=== PATIENT | female | born 1960 | race Caucasian/White ===

== ENCOUNTER 2021-05-21 13:08 | Inpatient (IN) | payer MEDICARE, MEDICAID, SELFPAY ==
--- NOTE | ~2021-05-21 | CT_ITS ---
EXAMINATION: CT CHEST, ABDOMEN AND PELVIS WITH CONTRAST. CLINICAL INFORMATION: Nausea, vomiting and diarrhea. Shortness of breath. COMPARISON: CT abdomen/pelvis dated from 03/08/2018. TECHNIQUE: Multidetector volumetric imaging was performed from the thoracic inlet through the pubic symphysis following administration of 100 mL Omnipaque 300 intravenous contrast. Sagittal and coronal reformatted images were obtained on the technologist's workstation. This CT examination was performed using dose optimization techniques as appropriate, variously including the following: *Automated exposure control *Adjustment of mA and/or kV according to patient size (this includes techniques or standardized protocols for targeted exams where dose is matched to indication/reason for exam; i.e. extremities or head) *Use of iterative reconstruction technique DLP: 742 mGy-cm FINDINGS: CHEST: Lung: Paraseptal and centrilobular emphysematous changes with peripheral reticulation. There are patchy and dense airspace opacities in the left greater than right lungs, occupying the majority of the left lower lobe, left upper lobe and right middle/lower lobes. The right upper lobe is relatively clear. Evaluation of pulmonary nodules is limited due to overlying airspace opacities. However, accounting for these limitations, some subcentimeter pulmonary nodules are visualized, some of which likely represent areas of bronchial wall thickening and mucus impaction. For instance, a 3 mm right upper lobe pulmonary nodule (178:15), a 2 mm right upper lobe pulmonary nodule (181:15), and a 6 mm pulmonary nodule in the right middle lobe (232:15). Mediastinum: Mild cardiomegaly with trace amount of pericardial fluid. Coronary calcifications and atherosclerotic disease of the thoracic aorta which is of normal diameter. There is mediastinal and hilar lymphadenopathy. For instance, a sales promotion representative precarinal lymph node measuring up to 9 mm in maximum short axis (19:11) and a subcarinal lymph node measuring up to 1.2 cm in short axis (22:11). In the right lobe of the thyroid there is a 1 cm hypoattenuating nodule (1:11). Pericardium/Pleura: Small amount of left-sided pleural fluid. No pneumothorax. Chest Wall/Axilla: No axillary lymphadenopathy. No internal mammary lymphadenopathy. ABDOMEN/PELVIS: Peritoneal Space:No significant free air or free fluid identified. Liver, Gallbladder, Biliary Tree: The attenuation of the liver parenchyma is decreased suggesting hepatic steatosis. There are no focal abnormalities. The gallbladder is surgically absent. The common bile duct measures up to 1 cm which is similar since 2018. No intrahepatic biliary ductal dilatation. Pancreas: Unremarkable. Spleen: Unremarkable. Adrenal Glands: No discrete lesions. Kidneys and Ureters: There is redemonstration of a 1.6 cm calculus in the lower pole the right kidney at approximately 11.7 cm from the skin of the posterior axillary line and measuring greater than 700 Hounsfield units (46:2) this appears unchanged since 2018. No other renal calculi. There is no hydronephrosis or hydroureter. There is no perinephric fat stranding. A few tiny hypodensities in both kidneys are too small to characterize but statistically likely represent simple cysts. Bladder: Suboptimally evaluated due to streak artifacts from plates and screws in the pubic symphysis. Gastrointestinal Tract: There are a few prominent loops of small bowel in the proximal jejunum with air-fluid levels, which could be seen with gastroenteritis in the appropriate clinical setting. There is no significant wall thickening or inflammatory changes. The appendix is unremarkable. No bowel obstruction. No pericolic inflammatory changes. Abdominal Wall: Midline surgical scarring. Postsurgical changes in the lower abdominal wall. Lymphovascular Structures: No lymphadenopathy by size criteria. Extensive atherosclerotic disease of the abdominal aorta and its branches. The abdominal aorta is of normal caliber.. Pelvic Viscera: Limited evaluation due to streak artifacts from a right hip prosthesis and hardware within the pubic symphysis. Osseus Structures: Again noted orthopedic plate and screws at the pubic symphysis and right iliac wing. There are 2 screws crossing through the sacrum horizontally. These are similar since since 2018 without evidence of hardware failure. There is a new superior compression deformity at L1, possibly related with a prominent Schmorl's nodule. Multilevel degenerative changes in the thoracolumbar spine There is partial visualization of a right hip arthroplasty. CT/CT abdomen pelvis wo con IMPRESSION: Multifocal airspace opacities, predominantly involving the left upper and left lower lobes, worrisome for a multifocal pneumonia. There are a few subcentimeter pulmonary nodules which are indeterminate and could be reactive. There is a background of emphysematous changes. Recommend interval imaging to ensure resolution of these abnormalities. Trace amount of pericardial fluid. Hepatic steatosis. Unchanged dilatation of the common bile duct since 2018. Nonobstructive 1.6 cm calculus in the lower pole the right kidney, also stable since 2018. Mildly prominent loops of small bowel in the proximal jejunum with air-fluid levels of uncertain clinical significance in the absence of inflammatory changes. This could be seen with gastroenteritis. No bowel obstruction. New superior concavity at L1, correlate clinically for tenderness/pain at this site. However, this is likely degenerative and related with a prominent Schmorl's nodule. Complex postoperative appearance in the pelvis with hardware across the pubic symphysis, right iliac crest and sacrum. No evidence of hardware failure. Partial visualization of a right hip prosthesis.
--- NOTE | ~2021-05-21 | CT_ITS ---
EXAMINATION: CT SOFT TISSUE NECK WITHOUT CONTRAST CLINICAL INFORMATION: Status post tracheostomy. Pain. COMPARISON: CT chest from 05/21/2021. TECHNIQUE: Multidetector helical imaging was performed in the axial plane without intravenous contrast. Multiple axial reformats and coronal/sagittal reconstructions were created the technologist workstation for review. This CT examination was performed using dose optimization techniques as appropriate, variously including the following: *Automated exposure control. *Adjustment of mA and/or kV according to patient size (this includes techniques or standardized protocols for targeted exams where dose is matched to indication/reason for exam; i.e. extremities or head). *Use of iterative reconstruction technique. DLP: 746 mGy-cm FINDINGS: Changes of prior tracheostomy. No significant cutaneous thickening or subcutaneous inflammation. No discrete fluid collection within the deep tissues of the neck. The premaxillary, retromaxillary, pterygopalatine fossa, orbital apical, parapharyngeal, and prelaryngeal adipose tissue is maintained. Normal appearance of the parotid, submandibular, and thyroid glands. Scattered subcentimeter lymph nodes bilaterally, none of which are pathologically enlarged. No demonstrated focal lesion within the intrinsic tissues of the tongue or floor of mouth. Normal mucosal contours of the pharynx and larynx. Normal appearance of the hyoid bone, thyroid cartilage, or cartilaginous trachea. The airways remains widely patent. No radiopaque foreign bodies. The atlantooccipital and atlantoaxial articulations remain well aligned. Straightening of the normal cervical lordosis. Otherwise, normal anatomic alignment. Moderate degenerative disc disease at C5-C6 with disc-osteophyte complex remission. The vertebral body heights are well-maintained. No evidence of acute fracture or subluxation of the cervical spine. There is no prevertebral soft tissue swelling. The visualized portion of the skull base is without significant abnormalities. Mild mucosal thickening of the paranasal sinuses. Chronic depression of the left lamina papyracea. The mastoid air cells and middle ear cavities are clear. No demonstrated significant periapical odontogenic disease. CT Upper Chest: Extensive underlying centrilobular and paraseptal emphysema. Opacification of the left greater than right visualized lungs, better evaluated on concurrent CT of the chest. Nonspecific 0.8 cm lymph node in the lower right paratracheal station. CT/CT soft tissue neck wo con IMPRESSION: 1. Changes of prior tracheostomy. No demonstrated focal lesion, collection, or lymphadenopathy within the soft tissues of the neck. 2. Mild to moderate degenerative spondyloarthropathy of the cervical spine. 3. Airspace opacities in the left greater than right dependent lungs, better evaluated on concurrent CT of the chest.
--- NOTE | ~2021-05-21 | XR_ITS ---
EXAMINATION: XR CHEST CLINICAL INFORMATION: SOB COMPARISON: Chest 03/02/2018 TECHNIQUE: Frontal view of the chest was obtained. FINDINGS: The lungs are well-expanded with patchy opacity seen in the left lung base likely infiltrate or atelectasis. Bilateral increased perihilar interstitial markings are seen throughout both lungs Heart size and pulmonary vascularity is normal. No gross bony abnormality seen. XR/XR chest 1V IMPRESSION: Increased bilateral interstitial markings in both lungs. There is left lower lobe infiltrate.
--- NOTE | ~2021-05-21 | XR_ITS ---
EXAMINATION: XR CHEST CLINICAL INFORMATION: Hemoptysis COMPARISON: CXR from 05/21/2021 TECHNIQUE: 2 views of the chest were obtained. FINDINGS: The emphysematous lungs are well expanded. The patchy airspace opacities in the right lower lobe observed on chest CT of 05/21/2021 are not well visualized. Persistent airspace opacity in the retrocardiac region of left lower lobe. The overall extent of airspace disease in the left lower lobe is slightly worse compared to 05/21/2021. No pleural effusion or pneumothorax. Cardiac silhouette is normal in size. The hilar contours are normal. There is atherosclerotic calcification of the aortic arch. The visualized bones are intact. XR/XR chest 2V IMPRESSION: * The left lower lobe pneumonia has radiographically worsened compared to 05/21/2021. * No pleural effusion or other significant change.
[2021-05-21 13:32] VITALS: BP 207/79; PULSE 99; RESP 20; TEMP 37.5; O2SAT 95; BMI 26.6
--- NOTE | 2021-05-21 14:19 | ECG_ITS ---
Test Reason : SOB Blood Pressure : / mmHG Vent. Rate : 102 BPM Atrial Rate : 102 BPM P-R Int : 154 ms QRS Dur : 084 ms QT Int : 352 ms P-R-T Axes : 074 052 065 degrees QTc Int : 458 ms Sinus tachycardia Nonspecific ST abnormality Possible Left atrial enlargement When compared with ECG of 08-MAR-2018 18:04, Vent. rate has increased BY 39 BPM Referred By: Viviana Calderón Electronically Signed By:SOLEDAD DODD MD
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
[2021-05-21 15:22] LABS: COVID-19 Test Negative (Negative)
[2021-05-21 15:26] LABS: ABG Base Excess 1.1 mmol/L; ABG HCO3 25 mmol/L (22-26); ABG pCO2 38 mmHg (32-45); ABG pCO2 TC 38 mmHg (32-45); ABG pH 7.42 (7.35-7.45); ABG pH TC 7.42 (7.35-7.45); ABG pO2 66 mmHg (83-108); ABG pO2 TC 66 (83-108)
[2021-05-21 15:28] LABS: ABG Refer to POC result
[2021-05-21] MEDS: cefEPime HCl 1 GM in 0.9 % Sodium Chloride 50 ML IV (15:36)
[2021-05-21] MEDS: HYDROmorphone HCl 0.5 MG/0.5 ML SYRINGE IVPUSH ×2 (15:36→19:31)
[2021-05-21 15:45] VITALS: BP 142/78; PULSE 102; RESP 22; TEMP 37.6; O2SAT 89
[2021-05-21 15:55] LABS: Basophils Percent Auto 0.3 % (0-2); Eosinophils Percent Auto 0.1 % (0-4); Imm Gran Abs Auto 0.09 X10*3/uL (0.00-0.03); Imm Gran Pct Auto 0.6 % (0.0-0.4); Lymphocytes Absolute Auto 0.9 X10*3/uL (1.2-4.9); Lymphocytes Percent Auto 6.1 % (20-40); Mean Corpuscular HGB Conc 34.1 g/dl (31.0-35.0); Mean Corpuscular Hemoglobin 34.2 pg (27.0-33.0); Mean Corpuscular Volume 100.2 fL (80-98); Mean Platelet Volume 10.3 fL (9.4-12.3); Monocytes Absolute Auto 0.7 X10*3/uL (0.1-1.2); Monocytes Percent Auto 4.7 % (2-11); Neutrophils Absolute Auto 12.6 X10*3/uL (2.0-8.3); Neutrophils Percent Auto 88.2 % (45-73); Platelet Count 177 X10*3/uL (160-400); Red Blood Count 4.39 X10*6/uL (4.20-5.50); Red Cell Distribution Width 11.9 % (11.0-16.0); White Blood Count 14.3 X10*3/uL (4.8-10.8)
[2021-05-21 16:06] LABS: Anion Gap 15 (12-20); Blood Urea Nitrogen 14 mg/dL (9-16); Calcium 9.6 mg/dL (8.4-10.2); Carbon Dioxide 24 mmol/L (22-29); Chloride 105 mmol/L (96-108); Creatinine Clr Calc Pharmacy 76.2; Estimated Glomerular Filt Rate > 60; Glucose Random 182 mg/dL (60-115); Potassium 4.3 mmol/L (3.3-5.1); Sodium 140 mmol/L (135-145)
[2021-05-21 16:06] LABS: Lactic Acid 1.8 mmol/L (0.5-2.0)
[2021-05-21 16:14] LABS: B Type Natriuretic Peptide 64 pg/mL (<100); Troponin-I High Sensitivity 9.8 ng/L (<3.5-17.0)
[2021-05-21 18:26] LABS: Appearance Urine HAZY; Color Urine YELLOW; Glucose Urine UA NEG (NEG); Leukocyte Esterase Urine NEG (NEG); Nitrite Urine NEG (NEG); Specific Gravity - Urine >= 1.030 (1.005-1.025); UACC Culture Trigger NO; Urine Blood 1+ (NEG); Urine Ketones NEG (NEG); Urine Protein 2+ MG/DL (NEG-TRACE)
[2021-05-21] MEDS: vancomycin HCL 1,000 MG in 0.9 % Sodium Chloride 250 ML 270 MG IV (18:32)
[2021-05-21 18:34] LABS: Calcium Oxalate Crystals Urine TRACE /LPF; Squamous Epithelial Cell Urine 2+ /LPF
--- NOTE | 2021-05-21 19:03 | PC.NURSE ---
PT AWAITING FOR FURTHER ORDERS. WILL CONTINUE TO MONITOR PT.
[2021-05-21 19:31] VITALS: RESP 18
[2021-05-21] MEDS: Albuterol/Iprat 2.5/0.5MG 3 ML AMPUL.NEB INHALE (20:00)
[2021-05-21 20:01] VITALS: PULSE 96; O2SAT 92
--- NOTE | 2021-05-21 20:07 | PC.NURSE ---
FLOOR UNABLE TO TAKE REPORT, WILL RETURN CALL.
[2021-05-21] MEDS: Piperacillin Sodium/Tazobactam 3.375 GM in 0.9 % Sodium Chloride 50 ML IV (20:37)
[2021-05-21] MEDS: Enoxaparin Sodium 40 MG/0.4 ML SYRINGE SUBCUT (20:37)
[2021-05-21] MEDS: methylPREDNISolone Sod Succ 125 MG/2 ML VIAL 60 MG IVPUSH (20:37)
[2021-05-21 21:02] VITALS: BP 131/67; PULSE 97; RESP 16; TEMP 36.5; O2SAT 95
--- NOTE | 2021-05-21 21:28 | MHC.CM.PN ---
CM met with admitted patient with bed assignment, room 371. Pt A&Ox3. IMM reviewed and signed per protocol 05/21/2021@2019. HCP is on file. HCP Roderick Fowler ([phone]) and alternate is Gricelda Fowler ([phone]). Pt contact is Jessie Reed (sister) [phone]). Pt is fully vaccinated with [employer]. Pt lives alone, uses a cane and has [employer] services through [employer]-41hours/week. Pt feels safe at home. Pt does not feel she will need [facility] services at D/C. D/C plan is home without services. Pt to arrange transportation home. CM to follow for d/c needs.
[2021-05-21 23:41] VITALS: BP 145/91; PULSE 85; RESP 20; TEMP 36; O2SAT 94
[2021-05-22] VITALS (11 sets, daily range): BP systolic 136–176; BP diastolic 63–87; PULSE 76–95; RESP 18–22; TEMP 36–36.7; O2SAT 91–97
[2021-05-22] MEDS: Piperacillin Sodium/Tazobactam 3.375 GM in 0.9 % Sodium Chloride 50 ML IV ×3 (04:48→20:14)
[2021-05-22] MEDS: methylPREDNISolone Sod Succ 125 MG/2 ML VIAL 60 MG IVPUSH ×3 (04:54→20:13)
[2021-05-22 06:56] LABS: Basophils Percent Auto 0.1 % (0-2); Hematocrit 40.9 % (37-47); Imm Gran Pct Auto 0.6 % (0.0-0.4); Lymphocytes Absolute Auto 0.9 X10*3/uL (1.2-4.9); MANUAL DIFF FLAG SCAN; Mean Corpuscular HGB Conc 34.2 g/dl (31.0-35.0); Mean Corpuscular Hemoglobin 34.5 pg (27.0-33.0); Mean Corpuscular Volume 100.7 fL (80-98); Mean Platelet Volume 10.7 fL (9.4-12.3); Monocytes Absolute Auto 0.4 X10*3/uL (0.1-1.2); Monocytes Percent Auto 2.4 % (2-11); Neutrophils Absolute Auto 14.1 X10*3/uL (2.0-8.3); Neutrophils Percent Auto 90.9 % (45-73); Platelet Count 181 X10*3/uL (160-400); Red Blood Count 4.06 X10*6/uL (4.20-5.50); Red Cell Distribution Width 11.9 % (11.0-16.0); SCAN SMEAR FLAG 1; White Blood Count 15.5 X10*3/uL (4.8-10.8)
[2021-05-22 07:20] LABS: Anion Gap 12 (12-20); Blood Urea Nitrogen 13 mg/dL (9-16); Carbon Dioxide 28 mmol/L (22-29); Chloride 103 mmol/L (96-108); Creatinine Clr Calc Pharmacy 79.1; Estimated Glomerular Filt Rate > 60; Glucose Random 203 mg/dL (60-115); Sodium 139 mmol/L (135-145)
[2021-05-22] MEDS: vancomycin HCL 1,000 MG in 0.9 % Sodium Chloride 250 ML 270 MG IV ×2 (07:34→18:48)
[2021-05-22 08:02] LABS: SLIDE REVIEW VERIFIED
[2021-05-22] MEDS: Albuterol/Iprat 2.5/0.5MG 3 ML AMPUL.NEB INHALE ×4 (08:43→20:48)
--- NOTE | 2021-05-22 11:51 | PM.IMHP ---
History of Present Illness Date of Service: 05/21/21 61-year-old female presents with worsening shortness of breath over the past week prior to her admission. 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 Patient carries a history of diabetes type 2 and hypertension which has been well controlled by her account. She states she does not have difficulty breathing usually at home however last week developed low-grade fevers and shortness of breath. In the emergency room CT scan was significant can for multi lobar pneumonia; she had a significant O2 requirement requiring non-rebreather. At this point time she will be admitted for pneumonia and supplemental O2 along with pulmonary toilet Review of Systems Review of Systems: Admits to shortness of breath worse with exertion Denies chest pain States diarrhea x1 week in the absence of nausea and vomit PMFSH Medical History Anxiety Depressed Diabetes HTN (hypertension) Pertinent family history: . Social History Household Members: None Housing: Apartment Alcohol intake: never Patient Tobacco Use Status: Former Tobacco user Use of substances other than those prescribed or required for medical reasons: No Currently Displaying Signs/Symptoms of Drug Intoxication Withdrawal: No Have you been hit, kicked, punched, or otherwise hurt by someone within the past year? If so, by whom?: No Do you feel safe in your current relationship?: No Current Relationship Is there a partner from a previous relationship who is making you feel unsafe now?: No Are you made to feel afraid or neglected: No Advance Directives: Yes Advance Directives Information Provided: Yes Advance Directives on File: No Advance Directives Date on File: 05/21/21 Do you have thoughts of harming others: None Do you have a plan to hurt others: No Plan Recently lost weight without trying: No Nutrition Risks: No Nutritional Risk Patient : No service: No Current occupational status: disabled Meds Allergies Allergy/AdvReac Type Severity Reaction Status Date / Time Iodinated Contrast Media Allergy Unknown UNKNOWN Unverified 04/30/20 14:59 [IV Dye, Iodine Containing] zolpidem [From AMBIEN] Allergy Unknown UNKNOWN Unverified 04/30/20 14:59 iv dye as a baby Allergy Unknown Uncoded 07/24/17 00:00 Active Medications: Current Medications Albuterol/Ipratropium (Albuterol/Iprat 2.5/0.5mg 3 Ml Ampul.Neb) 3 ml INHALE RQ4H WHILE AWAKE [facility] Last Admin: 05/22/21 08:43 Dose: 3 ml Documented by: Enoxaparin Sodium (Enoxaparin Sodium 40 Mg/0.4 Ml Syringe) 40 mg SUBCUT Q24H [facility] Last Admin: 05/21/21 20:37 Dose: 40 mg Documented by: Piperacillin Sod/Tazobactam (Sod 3.375 gm/ Sodium Chloride) 50 mls @ 100 mls/hr IV Q8H [facility] Last Infusion: 05/22/21 05:30 Dose: Infused Documented by: Vancomycin HCl 1,000 mg/ (Sodium Chloride) 270 mls @ 270 mls/hr IV Q12H [facility] Last Infusion: 05/22/21 08:45 Dose: Infused Documented by: Melatonin (Melatonin 3 Mg Tablet) 6 mg PO BEDTIME PRN PRN Reason: Insomnia Methylprednisolone Sodium Succinate (Methylprednisolone Sod Succ 125 Mg/2 Ml Vial) 60 mg IVPUSH Q8H [facility] Last Admin: 05/22/21 04:54 Dose: 60 mg Documented by: Ondansetron HCl (Ondansetron Hcl 4 Mg/2 Ml Vial) 4 mg IVPUSH Q8H PRN PRN Reason: Nausea and Vomiting Pharmacy Consult (Consult Rx Vancomycin Dosing) 1 each MISCELLANE DAILY PRN PRN Reason: Consult order Sodium Chloride (0.9 % Sodium Chloride Flush 3 Ml Syringe) 3 ml IVFLUSH QSHIFT [facility] Last Admin: 05/22/21 07:38 Dose: Not Given Documented by: Physical Exam Vital Signs and Narrative: Vital Signs: Last Vital Signs Temp 97.5 F 05/22/21 07:30 Pulse 95 05/22/21 11:33 Resp 21 H 05/22/21 07:30 BP 161/78 H 05/22/21 07:30 Pulse Ox 93 05/22/21 07:30 Body Mass Index 26.6 Const: Other: Awake alert oriented x3 in no acute distress. She is able to speak in short sentences in a semi-Marino's position HENMT: Other: Oropharynx is clear; membranes are dry Chest: Other: No intercostal or supraclavicular retractions noted Resp: Other: Diminished breath sounds throughout with scattered expiratory wheezes at bases Cardio: Other: No S4; positive S1-S2; no S3 murmurs or gallops GI: Other: Nontender nondistended normoactive bowel sounds. There is no appreciable hepatosplenomegaly Neuro: Other: Age-appropriate; nonfocal Extrem: Other: Bilateral dependent edema noted Results Labs CBC and Chem 7: 05/22/21 06:08 05/22/21 06:08 Labs: Laboratory Results - last 24 hr 05/21/21 05/21/21 05/21/21 14:51 15:00 15:18 MCV MCH MCHC RDW Plt Count MPV Immature Gran % (Auto) Neut % (Auto) Lymph % (Auto) [place] % (Auto) Eos % (Auto) Baso % (Auto) Lymph # (Auto) [place] # (Auto) Eos # (Auto) Baso # (Auto) Abs Immat Gran (auto) Absolute Neuts (auto) Absolute Nucleated RBC Nucleated RBC % (auto) Smear Tech's Comments O2 Saturation 88.0 ABG pH at Pt Temp 7.42 ABG pH (Temp Correct) 7.42 ABG pCO2 at Pt Temp 38 ABG pCO2 (Temp Corrct 38 ABG pO2 at Pt Temp 66 L ABG pO2 (Temp Correct 66 L ABG HCO3 25 ABG Base Excess (Actual) 1.1 Anion Gap Estim Creat Clear Calc Estimated GFR Random Glucose Lactic Acid Calcium Troponin I High Sens B-Natriuretic Peptide Urine Color Urine Appearance Urine pH Ur Specific [place] Urine Protein Urine Glucose (UA) Urine Ketones Urine Blood Urine Nitrite Ur Leukocyte Esterase Urine RBC Urine WBC Ur Squamous Epith Cells Calcium Oxalate Crystal Urine Bacteria Coronavirus (PCR) Cancelled COVID-19 (LEONARDA) Negative COVID-19 Clin Com See Note Influenza Type A (PCR) Cancelled Influenza Type B (PCR) Cancelled RSV RNA Qual (PCR) Cancelled 05/21/21 05/21/21 05/21/21 15:42 15:42 15:43 MCV 100.2 H MCH 34.2 H MCHC 34.1 RDW 11.9 Plt Count 177 MPV 10.3 Immature Gran % (Auto) 0.6 H Neut % (Auto) 88.2 H Lymph % (Auto) 6.1 L [place] % (Auto) 4.7 Eos % (Auto) 0.1 Baso % (Auto) 0.3 Lymph # (Auto) 0.9 L [place] # (Auto) 0.7 Eos # (Auto) 0.0 Baso # (Auto) 0.0 Abs Immat Gran (auto) 0.09 H Absolute Neuts (auto) 12.6 H Absolute Nucleated RBC 0.000 Nucleated RBC % (auto) 0.0 Smear Tech's Comments O2 Saturation ABG pH at Pt Temp ABG pH (Temp Correct) ABG pCO2 at Pt Temp ABG pCO2 (Temp Corrct ABG pO2 at Pt Temp ABG pO2 (Temp Correct ABG HCO3 ABG Base Excess (Actual) Anion Gap 15 Estim Creat Clear Calc 76.2 Estimated GFR > 60 Random Glucose 182 H Lactic Acid Calcium 9.6 Troponin I High Sens 9.8 B-Natriuretic Peptide 64 Urine Color Urine Appearance Urine pH Ur Specific [place] Urine Protein Urine Glucose (UA) Urine Ketones Urine Blood Urine Nitrite Ur Leukocyte Esterase Urine RBC Urine WBC Ur Squamous Epith Cells Calcium Oxalate Crystal Urine Bacteria Coronavirus (PCR) COVID-19 ([facility]ON[facility]DA) COVID-19 Clin Com Influenza Type A (PCR) Influenza Type B (PCR) RSV RNA Qual (PCR) 05/21/21 05/21/21 05/22/21 15:43 18:20 06:08 MCV 100.7 H MCH 34.5 H MCHC 34.2 RDW 11.9 Plt Count 181 MPV 10.7 Immature Gran % (Auto) 0.6 H Neut % (Auto) 90.9 H Lymph % (Auto) 6.0 L [place] % (Auto) 2.4 Eos % (Auto) 0.0 Baso % (Auto) 0.1 Lymph # (Auto) 0.9 L [place] # (Auto) 0.4 Eos # (Auto) 0.0 Baso # (Auto) 0.0 Abs Immat Gran (auto) 0.10 H Absolute Neuts (auto) 14.1 H Absolute Nucleated RBC 0.000 Nucleated RBC % (auto) 0.0 Smear Tech's Comments VERIFIED O2 Saturation ABG pH at Pt Temp ABG pH (Temp Correct) ABG pCO2 at Pt Temp ABG pCO2 (Temp Corrct ABG pO2 at Pt Temp ABG pO2 (Temp Correct ABG HCO3 ABG Base Excess (Actual) Anion Gap Estim Creat Clear Calc Estimated GFR Random Glucose Lactic Acid 1.8 Calcium Troponin I High Sens B-Natriuretic Peptide Urine Color YELLOW Urine Appearance HAZY Urine pH 6.0 Ur Specific [place] >= 1.030 H Urine Protein 2+ H Urine Glucose (UA) NEG Urine Ketones NEG Urine Blood 1+ H Urine Nitrite NEG Ur Leukocyte Esterase NEG Urine RBC 5-9 H Urine WBC 1-4 Ur Squamous Epith Cells 2+ Calcium Oxalate Crystal TRACE Urine Bacteria NONE Coronavirus (PCR) COVID-19 ([facility]ON[facility]DA) COVID-19 Clin Com Influenza Type A (PCR) Influenza Type B (PCR) RSV RNA Qual (PCR) 05/22/21 06:08 MCV MCH MCHC RDW Plt Count MPV Immature Gran % (Auto) Neut % (Auto) Lymph % (Auto) [place] % (Auto) Eos % (Auto) Baso % (Auto) Lymph # (Auto) [place] # (Auto) Eos # (Auto) Baso # (Auto) Abs Immat Gran (auto) Absolute Neuts (auto) Absolute Nucleated RBC Nucleated RBC % (auto) Smear Tech's Comments O2 Saturation ABG pH at Pt Temp ABG pH (Temp Correct) ABG pCO2 at Pt Temp ABG pCO2 (Temp Corrct ABG pO2 at Pt Temp ABG pO2 (Temp Correct ABG HCO3 ABG Base Excess (Actual) Anion Gap 12 Estim Creat Clear Calc 79.1 Estimated GFR > 60 Random Glucose 203 H Lactic Acid Calcium 9.0 D Troponin I High Sens B-Natriuretic Peptide Urine Color Urine Appearance Urine pH Ur Specific [place] Urine Protein Urine Glucose (UA) Urine Ketones Urine Blood Urine Nitrite Ur Leukocyte Esterase Urine RBC Urine WBC Ur Squamous Epith Cells Calcium Oxalate Crystal Urine Bacteria Coronavirus (PCR) COVID-19 ([facility]DA) COVID-19 Clin Com Influenza Type A (PCR) Influenza Type B (PCR) RSV RNA Qual (PCR) Imaging Radiologist's Impressions: Impressions Abdomen/Pelvis CT 05/21/21 14:19 IMPRESSION: Multifocal airspace opacities, predominantly involving the left upper and left lower lobes, worrisome for a multifocal pneumonia. There are a few subcentimeter pulmonary nodules which are indeterminate and could be reactive. There is a background of emphysematous changes. Recommend interval imaging to ensure resolution of these abnormalities. Trace amount of pericardial fluid. Hepatic steatosis. Unchanged dilatation of the common bile duct since 2018. Nonobstructive 1.6 cm calculus in the lower pole the right kidney, also stable since 2018. Mildly prominent loops of small bowel in the proximal jejunum with air-fluid levels of uncertain clinical significance in the absence of inflammatory changes. This could be seen with gastroenteritis. No bowel obstruction. New superior concavity at L1, correlate clinically for tenderness/pain at this site. However, this is likely degenerative and related with a prominent Schmorl's nodule. Complex postoperative appearance in the pelvis with hardware across the pubic symphysis, right iliac crest and sacrum. No evidence of hardware failure. Partial visualization of a right hip prosthesis. Chest CT 05/21/21 14:19 IMPRESSION: Multifocal airspace opacities, predominantly involving the left upper and left lower lobes, worrisome for a multifocal pneumonia. There are a few subcentimeter pulmonary nodules which are indeterminate and could be reactive. There is a background of emphysematous changes. Recommend interval imaging to ensure resolution of these abnormalities. Trace amount of pericardial fluid. Hepatic steatosis. Unchanged dilatation of the common bile duct since 2018. Nonobstructive 1.6 cm calculus in the lower pole the right kidney, also stable since 2018. Mildly prominent loops of small bowel in the proximal jejunum with air-fluid levels of uncertain clinical significance in the absence of inflammatory changes. This could be seen with gastroenteritis. No bowel obstruction. New superior concavity at L1, correlate clinically for tenderness/pain at this site. However, this is likely degenerative and related with a prominent Schmorl's nodule. Complex postoperative appearance in the pelvis with hardware across the pubic symphysis, right iliac crest and sacrum. No evidence of hardware failure. Partial visualization of a right hip prosthesis. Chest X-Ray 05/21/21 14:19 IMPRESSION: Increased bilateral interstitial markings in both lungs. There is left lower lobe infiltrate. Soft Tissue Neck CT 05/21/21 14:19 IMPRESSION: 1. Changes of prior tracheostomy. No demonstrated focal lesion, collection, or lymphadenopathy within the soft tissues of the neck. 2. Mild to moderate degenerative spondyloarthropathy of the cervical spine. 3. Airspace opacities in the left greater than right dependent lungs, better evaluated on concurrent CT of the chest. Assessment and Plan (1) Pneumonia: Qualifiers: Laterality: bilateral Lung location: unspecified part of lung Pneumonia type: due to unspecified organism Qualified Code(s): J18.9 - Pneumonia, unspecified organism Status: Acute (2) HTN (hypertension): Status: Acute (3) DMII (diabetes mellitus, type 2): Status: Acute 61-year-old female presents with worsening shortness of breath over the 1 week prior to admission culminating in inability to walk across room without being markedly short of breath. ER evaluation including CT of the chest consistent with multilobar pneumonia. At this time, given her significant O2 requirement and overall presentation she will be admitted for treatment for the same 1. Multi lobar pneumonia Blood cultures drawn in the ER; pending at this time Will treat with Zosyn/vancomycin; adjust based on forthcoming data Aggressive pulmonary toilet; maintain sats greater than or equal to 92% Pulse dose steroids at this time..... Switch to oral pending response COVID-19 negative 2. Hypertension On no meds at home; will adjust as pressures indication 3 Diabetes type 2 Sliding scale insulin with p.o. sees t.i.d. and a.c. Adjust as indicated 4. Full code 5. DVT prophylaxis: Lovenox Further plans based on clinical response and forthcoming data Quality Stroke Does the patient have a stroke diagnosis?: No VTE Prior VTE?: No VTE Risk Level:: Medical - moderate - high VTE Device Contraindication: Treatment Not Indicated VTE Drug Contraindication: N/A - Med Ordered
--- NOTE | 2021-05-22 12:06 | HO.PM.IMPN ---
Subjective Subjective Date of Service: 05/24/21 Interval History: Improved overnight; O2 now at 4 liters/minute via nasal cannula satting 94%. No acute issues Review of Systems Denies chest pain Shortness of breath improved denies nausea vomiting diarrhea Physical Exam Vital Signs: Vital Signs: Last Vital Signs Temp 98.0 F 05/22/21 11:49 Pulse 84 05/22/21 11:49 Resp 20 05/22/21 11:49 BP 136/63 05/22/21 11:49 Pulse Ox 92 05/22/21 11:49 Body Mass Index 26.6 Const: Other: Awake alert oriented x3 in no acute distress. She is able to speak in short sentences; up in chair HENMT: Other: Oropharynx is clear; membranes are moist Chest: Other: No intercostal or supraclavicular retractions noted Resp: Other: Diminished breath sounds throughout with inceased scattered expiratory wheezes at bases; improved last 24 hours Cardio: Other: No S4; positive S1-S2; no S3 murmurs or gallops GI: Other: Nontender nondistended normoactive bowel sounds. There is no appreciable hepatosplenomegaly Neuro: Other: Age-appropriate; nonfocal Extrem: Other: Bilateral dependent edema noted Objective Data Active Medications Albuterol/Ipratropium (Albuterol/Iprat 2.5/0.5mg 3 Ml Ampul.Neb) 3 ml INHALE RQ4H WHILE AWAKE [facility] Last Admin: 05/22/21 08:43 Dose: 3 ml Documented by: IVONE Enoxaparin Sodium (Enoxaparin Sodium 40 Mg/0.4 Ml Syringe) 40 mg SUBCUT Q24H [facility] Last Admin: 05/21/21 20:37 Dose: 40 mg Documented by: JESUS Piperacillin Sod/Tazobactam (Sod 3.375 gm/ Sodium Chloride) 50 mls @ 100 mls/hr IV Q8H [facility] Last Infusion: 05/22/21 05:30 Dose: 0 mls/hr Documented by: DEMETRIA Vancomycin HCl 1,000 mg/ (Sodium Chloride) 270 mls @ 270 mls/hr IV Q12H [facility] Last Infusion: 05/22/21 08:45 Dose: 0 mls/hr Documented by: CARROL Melatonin (Melatonin 3 Mg Tablet) 6 mg PO BEDTIME PRN PRN Reason: Insomnia Methylprednisolone Sodium Succinate (Methylprednisolone Sod Succ 125 Mg/2 Ml Vial) 60 mg IVPUSH Q8H [facility] Last Admin: 05/22/21 04:54 Dose: 60 mg Documented by: DEMETRIA Ondansetron HCl (Ondansetron Hcl 4 Mg/2 Ml Vial) 4 mg IVPUSH Q8H PRN PRN Reason: Nausea and Vomiting Pharmacy Consult (Consult Rx Vancomycin Dosing) 1 each MISCELLANE DAILY PRN PRN Reason: Consult order Sodium Chloride (0.9 % Sodium Chloride Flush 3 Ml Syringe) 3 ml IVFLUSH QSHIFT [facility] Last Admin: 05/22/21 07:38 Dose: Not Given Documented by: CARROL Non-Admin Reason: IV Running Labs CBC & Chem 7: 05/24/21 05:20 05/24/21 05:20 Labs: Laboratory Results - last 24 hr 05/21/21 05/21/21 05/21/21 14:51 15:00 15:18 MCV MCH MCHC RDW Plt Count MPV Immature Gran % (Auto) Neut % (Auto) Lymph % (Auto) [place] % (Auto) Eos % (Auto) Baso % (Auto) Lymph # (Auto) [place] # (Auto) Eos # (Auto) Baso # (Auto) Abs Immat Gran (auto) Absolute Neuts (auto) Absolute Nucleated RBC Nucleated RBC % (auto) Smear Tech's Comments O2 Saturation 88.0 ABG pH at Pt Temp 7.42 ABG pH (Temp Correct) 7.42 ABG pCO2 at Pt Temp 38 ABG pCO2 (Temp Corrct 38 ABG pO2 at Pt Temp 66 L ABG pO2 (Temp Correct 66 L ABG HCO3 25 ABG Base Excess (Actual) 1.1 Anion Gap Estim Creat Clear Calc Estimated GFR Random Glucose Lactic Acid Calcium Troponin I High Sens B-Natriuretic Peptide Urine Color Urine Appearance Urine pH Ur Specific [place] Urine Protein Urine Glucose (UA) Urine Ketones Urine Blood Urine Nitrite Ur Leukocyte Esterase Urine RBC Urine WBC Ur Squamous Epith Cells Calcium Oxalate Crystal Urine Bacteria Coronavirus (PCR) Cancelled COVID-19 ([facility]) Negative COVID-19 Clin Com See Note Influenza Type A (PCR) Cancelled Influenza Type B (PCR) Cancelled RSV RNA Qual (PCR) Cancelled 05/21/21 05/21/21 05/21/21 15:42 15:42 15:43 MCV 100.2 H MCH 34.2 H MCHC 34.1 RDW 11.9 Plt Count 177 MPV 10.3 Immature Gran % (Auto) 0.6 H Neut % (Auto) 88.2 H Lymph % (Auto) 6.1 L [place] % (Auto) 4.7 Eos % (Auto) 0.1 Baso % (Auto) 0.3 Lymph # (Auto) 0.9 L [place] # (Auto) 0.7 Eos # (Auto) 0.0 Baso # (Auto) 0.0 Abs Immat Gran (auto) 0.09 H Absolute Neuts (auto) 12.6 H Absolute Nucleated RBC 0.000 Nucleated RBC % (auto) 0.0 Smear Tech's Comments O2 Saturation ABG pH at Pt Temp ABG pH (Temp Correct) ABG pCO2 at Pt Temp ABG pCO2 (Temp Corrct ABG pO2 at Pt Temp ABG pO2 (Temp Correct ABG HCO3 ABG Base Excess (Actual) Anion Gap 15 Estim Creat Clear Calc 76.2 Estimated GFR > 60 Random Glucose 182 H Lactic Acid Calcium 9.6 Troponin I High Sens 9.8 B-Natriuretic Peptide 64 Urine Color Urine Appearance Urine pH Ur Specific [place] Urine Protein Urine Glucose (UA) Urine Ketones Urine Blood Urine Nitrite Ur Leukocyte Esterase Urine RBC Urine WBC Ur Squamous Epith Cells Calcium Oxalate Crystal Urine Bacteria Coronavirus (PCR) COVID-19 ([facility]) COVID-19 Clin Com Influenza Type A (PCR) Influenza Type B (PCR) RSV RNA Qual (PCR) 05/21/21 05/21/21 05/22/21 15:43 18:20 06:08 MCV 100.7 H MCH 34.5 H MCHC 34.2 RDW 11.9 Plt Count 181 MPV 10.7 Immature Gran % (Auto) 0.6 H Neut % (Auto) 90.9 H Lymph % (Auto) 6.0 L [place] % (Auto) 2.4 Eos % (Auto) 0.0 Baso % (Auto) 0.1 Lymph # (Auto) 0.9 L [place] # (Auto) 0.4 Eos # (Auto) 0.0 Baso # (Auto) 0.0 Abs Immat Gran (auto) 0.10 H Absolute Neuts (auto) 14.1 H Absolute Nucleated RBC 0.000 Nucleated RBC % (auto) 0.0 Smear Tech's Comments VERIFIED O2 Saturation ABG pH at Pt Temp ABG pH (Temp Correct) ABG pCO2 at Pt Temp ABG pCO2 (Temp Corrct ABG pO2 at Pt Temp ABG pO2 (Temp Correct ABG HCO3 ABG Base Excess (Actual) Anion Gap Estim Creat Clear Calc Estimated GFR Random Glucose Lactic Acid 1.8 Calcium Troponin I High Sens B-Natriuretic Peptide Urine Color YELLOW Urine Appearance HAZY Urine pH 6.0 Ur Specific [place] >= 1.030 H Urine Protein 2+ H Urine Glucose (UA) NEG Urine Ketones NEG Urine Blood 1+ H Urine Nitrite NEG Ur Leukocyte Esterase NEG Urine RBC 5-9 H Urine WBC 1-4 Ur Squamous Epith Cells 2+ Calcium Oxalate Crystal TRACE Urine Bacteria NONE Coronavirus (PCR) COVID-19 ([facility]) COVID-19 Clin Com Influenza Type A (PCR) Influenza Type B (PCR) RSV RNA Qual (PCR) 05/22/21 06:08 MCV MCH MCHC RDW Plt Count MPV Immature Gran % (Auto) Neut % (Auto) Lymph % (Auto) [place] % (Auto) Eos % (Auto) Baso % (Auto) Lymph # (Auto) [place] # (Auto) Eos # (Auto) Baso # (Auto) Abs Immat Gran (auto) Absolute Neuts (auto) Absolute Nucleated RBC Nucleated RBC % (auto) Smear Tech's Comments O2 Saturation ABG pH at Pt Temp ABG pH (Temp Correct) ABG pCO2 at Pt Temp ABG pCO2 (Temp Corrct ABG pO2 at Pt Temp ABG pO2 (Temp Correct ABG HCO3 ABG Base Excess (Actual) Anion Gap 12 Estim Creat Clear Calc 79.1 Estimated GFR > 60 Random Glucose 203 H Lactic Acid Calcium 9.0 D Troponin I High Sens B-Natriuretic Peptide Urine Color Urine Appearance Urine pH Ur Specific [place] Urine Protein Urine Glucose (UA) Urine Ketones Urine Blood Urine Nitrite Ur Leukocyte Esterase Urine RBC Urine WBC Ur Squamous Epith Cells Calcium Oxalate Crystal Urine Bacteria Coronavirus (PCR) COVID-19 ([facility]DA) COVID-19 Clin Com Influenza Type A (PCR) Influenza Type B (PCR) RSV RNA Qual (PCR) Assessment and Plan (1) Pneumonia: Status: Acute (2) HTN (hypertension): Status: Acute (3) DMII (diabetes mellitus, type 2): Status: Acute Assessment and Plan: 61-year-old female presents with worsening shortness of breath over the 1 week prior to admission culminating in inability to walk across room without being markedly short of breath. ER evaluation including CT of the chest consistent with multilobar pneumonia. Slowly improving with decreased O2 requirement 1. Multi lobar pneumonia Improvement noted Continue with Zosyn/vancomycin; Aggressive pulmonary toilet; maintain sats greater than or equal to 92% Pulse dose steroids at this time..... Switch to oral pending response COVID-19 negative 2. Hypertension On no meds at home; will adjust as pressures indication 3 Diabetes type 2 Sliding scale insulin with p.o. sees t.i.d. and a.c. Adjust as indicated 4. Full code 5. DVT prophylaxis: Lovenox Further plans based on clinical response and forthcoming data Quality Stroke Does the patient have a stroke diagnosis?: No VTE Prior VTE?: No VTE Risk Level:: Medical - moderate - high VTE Device Contraindication: Treatment Not Indicated VTE Drug Contraindication: N/A - Med Ordered
[2021-05-22 16:14] LABS: Glucose, Whole Blood 249 mg/dL (60-115)
[2021-05-22] MEDS: 0.9 % Sodium Chloride Flush 3 ML SYRINGE IVFLUSH (16:52)
[2021-05-22] MEDS: Insulin Lispro 100 UNIT/ML 3 ML VIAL SUBCUT ×2 (16:52→21:18)
[2021-05-22] MEDS: Atorvastatin Calcium 20 MG TABLET PO (20:14)
[2021-05-22] MEDS: carvediloL 3.125 MG TABLET PO (20:14)
[2021-05-22] MEDS: Sucralfate 1 GM TABLET PO (20:14)
[2021-05-22] MEDS: Enoxaparin Sodium 40 MG/0.4 ML SYRINGE SUBCUT (20:21)
[2021-05-22] MEDS: Temazepam 15 MG CAPSULE 30 MG PO (20:21)
[2021-05-22 20:41] LABS: Glucose, Whole Blood 229 mg/dL (60-115)
--- NOTE | 2021-05-22 22:13 | P.CNID_ITS ---
History of Present Illness Data of Consult Service Date: 05/22/21 Requesting physician: Ra Perez Primary Care Provider: Meghan Collier NP HPI Reason for consult: pneumonia She lives in community. She had one day discomfort tracheal area and small amounts of hemoptysis. She has increasing shortness of breath and now is on nonrebreather She has diabetes. She has no travel. 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 [facility] Past Medical History Medical History Anxiety Depressed Diabetes HTN (hypertension) Family History Family history: reviewed and not pertinent Social History Social History Household Members: None Housing: Apartment Alcohol intake: never Patient Tobacco Use Status: Former Tobacco user Use of substances other than those prescribed or required for medical reasons: No Currently Displaying Signs/Symptoms of Drug Intoxication Withdrawal: No Have you been hit, kicked, punched, or otherwise hurt by someone within the past year? If so, by whom?: No Do you feel safe in your current relationship?: No Current Relationship Is there a partner from a previous relationship who is making you feel unsafe now?: No Are you made to feel afraid or neglected: No Advance Directives: Yes Advance Directives Information Provided: Yes Advance Directives on File: No Advance Directives Date on File: 05/21/21 Do you have thoughts of harming others: None Do you have a plan to hurt others: No Plan Recently lost weight without trying: No Nutrition Risks: No Nutritional Risk Patient : No service: No Current occupational status: disabled Meds Allergies Allergy/AdvReac Type Severity Reaction Status Date / Time Iodinated Contrast Media Allergy Unknown UNKNOWN Unverified 04/30/20 14:59 [IV Dye, Iodine Containing] zolpidem [From AMBIEN] Allergy Unknown UNKNOWN Unverified 04/30/20 14:59 iv dye as a baby Allergy Unknown Uncoded 07/24/17 00:00 Active Medications: Current Medications Albuterol/Ipratropium (Albuterol/Iprat 2.5/0.5mg 3 Ml Ampul.Neb) 3 ml INHALE RQ4H WHILE AWAKE [facility]EVEN Last Admin: 05/22/21 20:48 Dose: 3 ml Documented by: Aripiprazole (Aripiprazole 5 Mg Tablet) 5 mg PO DAILY [facility] Atorvastatin Calcium (Atorvastatin Calcium 20 Mg Tablet) 20 mg PO BEDTIME [facility] Last Admin: 05/22/21 20:14 Dose: 20 mg Documented by: Bupropion HCl (Bupropion Hcl Xl 150 Mg Tab.Er.24h) 150 mg PO DAILY [facility] Carvedilol (Carvedilol 3.125 Mg Tablet) 3.125 mg PO BID [facility]; Protocol Last Admin: 05/22/21 20:14 Dose: 3.125 mg Documented by: Enoxaparin Sodium (Enoxaparin Sodium 40 Mg/0.4 Ml Syringe) 40 mg SUBCUT Q24H [facility] Last Admin: 05/22/21 20:21 Dose: 40 mg Documented by: Fluticasone/Vilanterol (Fluticasone/Vilanterol 100/25 Blst.W.Dev) 1 puff INHALE DAILY [facility] Piperacillin Sod/Tazobactam (Sod 3.375 gm/ Sodium Chloride) 50 mls @ 100 mls/hr IV Q8H [facility] Last Infusion: 05/22/21 20:54 Dose: Infused Documented by: Vancomycin HCl 1,000 mg/ (Sodium Chloride) 270 mls @ 270 mls/hr IV Q12H [facility] Last Infusion: 05/22/21 20:27 Dose: Infused Documented by: Insulin Human Lispro (Insulin Lispro 100 Unit/Ml 3 Ml Vial) 0 unit SUBCUT QIDACHS [facility]; Protocol Last Admin: 05/22/21 21:18 Dose: 4 unit Documented by: Melatonin (Melatonin 3 Mg Tablet) 6 mg PO BEDTIME PRN PRN Reason: Insomnia Methylprednisolone Sodium Succinate (Methylprednisolone Sod Succ 125 Mg/2 Ml Vial) 60 mg IVPUSH Q8H [facility] Last Admin: 05/22/21 20:13 Dose: 60 mg Documented by: Omeprazole (Omeprazole 20 Mg Capsule.Dr) 20 mg PO DAILY@0630 [facility] Ondansetron HCl (Ondansetron Hcl 4 Mg/2 Ml Vial) 4 mg IVPUSH Q8H PRN PRN Reason: Nausea and Vomiting Pharmacy Consult (Consult Rx Vancomycin Dosing) 1 each MISCELLANE DAILY PRN PRN Reason: Consult order Sertraline HCl (Sertraline Hcl 100 Mg Tablet) 100 mg PO DAILY [facility] Sodium Chloride (0.9 % Sodium Chloride Flush 3 Ml Syringe) 3 ml IVFLUSH QSHIFT [facility] Last Admin: 05/22/21 16:52 Dose: 3 ml Documented by: Sucralfate (Sucralfate 1 Gm Tablet) 1 gm PO BID [facility] Last Admin: 05/22/21 20:14 Dose: 1 gm Documented by: Temazepam (Temazepam 15 Mg Capsule) 30 mg PO BEDTIME PRN PRN Reason: Insomnia Last Admin: 05/22/21 20:21 Dose: 30 mg Documented by: Home Medications Medication Instructions Recorded Confirmed Last Taken Type amoxicillin 875 mg-potassium 1 tab PO BID 05/22/21 05/22/21 Unknown History clavulanate 125 mg tablet anastrozole 1 mg tablet 1 tab PO DAILY 05/22/21 05/22/21 Unknown History aripiprazole 5 mg tablet 1 tab PO DAILY 05/22/21 05/22/21 Unknown History bupropion HCl 150 mg 24 hr tablet, 1 tab PO QAM 05/22/21 05/22/21 Unknown History extended release carvedilol 3.125 mg tablet 1 tab PO BID 05/22/21 05/22/21 Unknown History fluticasone furoate 100 1 puff INHALATION DAILY 05/22/21 05/22/21 Unknown History mcg-vilanterol 25 mcg/dose inhalation powder (Breo Ellipta) fluticasone propionate 50 spray INTRANASAL 05/22/21 Unknown History mcg/actuation nasal spray,suspension gemfibrozil 600 mg tablet 1 tab PO BID 05/22/21 05/22/21 Unknown History lisinopril 10 mg tablet 1 tab PO DAILY 05/22/21 05/22/21 Unknown History metformin 500 mg tablet 1 tab PO DAILY 05/22/21 05/22/21 Unknown History pantoprazole 20 mg tablet,delayed 1 tab PO DAILY 05/22/21 05/22/21 Unknown History release sertraline 100 mg tablet 1 tab PO DAILY 05/22/21 05/22/21 Unknown History simvastatin 40 mg tablet 1 tab PO BEDTIME 05/22/21 05/22/21 Unknown History sucralfate 1 gram tablet 1 tab PO BID 05/22/21 05/22/21 Unknown History temazepam 30 mg capsule 1 cap PO BEDTIME PRN 05/22/21 05/22/21 Unknown History trazodone 150 mg tablet tab PO 05/22/21 Unknown History valacyclovir 500 mg tablet 1 tab PO BID 05/22/21 05/22/21 Unknown History Physical Exam Vital Signs: Vital Signs: Last Vital Signs Temp 97.4 F 05/22/21 15:38 Pulse 85 05/22/21 20:49 Resp 18 05/22/21 20:00 BP 175/79 H 05/22/21 20:14 Pulse Ox 95 05/22/21 20:00 Body Mass Index 26.6 Const: General: cooperative Orientation/consciousness: oriented to person HENMT: Head: Yes normal to inspection Mouth: Normal oral and palatal mucosa present Eyes: General: appearance normal, both eyes and all related structures Resp: Other: rhonchi bases Effort & Inspection: abnormal respiratory pattern Cardio: Rate: regular rate Rhythm: regular rhythm GI: Palpation (GI): Soft to palpation and nontender Skin: General skin exam: no rashes or lesions noted Neuro: General: oriented to person Results Labs CBC & Chem 7: 05/22/21 06:08 05/22/21 06:08 Labs: Short CBC 05/22/21 Range/Units 06:08 WBC 15.5 H (4.8-10.8) X10*3/uL Hgb 14.0 (12.0-16.0) g/dl Hct 40.9 (37-47) % Plt Count 181 (160-400) X10*3/uL BMP 05/22/21 06:08 Sodium 139 Potassium 4.0 Chloride 103 Carbon Dioxide 28 BUN 13 Creatinine 0.82 Calcium 9.0 D Microbiology Microbiology Results: Microbiology 05/21/21 14:51 Blood - Venous Blood Culture - Preliminary No growth after 24 hours. 05/21/21 14:51 Blood - Venous Blood Culture - Preliminary No growth after 24 hours. Assessment and Plan (1) Pneumonia: Qualifiers: Laterality: bilateral Lung location: unspecified part of lung Pneumonia type: due to unspecified organism Qualified Code(s): J18.9 - Pneumonia, unspecified organism Status: Acute She has community acquired pneumonia and diabetes. She has no diagnosis of COPD and no risk of Pseudomonas She is at risk for strep pneumonia,atypicals such as Legionella There is less likely MRSA (2) Hypoxia: Status: Acute Ceftriaxone and Doxycycline Check urine Legionella Check procalcitonin. Would check nares MRSA. Would stop Zosyn and Vancomycin for now.
[2021-05-22] MEDS: cefTRIAXone sodium 1 GM in 0.9 % Sodium Chloride 50 ML IV (22:55)
[2021-05-22 23:29] LABS: Procalcitonin 0.57 ng/mL
[2021-05-23] VITALS (7 sets, daily range): BP systolic 176–190; BP diastolic 80–93; PULSE 69–95; RESP 18–21; TEMP 36.1–36.6; O2SAT 92–99
[2021-05-23] MEDS: methylPREDNISolone Sod Succ 125 MG/2 ML VIAL 60 MG IVPUSH ×3 (05:19→20:55)
[2021-05-23] MEDS: Omeprazole 20 MG CAPSULE.DR PO (05:20)
[2021-05-23 05:57] LABS: MANUAL DIFF FLAG NO
[2021-05-23 06:29] LABS: Basophils Percent Auto 0.1 % (0-2); Hematocrit 40.8 % (37-47); Imm Gran Abs Auto 0.11 X10*3/uL (0.00-0.03); Imm Gran Pct Auto 0.6 % (0.0-0.4); Lymphocytes Absolute Auto 1.2 X10*3/uL (1.2-4.9); Lymphocytes Percent Auto 6.4 % (20-40); Mean Corpuscular HGB Conc 34.3 g/dl (31.0-35.0); Mean Corpuscular Hemoglobin 34.5 pg (27.0-33.0); Mean Corpuscular Volume 100.5 fL (80-98); Mean Platelet Volume 10.8 fL (9.4-12.3); Monocytes Absolute Auto 0.7 X10*3/uL (0.1-1.2); Neutrophils Absolute Auto 15.9 X10*3/uL (2.0-8.3); Neutrophils Percent Auto 88.9 % (45-73); Platelet Count 199 X10*3/uL (160-400); Red Blood Count 4.06 X10*6/uL (4.20-5.50); White Blood Count 17.9 X10*3/uL (4.8-10.8)
[2021-05-23 06:37] LABS: Vancomycin Trough 4.1 mcg/mL (10.0-20.0)
[2021-05-23 06:42] LABS: Alanine Aminotransferase 17 U/L (0-31); Albumin Level 4.2 g/dL (3.5-5.0); Alkaline Phosphatase 68 U/L (39-117); Anion Gap 13 (12-20); Aspartate Amino Transferase 11 U/L (5-31); Bilirubin Total 0.3 mg/dL (0.0-1.0); Blood Urea Nitrogen 20 mg/dL (9-16); Calcium 9.8 mg/dL (8.4-10.2); Carbon Dioxide 28 mmol/L (22-29); Chloride 105 mmol/L (96-108); Estimated Glomerular Filt Rate > 60; Glucose Fasting 223 mg/dL (60-99); Potassium 4.3 mmol/L (3.3-5.1); Sodium 142 mmol/L (135-145); Total Protein 7.2 g/dL (6.5-8.0)
[2021-05-23 07:29] LABS: Glucose, Whole Blood 223 mg/dL (60-115)
[2021-05-23] MEDS: Albuterol/Iprat 2.5/0.5MG 3 ML AMPUL.NEB INHALE ×2 (07:41→15:45)
[2021-05-23] MEDS: Insulin Lispro 100 UNIT/ML 3 ML VIAL SUBCUT ×4 (07:49→20:57)
[2021-05-23] MEDS: buPROPion HCl XL 150 MG TAB.ER.24H PO (07:50)
[2021-05-23] MEDS: carvediloL 3.125 MG TABLET PO ×2 (07:50→20:57)
[2021-05-23] MEDS: Sertraline HCL 100 MG TABLET PO (07:50)
[2021-05-23] MEDS: Sucralfate 1 GM TABLET PO ×2 (07:50→20:57)
[2021-05-23] MEDS: ARIPiprazole 5 MG TABLET PO (07:50)
[2021-05-23] MEDS: 0.9 % Sodium Chloride Flush 3 ML SYRINGE IVFLUSH ×3 (07:50→20:58)
[2021-05-23] MEDS: Fluticasone/Vilanterol 100/25 BLST.W.DEV 1 PUFF INHALE (07:52)
--- NOTE | 2021-05-23 11:36 | HO.PM.IMPN ---
Subjective Subjective Date of Service: 05/23/21 Interval History: Notes minimal improvement overnight; utilizing nebs with improvement. Did not have CPaP overnight. Review of Systems Admits to shortness of breath worse with exertion Denies chest pain States diarrhea x1 week in the absence of nausea and vomit Physical Exam Vital Signs: Vital Signs: Last Vital Signs Temp 97.8 F 05/23/21 07:06 Pulse 94 05/23/21 07:42 Resp 21 H 05/23/21 07:06 BP 180/88 H 05/23/21 07:06 Pulse Ox 92 05/23/21 07:06 Body Mass Index 26.6 Const: Other: Awake alert oriented x3 in no acute distress. She is able to speak in full sentences HENMT: Other: Oropharynx is clear; membranes are moist Chest: Other: No intercostal or supraclavicular retractions noted Resp: Other: Diminished breath sounds throughout with inceased scattered expiratory wheezes at bases Cardio: Other: No S4; positive S1-S2; no S3 murmurs or gallops GI: Other: Nontender nondistended normoactive bowel sounds. There is no appreciable hepatosplenomegaly Neuro: Other: Age-appropriate; nonfocal Extrem: Other: Bilateral dependent edema noted Objective Data Active Medications Albuterol/Ipratropium (Albuterol/Iprat 2.5/0.5mg 3 Ml Ampul.Neb) 3 ml INHALE RQ4H WHILE AWAKE [facility] Last Admin: 05/23/21 11:07 Dose: Not Given Documented by: KIKO Non-Admin Reason: Patient Asleep Aripiprazole (Aripiprazole 5 Mg Tablet) 5 mg PO DAILY [facility] Last Admin: 05/23/21 07:50 Dose: 5 mg Documented by: JENNIFER Atorvastatin Calcium (Atorvastatin Calcium 20 Mg Tablet) 20 mg PO BEDTIME [facility] Last Admin: 05/22/21 20:14 Dose: 20 mg Documented by: DEMETRIA Bupropion HCl (Bupropion Hcl Xl 150 Mg Tab.Er.24h) 150 mg PO DAILY [facility] Last Admin: 05/23/21 07:50 Dose: 150 mg Documented by: JENNIFER Carvedilol (Carvedilol 3.125 Mg Tablet) 3.125 mg PO BID [facility]; Protocol Last Admin: 05/23/21 07:50 Dose: 3.125 mg Documented by: JENNIFER Doxycycline Hyclate (Doxycycline Hyclate 100 Mg Tablet) 100 mg PO Q12H [facility] Last Admin: 05/22/21 22:55 Dose: 100 mg Documented by: DEMETRIA Enoxaparin Sodium (Enoxaparin Sodium 40 Mg/0.4 Ml Syringe) 40 mg SUBCUT Q24H [facility] Last Admin: 05/22/21 20:21 Dose: 40 mg Documented by: DEMETRIA Fluticasone/Vilanterol (Fluticasone/Vilanterol 100/25 Blst.W.Dev) 1 puff INHALE DAILY [facility] Last Admin: 05/23/21 07:52 Dose: 1 puff Documented by: KIKO Ceftriaxone Sodium 1 gm/ (Sodium Chloride) 50 mls @ 100 mls/hr IV Q24H [facility] Last Infusion: 05/22/21 23:44 Dose: 0 mls/hr Documented by: DEMETRIA Insulin Human Lispro (Insulin Lispro 100 Unit/Ml 3 Ml Vial) 0 unit SUBCUT QIDACHS [facility]; Protocol Last Admin: 05/23/21 07:49 Dose: 4 unit Documented by: JENNIFER Melatonin (Melatonin 3 Mg Tablet) 6 mg PO BEDTIME PRN PRN Reason: Insomnia Methylprednisolone Sodium Succinate (Methylprednisolone Sod Succ 125 Mg/2 Ml Vial) 60 mg IVPUSH Q8H [facility] Last Admin: 05/23/21 05:19 Dose: 60 mg Documented by: DEMETRIA Omeprazole (Omeprazole 20 Mg Capsule.Dr) 20 mg PO DAILY@0630 [facility] Last Admin: 05/23/21 05:20 Dose: 20 mg Documented by: DEMETRIA Ondansetron HCl (Ondansetron Hcl 4 Mg/2 Ml Vial) 4 mg IVPUSH Q8H PRN PRN Reason: Nausea and Vomiting Pharmacy Consult (Consult Rx Vancomycin Dosing) 1 each MISCELLANE DAILY PRN PRN Reason: Consult order Sertraline HCl (Sertraline Hcl 100 Mg Tablet) 100 mg PO DAILY [facility] Last Admin: 05/23/21 07:50 Dose: 100 mg Documented by: JENNIFER Sodium Chloride (0.9 % Sodium Chloride Flush 3 Ml Syringe) 3 ml IVFLUSH QSHIFT [facility] Last Admin: 05/23/21 07:50 Dose: 3 ml Documented by: JENNIFER Sucralfate (Sucralfate 1 Gm Tablet) 1 gm PO BID [facility] Last Admin: 05/23/21 07:50 Dose: 1 gm Documented by: JENNIFER Temazepam (Temazepam 15 Mg Capsule) 30 mg PO BEDTIME PRN PRN Reason: Insomnia Last Admin: 05/22/21 20:21 Dose: 30 mg Documented by: DEMETRIA Labs CBC & Chem 7: 05/23/21 05:50 05/23/21 05:50 Labs: Laboratory Results - last 24 hr 05/22/21 05/22/21 05/22/21 16:09 20:29 22:42 MCV MCH MCHC RDW Plt Count MPV Immature Gran % (Auto) Neut % (Auto) Lymph % (Auto) [place] % (Auto) Eos % (Auto) Baso % (Auto) Lymph # (Auto) [place] # (Auto) Eos # (Auto) Baso # (Auto) Abs Immat Gran (auto) Absolute Neuts (auto) Absolute Nucleated RBC Nucleated RBC % (auto) Anion Gap Estim Creat Clear Calc Estimated GFR POC Glucose 249 H 229 H Fasting Glucose Calcium Total Bilirubin AST ALT Alkaline Phosphatase Total Protein Albumin Procalcitonin 0.57 Vancomycin Trough 05/23/21 05/23/21 05/23/21 05:50 05:50 05:50 MCV 100.5 H MCH 34.5 H MCHC 34.3 RDW 12.0 Plt Count 199 MPV 10.8 Immature Gran % (Auto) 0.6 H Neut % (Auto) 88.9 H Lymph % (Auto) 6.4 L [place] % (Auto) 4.0 Eos % (Auto) 0.0 Baso % (Auto) 0.1 Lymph # (Auto) 1.2 [place] # (Auto) 0.7 Eos # (Auto) 0.0 Baso # (Auto) 0.0 Abs Immat Gran (auto) 0.11 H Absolute Neuts (auto) 15.9 H Absolute Nucleated RBC 0.000 Nucleated RBC % (auto) 0.0 Anion Gap 13 Estim Creat Clear Calc 83.0 Estimated GFR > 60 POC Glucose Fasting Glucose 223 H Calcium 9.8 D Total Bilirubin 0.3 AST 11 ALT 17 Alkaline Phosphatase 68 Total Protein 7.2 Albumin 4.2 Procalcitonin Vancomycin Trough 4.1 L 05/23/21 07:08 MCV MCH MCHC RDW Plt Count MPV Immature Gran % (Auto) Neut % (Auto) Lymph % (Auto) [place] % (Auto) Eos % (Auto) Baso % (Auto) Lymph # (Auto) [place] # (Auto) Eos # (Auto) Baso # (Auto) Abs Immat Gran (auto) Absolute Neuts (auto) Absolute Nucleated RBC Nucleated RBC % (auto) Anion Gap Estim Creat Clear Calc Estimated GFR POC Glucose 223 H Fasting Glucose Calcium Total Bilirubin AST ALT Alkaline Phosphatase Total Protein Albumin Procalcitonin Vancomycin Trough Microbiology Microbiology Results: Microbiology 05/21/21 14:51 Blood Culture - Preliminary Blood - Venous No growth after 24 hours. 05/21/21 14:51 Blood Culture - Preliminary Blood - Venous No growth after 24 hours. Assessment and Plan (1) Pneumonia: Status: Acute (2) Hypoxia: Status: Acute (3) DMII (diabetes mellitus, type 2): Status: Acute (4) HTN (hypertension): Status: Acute Assessment and Plan: 61-year-old female presents with worsening shortness of breath over the 1 week prior to admission culminating in inability to walk across room without being markedly short of breath. ER evaluation including CT of the chest consistent with multilobar pneumonia. At this time, given her significant O2 requirement and overall presentation she will be admitted for treatment for the same 1. Multi lobar pneumonia Able speak in full sentences lying supine... Improvement from yesterday Continue with Zosyn/vancomycin; adjust based on forthcoming data Aggressive pulmonary toilet; maintain sats greater than or equal to 92% Pulse dose steroids at this time..... Switch to oral pending response COVID-19 negative. Add CPaP as per home 2. 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 COVID Reg added to regimen. Follow-up clinically 3 Diabetes type 2 Sliding scale insulin with p.o. sees t.i.d. and a.c.; dynamic sugars secondary to steroids Adjust as indicated 4. Full code 5. DVT prophylaxis: Lovenox Further plans based on clinical response and forthcoming data Quality Stroke Does the patient have a stroke diagnosis?: No VTE Prior VTE?: No VTE Risk Level:: Medical - moderate - high VTE Device Contraindication: Treatment Not Indicated VTE Drug Contraindication: N/A - Med Ordered
[2021-05-23 11:38] LABS: Glucose, Whole Blood 272 mg/dL (60-115)
[2021-05-23 16:14] LABS: Glucose, Whole Blood 275 mg/dL (60-115)
[2021-05-23] MEDS: hydrOXYzine HCL 50 MG/ML VIAL 25 MG IM (16:30)
--- NOTE | 2021-05-23 17:02 | MHC.PIE ---
1605 P: Pt pulled oxygen off and stated she was suffocating and wants to go home. Sats on ro om air 87%. Pt crying. I: o2 replaced and sats up to 92-94%. Sat with pt and talked with her to reassure her that oxygen was helping her. Pt beginning to relax bt still unsettled. Dr Perez notified. Orders for one time dose hydroxizine IM placed, pharmacy called and medication administered to pt. 1705 E: Pt states she is feeling better. Sitting in chair watching TV and eating dinner. Will continue to monitor
[2021-05-23 20:19] LABS: Glucose, Whole Blood 295 mg/dL (60-115)
[2021-05-23] MEDS: Enoxaparin Sodium 40 MG/0.4 ML SYRINGE SUBCUT (20:56)
[2021-05-23] MEDS: Atorvastatin Calcium 20 MG TABLET PO (20:57)
[2021-05-23] MEDS: cefTRIAXone sodium 1 GM in 0.9 % Sodium Chloride 50 ML IV (20:58)
[2021-05-23] MEDS: Melatonin 3 MG TABLET 6 MG PO (21:11)
[2021-05-23] MEDS: Temazepam 15 MG CAPSULE 30 MG PO (21:11)
[2021-05-24] VITALS (12 sets, daily range): BP systolic 180–224; BP diastolic 86–108; PULSE 74–90; RESP 16–18; TEMP 36–37.1; O2SAT 91–95
[2021-05-24] MEDS: Omeprazole 20 MG CAPSULE.DR PO (05:11)
[2021-05-24] MEDS: methylPREDNISolone Sod Succ 125 MG/2 ML VIAL 60 MG IVPUSH ×3 (05:11→21:59)
[2021-05-24 05:30] LABS: MANUAL DIFF FLAG NO
[2021-05-24 05:33] LABS: Basophils Percent Auto 0.2 % (0-2); Hematocrit 43.2 % (37-47); Hemoglobin 14.6 g/dl (12.0-16.0); Imm Gran Abs Auto 0.21 X10*3/uL (0.00-0.03); Imm Gran Pct Auto 1.1 % (0.0-0.4); Lymphocytes Absolute Auto 1.6 X10*3/uL (1.2-4.9); Lymphocytes Percent Auto 8.6 % (20-40); Mean Corpuscular HGB Conc 33.8 g/dl (31.0-35.0); Mean Corpuscular Hemoglobin 33.4 pg (27.0-33.0); Mean Corpuscular Volume 98.9 fL (80-98); Mean Platelet Volume 10.3 fL (9.4-12.3); Monocytes Absolute Auto 0.5 X10*3/uL (0.1-1.2); Monocytes Percent Auto 2.9 % (2-11); Neutrophils Absolute Auto 15.9 X10*3/uL (2.0-8.3); Neutrophils Percent Auto 87.2 % (45-73); Platelet Count 247 X10*3/uL (160-400); Red Blood Count 4.37 X10*6/uL (4.20-5.50); Red Cell Distribution Width 11.9 % (11.0-16.0); White Blood Count 18.3 X10*3/uL (4.8-10.8)
[2021-05-24 05:53] LABS: Alanine Aminotransferase 15 U/L (0-31); Albumin Level 4.3 g/dL (3.5-5.0); Anion Gap 13 (12-20); Aspartate Amino Transferase 11 U/L (5-31); Bilirubin Total 0.2 mg/dL (0.0-1.0); Carbon Dioxide 28 mmol/L (22-29); Chloride 102 mmol/L (96-108); Creatinine Clr Calc Pharmacy 117.8; Estimated Glomerular Filt Rate > 60; Glucose Fasting 235 mg/dL (60-99); Potassium 4.2 mmol/L (3.3-5.1); Sodium 139 mmol/L (135-145); Total Protein 7.5 g/dL (6.5-8.0)
[2021-05-24 06:05] LABS: Alkaline Phosphatase 69 U/L (39-117); Blood Urea Nitrogen 28 mg/dL (9-16)
[2021-05-24] MEDS: Albuterol/Iprat 2.5/0.5MG 3 ML AMPUL.NEB INHALE ×4 (07:29→19:17)
[2021-05-24 07:36] LABS: Glucose, Whole Blood 298 mg/dL (60-115)
[2021-05-24] MEDS: Fluticasone/Vilanterol 100/25 BLST.W.DEV 1 PUFF INHALE (07:38)
[2021-05-24] MEDS: Insulin Lispro 100 UNIT/ML 3 ML VIAL SUBCUT ×4 (07:51→22:06)
[2021-05-24] MEDS: Sucralfate 1 GM TABLET PO ×2 (07:52→20:17)
[2021-05-24] MEDS: ARIPiprazole 5 MG TABLET PO (07:52)
[2021-05-24] MEDS: carvediloL 3.125 MG TABLET PO ×2 (07:52→20:17)
[2021-05-24] MEDS: 0.9 % Sodium Chloride Flush 3 ML SYRINGE IVFLUSH ×2 (07:52→16:28)
[2021-05-24] MEDS: Sertraline HCL 100 MG TABLET PO (07:52)
[2021-05-24] MEDS: buPROPion HCl XL 150 MG TAB.ER.24H PO (07:52)
[2021-05-24 11:49] LABS: Glucose, Whole Blood 272 mg/dL (60-115)
[2021-05-24 16:05] LABS: Glucose, Whole Blood 255 mg/dL (60-115)
[2021-05-24] MEDS: Enoxaparin Sodium 40 MG/0.4 ML SYRINGE SUBCUT (20:16)
[2021-05-24] MEDS: Atorvastatin Calcium 20 MG TABLET PO (20:17)
[2021-05-24 20:20] LABS: Glucose, Whole Blood 278 mg/dL (60-115)
[2021-05-24] MEDS: cefTRIAXone sodium 1 GM in 0.9 % Sodium Chloride 50 ML IV (21:57)
[2021-05-24] MEDS: Temazepam 15 MG CAPSULE 30 MG PO (22:03)
[2021-05-24] MEDS: Melatonin 3 MG TABLET 6 MG PO (22:03)
[2021-05-25] VITALS (8 sets, daily range): BP systolic 183–196; BP diastolic 78–98; PULSE 71–83; RESP 17–18; TEMP 36.1–36.6; O2SAT 90–95
[2021-05-25] MEDS: methylPREDNISolone Sod Succ 125 MG/2 ML VIAL 60 MG IVPUSH ×2 (04:45→11:24)
[2021-05-25] MEDS: Omeprazole 20 MG CAPSULE.DR PO (04:46)
[2021-05-25 05:38] LABS: MANUAL DIFF FLAG NO
[2021-05-25 05:44] LABS: Basophils Percent Auto 0.1 % (0-2); Eosinophils Percent Auto 0.1 % (0-4); Hematocrit 43.4 % (37-47); Hemoglobin 14.9 g/dl (12.0-16.0); Imm Gran Abs Auto 0.23 X10*3/uL (0.00-0.03); Imm Gran Pct Auto 1.4 % (0.0-0.4); Lymphocytes Absolute Auto 3.7 X10*3/uL (1.2-4.9); Lymphocytes Percent Auto 21.8 % (20-40); Mean Corpuscular HGB Conc 34.3 g/dl (31.0-35.0); Mean Corpuscular Hemoglobin 33.7 pg (27.0-33.0); Mean Corpuscular Volume 98.2 fL (80-98); Mean Platelet Volume 10.2 fL (9.4-12.3); Monocytes Absolute Auto 1.5 X10*3/uL (0.1-1.2); Monocytes Percent Auto 8.8 % (2-11); Neutrophils Absolute Auto 11.5 X10*3/uL (2.0-8.3); Neutrophils Percent Auto 67.8 % (45-73); Platelet Count 243 X10*3/uL (160-400); Red Blood Count 4.42 X10*6/uL (4.20-5.50); Red Cell Distribution Width 11.7 % (11.0-16.0); White Blood Count 16.9 X10*3/uL (4.8-10.8)
[2021-05-25 06:29] LABS: Alanine Aminotransferase 21 U/L (0-31); Albumin Level 4.1 g/dL (3.5-5.0); Alkaline Phosphatase 65 U/L (39-117); Blood Urea Nitrogen 37 mg/dL (9-16); Glucose Fasting 134 mg/dL (60-99)
[2021-05-25 06:45] LABS: Anion Gap 13 (12-20); Aspartate Amino Transferase 14 U/L (5-31); Bilirubin Total 0.5 mg/dL (0.0-1.0); Calcium 9.7 mg/dL (8.4-10.2); Carbon Dioxide 28 mmol/L (22-29); Chloride 103 mmol/L (96-108); Creatinine Clr Calc Pharmacy 86.4; Estimated Glomerular Filt Rate > 60; Potassium 3.7 mmol/L (3.3-5.1); Sodium 140 mmol/L (135-145)
[2021-05-25 07:29] LABS: Glucose, Whole Blood 209 mg/dL (60-115)
[2021-05-25] MEDS: Fluticasone/Vilanterol 100/25 BLST.W.DEV 1 PUFF INHALE (07:35)
[2021-05-25] MEDS: Albuterol/Iprat 2.5/0.5MG 3 ML AMPUL.NEB INHALE ×3 (07:35→16:08)
[2021-05-25] MEDS: Sertraline HCL 100 MG TABLET PO (08:19)
[2021-05-25] MEDS: carvediloL 3.125 MG TABLET PO ×2 (08:19→16:28)
[2021-05-25] MEDS: buPROPion HCl XL 150 MG TAB.ER.24H PO (08:19)
[2021-05-25] MEDS: 0.9 % Sodium Chloride Flush 3 ML SYRINGE IVFLUSH (08:19)
[2021-05-25] MEDS: Insulin Lispro 100 UNIT/ML 3 ML VIAL SUBCUT ×2 (08:19→11:25)
[2021-05-25] MEDS: Sucralfate 1 GM TABLET PO ×2 (08:19→16:29)
[2021-05-25] MEDS: ARIPiprazole 5 MG TABLET PO (08:19)
--- NOTE | 2021-05-25 10:07 | MHC.CM.PN ---
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 CM ALSO CONTACTED [facility] WHO PROVIDE WEEKLY VNA VISITS FOR SKILLED NSG WERE NOTIFIED WERE CALLED AT 10AM [phone], MESSAGE LEFT W/GILBERTO SANDERS W/[facility] CONTACT INFO. D/C PLAN: HOME TODAY W/RESUMP OF [facility] VNA, EDGING MACHINE SETTER HRS AND O2 24HRS [place]IA [place] DURING DAY AND W/CPAP AT NIGHT, SON FOR TRANSPORT.
[2021-05-25 11:30] LABS: Glucose, Whole Blood 219 mg/dL (60-115)
--- NOTE | 2021-05-25 12:24 | PM.DS ---
DS: Providers Provider Date of Service: 05/25/21 Date of admission: 05/21/21 19:00 Date of discharge: 05/25/21 Primary care physician: Meghan Collier NP Consults: 05/21/21 19:17 Consult to Infectious Diseases Routine Consulting Provider: Sima Maldonado Reason for consultation: Multiplobar pneumonia Has provider been notified: No DS: Diagnosis Discharge Diagnosis (1) Pneumonia: Status: Acute (2) HTN (hypertension): Status: Acute (3) DMII (diabetes mellitus, type 2): Status: Acute DS: Summary Hospital Course Hospital Course: 61-year-old female presents with worsening shortness of breath over the past week prior to her admission.? She carries a remote history of TBI in the late for which she was trached and vented for approximately 3 months.? Patient carries a history of diabetes type 2 and hypertension which has been well controlled by her account.? She states she does not have difficulty breathing usually at home however last week developed low-grade fevers and shortness of breath.? In the emergency room CT scan was significant can for multi lobar pneumonia; she had a significant O2 requirement requiring non-rebreather.? At this point time she will be admitted for pneumonia and supplemental O2 along with pulmonary toilet Hospital course Patient admitted to floor with supplemental high-flow oxygen. Started on IV ceftriaxone and doxycycline. Over the next several days she continue to improve to the point where she has maintained sats of 94% on 2 L nasal cannula. She has a home health aide for 40 hours a week and VNA at this point she is medically stable for discharge Time Spent with Patient Time attestation: Total time spent providing and/or coordinating discharge services: Discharge coordination time: Greater than 30 minutes Quality: Stroke Does the patient have a stroke diagnosis?: No Physical Exam Vital Signs: Vital Signs: Last Vital Signs Temp 97.8 F 05/25/21 11:39 Pulse 72 05/25/21 11:53 Resp 18 05/25/21 11:39 BP 196/90 H 05/25/21 11:39 Pulse Ox 93 05/25/21 11:39 Body Mass Index 26.6 Const: Other: Awake alert oriented x3 in no acute distress. She is able to speak in full sentences;sats 94% on 2 L HENMT: Other: Oropharynx is clear; membranes are moist Chest: Other: No intercostal or supraclavicular retractions noted Resp: Other: Good aeration to bases. Scant expiratory wheezes at the lower lung douglas Cardio: Other: No S4; positive S1-S2; no S3 murmurs or gallops GI: Other: Nontender nondistended normoactive bowel sounds. There is no appreciable hepatosplenomegaly Neuro: Other: Age-appropriate; nonfocal Extrem: Other: Bilateral dependent edema noted DS: Data Data Completed and Pending Labs on day of discharge: Laboratory Results - last 24 hr 05/24/21 05/24/21 05/25/21 15:28 19:36 05:27 WBC 16.9 H RBC 4.42 Hgb 14.9 Hct 43.4 MCV 98.2 H MCH 33.7 H MCHC 34.3 RDW 11.7 Plt Count 243 MPV 10.2 Immature Gran % (Auto) 1.4 H Neut % (Auto) 67.8 Lymph % (Auto) 21.8 [place] % (Auto) 8.8 Eos % (Auto) 0.1 Baso % (Auto) 0.1 Lymph # (Auto) 3.7 [place] # (Auto) 1.5 H Eos # (Auto) 0.0 Baso # (Auto) 0.0 Abs Immat Gran (auto) 0.23 H Absolute Neuts (auto) 11.5 H Absolute Nucleated RBC 0.000 Nucleated RBC % (auto) 0.0 Sodium Potassium Chloride Carbon Dioxide Anion Gap BUN Creatinine Estim Creat Clear Calc Estimated GFR POC Glucose 255 H 278 H Fasting Glucose Calcium Total Bilirubin AST ALT Alkaline Phosphatase Total Protein Albumin 05/25/21 05/25/21 05/25/21 05:27 07:23 11:16 WBC RBC Hgb Hct MCV MCH MCHC RDW Plt Count MPV Immature Gran % (Auto) Neut % (Auto) Lymph % (Auto) [place] % (Auto) Eos % (Auto) Baso % (Auto) Lymph # (Auto) [place] # (Auto) Eos # (Auto) Baso # (Auto) Abs Immat Gran (auto) Absolute Neuts (auto) Absolute Nucleated RBC Nucleated RBC % (auto) Sodium 140 Potassium 3.7 Chloride 103 Carbon Dioxide 28 Anion Gap 13 BUN 37 H Creatinine 0.75 Estim Creat Clear Calc 86.4 Estimated GFR > 60 POC Glucose 209 H 219 H Fasting Glucose 134 H Calcium 9.7 Total Bilirubin 0.5 AST 14 ALT 21 Alkaline Phosphatase 65 Total Protein 7.0 Albumin 4.1 Preliminary micro results at discharge 05/21/21 14:51 Blood Culture - Preliminary Blood - Venous No growth after 48 hours. 05/21/21 14:51 Blood Culture - Preliminary Blood - Venous No growth after 48 hours. Discharge Plan Discharge Patient Disposition: Home Health Service Discharge Diagnosis: Pneumonia Referrals: Meghan Collier QUANTITATIVE ASSOCIATE [Primary Care Provider] - 1 Week Discharge Medications: New doxycycline hyclate 100 mg Tablet 100 mg PO Q12H Qty: 20 RF: 0 prednisone 10 mg tablet See Rx Instructions .Route .COMPLEX Qty: 45 RF: 0 Continued metformin 500 mg tablet 1 tab PO DAILY RF: 0 anastrozole 1 mg tablet 1 tab PO DAILY RF: 0 sucralfate 1 gram tablet 1 tab PO BID RF: 0 sertraline 100 mg tablet 1 tab PO DAILY RF: 0 valacyclovir 500 mg tablet 1 tab PO BID RF: 0 simvastatin 40 mg tablet 1 tab PO BEDTIME RF: 0 carvedilol 3.125 mg tablet 1 tab PO BID RF: 0 pantoprazole 20 mg tablet,delayed release (DR/EC) 1 tab PO DAILY RF: 0 temazepam 30 mg capsule 1 cap PO BEDTIME PRN (Reason: Insomnia) RF: 0 gemfibrozil 600 mg tablet 1 tab PO BID RF: 0 trazodone 150 mg tablet PO RF: 0 lisinopril 10 mg tablet 1 tab PO DAILY RF: 0 fluticasone propionate 50 mcg/actuation spray,suspension intranasal RF: 0 aripiprazole 5 mg tablet 1 tab PO DAILY RF: 0 bupropion HCl 150 mg tablet extended release 24 hr 1 tab PO QAM RF: 0 Breo Ellipta 100-25 mcg/dose blister with device 1 puff inhalation DAILY RF: 0 Discontinued amoxicillin-pot clavulanate 875-125 mg tablet 1 tab PO BID RF: 0 Discharge Orders: Discharge Order (Routine); Ordered 05/25/21 Ordered By: Ra Perez Diet: advance to usual diet Activity on Discharge: As tolerated Stand Alone Forms: Patient Portal Discharge page Care Plan Goals: Maximize respiratory sinus Health Concerns: Tobacco cessation Plan of Treatment: VNA Assessment: Improved
--- NOTE | 2021-05-25 13:11 | MHC.CM.PN ---
PT'S SON KVNG [phone], PLEASE CALL ONCE READY FOR D/C.
--- NOTE | 2021-05-25 16:01 | MHC.CM.PN ---
PT DISCHARGED HOME W/RESUMP OF WEEKLY VNA AT [facility] AND NEW 2L O2 [place] CONTINUOUS, PT'S SON TO TRANSPORT
[2021-05-25] MEDS: Atorvastatin Calcium 20 MG TABLET PO (16:28)
--- NOTE | 2021-05-25 16:41 | W.MHC.F2F ---
Service Date Service Date: 05/25/21 Encounter Date of encounter: 05/25/21 Reasons for Services Reason for usp: CV/CP assess and/or care and other Homebound: Leaving the home is medically contraindicated at this time without the asist of a device and/or another person due th the listed conditions above and below. Homebound supporting statement: 61-year-old female who requires assist with ADL; she is markedly short of breath with minimal exertion and requires increase levels of O2. She is not safe to leave the house at this point due to her respiratory status. Certification: Based on the above findings, I certify that this patient is confined to the home and needs intermittent usp care, physical therapy and/or speech therapy, or continues to need occupational therapy. The patient is under my care, and I have initiated the establishment of the plan of care. The patient will be followed by a physician who will periodically review the plan of care.
[2021-05-26 00:27] LABS: Legionella Ag Urine Not Detected (Not Detected)
== END 2021-05-25 16:46 | disposition home health service (06) | DRG 195 ==
LOC: HO.ED 17:41 → HO.EDOVER 19:20 → HO.S3 19:22
PROVIDERS: Emergency Medicine Emergency Medical Services; Internal Medicine; Admitting Provider Hospitalist; Emergency Provider Emergency Medicine; PCP Nurse Practitioner Family; Visit Provider Hospitalist
DX: J18.9 Pneumonia, unspecified organism (principal); E11.9 Type 2 diabetes mellitus without complications; I10 Essential (primary) hypertension; Z85.3 Personal history of malignant neoplasm of breast; Z87.820 Personal history of traumatic brain injury; Z20.822 Contact with and (suspected) exposure to COVID-19; Z79.51 Long term (current) use of inhaled steroids; Z79.84 Long term (current) use of oral hypoglycemic drugs; Z79.899 Other long term (current) drug therapy
CPT/HCPCS: 36415; 70490; 71045; 71046; 71250; 74176; 80048; 80053; 80202; 81001; 82803; 82947; 83605; 83880; 84145; 84484; 85025; 87040; 87449; 87635; 93005; 96365; 96375; 99285; J0692; J0696; J1170; J1650; J2543; J2930; J3370

== ENCOUNTER 2021-06-11 12:27 | Emergency (ER) | payer MEDICARE, MEDICAID, SELFPAY ==
--- NOTE | ~2021-06-11 | XR_ITS ---
EXAMINATION: XR CHEST CLINICAL INFORMATION: Shortness of breath, recent pneumonia. Follow-up. COMPARISON: Chest radiographs 05/23/2021, 05/21/2021, CT chest noncontrast 05/21/2021. TECHNIQUE: Portable upright AP x2 views of the chest was obtained. FINDINGS: Patchy airspace opacities left lower lobe are decreased from prior exam 05/23/2021 and 05/21/2021. There is no new airspace consolidation or opacities. Heart is within normal size. The vascularity is normal. No pneumothorax or pleural reaction or effusion. The hilar and mediastinal contours are unremarkable. No acute bony abnormality. XR/XR chest 1V IMPRESSION: Left lower lobe airspace opacities decreased from prior study 05/23/2021.
[2021-06-11 12:27] VITALS: BP 160/90; PULSE 90; O2SAT 87
[2021-06-11 12:29] VITALS: BP 156/91; PULSE 84; RESP 18; TEMP 36.8; O2SAT 97; BMI 28.3
--- NOTE | 2021-06-11 12:59 | ECG_ITS ---
Test Reason : DYSPNEA Blood Pressure : / mmHG Vent. Rate : 084 BPM Atrial Rate : 084 BPM P-R Int : 154 ms QRS Dur : 084 ms QT Int : 378 ms P-R-T Axes : 072 061 059 degrees QTc Int : 446 ms Normal sinus rhythm Nonspecific ST abnormality Inferior leads Borderline ECG No significant changes seen Referred By: Orquidea Major Electronically Signed By:SOLEDAD DODD MD
--- NOTE | 2021-06-11 13:03 | ED.GENADULT ---
HPI - General Adult General Chief complaint: Dyspnea Stated complaint: SOB, PNEUMONIA Time Seen by Provider: 06/11/21 12:51 Source: patient and EMS Mode of arrival: EMS Limitations: no limitations History of Present Illness HPI narrative: Patient comes to emergency room complaining of losing her voice over last 2 days. Patient was recently discharged from this facility, diagnosed with pneumonia, treated with doxycycline, finished her antibiotics yesterday. Patient is known to have COPD, uses 2 L nasal cannula at baseline. Patient denies fever or chills. Patient is concerned that she lost her voice. Patient denies vomiting or diarrhea. Related Data Home Medications Medication Instructions Recorded Confirmed anastrozole 1 mg tablet 1 tab PO DAILY 05/22/21 05/22/21 aripiprazole 5 mg tablet 1 tab PO DAILY 05/22/21 05/22/21 bupropion HCl 150 mg 24 hr tablet, 1 tab PO QAM 05/22/21 05/22/21 extended release carvedilol 3.125 mg tablet 1 tab PO BID 05/22/21 05/22/21 fluticasone furoate 100 1 puff INHALATION DAILY 05/22/21 05/22/21 mcg-vilanterol 25 mcg/dose inhalation powder (Breo Ellipta) fluticasone propionate 50 spray INTRANASAL 05/22/21 mcg/actuation nasal spray,suspension gemfibrozil 600 mg tablet 1 tab PO BID 05/22/21 05/22/21 lisinopril 10 mg tablet 1 tab PO DAILY 05/22/21 05/22/21 metformin 500 mg tablet 1 tab PO DAILY 05/22/21 05/22/21 pantoprazole 20 mg tablet,delayed 1 tab PO DAILY 05/22/21 05/22/21 release sertraline 100 mg tablet 1 tab PO DAILY 05/22/21 05/22/21 simvastatin 40 mg tablet 1 tab PO BEDTIME 05/22/21 05/22/21 sucralfate 1 gram tablet 1 tab PO BID 05/22/21 05/22/21 temazepam 30 mg capsule 1 cap PO BEDTIME PRN 05/22/21 05/22/21 trazodone 150 mg tablet tab PO 05/22/21 valacyclovir 500 mg tablet 1 tab PO BID 05/22/21 05/22/21 Previous Rx's Medication Instructions Recorded doxycycline hyclate 100 mg tablet 100 mg PO Q12H #20 tab 05/25/21 prednisone 10 mg tablet See Rx Instructions .ROUTE 05/25/21 .COMPLEX #45 tab levofloxacin 500 mg tablet 500 mg PO DAILY #6 tab 06/11/21 prednisone 50 mg tablet 50 mg PO DAILY #4 tab 06/11/21 Allergies Allergy/AdvReac Type Severity Reaction Status Date / Time Iodinated Contrast Media Allergy Unknown UNKNOWN Unverified 04/30/20 14:59 [IV Dye, Iodine Containing] zolpidem [From AMBIEN] Allergy Unknown UNKNOWN Unverified 04/30/20 14:59 iv dye as a baby Allergy Unknown Uncoded 07/24/17 00:00 Review of Systems Review of Systems: Constitutional : No Weight loss, No Fever, No Chills, No Night Sweats, No Fatigue, No Malaise ENT/Mouth : No Hearing loss, No Ear Pain, No Nasal Congestion, No Sinus Pain, hoarse voice/lost her voice over the last few days, mild sore throat, No Rhinorrhea, No Swallowing Difficulty Eyes: No Eye Pain, No Swelling, No Redness, No Foreign Body, No Discharge, No Vision Changes Cardiovascular : No Chest Pain, No SOB, No Dyspnea on Exertion, No Orthopnea, No Edema, No Palpitations Respiratory : Coughing more than usual,, No Sputum, No Wheezing, No Smoke Exposure, No Dyspnea Gastrointestinal : No Nausea, No Vomiting, No Diarrhea, No Constipation, No abdominal Pain, No Hematochezia, No Melena Genitourinary : no irregular bleeding, No Dysuria, No Urinary Frequency, No Hematuria, No Urinary Incontinence, No Urgency, No Flank Pain, No Urinary Flow Changes, No Hesitancy Musculoskeletal : No joint pain, No Myalgias, No Joint Swelling Skin : No Skin Lesions, No rash Neuro : No Weakness, No Numbness, No Paresthesias, No Loss of Consciousness, No Dizziness, No Headache Psych : No Anxiety/Panic, No Depression, No SI/HI/AH/VH, No Social Issues, Heme/Lymph: No Bruising, No Bleeding,No Lymphadenopathy Endocrine : No Polyuria, No Polydipsia, No Temperature Intolerance [facility] Past Medical History Medical History (Updated 06/11/21 @ 15:14 by Orquidea Major MD) Anxiety COPD (chronic obstructive pulmonary disease) Depressed Diabetes HTN (hypertension) Social History Social History Household Members: None Housing: Apartment Alcohol intake: never Patient Tobacco Use Status: Former Tobacco user Advance Directives: Yes Advance Directives Information Provided: Yes Advance Directives on File: No Advance Directives Date on File: 05/21/21 service: No Current occupational status: disabled Physical Exam Vital Signs: Vital Signs: Last Vital Signs Temp 98.2 F 06/11/21 12:29 Pulse 84 06/11/21 12:29 Resp 18 06/11/21 12:29 BP 156/91 H 06/11/21 12:29 Pulse Ox 97 06/11/21 12:29 Oxygen Flow Rate 3 06/11/21 12:29 Body Mass Index 28.3 Const: Other: Appearance: Alert. Oriented X3. No acute distress. Eyes: Pupils equal, round and reactive to light. ENT: Pharynx normal. Patient has a hoarse voice, no exudates, no abscesses Neck: Normal inspection. Neck supple. No lymph nodes noted. No crepitus CVS: Normal heart rate and rhythm. Pulses normal. Normal S1 and S2 Respiratory: No respiratory distress. Bilateral wheezing, good air movement Abdomen: Soft and nontender. No rigidity. No distention. Skin: Skin warm and dry. Normal skin color. Normal skin turgor. Extremities: No lower extremity edema. No lower extremity edema. No Lacerations. No Rash Neuro: Oriented X 3. No motor deficit. No sensory deficit. Moving all extermities. No slurred speech. Course Course Course Narrative: Patient's labs and chest x-ray look better than prior to discharge. Patient states that she feels better, patient has oxygen at home. Patient likely having laryngitis, patient will follow-up with her primary care physician Medical Decision Making Lab Data Result diagrams: 06/11/21 13:53 06/11/21 13:53 Labs: Lab Results 06/11/21 06/11/21 06/11/21 Range/Units 13:52 13:52 13:53 WBC 8.0 (4.8-10.8) X10*3/uL RBC 3.74 L (4.20-5.50) X10*6/uL Hgb 12.8 (12.0-16.0) g/dl Hct 38.7 (37-47) % MCV 103.5 H (80-98) fL MCH 34.2 H (27.0-33.0) pg MCHC 33.1 (31.0-35.0) g/dl RDW 12.1 (11.0-16.0) % Plt Count 171 D (160-400) X10*3/uL MPV 9.7 (9.4-12.3) fL Immature Gran % (Auto) 0.6 H (0.0-0.4) % Neut % (Auto) 65.6 (45-73) % Lymph % (Auto) 23.8 (20-40) % [place] % (Auto) 7.6 (2-11) % Eos % (Auto) 2.0 (0-4) % Baso % (Auto) 0.4 (0-2) % Lymph # (Auto) 1.9 (1.2-4.9) X10*3/uL [place] # (Auto) 0.6 (0.1-1.2) X10*3/uL Eos # (Auto) 0.2 (0.0-0.4) X10*3/uL Baso # (Auto) 0.0 (0.0-0.2) X10*3/uL Abs Immat Gran (auto) 0.05 H (0.00-0.03) X10*3/uL Absolute Neuts (auto) 5.2 (2.0-8.3) X10*3/uL Absolute Nucleated RBC 0.000 (0.0-0.012) X10*3/uL Nucleated RBC % (auto) 0.0 (0.0-0.2) /100WBC Sodium (135-145) mmol/L Potassium (3.3-5.1) mmol/L Chloride (96-108) mmol/L Carbon Dioxide (22-29) mmol/L Anion Gap (12-20) BUN (9-16) mg/dL Creatinine (0.5-1.4) mg/dL Estim Creat Clear Calc Estimated GFR Random Glucose (60-115) mg/dL Lactic Acid 1.5 (0.5-2.0) mmol/L Calcium (8.4-10.2) mg/dL Total Bilirubin (0.0-1.0) mg/dL Direct Bilirubin (0.0-0.5) mg/dL AST (5-31) U/L ALT (0-31) U/L Alkaline Phosphatase (39-117) U/L B-Natriuretic Peptide 53 (<100) pg/mL Total Protein (6.5-8.0) g/dL Albumin (3.5-5.0) g/dL COVID-19 (LEONARDA) (Negative) COVID-19 Clin Com S. pyogenes GrpA ELAINA (Negative) 06/11/21 06/11/21 06/11/21 Range/Units 13:53 13:54 13:54 WBC (4.8-10.8) X10*3/uL RBC (4.20-5.50) X10*6/uL Hgb (12.0-16.0) g/dl Hct (37-47) % MCV (80-98) fL MCH (27.0-33.0) pg MCHC (31.0-35.0) g/dl RDW (11.0-16.0) % Plt Count (160-400) X10*3/uL MPV (9.4-12.3) fL Immature Gran % (Auto) (0.0-0.4) % Neut % (Auto) (45-73) % Lymph % (Auto) (20-40) % [place] % (Auto) (2-11) % Eos % (Auto) (0-4) % Baso % (Auto) (0-2) % Lymph # (Auto) (1.2-4.9) X10*3/uL [place] # (Auto) (0.1-1.2) X10*3/uL Eos # (Auto) (0.0-0.4) X10*3/uL Baso # (Auto) (0.0-0.2) X10*3/uL Abs Immat Gran (auto) (0.00-0.03) X10*3/uL Absolute Neuts (auto) (2.0-8.3) X10*3/uL Absolute Nucleated RBC (0.0-0.012) X10*3/uL Nucleated RBC % (auto) (0.0-0.2) /100WBC Sodium 138 (135-145) mmol/L Potassium 4.3 (3.3-5.1) mmol/L Chloride 99 (96-108) mmol/L Carbon Dioxide 30 H (22-29) mmol/L Anion Gap 13 (12-20) BUN 9 D (9-16) mg/dL Creatinine 0.89 (0.5-1.4) mg/dL Estim Creat Clear Calc 69.9 Estimated GFR > 60 Random Glucose 286 H (60-115) mg/dL Lactic Acid (0.5-2.0) mmol/L Calcium 9.4 (8.4-10.2) mg/dL Total Bilirubin 0.3 (0.0-1.0) mg/dL Direct Bilirubin 0.2 (0.0-0.5) mg/dL AST 11 (5-31) U/L ALT 15 (0-31) U/L Alkaline Phosphatase 85 D (39-117) U/L B-Natriuretic Peptide (<100) pg/mL Total Protein 6.5 (6.5-8.0) g/dL Albumin 3.8 (3.5-5.0) g/dL COVID-19 (LEONARDA) Negative (Negative) COVID-19 Clin Com See Note S. pyogenes GrpA ELAINA Negative (Negative) Discharge Plan Discharge Clinical Impression: Laryngitis Patient Disposition: Home, Self-Care Instructions: Laryngitis (ED) Additional Instructions: Please follow-up with your primary care physician tomorrow. If you have any worsening or new symptoms, please return to the emergency room or call 911 Prescriptions: New levofloxacin 500 mg tablet 500 mg PO DAILY Qty: 6 RF: 0 prednisone 50 mg tablet 50 mg PO DAILY Qty: 4 RF: 0 No Action metformin 500 mg tablet 1 tab PO DAILY RF: 0 anastrozole 1 mg tablet 1 tab PO DAILY RF: 0 sucralfate 1 gram tablet 1 tab PO BID RF: 0 sertraline 100 mg tablet 1 tab PO DAILY RF: 0 valacyclovir 500 mg tablet 1 tab PO BID RF: 0 simvastatin 40 mg tablet 1 tab PO BEDTIME RF: 0 carvedilol 3.125 mg tablet 1 tab PO BID RF: 0 pantoprazole 20 mg tablet,delayed release (DR/EC) 1 tab PO DAILY RF: 0 temazepam 30 mg capsule 1 cap PO BEDTIME PRN (Reason: Insomnia) RF: 0 gemfibrozil 600 mg tablet 1 tab PO BID RF: 0 trazodone 150 mg tablet PO RF: 0 lisinopril 10 mg tablet 1 tab PO DAILY RF: 0 fluticasone propionate 50 mcg/actuation spray,suspension intranasal RF: 0 aripiprazole 5 mg tablet 1 tab PO DAILY RF: 0 bupropion HCl 150 mg tablet extended release 24 hr 1 tab PO QAM RF: 0 Breo Ellipta 100-25 mcg/dose blister with device 1 puff inhalation DAILY RF: 0 doxycycline hyclate 100 mg Tablet 100 mg PO Q12H Qty: 20 RF: 0 prednisone 10 mg tablet See Rx Instructions .Route .COMPLEX Qty: 45 RF: 0
[2021-06-11] MEDS: Albuterol/Iprat 2.5/0.5MG 3 ML AMPUL.NEB INHALE (13:16)
[2021-06-11 13:58] LABS: MANUAL DIFF FLAG NO
[2021-06-11 14:04] LABS: Basophils Percent Auto 0.4 % (0-2); Eosinophils Absolute Auto 0.2 X10*3/uL (0.0-0.4); Hematocrit 38.7 % (37-47); Hemoglobin 12.8 g/dl (12.0-16.0); Imm Gran Abs Auto 0.05 X10*3/uL (0.00-0.03); Imm Gran Pct Auto 0.6 % (0.0-0.4); Lymphocytes Absolute Auto 1.9 X10*3/uL (1.2-4.9); Lymphocytes Percent Auto 23.8 % (20-40); Mean Corpuscular HGB Conc 33.1 g/dl (31.0-35.0); Mean Corpuscular Hemoglobin 34.2 pg (27.0-33.0); Mean Corpuscular Volume 103.5 fL (80-98); Mean Platelet Volume 9.7 fL (9.4-12.3); Monocytes Absolute Auto 0.6 X10*3/uL (0.1-1.2); Monocytes Percent Auto 7.6 % (2-11); Neutrophils Absolute Auto 5.2 X10*3/uL (2.0-8.3); Neutrophils Percent Auto 65.6 % (45-73); Platelet Count 171 X10*3/uL (160-400); Red Blood Count 3.74 X10*6/uL (4.20-5.50); Red Cell Distribution Width 12.1 % (11.0-16.0)
[2021-06-11 14:12] LABS: IDNOW Serial# 9DD0AD1C; Strep A Nucleic Acid Negative (Negative)
[2021-06-11 14:13] LABS: COVID-19 Test Negative (Negative)
[2021-06-11 14:16] LABS: Lactic Acid 1.5 mmol/L (0.5-2.0)
[2021-06-11 14:21] LABS: Alanine Aminotransferase 15 U/L (0-31); Albumin Level 3.8 g/dL (3.5-5.0); Alkaline Phosphatase 85 U/L (39-117); Anion Gap 13 (12-20); Aspartate Amino Transferase 11 U/L (5-31); Bilirubin Direct 0.2 mg/dL (0.0-0.5); Bilirubin Total 0.3 mg/dL (0.0-1.0); Blood Urea Nitrogen 9 mg/dL (9-16); Calcium 9.4 mg/dL (8.4-10.2); Carbon Dioxide 30 mmol/L (22-29); Chloride 99 mmol/L (96-108); Creatinine Clr Calc Pharmacy 69.9; Estimated Glomerular Filt Rate > 60; Glucose Random 286 mg/dL (60-115); Potassium 4.3 mmol/L (3.3-5.1); Sodium 138 mmol/L (135-145); Total Protein 6.5 g/dL (6.5-8.0)
[2021-06-11 14:27] LABS: B Type Natriuretic Peptide 53 pg/mL (<100)
[2021-06-11] MEDS: predniSONE 10 MG TABLET 50 MG PO (15:29)
[2021-06-11] MEDS: levoFLOXacin 500 MG TABLET PO (15:29)
[2021-06-11 16:15] VITALS: BP 167/93; PULSE 79; RESP 16; TEMP 37; O2SAT 96
== END 2021-06-11 17:49 | disposition home or self-care (01) ==
PROVIDERS: Emergency Provider Emergency Medicine; PCP Nurse Practitioner Family
DX: J04.0 Acute laryngitis (principal); J44.9 Chronic obstructive pulmonary disease, unspecified; I10 Essential (primary) hypertension; E11.9 Type 2 diabetes mellitus without complications; Z99.81 Dependence on supplemental oxygen; Z20.822 Contact with and (suspected) exposure to COVID-19
CPT/HCPCS: 36415; 71045; 80048; 80076; 83605; 83880; 85025; 87040; 87635; 87651; 93005; 94640; 96365; 96367; 96375; 99283; 99284

== ENCOUNTER 2022-07-11 16:14 | Emergency (ER) | payer MEDICARE, MEDICAID, SELFPAY ==
--- NOTE | ~2022-07-11 | XR_ITS ---
EXAMINATION: XR PELVIS CLINICAL INFORMATION: Status post fall COMPARISON: Right hip radiographs 04/26/2016, CT abdomen and pelvis 05/21/2021 TECHNIQUE: AP view of the pelvis. FINDINGS: Status post incompletely imaged right total hip arthroplasty. No acute fracture or dislocation is identified on limited single view obtained. The patient is slightly rotated. Status post malleable plate and screw fixation across the pubic symphysis and right iliac bone. Screw and washer fixation across the upper SI joints. Fixation is intact. Disc degenerative change and facet arthrosis in the lumbar spine noted. Tubal occlusion devices project over the pelvis. XR/XR pelvis 1-2V IMPRESSION: 1. No acute fracture or dislocation identified on this limited single view of the pelvis. 2. Intact appearing fixation of the pelvis. 3. Incompletely imaged right total hip prosthesis.
--- NOTE | ~2022-07-11 | CT_ITS ---
EXAMINATION: NONCONTRAST HEAD CT NONCONTRAST CERVICAL SPINE CT INDICATION INFORMATION: Fall COMPARISON: Head CT 03/08/2018 TECHNIQUE: Separate noncontrast CT examinations of the head and cervical spine were performed. Coronal and sagittal images were created for each examination at the technologist workstation. This CT examination was performed using dose optimization techniques as appropriate, variously including the following: *Automated exposure control *Adjustment of mA and/or kV according to patient size (this includes techniques or standardized protocols for targeted exams where dose is matched to indication/reason for exam; i.e. extremities or head) *Use of iterative reconstruction technique DLP: 1487 mGy-cm FINDINGS: HEAD: No intra or extra-axial fluid collection, hemorrhage, or mass. No ventriculomegaly. No midline shift or herniation. Basal cisterns are patent. [place]-white matter differentiation is maintained. No territorial encephalomalacia. No significant volume loss. Patchy periventricular and deep white matter hypoattenuation is consistent with mild small vessel ischemic changes. No calvarial fracture or soft tissue abnormality. Deformity of the medial orbital wall on the left consistent with prior fracture. The mastoid air cells and visualized portions of the paranasal sinuses are well aerated. CERVICAL SPINE: Exam is limited by motion artifact. A limited repeat was performed. Alignment: Normal. No subluxation. Vertebra: No acute fracture. No prevertebral soft tissue swelling. Degenerative disc disease: Preserved intervertebral disc space heights. Minimal endplate proliferative change at C2-C3 through C5-C6 consistent with mild degenerative disc disease. Other findings: Visualized lung apices grossly clear though assessment is limited by motion. Thyroid gland is unremarkable. Visualized major salivary glands unremarkable. No cervical lymphadenopathy or mass detected. CT/CT cervical spine wo IV con IMPRESSION: 1. No intracranial hemorrhage or calvarial fracture. 2. Somewhat limited assessment of the cervical spine due to motion artifact. No traumatic subluxation or acute cervical spine fracture identified allowing for this limitation.
--- NOTE | ~2022-07-11 | XR_ITS ---
EXAMINATION: XR KNEE, LEFT CLINICAL INFORMATION: Knee pain COMPARISON: None TECHNIQUE: Two views of the left knee. FINDINGS: Bones and soft tissues are unremarkable. No fracture. A trace joint effusion may be present. Alignment is anatomic. Joint spaces are well maintained. Mild vascular calcifications are present. No chondrocalcinosis. XR/XR knee LT 2V IMPRESSION: No evidence of an acute osseous injury. A trace joint effusion may be present.
[2022-07-11 16:27] VITALS: BP 115/90; BP 143/80; PULSE 72; PULSE 82; RESP 20; TEMP 37.2; O2SAT 95; O2SAT 98; BMI 28.3
--- NOTE | 2022-07-11 16:36 | ED.GENADULT ---
HPI - General Adult General Chief complaint: Fall Stated complaint: INCR WEAKNESS X'S 5 DAYS Time Seen by Provider: 07/11/22 16:28 Source: patient Mode of arrival: ambulatory Limitations: no limitations History of Present Illness HPI narrative: Patient history of hypertension , diabetes, COPD ,oxygen dependent 2 L , CVA with left hemiparesis walks with walker been feeling more weak lately for last 1 week had multiple falls says that her left leg feels very weak knees gave out and she falls hit her head couple of times no loss of consciousness not on any blood thinner except aspirin no fever no chills no urinary complaints no back pain complaining of mild pain in right hip area after the fall Related Data Home Medications Medication Instructions Recorded Confirmed anastrozole 1 mg tablet 1 tab PO DAILY 05/22/21 05/22/21 aripiprazole 5 mg tablet 1 tab PO DAILY 05/22/21 05/22/21 bupropion HCl 150 mg 24 hr tablet, 1 tab PO QAM 05/22/21 05/22/21 extended release carvedilol 3.125 mg tablet 1 tab PO BID 05/22/21 05/22/21 fluticasone furoate 100 1 puff inhalation DAILY 05/22/21 05/22/21 mcg-vilanterol 25 mcg/dose inhalation powder (Breo Ellipta) fluticasone propionate 50 spray intranasal 05/22/21 mcg/actuation nasal spray,suspension gemfibrozil 600 mg tablet 1 tab PO BID 05/22/21 05/22/21 lisinopril 10 mg tablet 1 tab PO DAILY 05/22/21 05/22/21 metformin 500 mg tablet 1 tab PO DAILY 05/22/21 05/22/21 pantoprazole 20 mg tablet,delayed 1 tab PO DAILY 05/22/21 05/22/21 release sertraline 100 mg tablet 1 tab PO DAILY 05/22/21 05/22/21 simvastatin 40 mg tablet 1 tab PO BEDTIME 05/22/21 05/22/21 sucralfate 1 gram tablet 1 tab PO BID 05/22/21 05/22/21 temazepam 30 mg capsule 1 cap PO BEDTIME PRN Insomnia 05/22/21 05/22/21 trazodone 150 mg tablet tab PO 05/22/21 valacyclovir 500 mg tablet 1 tab PO BID 05/22/21 05/22/21 Previous Rx's Medication Instructions Recorded doxycycline hyclate 100 mg tablet 100 mg PO Q12H #20 tabs 05/25/21 prednisone 10 mg tablet See Rx Instructions .Route 05/25/21 .COMPLEX #45 tabs levofloxacin 500 mg tablet 500 mg PO DAILY #6 tabs 06/11/21 prednisone 50 mg tablet 50 mg PO DAILY #4 tabs 06/11/21 Allergies Allergy/AdvReac Type Severity Reaction Status Date / Time Iodinated Contrast Media Allergy Unknown UNKNOWN Unverified 04/30/20 14:59 [IV Dye, Iodine Containing] zolpidem [From AMBIEN] Allergy Unknown UNKNOWN Unverified 04/30/20 14:59 iv dye as a baby Allergy Unknown Uncoded 07/24/17 00:00 Review of Systems Review of Systems: Yes all other systems are reviewed and are negative [facility] Past Medical History Medical History Anxiety COPD (chronic obstructive pulmonary disease) Depressed Diabetes HTN (hypertension) Social History Social History Household Members: None Housing: Apartment Alcohol intake: never Patient Tobacco Use Status: Former Tobacco user Smoked in Last 30 Days: No Use of substances other than those prescribed or required for medical reasons: No Advance Directives: No Advance Directives Information Provided: Yes Advance Directives Date on File: 05/21/21 Patient : No service: No Current occupational status: disabled Physical Exam ED Vital Signs: Vital Signs - 24 hr 07/11/22 16:27 07/11/22 16:40 07/11/22 18:30 Temperature 99 F 99 F 98.6 F Pulse Rate 82 79 91 Respiratory Rate 20 20 16 Blood Pressure 143/80 H 156/72 H 99/41 L Pulse Oximetry 95 95 100 Oxygen Delivery Method Nasal Cannula Room Air Room Air Oxygen Flow Rate 07/11/22 20:25 Temperature 99.3 F Pulse Rate 74 Respiratory Rate 20 Blood Pressure 161/72 H Pulse Oximetry 95 Oxygen Delivery Method Nasal Cannula Oxygen Flow Rate 2 BMI result Body Mass Index 28.3 Appearance: Alert. Oriented X3. No acute distress. Eyes: PERRLA, No Nystagmus ENT: Pharynx normal. Oral Mucosa moist Neck: Normal inspection. Neck supple. CVS: Normal heart rate and rhythm. Pulses normal. Respiratory: No respiratory distress. Equal air entry bilateral, no wheezing/rales/rhonchi Abdomen: Soft and nontender. Bowel sounds are present, no mass palpable, no CVA tenderness Skin: Skin warm and dry. Normal skin color. Normal skin turgor. Extremities: No lower extremity edema. No calf tenderness left knee good range of movement nontender no effusion left hip good range of movement no tender right hip also good range of movement slight tenderness on the right greater trochanteric area Neuro: Oriented X 3. Left-sided residual weakness Medical Decision Making MDM Narrative Medical decision making narrative: Patient workup negative for acute pathology for her weakness knees were weak x-ray negative patient was able to ambulate after knee immobilizer was applied to the left knee. Patient advised to follow with orthopedic Lab Data Lab results reviewed: Yes I reviewed the patient's lab results. Result diagrams: 07/11/22 18:21 07/11/22 18:21 Labs: Lab Results 07/11/22 07/11/22 07/11/22 Range/Units 18:21 18:21 18:21 WBC 8.2 (4.8-10.8) X10*3/uL RBC 4.02 L (4.20-5.50) X10*6/uL Hgb 13.2 (12.0-16.0) g/dl Hct 39.6 (37.0-47.0) % MCV 98.5 H (80.0-98.0) fL MCH 32.8 (27.0-33.0) pg MCHC 33.3 (31.0-35.0) g/dl RDW 12.7 (11.0-16.0) % Plt Count 195 (160-400) X10*3/uL MPV 10.2 (9.4-12.3) fL Immature Gran % (Auto) 0.5 H (0.0-0.4) % Neut % (Auto) 57.6 (45-73) % Lymph % (Auto) 27.7 (20-40) % [place] % (Auto) 9.8 (2-11) % Eos % (Auto) 3.8 (0-4) % Baso % (Auto) 0.6 (0-2) % Lymph # (Auto) 2.3 (1.2-4.9) X10*3/uL [place] # (Auto) 0.8 (0.1-1.2) X10*3/uL Eos # (Auto) 0.3 (0.0-0.4) X10*3/uL Baso # (Auto) 0.1 (0.0-0.2) X10*3/uL Abs Immat Gran (auto) 0.04 H (0.00-0.03) X10*3/uL Absolute Neuts (auto) 4.8 (2.0-8.3) x10*3/uL Absolute Nucleated RBC 0.000 (0.0-0.012) X10*3/uL Nucleated RBC % (auto) 0.0 (0.0-0.2) /100WBC Sodium 144 (135-145) mmol/L Potassium 4.5 (3.3-5.1) mmol/L Chloride 103 (96-108) mmol/L Carbon Dioxide 28 (22-29) mmol/L Anion Gap 18 (12-20) BUN 17 H (9-16) mg/dL Creatinine 0.99 (0.5-1.4) mg/dL Estim Creat Clear Calc 62.1 Estimated GFR 57 POC Glucose (60-115) mg/dL Random Glucose 163 H (60-115) mg/dL Calcium 10.0 D (8.4-10.2) mg/dL Total Bilirubin 0.2 (0.0-1.0) mg/dL AST 25 D (5-31) U/L ALT 18 (0-31) U/L Alkaline Phosphatase 84 (39-117) U/L Total Protein 7.6 (6.5-8.0) g/dL Albumin 4.4 (3.5-5.0) g/dL COVID-19 (LEONARDA) Negative (Negative) COVID-19 Clin Com See Note 07/11/22 Range/Units 18:56 WBC (4.8-10.8) X10*3/uL RBC (4.20-5.50) X10*6/uL Hgb (12.0-16.0) g/dl Hct (37.0-47.0) % MCV (80.0-98.0) fL MCH (27.0-33.0) pg MCHC (31.0-35.0) g/dl RDW (11.0-16.0) % Plt Count (160-400) X10*3/uL MPV (9.4-12.3) fL Immature Gran % (Auto) (0.0-0.4) % Neut % (Auto) (45-73) % Lymph % (Auto) (20-40) % [place] % (Auto) (2-11) % Eos % (Auto) (0-4) % Baso % (Auto) (0-2) % Lymph # (Auto) (1.2-4.9) X10*3/uL [place] # (Auto) (0.1-1.2) X10*3/uL Eos # (Auto) (0.0-0.4) X10*3/uL Baso # (Auto) (0.0-0.2) X10*3/uL Abs Immat Gran (auto) (0.00-0.03) X10*3/uL Absolute Neuts (auto) (2.0-8.3) x10*3/uL Absolute Nucleated RBC (0.0-0.012) X10*3/uL Nucleated RBC % (auto) (0.0-0.2) /100WBC Sodium (135-145) mmol/L Potassium (3.3-5.1) mmol/L Chloride (96-108) mmol/L Carbon Dioxide (22-29) mmol/L Anion Gap (12-20) BUN (9-16) mg/dL Creatinine (0.5-1.4) mg/dL Estim Creat Clear Calc Estimated GFR POC Glucose 164 H (60-115) mg/dL Random Glucose (60-115) mg/dL Calcium (8.4-10.2) mg/dL Total Bilirubin (0.0-1.0) mg/dL AST (5-31) U/L ALT (0-31) U/L Alkaline Phosphatase (39-117) U/L Total Protein (6.5-8.0) g/dL Albumin (3.5-5.0) g/dL COVID-19 (LEONARDA) (Negative) COVID-19 Clin Com Discharge Plan Discharge Clinical Impression: Weakness, Left knee pain Patient Disposition: Home, Self-Care Instructions: Weakness (ED), Knee Pain (ED) Additional Instructions: Wear the knee immobilizer for support Walk with walker Follow with PCP Prescriptions: No Action metformin 500 mg tablet 1 tab PO DAILY anastrozole 1 mg tablet 1 tab PO DAILY sucralfate 1 gram tablet 1 tab PO BID sertraline 100 mg tablet 1 tab PO DAILY valacyclovir 500 mg tablet 1 tab PO BID simvastatin 40 mg tablet 1 tab PO BEDTIME carvedilol 3.125 mg tablet 1 tab PO BID pantoprazole 20 mg tablet,delayed release (DR/EC) 1 tab PO DAILY temazepam 30 mg capsule 1 cap PO BEDTIME PRN (Reason: Insomnia) gemfibrozil 600 mg tablet 1 tab PO BID trazodone 150 mg tablet PO lisinopril 10 mg tablet 1 tab PO DAILY fluticasone propionate 50 mcg/actuation spray,suspension intranasal aripiprazole 5 mg tablet 1 tab PO DAILY bupropion HCl 150 mg tablet extended release 24 hr 1 tab PO QAM Breo Ellipta 100-25 mcg/dose blister with device 1 puff inhalation DAILY doxycycline hyclate 100 mg Tablet 100 mg PO Q12H Qty: 20 0RF prednisone 10 mg tablet See Rx Instructions .Route .COMPLEX Qty: 45 0RF Rx Instructions: 10 mg orally; 5 tabs p.o. daily x3 days; 4 tabs p.o. daily x3 days; 3 tabs daily x3 days; 2 tabs daily x3 days; 1 tab daily x3 days levofloxacin 500 mg tablet 500 mg PO DAILY Qty: 6 0RF Rx Instructions: Started 06/12/2021 prednisone 50 mg tablet 50 mg PO DAILY Qty: 4 0RF Interventions: ED Discharge Assessment Last Done: 07/11/22 21:39 Discharge Date/Time: 07/11/22 21:41
[2022-07-11 16:40] VITALS: BP 156/72; PULSE 79; RESP 20; TEMP 37.2; O2SAT 95
--- NOTE | 2022-07-11 16:43 | PC.NURSE ---
Pt V/S are stable, Pt has hx of COPD and utilizes NC 2L. Pt has severe weakness on her left side, today trying to get out from the bed she fall,she also fall yesterday and hit her head. Pt denies any head pain. 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 will continue to monitor.
[2022-07-11 18:27] LABS: MANUAL DIFF FLAG NO
[2022-07-11 18:29] LABS: Basophils Absolute Auto 0.1 X10*3/uL (0.0-0.2); Basophils Percent Auto 0.6 % (0-2); Eosinophils Absolute Auto 0.3 X10*3/uL (0.0-0.4); Eosinophils Percent Auto 3.8 % (0-4); Hematocrit 39.6 % (37.0-47.0); Hemoglobin 13.2 g/dl (12.0-16.0); Imm Gran Abs Auto 0.04 X10*3/uL (0.00-0.03); Imm Gran Pct Auto 0.5 % (0.0-0.4); Lymphocytes Absolute Auto 2.3 X10*3/uL (1.2-4.9); Lymphocytes Percent Auto 27.7 % (20-40); Mean Corpuscular HGB Conc 33.3 g/dl (31.0-35.0); Mean Corpuscular Hemoglobin 32.8 pg (27.0-33.0); Mean Corpuscular Volume 98.5 fL (80.0-98.0); Mean Platelet Volume 10.2 fL (9.4-12.3); Monocytes Absolute Auto 0.8 X10*3/uL (0.1-1.2); Monocytes Percent Auto 9.8 % (2-11); Neutrophils Absolute Auto 4.8 x10*3/uL (2.0-8.3); Neutrophils Percent Auto 57.6 % (45-73); Platelet Count 195 X10*3/uL (160-400); Red Blood Count 4.02 X10*6/uL (4.20-5.50); Red Cell Distribution Width 12.7 % (11.0-16.0); White Blood Count 8.2 X10*3/uL (4.8-10.8)
[2022-07-11 18:30] VITALS: BP 99/41; PULSE 91; RESP 16; TEMP 37; O2SAT 100
--- NOTE | 2022-07-11 18:31 | PC.NURSE ---
Pt V/S are stable, Pt appears to be anxious, jaundice, and swollen lower extremities and discoloration. DTR at bedside. Pt lungs sounds are clear and audible bowel sound.
[2022-07-11 18:42] LABS: COVID-19 Test Negative (Negative); IDNOW Serial# 16C4AD1C
[2022-07-11 18:49] LABS: Alanine Aminotransferase 18 U/L (0-31); Albumin Level 4.4 g/dL (3.5-5.0); Alkaline Phosphatase 84 U/L (39-117); Anion Gap 18 (12-20); Aspartate Amino Transferase 25 U/L (5-31); Bilirubin Total 0.2 mg/dL (0.0-1.0); Blood Urea Nitrogen 17 mg/dL (9-16); Carbon Dioxide 28 mmol/L (22-29); Chloride 103 mmol/L (96-108); Creatinine Clr Calc Pharmacy 62.1; Estimated Glomerular Filt Rate 57; Glucose Random 163 mg/dL (60-115); Potassium 4.5 mmol/L (3.3-5.1); Sodium 144 mmol/L (135-145); Total Protein 7.6 g/dL (6.5-8.0)
[2022-07-11 19:04] LABS: Glucose, Whole Blood 164 mg/dL (60-115)
[2022-07-11 20:25] VITALS: BP 161/72; PULSE 74; RESP 20; TEMP 37.4; O2SAT 95
--- NOTE | 2022-07-11 20:27 | PC.NURSE ---
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 Pt was change due to she had urinate into her brief. The urine has not been collected d/t pt had urinate in the brief.
== END 2022-07-11 21:41 | disposition home or self-care (01) ==
PROVIDERS: Emergency Provider Internal Medicine; PCP Nurse Practitioner Family
DX: R53.1 Weakness (principal); M25.562 Pain in left knee; M25.551 Pain in right hip; R29.6 Repeated falls; Z20.822 Contact with and (suspected) exposure to COVID-19; I69.354 Hemiplegia and hemiparesis following cerebral infarction affecting left non-dominant side; E11.9 Type 2 diabetes mellitus without complications; I10 Essential (primary) hypertension; Z91.81 History of falling; Z79.82 Long term (current) use of aspirin; Z79.899 Other long term (current) drug therapy; Z79.84 Long term (current) use of oral hypoglycemic drugs; Z79.02 Long term (current) use of antithrombotics/antiplatelets; Z87.891 Personal history of nicotine dependence
CPT/HCPCS: 36415; 70450; 72125; 72170; 73560; 80053; 82947; 85025; 87635; 99284

== ENCOUNTER 2022-10-07 09:51 | Inpatient (IN) | payer MEDICARE, MEDICAID, SELFPAY ==
[2022-10-07] VITALS (8 sets, daily range): BP systolic 137–221; BP diastolic 69–105; PULSE 86–110; RESP 17–26; TEMP 36.4–37.7; O2SAT 90–96; BMI 28.3
--- NOTE | ~2022-10-07 | XR_ITS ---
EXAMINATION: XR CHEST CLINICAL INFORMATION: Shortness of breath. Productive cough. COMPARISON: 06/11/2021 TECHNIQUE: Frontal view of the chest was obtained. FINDINGS: Patchy consolidation in the right lower lung. Left lung clear. No pleural effusion or pneumothorax. Normal heart size and pulmonary vascularity. Aorta is atherosclerotic. XR/XR chest 1V IMPRESSION: Right lower lobe pneumonia.
--- NOTE | 2022-10-07 10:11 | ECG_ITS ---
Test Reason : SOB Blood Pressure : / mmHG Vent. Rate : 103 BPM Atrial Rate : 103 BPM P-R Int : 164 ms QRS Dur : 082 ms QT Int : 352 ms P-R-T Axes : 065 050 068 degrees QTc Int : 461 ms Sinus tachycardia Nonspecific ST and T wave abnormality Abnormal ECG When compared with ECG of 11-JUN-2021 13:22, ST now depressed in Lateral leads Referred By: Tara Quach Electronically Signed By:IVY DENISE
--- NOTE | 2022-10-07 10:38 | ED.SOB ---
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 Patient states she was wearing her CPAP with her usual 3 L when she woke up very short of breath. She tried using her inhalers and nebulizers at home with no relief. She was nauseous and vomited once. Her [employer] ATTENDANT arrived in the morning, noted her to be hypoxic and have elevated blood pressure. EMS was called. On EMS arrival patient was wearing her CPAP with saturations of 84%. She was given a breathing treatment and some Zofran in route. Patient reports for the last 3 days she has had increase in her productive cough. She has been more short of breath. She reports a history of frequent falls, last was 3 days ago. She reports this is due to lower extremity weakness in her legs giving out. She is not on anticoagulation but she did hit her head. She has scattered bruising on her head and chest. She denies any headache or confusion. Denies any chest pain associated with her shortness of breath. She denies any leg swelling. No fevers or chills. No known sick contacts. MD elicited complaint: shortness of breath and cough Pertinent past history: COPD and diabetes Onset (ago): day(s) (3) Context: recent illness Timing: progressively worsening Severity: moderate Exacerbating factors: lying flat and coughing Relieving factors: nothing Known history of: COPD Associated symptoms: cough, sputum production, nausea/vomiting and chest congestion Treatment prior to arrival: oxygen and bronchodilator Related Data Home oxygen amount: 3 liters Home Medications Medication Instructions Recorded Confirmed anastrozole 1 mg tablet 1 tab PO DAILY 05/22/21 05/22/21 aripiprazole 5 mg tablet 1 tab PO DAILY 05/22/21 05/22/21 bupropion HCl 150 mg 24 hr tablet, 1 tab PO QAM 05/22/21 05/22/21 extended release carvedilol 3.125 mg tablet 1 tab PO BID 05/22/21 05/22/21 fluticasone furoate 100 1 puff inhalation DAILY 05/22/21 05/22/21 mcg-vilanterol 25 mcg/dose inhalation powder (Breo Ellipta) fluticasone propionate 50 spray intranasal 05/22/21 mcg/actuation nasal spray,suspension gemfibrozil 600 mg tablet 1 tab PO BID 05/22/21 05/22/21 lisinopril 10 mg tablet 1 tab PO DAILY 05/22/21 05/22/21 metformin 500 mg tablet 1 tab PO DAILY 05/22/21 05/22/21 pantoprazole 20 mg tablet,delayed 1 tab PO DAILY 05/22/21 05/22/21 release sertraline 100 mg tablet 1 tab PO DAILY 05/22/21 05/22/21 simvastatin 40 mg tablet 1 tab PO BEDTIME 05/22/21 05/22/21 sucralfate 1 gram tablet 1 tab PO BID 05/22/21 05/22/21 temazepam 30 mg capsule 1 cap PO BEDTIME PRN Insomnia 05/22/21 05/22/21 trazodone 150 mg tablet 3 tab PO BEDTIME 05/22/21 valacyclovir 500 mg tablet 1 tab PO BID 05/22/21 05/22/21 estradiol 0.01% (0.1 mg/gram) 1 appl vaginal DAILY 10/07/22 vaginal cream Allergies Allergy/AdvReac Type Severity Reaction Status Date / Time Iodinated Contrast Media Allergy Unknown UNKNOWN Unverified 04/30/20 14:59 [IV Dye, Iodine Containing] zolpidem [From AMBIEN] Allergy Unknown UNKNOWN Unverified 04/30/20 14:59 iv dye as a baby Allergy Unknown Uncoded 07/24/17 00:00 Review of Systems Review of Systems: Yes all other systems are reviewed and are negative PMFSH Past Medical History Medical History Anxiety COPD (chronic obstructive pulmonary disease) Depressed Diabetes HTN (hypertension) Social History Social History Household Members: None Housing: Apartment Alcohol intake: never Patient Tobacco Use Status: Former Tobacco user Advance Directives: Yes Advance Directives Information Provided: Yes Advance Directives on File: No Advance Directives Date on File: 05/21/21 service: No Current occupational status: disabled Physical Exam Vital Signs: Vital Signs: Last Vital Signs Temp 99.8 F 10/07/22 10:02 Pulse 102 H 10/07/22 10:59 Resp 22 H 10/07/22 11:48 BP 186/105 H 10/07/22 10:02 Pulse Ox 93 10/07/22 10:02 O2 Del Method 10/07/22 10:02 BMI result Body Mass Index 28.3 Appearance: Alert female sitting up on the stretcher, NRB in place, mild resp distres w/ RR mid 20s. Oriented X3. Appears older than stated age Eyes: Pupils equal, round and reactive to light. ENT: Pharynx normal. Poor dentition Neck: Normal inspection. Neck supple. CVS: Tachycardic, regular rhythm, heart rate 110s. Pulses normal. Respiratory: Mild respiratory distress, RR mid 20. Breath sounds diminished throughout, worse in RUL, coarseness the bases bilaterally Abdomen: Obese, Softly distended with well healed surgical scar, and nontender. +BS x4 Skin: Skin warm and dry. Normal skin color. Normal skin turgor. No rashes. Extremities: No lower extremity edema. No calf tenderness. Neuro: Oriented X 3. Normal speech and cognition. Decreased shirt maker strength in the left upper extremity compared to the right. Unable to lift the left leg up off the bed. Strength in the right side appears to be within normal limits. Course Course Course Narrative: 62-year-old female with history of O2 dependent COPD, TAJ, diabetes, history of pneumonia who presents to the ER for evaluation of shortness of breath and productive cough, worsening over the last 3 days. Arrives to the ER on on% non-rebreather at 15 liters/minute. Saturating mid 90s. Able to speak in complete sentences. Concern for acute COPD exacerbation with increase in sputum production. Will get septic workup, chest x-ray, EKG. DuoNeb and IV steroids have been ordered. Will closely monitor and re-evaluate Reevaluation(s) Reevaluation #1: Patient desaturating on 5 L nasal cannula, SpO2 84%. She does report feeling better. She was transitioned to high-flow nasal cannula 50% with 40 liters/minute. Sats are 90% on this. Will plan to admit for community-acquired pneumonia. Medications Administered Generic Name Dose Route Start Last Admin Trade Name Freq PRN Reason Stop Dose Admin Azithromycin 500 mg/ Sodium 250 mls @ 125 mls/hr 10/07/22 10:47 10/07/22 11:42 Chloride IV 10/07/22 12:46 125 mls/hr ONCE ONE Administration Magnesium Sulfate 2 gm in 50 mls @ 25 mls/hr 10/07/22 11:32 10/07/22 12:06 Magnesium Sulfate/H2o IV 10/07/22 13:31 25 mls/hr ONCE ONE Administration Discontinued Medications Generic Name Dose Route Start Last Admin Trade Name Freq PRN Reason Stop Dose Admin Albuterol Sulfate 5 mg/ 0 mg 10/07/22 10:12 10/07/22 10:57 Ipratropium [place] 0.5 mg INHALE 10/07/22 10:13 3 each ONCE ONE Administration Ceftriaxone Sodium 1 gm/ 50 mls @ 100 mls/hr 10/07/22 10:47 10/07/22 11:42 Sodium Chloride IV 10/07/22 11:16 100 mls/hr ONCE ONE Infusion Methylprednisolone Sodium Succinate 80 mg 10/07/22 10:12 10/07/22 11:10 Methylprednisolone Sod Succ 125 Mg/2 Ml Vial IVPUSH 10/07/22 10:13 80 mg ONCE ONE Administration Medical Decision Making Medical Decision Making MDM Narrative: 62-year-old female with history of O2 dependent COPD, active smoker, 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 Clinical presentation is consistent with COPD exacerbation with increased phlegm production and cough. No fevers. Septic workup and chest x-ray are pending. 11:30 - chest x-ray reviewed with a dense right lower lobe pneumonia. She denies any signs or symptoms of aspiration. Denies any history of dysphagia. Will treat for cap with Rocephin as the throat. She denies any recent hospitalizations. She does have leukocytosis of 15.6. Her lactic acid is normal. She is hypertensive. No evidence of severe sepsis at this time. Differential Diagnosis Differential Diagnoses: The differential diagnosis associated with the presentation includes Acute COPD exacerbation, bacterial pneumonia, viral pneumonia, bronchitis, aspiration pneumonia, CHF exacerbation, less likely PE or ACS Admission/Observation Consideration of admission/observation: Escalation of care including admission/observation considered Consult Healthcare Provider Management of the patient was discussed with: Hospitalist Lab Data [facility] Lab Attestation statement: I reviewed the patient's lab results. Leukocytosis noted, normal renal function, hypo magnesemia noted. She denies any alcohol use. BNP is normal. Troponin is elevated at 67, most likely demand due to hypoxia. She denies any chest pain, doubt ACS. 10/07/22 10:48 10/07/22 10:48 Labs: Lab Results 10/07/22 10/07/22 10/07/22 Range/Units 10:37 10:48 10:48 WBC 15.6 H (4.8-10.8) X10*3/uL RBC 4.45 (4.20-5.50) X10*6/uL Hgb 14.6 (12.0-16.0) g/dl Hct 44.2 (37.0-47.0) % MCV 99.3 H (80.0-98.0) fL MCH 32.8 (27.0-33.0) pg MCHC 33.0 (31.0-35.0) g/dl RDW 12.3 (11.0-16.0) % Plt Count 189 (160-400) X10*3/uL MPV 10.3 (9.4-12.3) fL Immature Gran % (Auto) 0.8 H (0.0-0.4) % Neut % (Auto) 87.5 H (45-73) % Lymph % (Auto) 5.8 L (20-40) % [place] % (Auto) 5.3 (2-11) % Eos % (Auto) 0.2 (0-4) % Baso % (Auto) 0.4 (0-2) % Lymph # (Auto) 0.9 L (1.2-4.9) X10*3/uL [place] # (Auto) 0.8 (0.1-1.2) X10*3/uL Eos # (Auto) 0.0 (0.0-0.4) X10*3/uL Baso # (Auto) 0.1 (0.0-0.2) X10*3/uL Abs Immat Gran (auto) 0.12 H (0.00-0.03) X10*3/uL Absolute Neuts (auto) 13.7 H (2.0-8.3) x10*3/uL Absolute Nucleated RBC 0.000 (0.0-0.012) X10*3/uL Nucleated RBC % (auto) 0.0 (0.0-0.2) /100WBC VBG pH (7.32-7.43) VBG pCO2 mmHg VBG pO2 mmHg VBG HCO3 (22-26) mmol/L VBG O2 Saturation % VBG Base Excess Sodium 141 (135-145) mmol/L Potassium 3.8 (3.3-5.1) mmol/L Chloride 104 (96-108) mmol/L Carbon Dioxide 26 (22-29) mmol/L Anion Gap 15 (12-20) BUN 18 H (9-16) mg/dL Creatinine 0.76 (0.5-1.4) mg/dL Estim Creat Clear Calc 80.8 Estimated GFR > 60 Random Glucose 169 H (60-115) mg/dL Lactic Acid (0.5-2.0) mmol/L Calcium 9.2 D (8.4-10.2) mg/dL Magnesium 1.2 L* (1.6-2.6) mg/dL Total Bilirubin 0.4 (0.0-1.0) mg/dL Direct Bilirubin < 0.2 (0.0-0.5) mg/dL AST 15 (5-31) U/L ALT 15 (0-31) U/L Alkaline Phosphatase 75 (39-117) U/L Troponin I High Sens (<3.5-17.0) ng/L B-Natriuretic Peptide (<100) pg/mL Total Protein 7.0 (6.5-8.0) g/dL Albumin 4.3 (3.5-5.0) g/dL Procalcitonin 0.33 ng/mL COVID-19 ([facility]) Negative (Negative) COVID-19 Clin Com See Note 10/07/22 10/07/22 10/07/22 Range/Units 10:48 10:48 10:48 WBC (4.8-10.8) X10*3/uL RBC (4.20-5.50) X10*6/uL Hgb (12.0-16.0) g/dl Hct (37.0-47.0) % MCV (80.0-98.0) fL MCH (27.0-33.0) pg MCHC (31.0-35.0) g/dl RDW (11.0-16.0) % Plt Count (160-400) X10*3/uL MPV (9.4-12.3) fL Immature Gran % (Auto) (0.0-0.4) % Neut % (Auto) (45-73) % Lymph % (Auto) (20-40) % [place] % (Auto) (2-11) % Eos % (Auto) (0-4) % Baso % (Auto) (0-2) % Lymph # (Auto) (1.2-4.9) X10*3/uL [place] # (Auto) (0.1-1.2) X10*3/uL Eos # (Auto) (0.0-0.4) X10*3/uL Baso # (Auto) (0.0-0.2) X10*3/uL Abs Immat Gran (auto) (0.00-0.03) X10*3/uL Absolute Neuts (auto) (2.0-8.3) x10*3/uL Absolute Nucleated RBC (0.0-0.012) X10*3/uL Nucleated RBC % (auto) (0.0-0.2) /100WBC VBG pH (7.32-7.43) VBG pCO2 mmHg VBG pO2 mmHg VBG HCO3 (22-26) mmol/L VBG O2 Saturation % VBG Base Excess Sodium (135-145) mmol/L Potassium (3.3-5.1) mmol/L Chloride (96-108) mmol/L Carbon Dioxide (22-29) mmol/L Anion Gap (12-20) BUN (9-16) mg/dL Creatinine (0.5-1.4) mg/dL Estim Creat Clear Calc Estimated GFR Random Glucose (60-115) mg/dL Lactic Acid 1.3 (0.5-2.0) mmol/L Calcium (8.4-10.2) mg/dL Magnesium (1.6-2.6) mg/dL Total Bilirubin (0.0-1.0) mg/dL Direct Bilirubin (0.0-0.5) mg/dL AST (5-31) U/L ALT (0-31) U/L Alkaline Phosphatase (39-117) U/L Troponin I High Sens 67.9 H* (<3.5-17.0) ng/L B-Natriuretic Peptide 76 (<100) pg/mL Total Protein (6.5-8.0) g/dL Albumin (3.5-5.0) g/dL Procalcitonin ng/mL COVID-19 ([facility]) (Negative) COVID-19 Clin Com 10/07/22 Range/Units 10:56 WBC (4.8-10.8) X10*3/uL RBC (4.20-5.50) X10*6/uL Hgb (12.0-16.0) g/dl Hct (37.0-47.0) % MCV (80.0-98.0) fL MCH (27.0-33.0) pg MCHC (31.0-35.0) g/dl RDW (11.0-16.0) % Plt Count (160-400) X10*3/uL MPV (9.4-12.3) fL Immature Gran % (Auto) (0.0-0.4) % Neut % (Auto) (45-73) % Lymph % (Auto) (20-40) % [place] % (Auto) (2-11) % Eos % (Auto) (0-4) % Baso % (Auto) (0-2) % Lymph # (Auto) (1.2-4.9) X10*3/uL [place] # (Auto) (0.1-1.2) X10*3/uL Eos # (Auto) (0.0-0.4) X10*3/uL Baso # (Auto) (0.0-0.2) X10*3/uL Abs Immat Gran (auto) (0.00-0.03) X10*3/uL Absolute Neuts (auto) (2.0-8.3) x10*3/uL Absolute Nucleated RBC (0.0-0.012) X10*3/uL Nucleated RBC % (auto) (0.0-0.2) /100WBC VBG pH 7.43 (7.32-7.43) VBG pCO2 36 mmHg VBG pO2 127 mmHg VBG HCO3 24 (22-26) mmol/L VBG O2 Saturation 99.0 % VBG Base Excess TNP Sodium (135-145) mmol/L Potassium (3.3-5.1) mmol/L Chloride (96-108) mmol/L Carbon Dioxide (22-29) mmol/L Anion Gap (12-20) BUN (9-16) mg/dL Creatinine (0.5-1.4) mg/dL Estim Creat Clear Calc Estimated GFR Random Glucose (60-115) mg/dL Lactic Acid (0.5-2.0) mmol/L Calcium (8.4-10.2) mg/dL Magnesium (1.6-2.6) mg/dL Total Bilirubin (0.0-1.0) mg/dL Direct Bilirubin (0.0-0.5) mg/dL AST (5-31) U/L ALT (0-31) U/L Alkaline Phosphatase (39-117) U/L Troponin I High Sens (<3.5-17.0) ng/L B-Natriuretic Peptide (<100) pg/mL Total Protein (6.5-8.0) g/dL Albumin (3.5-5.0) g/dL Procalcitonin ng/mL COVID-19 ([facility]) (Negative) COVID-19 Clin Com ABG Data Attestation ABG: I personally reviewed and interpreted this ABG as follows: Independent Interpretation I performed an independent interpretation of an: EKG and Plain X-Ray Interpretation: EKG with sinus tachycardia, ventricular rate 103 beats per minute, normal [place] interval, normal QTC, there is minimal, [address] depressions in V5 and V6 only. No reciprocal changes. No evidence of ST elevation [place]. CXR independently reviewed showing a dense right lower lobe pneumonia. No spiculations to suggest a mass but this will need to be followed to ensure resolution given her extensive smoking history. Radiology Impression Discussion of test interpretation with radiology: I have reviewed the radiologist's reading. Independent Historian Clinical information obtained from an independent historian. History obtained from or confirmed by: EMS XR/XR chest 1V IMPRESSION: Right lower lobe pneumonia. ? External Record Review External record reviewed: Inpatient record, Office record, Outpatient record, Prior outpatient labs and Prior outpatient radiology Tests considered The following testing was considered but not selected: CT scan of her chest considered - can be done at a later time, no suspicion of PE. needs cancer screening Prescription Management I considered prescription management with: Antibiotic Chronic Conditions Patient?s care impacted by: Diabetes and Other (COPD, active smoking) Critical Care Time Critical Care Time Critical Care Time: Yes Total Critical Care Time: 44 Attestation: I have personally provided critical care time exclusive of time spent on separately billable procedures. Time includes review of lab data, radiology results, discussion with consultants, and monitoring for potential decompensation. Intervention performed as documented. Discharge Plan Discharge Clinical Impression: Acute and chronic respiratory failure, Acute exacerbation of chronic obstructive pulmonary disease, Pneumonia Patient Disposition: Admitted As Inpatient
[2022-10-07 11:00] LABS: MANUAL DIFF FLAG NO
[2022-10-07 11:01] LABS: Basophils Absolute Auto 0.1 X10*3/uL (0.0-0.2); Basophils Percent Auto 0.4 % (0-2); Eosinophils Percent Auto 0.2 % (0-4); Hematocrit 44.2 % (37.0-47.0); Hemoglobin 14.6 g/dl (12.0-16.0); Imm Gran Abs Auto 0.12 X10*3/uL (0.00-0.03); Imm Gran Pct Auto 0.8 % (0.0-0.4); Lymphocytes Absolute Auto 0.9 X10*3/uL (1.2-4.9); Lymphocytes Percent Auto 5.8 % (20-40); Mean Corpuscular Hemoglobin 32.8 pg (27.0-33.0); Mean Corpuscular Volume 99.3 fL (80.0-98.0); Mean Platelet Volume 10.3 fL (9.4-12.3); Monocytes Absolute Auto 0.8 X10*3/uL (0.1-1.2); Monocytes Percent Auto 5.3 % (2-11); Neutrophils Absolute Auto 13.7 x10*3/uL (2.0-8.3); Neutrophils Percent Auto 87.5 % (45-73); Platelet Count 189 X10*3/uL (160-400); Red Blood Count 4.45 X10*6/uL (4.20-5.50); Red Cell Distribution Width 12.3 % (11.0-16.0); White Blood Count 15.6 X10*3/uL (4.8-10.8)
[2022-10-07 11:03] LABS: VBG HCO3 24 mmol/L (22-26); VBG pCO2 36 mmHg; VBG pH 7.43 (7.32-7.43); VBG pO2 127 mmHg
[2022-10-07 11:03] LABS: Venous Blood Gas Refer to POC result
[2022-10-07] MEDS: methylPREDNISolone Sod Succ 125 MG/2 ML VIAL 80 MG IVPUSH (11:10)
[2022-10-07 11:14] LABS: Lactic Acid 1.3 mmol/L (0.5-2.0)
[2022-10-07] MEDS: cefTRIAXone sodium 1 GM in 0.9 % Sodium Chloride 50 ML IV (11:20)
[2022-10-07 11:23] LABS: COVID-19 Test Negative (Negative); IDNOW Serial# BCCEAD1C
[2022-10-07 11:24] LABS: B Type Natriuretic Peptide 76 pg/mL (<100)
[2022-10-07 11:29] LABS: Alanine Aminotransferase 15 U/L (0-31); Albumin Level 4.3 g/dL (3.5-5.0); Alkaline Phosphatase 75 U/L (39-117); Anion Gap 15 (12-20); Aspartate Amino Transferase 15 U/L (5-31); Bilirubin Direct < 0.2 mg/dL (0.0-0.5); Bilirubin Total 0.4 mg/dL (0.0-1.0); Blood Urea Nitrogen 18 mg/dL (9-16); Calcium 9.2 mg/dL (8.4-10.2); Carbon Dioxide 26 mmol/L (22-29); Chloride 104 mmol/L (96-108); Creatinine Clr Calc Pharmacy 80.8; Estimated Glomerular Filt Rate > 60; Glucose Random 169 mg/dL (60-115); Potassium 3.8 mmol/L (3.3-5.1); Sodium 141 mmol/L (135-145)
[2022-10-07 11:33] LABS: Magnesium 1.2 mg/dL (1.6-2.6); Troponin-I High Sensitivity 67.9 ng/L (<3.5-17.0)
[2022-10-07 11:41] LABS: Procalcitonin 0.33 ng/mL
[2022-10-07] MEDS: Azithromycin 500 MG in 0.9 % Sodium Chloride 250 ML 125 MG IV (11:42)
[2022-10-07] MEDS: Magnesium Sulfate/H2O 2 GM/50 ML PIGGYBACK IV (12:06)
--- NOTE | 2022-10-07 12:11 | PC.NURSE ---
#20 IV placed in right wrist without any complications Right sided mastectomy 6-7 years ago, PA confirmed it was fine to place IV
--- NOTE | 2022-10-07 13:17 | PHA.MEDREC ---
Pharmacy Consult ? Medication Reconciliation Pharmacy has completed the medication reconciliation. Confirmed medications with patient and patient's MACHINE BILLER. Bessie Bui, BryceD
[2022-10-07] MEDS: Acetaminophen 325 MG TABLET 650 MG PO (13:33)
--- NOTE | 2022-10-07 13:35 | PC.NURSE ---
Patient's antibiotc was on pause for a while due to Left AC infiltrated and Mag was infusing on the right already.
--- NOTE | 2022-10-07 14:24 | PM.IMHP ---
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 Patient states she was wearing her CPAP with her usual 3 L when she woke up very short of breath.? She tried using her inhalers and nebulizers at home with no relief.? She was nauseous and vomited once.? Her ELECTRONIC MUSICAL INSTRUMENT REPAIRER arrived in the morning, noted her to be hypoxic and have elevated blood pressure.? EMS was called.? On EMS arrival patient was wearing her CPAP with saturations of 84%.? She was given a breathing treatment and some Zofran in route.Arrives to the ER on on% non-rebreather at 15 liters/minute.? Saturating mid 90s.? Able to speak in complete sentences.? Concern for acute COPD exacerbation with increase in sputum production. patient ultimately continued to desat and was placed on high-flow O2 with stabilization of sats. Chest x-ray consistent dense right lower lobe pneumonia Review of Systems Review of Systems: denies chest pain Admits to shortness of breath with minimal exertion Denies nausea vomiting diarrhea Admits fever and shaking chills PMFSH Medical History Anxiety COPD (chronic obstructive pulmonary disease) Depressed Diabetes HTN (hypertension) Social History Household Members: None Housing: Apartment Alcohol intake: never Patient Tobacco Use Status: Former Tobacco user Advance Directives: Yes Advance Directives Information Provided: Yes Advance Directives on File: No Advance Directives Date on File: 05/21/21 service: No Current occupational status: disabled Meds Allergies Allergy/AdvReac Type Severity Reaction Status Date / Time Iodinated Contrast Media Allergy Unknown UNKNOWN Unverified 04/30/20 14:59 [IV Dye, Iodine Containing] zolpidem [From AMBIEN] Allergy Unknown UNKNOWN Unverified 04/30/20 14:59 iv dye as a baby Allergy Unknown Uncoded 07/24/17 00:00 Active Medications: Current Medications Acetaminophen (Acetaminophen 325 Mg Tablet) 650 mg PO Q6H PRN PRN Reason: Pain, Mild (Pain Scale 1-3) Last Admin: 10/07/22 13:33 Dose: 650 mg Anastrozole (Anastrozole 1 Mg Tablet) 1 mg PO DAILY [facility] Aripiprazole (Aripiprazole 5 Mg Tablet) 5 mg PO DAILY [facility] Atorvastatin Calcium (Atorvastatin Calcium 20 Mg Tablet) 20 mg PO BEDTIME [facility] Bupropion HCl (Bupropion Hcl Xl 150 Mg Tab.Er.24h) 150 mg PO DAILY [facility] Carvedilol (Carvedilol 3.125 Mg Tablet) 3.125 mg PO BID [facility]; Protocol Docusate Sodium (Docusate Sodium 100 Mg Capsule) 200 mg PO DAILY [facility] Enoxaparin Sodium (Enoxaparin Sodium 40 Mg/0.4 Ml Syringe) 40 mg SUBCUT Q24H [facility] Fluticasone Propionate (Fluticasone Propionate Nasal 16 Gm [place]) 1 spray NOSTRIL-B BOLUS [facility] Fluticasone/Vilanterol (Fluticasone/Vilanterol 100/25 Blst.W.Dev) 1 puff INHALE RDAILY [facility] Gemfibrozil (Gemfibrozil 600 Mg Tablet) 600 mg PO BID [facility] Lisinopril (Lisinopril 10 Mg Tablet) 10 mg PO DAILY [facility]; Protocol Metformin HCl (Metformin Hcl 500 Mg Tablet) 500 mg PO DAILY [facility] Multivitamins/Vitamin C (Multivitamin Tablet) 1 tab PO DAILY [facility] Non-Formulary Medication (Estradiol) 1 appl VAGINAL QWEEK [facility] Omeprazole (Omeprazole 20 Mg Capsule.Dr) 20 mg PO DAILY@0630 [facility] Ondansetron HCl (Ondansetron Hcl 4 Mg/2 Ml Vial) 4 mg IVPUSH Q8H PRN PRN Reason: Nausea and Vomiting Pharmacy Consult (Consult Rx Perform Med Rec) 1 each MISCELLANE ONCE PRN PRN Reason: Consult order Sertraline HCl (Sertraline Hcl 100 Mg Tablet) 100 mg PO DAILY [facility] Sodium Chloride (0.9 % Sodium Chloride Flush 3 Ml Syringe) 3 ml IVFLUSH QSHIFT [facility] Sucralfate (Sucralfate 1 Gm Tablet) 1 gm PO BID [facility] Temazepam (Temazepam 15 Mg Capsule) 30 mg PO BEDTIME [facility] Trazodone HCl (Trazodone Hcl 50 Mg Tablet) 450 mg PO BEDTIME [facility] Valacyclovir HCl (Valacyclovir Hcl 500 Mg Tablet) 500 mg PO BID [facility] Home Medications Medication Instructions Recorded Confirmed Last Taken Type anastrozole 1 mg tablet 1 tab PO DAILY 05/22/21 10/07/22 10/06/22 History aripiprazole 5 mg tablet 1 tab PO DAILY 05/22/21 10/07/22 10/06/22 History bupropion HCl 150 mg 24 hr tablet, 1 tab PO QAM 05/22/21 10/07/22 10/06/22 History extended release carvedilol 3.125 mg tablet 1 tab PO BID 05/22/21 10/07/22 10/06/22 History fluticasone furoate 100 1 puff inhalation DAILY 05/22/21 10/07/22 10/06/22 History mcg-vilanterol 25 mcg/dose inhalation powder (Breo Ellipta) fluticasone propionate 50 1 spray intranasal BOLUS 05/22/21 10/07/22 10/06/22 History mcg/actuation nasal spray,suspension gemfibrozil 600 mg tablet 1 tab PO BID 05/22/21 10/07/22 10/06/22 History lisinopril 10 mg tablet 1 tab PO DAILY 05/22/21 10/07/22 10/06/22 History metformin 500 mg tablet 1 tab PO DAILY 05/22/21 10/07/22 10/06/22 History pantoprazole 20 mg tablet,delayed 1 tab PO DAILY 05/22/21 10/07/22 10/06/22 History release sertraline 100 mg tablet 1 tab PO DAILY 05/22/21 10/07/22 10/06/22 History simvastatin 40 mg tablet 1 tab PO BEDTIME 05/22/21 10/07/22 10/06/22 History sucralfate 1 gram tablet 1 tab PO BID 05/22/21 10/07/22 10/06/22 History temazepam 30 mg capsule 1 cap PO BEDTIME 05/22/21 10/07/22 10/06/22 History trazodone 150 mg tablet 3 tab PO BEDTIME 05/22/21 10/07/22 10/06/22 History valacyclovir 500 mg tablet 1 tab PO BID 05/22/21 10/07/22 10/06/22 History docusate sodium 100 mg capsule 200 mg PO DAILY 10/07/22 10/07/22 10/06/22 History (Colace) estradiol 0.01% (0.1 mg/gram) 1 appl vaginal QWEEK 10/07/22 10/07/22 10/06/22 History vaginal cream multivitamin 1 tab PO DAILY 10/07/22 10/07/22 10/06/22 History Physical Exam Vital Signs and Narrative: Vital Signs: Last Vital Signs Temp 99.8 F 10/07/22 13:05 Pulse 104 H 10/07/22 13:05 Resp 20 10/07/22 13:05 BP 196/99 H 10/07/22 13:05 Pulse Ox 90 L 10/07/22 13:05 O2 Del Method 10/07/22 13:05 BMI result Body Mass Index 28.3 Const: Other: awake alert speaking in short sentences Chest: Other: Diminished right base dull to percussion. Scattered expiratory wheezes t Resp: Other: Diminished right base dull to percussion. Scattered expiratory wheezes throughout Cardio: Other: no S4; positive S1-S2; no S3 murmurs rubs gallops GI: Other: soft nontender nondistended normoactive bowel sounds Extrem: Other: no edema bilaterally Results Labs 10/07/22 10:48 10/07/22 10:48 Labs: Laboratory Results - last 24 hr 10/07/22 10/07/22 10/07/22 10:37 10:48 10:48 MCV 99.3 H MCH 32.8 MCHC 33.0 RDW 12.3 Plt Count 189 MPV 10.3 Immature Gran % (Auto) 0.8 H Neut % (Auto) 87.5 H Lymph % (Auto) 5.8 L Yell % (Auto) 5.3 Eos % (Auto) 0.2 Baso % (Auto) 0.4 Lymph # (Auto) 0.9 L [place] # (Auto) 0.8 Eos # (Auto) 0.0 Baso # (Auto) 0.1 Abs Immat Gran (auto) 0.12 H Absolute Neuts (auto) 13.7 H Absolute Nucleated RBC 0.000 Nucleated RBC % (auto) 0.0 VBG pH VBG pCO2 VBG pO2 VBG HCO3 VBG O2 Saturation VBG Base Excess Anion Gap 15 Estim Creat Clear Calc 80.8 Estimated GFR > 60 Random Glucose 169 H Lactic Acid Calcium 9.2 D Magnesium 1.2 L* Total Bilirubin 0.4 Direct Bilirubin < 0.2 AST 15 ALT 15 Alkaline Phosphatase 75 Troponin I High Sens B-Natriuretic Peptide Total Protein 7.0 Albumin 4.3 Procalcitonin 0.33 COVID-19 ([facility]) Negative COVID-19 Clin Com See Note 10/07/22 10/07/22 10/07/22 10:48 10:48 10:48 MCV MCH MCHC RDW Plt Count MPV Immature Gran % (Auto) Neut % (Auto) Lymph % (Auto) Yell % (Auto) Eos % (Auto) Baso % (Auto) Lymph # (Auto) Yell # (Auto) Eos # (Auto) Baso # (Auto) Abs Immat Gran (auto) Absolute Neuts (auto) Absolute Nucleated RBC Nucleated RBC % (auto) VBG pH VBG pCO2 VBG pO2 VBG HCO3 VBG O2 Saturation VBG Base Excess Anion Gap Estim Creat Clear Calc Estimated GFR Random Glucose Lactic Acid 1.3 Calcium Magnesium Total Bilirubin Direct Bilirubin AST ALT Alkaline Phosphatase Troponin I High Sens 67.9 H* B-Natriuretic Peptide 76 Total Protein Albumin Procalcitonin COVID-19 ([facility]) COVID-19 [email or web address] Com 10/07/22 10:56 MCV MCH MCHC RDW Plt Count MPV Immature Gran % (Auto) Neut % (Auto) Lymph % (Auto) Yell % (Auto) Eos % (Auto) Baso % (Auto) Lymph # (Auto) Yell # (Auto) Eos # (Auto) Baso # (Auto) Abs Immat Gran (auto) Absolute Neuts (auto) Absolute Nucleated RBC Nucleated RBC % (auto) VBG pH 7.43 VBG pCO2 36 VBG pO2 127 VBG HCO3 24 VBG O2 Saturation 99.0 VBG Base Excess TNP Anion Gap Estim Creat Clear Calc Estimated GFR Random Glucose Lactic Acid Calcium Magnesium Total Bilirubin Direct Bilirubin AST ALT Alkaline Phosphatase Troponin I High Sens B-Natriuretic Peptide Total Protein Albumin Procalcitonin COVID-19 ([facility]) COVID-19 Clin Com Imaging Radiologist's Impressions: Impressions Chest X-Ray 10/07/22 10:35 IMPRESSION: Right lower lobe pneumonia. 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 workup consistent with right lower lobe infiltrate. ELECTRONIC MUSICAL INSTRUMENT REPAIRER notes some coughing with meals of recent 1.Acute on chronic hypoxic respiratory failure secondary to dense right lower lobe infiltrate - ceftriaxone/azithromycin(1) - pulse dose methylprednisolone - DuoNebs q.4 hours while awake - high-flow O2; titrate as tolerated 2. COPD exacerbation - as per 1. 3.DMII -Continue metformin outpatient dosing - lispro correctional scale... adjust as indicated ( expect rising sugars given steroids) - adjust as indicated 4.Hypertension - poor control at present - continue lisinopril. . . Add amlodipine -follow renals/divalents full code Lovenox Will require at least 2 midnights inpatient stay for IV antibiotics to treat prior lower lobe infiltration causing hypoxemia. This cannot be achieved at a lesser acute setting Time Spent With Patient Time: Total time managing care of this patient today ____ minutes. Quality Stroke Does the patient have a stroke diagnosis?: No VTE Prior VTE?: No VTE Risk Level:: Medical - moderate - high VTE Device Contraindication: Treatment Not Indicated VTE Drug Contraindication: N/A - Med Ordered
[2022-10-07 14:25] LABS: Appearance Urine Clear; Color Urine Yellow; Glucose Urine UA Negative (Negative); Leukocyte Esterase Urine Negative (Negative); Nitrite Urine Negative (Negative); Specific Gravity - Urine 1.015 (1.005-1.025); UMIC TRIGGER UACC YES; Urine Blood Small (1+) (Negative); Urine Ketones Trace mg/dL (Negative); Urine Protein 300 (3+) mg/dL (Neg-Trace)
[2022-10-07 14:28] LABS: Bacteria Urine None Seen (None Seen); Hyaline Casts Urine 0-2 /LPF (0-2); Squamous Epithelial Cell Urine 0-2 /HPF (0-2); WBC Urine 0-5 /HPF (0-5)
--- NOTE | 2022-10-07 15:36 | PC.NURSE ---
pt with a left sided IV infiltration , hot packs applied for pain, this pain is now resolved. right wrist also infiltrated and warm packs applied. New Iv's placed in right hand x 2 and are patent.
[2022-10-07] MEDS: Enoxaparin Sodium 40 MG/0.4 ML SYRINGE SUBCUT (15:40)
[2022-10-07] MEDS: buPROPion HCl XL 150 MG TAB.ER.24H PO (15:40)
[2022-10-07] MEDS: 0.9 % Sodium Chloride Flush 3 ML SYRINGE IVFLUSH ×2 (16:29→19:55)
--- NOTE | 2022-10-07 17:50 | MHC.SLORD ---
Speech Language Pathology Order Status: Received order for [employer] consult. Attempted to see pt for bedside swallow. Pt w/ oxymask. RN reported that mask is not to be removed, per RT, as pt has been having difficulty breathing. Pt also following asleep as she was talking. Pt not appropriate for PO trials d/t respiratory status. [employer] notified RN that [employer] is available on-call over the weekend 9am-11am. [employer] to re-evaluate once pt's respiratory status has improved.
[2022-10-07] MEDS: amLODIPine Besylate 5 MG TABLET PO (17:55)
[2022-10-07] MEDS: Temazepam 15 MG CAPSULE 30 MG PO (19:54)
[2022-10-07] MEDS: valACYclovir HCL 500 MG TABLET PO (19:54)
[2022-10-07] MEDS: Atorvastatin Calcium 20 MG TABLET PO (19:55)
[2022-10-07] MEDS: Sucralfate 1 GM TABLET PO (19:55)
[2022-10-07] MEDS: carvediloL 3.125 MG TABLET PO (19:55)
[2022-10-07] MEDS: gemfibroziL 600 MG TABLET PO (19:55)
[2022-10-08] VITALS (9 sets, daily range): BP systolic 135–170; BP diastolic 79–85; PULSE 73–82; RESP 17–20; TEMP 36.4–37.1; O2SAT 91–100
[2022-10-08] MEDS: Omeprazole 20 MG CAPSULE.DR PO (05:43)
[2022-10-08 06:49] LABS: MANUAL DIFF FLAG NO
[2022-10-08 06:52] LABS: Basophils Percent Auto 0.2 % (0-2); Eosinophils Percent Auto 0.1 % (0-4); Hematocrit 39.9 % (37.0-47.0); Hemoglobin 13.4 g/dl (12.0-16.0); Imm Gran Pct Auto 0.5 % (0.0-0.4); Lymphocytes Absolute Auto 2.4 X10*3/uL (1.2-4.9); Lymphocytes Percent Auto 12.8 % (20-40); Mean Corpuscular HGB Conc 33.6 g/dl (31.0-35.0); Mean Corpuscular Hemoglobin 32.4 pg (27.0-33.0); Mean Corpuscular Volume 96.4 fL (80.0-98.0); Monocytes Absolute Auto 1.3 X10*3/uL (0.1-1.2); Monocytes Percent Auto 6.8 % (2-11); Neutrophils Absolute Auto 15.2 x10*3/uL (2.0-8.3); Neutrophils Percent Auto 79.6 % (45-73); Platelet Count 221 X10*3/uL (160-400); Red Blood Count 4.14 X10*6/uL (4.20-5.50); Red Cell Distribution Width 12.4 % (11.0-16.0)
[2022-10-08 07:47] LABS: Alanine Aminotransferase 13 U/L (0-31); Albumin Level 3.9 g/dL (3.5-5.0); Alkaline Phosphatase 58 U/L (39-117); Anion Gap 16 (12-20); Aspartate Amino Transferase 12 U/L (5-31); Bilirubin Total 0.5 mg/dL (0.0-1.0); Blood Urea Nitrogen 17 mg/dL (9-16); Calcium 8.8 mg/dL (8.4-10.2); Carbon Dioxide 28 mmol/L (22-29); Chloride 104 mmol/L (96-108); Creatinine Clr Calc Pharmacy 81.9; Estimated Glomerular Filt Rate > 60; Glucose Fasting 105 mg/dL (60-99); Potassium 3.7 mmol/L (3.3-5.1); Sodium 144 mmol/L (135-145); Total Protein 6.6 g/dL (6.5-8.0)
[2022-10-08] MEDS: Piperacillin Sodium/Tazobactam 4.5 GM in 0.9 % Sodium Chloride 100 ML IV ×3 (08:54→20:46)
[2022-10-08] MEDS: buPROPion HCl XL 150 MG TAB.ER.24H PO (08:55)
[2022-10-08] MEDS: Docusate Sodium 100 MG CAPSULE 200 MG PO (08:55)
[2022-10-08] MEDS: metFORMIN HCl 500 MG TABLET PO (08:55)
[2022-10-08] MEDS: Sucralfate 1 GM TABLET PO ×2 (08:55→20:49)
[2022-10-08] MEDS: Sertraline HCL 100 MG TABLET PO (08:55)
[2022-10-08] MEDS: carvediloL 3.125 MG TABLET PO ×2 (08:55→20:48)
[2022-10-08] MEDS: valACYclovir HCL 500 MG TABLET PO ×2 (08:55→20:48)
[2022-10-08] MEDS: methylPREDNISolone Sod Succ 125 MG/2 ML VIAL 60 MG IVPUSH ×3 (08:55→20:47)
[2022-10-08] MEDS: amLODIPine Besylate 5 MG TABLET PO (08:55)
[2022-10-08] MEDS: lisinopriL 10 MG TABLET PO (08:55)
[2022-10-08] MEDS: Multivitamin TABLET 1 TAB PO (08:56)
[2022-10-08] MEDS: Anastrozole 1 MG TABLET PO (08:56)
[2022-10-08] MEDS: gemfibroziL 600 MG TABLET PO ×2 (08:56→20:48)
[2022-10-08] MEDS: ARIPiprazole 5 MG TABLET PO (08:56)
[2022-10-08] MEDS: 0.9 % Sodium Chloride Flush 3 ML SYRINGE IVFLUSH ×3 (08:56→20:49)
--- NOTE | 2022-10-08 13:57 | HO.PM.IMPN ---
Subjective Subjective Date of Service: 10/08/22 Interval History: no acute issues overnight. Utilizing BiPAP at night and high-harsha Review of Systems denies chest pain Admits to shortness of breath with minimal exertion Denies nausea vomiting diarrhea Admits fever and shaking chills Physical Exam Vital Signs: Vital Signs: Last Vital Signs Temp 97.7 F 10/08/22 07:45 Pulse 73 10/08/22 07:45 Resp 20 10/08/22 11:32 BP 159/84 H 10/08/22 07:45 Pulse Ox 100 10/08/22 07:45 O2 Del Method 10/08/22 07:45 O2 Flow Rate 9.0 10/08/22 07:45 BMI result Body Mass Index 28.3 Const: Other: awake alert speaking in short sentences Chest: Other: Diminished right base dull to percussion. Scattered expiratory wheezes t Resp: Other: Diminished right base dull to percussion. Scattered expiratory wheezes throughout Cardio: Other: no S4; positive S1-S2; no S3 murmurs rubs gallops GI: Other: soft nontender nondistended normoactive bowel sounds Extrem: Other: no edema bilaterally Objective Data Active Medications Acetaminophen (Acetaminophen 325 Mg Tablet) 650 mg PO Q6H PRN PRN Reason: Pain, Mild (Pain Scale 1-3) Last Admin: 10/07/22 13:33 Dose: 650 mg Documented By: AYSE Amlodipine Besylate (Amlodipine Besylate 5 Mg Tablet) 5 mg PO DAILY [facility]; Protocol Last Admin: 10/08/22 08:55 Dose: 5 mg Documented By: CRISTINO Anastrozole (Anastrozole 1 Mg Tablet) 1 mg PO DAILY [facility] Last Admin: 10/08/22 08:56 Dose: 1 mg Documented By: CRISTINO Aripiprazole (Aripiprazole 5 Mg Tablet) 5 mg PO DAILY [facility] Last Admin: 10/08/22 08:56 Dose: 5 mg Documented By: CRISTINO Atorvastatin Calcium (Atorvastatin Calcium 20 Mg Tablet) 20 mg PO BEDTIME [facility] Last Admin: 10/07/22 19:55 Dose: 20 mg Documented By: CASTILM Bupropion HCl (Bupropion Hcl Xl 150 Mg Tab.Er.24h) 150 mg PO DAILY [facility] Last Admin: 10/08/22 08:55 Dose: 150 mg Documented By: CRISTINO Carvedilol (Carvedilol 3.125 Mg Tablet) 3.125 mg PO BID [facility]; Protocol Last Admin: 10/08/22 08:55 Dose: 3.125 mg Documented By: CRISTINO Docusate Sodium (Docusate Sodium 100 Mg Capsule) 200 mg PO DAILY [facility] Last Admin: 10/08/22 08:55 Dose: 200 mg Documented By: CRISTINO Enoxaparin Sodium (Enoxaparin Sodium 40 Mg/0.4 Ml Syringe) 40 mg SUBCUT Q24H [facility] Last Admin: 10/07/22 15:40 Dose: 40 mg Documented By: AYSE Fluticasone Propionate (Fluticasone Propionate Nasal 16 Gm [place]) 1 spray NOSTRIL-B BOLUS [facility] Last Admin: 10/07/22 15:41 Dose: Not Given Documented By: AYSE Non-Admin Reason: No Access Fluticasone/Vilanterol (Fluticasone/Vilanterol 100/25 Blst.W.Dev) 1 puff INHALE RDAILY [facility] Last Admin: 10/08/22 07:45 Dose: Not Given Documented By: IVONE Non-Admin Reason: Med Not Available Gemfibrozil (Gemfibrozil 600 Mg Tablet) 600 mg PO BID [facility] Last Admin: 10/08/22 08:56 Dose: 600 mg Documented By: CRISTINO Piperacillin Sod/Tazobactam (Sod 4.5 gm/ Sodium Chloride) 100 mls @ 200 mls/hr IV Q6H [facility] Last Infusion: 10/08/22 09:53 Dose: 0 mls/hr Documented By: CRISTINO Lisinopril (Lisinopril 10 Mg Tablet) 10 mg PO DAILY [facility]; Protocol Last Admin: 10/08/22 08:55 Dose: 10 mg Documented By: CRISTINO Metformin HCl (Metformin Hcl 500 Mg Tablet) 500 mg PO DAILY [facility] Last Admin: 10/08/22 08:55 Dose: 500 mg Documented By: CRISTINO Methylprednisolone Sodium Succinate (Methylprednisolone Sod Succ 125 Mg/2 Ml Vial) 60 mg IVPUSH Q6H [facility] Last Admin: 10/08/22 08:55 Dose: 60 mg Documented By: CRISTINO Multivitamins/Vitamin C (Multivitamin Tablet) 1 tab PO DAILY [facility] Last Admin: 10/08/22 08:56 Dose: 1 tab Documented By: CRISTINO Omeprazole (Omeprazole 20 Mg Capsule.Dr) 20 mg PO DAILY@0630 [facility] Last Admin: 10/08/22 05:43 Dose: 20 mg Documented By: DARREL Ondansetron HCl (Ondansetron Hcl 4 Mg/2 Ml Vial) 4 mg IVPUSH Q8H PRN PRN Reason: Nausea and Vomiting Pharmacy Consult (Consult Rx Perform Med Rec) 1 each MISCELLANE ONCE PRN PRN Reason: Consult order Sertraline HCl (Sertraline Hcl 100 Mg Tablet) 100 mg PO DAILY [facility] Last Admin: 10/08/22 08:55 Dose: 100 mg Documented By: CRISTINO Sodium Chloride (0.9 % Sodium Chloride Flush 3 Ml Syringe) 3 ml IVFLUSH QSHIFT [facility] Last Admin: 10/08/22 08:56 Dose: 3 ml Documented By: CRISTINO Sucralfate (Sucralfate 1 Gm Tablet) 1 gm PO BID [facility] Last Admin: 10/08/22 08:55 Dose: 1 gm Documented By: CRISTINO Temazepam (Temazepam 15 Mg Capsule) 30 mg PO BEDTIME [facility] Last Admin: 10/07/22 19:54 Dose: 30 mg Documented By: DARREL Trazodone HCl (Trazodone Hcl 50 Mg Tablet) 450 mg PO BEDTIME [facility] Last Admin: 10/07/22 20:07 Dose: Not Given Documented By: DARREL Non-Admin Reason: pt hs periods of lethrgy Valacyclovir HCl (Valacyclovir Hcl 500 Mg Tablet) 500 mg PO BID [facility] Last Admin: 10/08/22 08:55 Dose: 500 mg Documented By: CRISTINO Labs 10/08/22 06:06 10/08/22 06:06 Labs: Laboratory Results - last 24 hr 10/07/22 10/08/22 10/08/22 14:16 06:06 06:06 MCV 96.4 MCH 32.4 MCHC 33.6 RDW 12.4 Plt Count 221 MPV 10.0 Immature Gran % (Auto) 0.5 H Neut % (Auto) 79.6 H Lymph % (Auto) 12.8 L [place] % (Auto) 6.8 Eos % (Auto) 0.1 Baso % (Auto) 0.2 Lymph # (Auto) 2.4 [place] # (Auto) 1.3 H Eos # (Auto) 0.0 Baso # (Auto) 0.0 Abs Immat Gran (auto) 0.10 H Absolute Neuts (auto) 15.2 H Absolute Nucleated RBC 0.000 Nucleated RBC % (auto) 0.0 Anion Gap 16 Estim Creat Clear Calc 81.9 Estimated GFR > 60 Fasting Glucose 105 H Calcium 8.8 Total Bilirubin 0.5 AST 12 ALT 13 Alkaline Phosphatase 58 Total Protein 6.6 Albumin 3.9 Urine Color Yellow Urine Appearance Clear Urine pH 6.0 Ur Specific [place] 1.015 Urine Protein 300 (3+) H Urine Glucose (UA) Negative Urine Ketones Trace Urine Blood Small (1+) H Urine Nitrite Negative Ur Leukocyte Esterase Negative Urine RBC 6-10 H Urine WBC 0-5 Ur Squamous Epith Cells 0-2 Urine Bacteria None Seen Hyaline Casts 0-2 Microbiology Microbiology Results: Microbiology 10/07/22 10:48 Blood Culture - Preliminary Blood - Venous No growth after 24 hours. 10/07/22 10:48 Blood Culture - Preliminary Blood - Venous No growth after 24 hours. 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 workup consistent with right lower lobe infiltrate. [employer] notes some coughing with meals of recent 1.Acute on chronic hypoxic respiratory failure secondary to dense right lower lobe infiltrate - ceftriaxone/azithromycin(2) - pulse dose methylprednisolone - DuoNebs q.4 hours while awake - high-flow O2; titrate as tolerated....BiPAP at night 2. COPD exacerbation - as per 1. 3.DMII -Continue metformin outpatient dosing - lispro correctional scale... adjust as indicated ( expect rising sugars given steroids) - adjust as indicated 4.Hypertension - acceptable control -continue lisinopril/amlodipine -follow renals/divalents full code Lovenox Will require at least 2 midnights inpatient stay for IV antibiotics to treat prior lower lobe infiltration causing hypoxemia. This cannot be achieved at a lesser acute setting Time Spent With Patient Time: Total time managing care of this patient today ____ minutes. Quality Stroke Does the patient have a stroke diagnosis?: No VTE Prior VTE?: No VTE Risk Level:: Medical - moderate - high VTE Device Contraindication: Treatment Not Indicated VTE Drug Contraindication: N/A - Med Ordered
[2022-10-08] MEDS: Enoxaparin Sodium 40 MG/0.4 ML SYRINGE SUBCUT (13:59)
--- NOTE | 2022-10-08 16:05 | MHC.CM.PN ---
PT REPORTS SHE LIVES ALONE AND HAS DAILY [employer] SERVICES (40+ HRS/WK) SHE ALSO HAS A NURSE THAT COMES 1 X/WEEK, SHE SAYS THEY ARE FROM [place] SHE HAS A CANE, HOME O2, CPAP, AND NEBULIZER SHE IS COVID [place] SHE HAS A HCP ON FILE SHE SAYS HER PCP IS [facility] DELIVERED CURRENT DC PLAN IS HOME WITH RESUMPTION OF SERVICES [employer] TO TRANSPORT PT DOES NOT HAVE A PORTABLE O2 HOWEVER REPORTS SHE DOES NOT TAKE ONE WHEN SHE GOES OUT, BUT DOES MONITOR HER SATS
[2022-10-08] MEDS: traZODone HCL 50 MG TABLET 450 MG PO (20:48)
[2022-10-08] MEDS: Atorvastatin Calcium 20 MG TABLET PO (20:48)
[2022-10-08] MEDS: Temazepam 15 MG CAPSULE 30 MG PO (20:48)
[2022-10-09] MEDS: methylPREDNISolone Sod Succ 125 MG/2 ML VIAL 60 MG IVPUSH ×2 (02:14→10:58)
[2022-10-09] MEDS: Piperacillin Sodium/Tazobactam 4.5 GM in 0.9 % Sodium Chloride 100 ML IV ×2 (02:14→10:58)
[2022-10-09 03:25] VITALS: BP 164/80; PULSE 70; RESP 18; TEMP 36.1; O2SAT 94
[2022-10-09 04:37] VITALS: PULSE 70; O2SAT 95
[2022-10-09] MEDS: Omeprazole 20 MG CAPSULE.DR PO (05:27)
[2022-10-09 06:09] LABS: MANUAL DIFF FLAG NO
[2022-10-09 06:30] LABS: Basophils Percent Auto 0.1 % (0-2); Hematocrit 41.6 % (37.0-47.0); Hemoglobin 13.8 g/dl (12.0-16.0); Imm Gran Abs Auto 0.11 X10*3/uL (0.00-0.03); Imm Gran Pct Auto 0.7 % (0.0-0.4); Lymphocytes Absolute Auto 1.3 X10*3/uL (1.2-4.9); Lymphocytes Percent Auto 7.8 % (20-40); Mean Corpuscular HGB Conc 33.2 g/dl (31.0-35.0); Mean Corpuscular Hemoglobin 32.2 pg (27.0-33.0); Mean Platelet Volume 10.1 fL (9.4-12.3); Monocytes Absolute Auto 0.4 X10*3/uL (0.1-1.2); Monocytes Percent Auto 2.6 % (2-11); Neutrophils Absolute Auto 14.5 x10*3/uL (2.0-8.3); Neutrophils Percent Auto 88.8 % (45-73); Platelet Count 237 X10*3/uL (160-400); Red Blood Count 4.29 X10*6/uL (4.20-5.50); Red Cell Distribution Width 12.2 % (11.0-16.0); White Blood Count 16.3 X10*3/uL (4.8-10.8)
[2022-10-09 06:41] LABS: Alanine Aminotransferase 14 U/L (0-31); Alkaline Phosphatase 61 U/L (39-117); Anion Gap 15 (12-20); Aspartate Amino Transferase 10 U/L (5-31); Bilirubin Total 0.5 mg/dL (0.0-1.0); Blood Urea Nitrogen 25 mg/dL (9-16); Calcium 9.3 mg/dL (8.4-10.2); Carbon Dioxide 28 mmol/L (22-29); Chloride 105 mmol/L (96-108); Creatinine Clr Calc Pharmacy 79.7; Estimated Glomerular Filt Rate > 60; Glucose Fasting 197 mg/dL (60-99); Potassium 4.1 mmol/L (3.3-5.1); Sodium 144 mmol/L (135-145); Total Protein 6.9 g/dL (6.5-8.0)
[2022-10-09 07:56] VITALS: PULSE 77; RESP 20; TEMP 36.7; O2SAT 92
[2022-10-09] MEDS: lisinopriL 10 MG TABLET PO (09:10)
[2022-10-09] MEDS: Docusate Sodium 100 MG CAPSULE 200 MG PO (09:10)
[2022-10-09] MEDS: buPROPion HCl XL 150 MG TAB.ER.24H PO (09:10)
[2022-10-09] MEDS: Anastrozole 1 MG TABLET PO (09:11)
[2022-10-09] MEDS: Sertraline HCL 100 MG TABLET PO (09:11)
[2022-10-09] MEDS: amLODIPine Besylate 5 MG TABLET PO (09:11)
[2022-10-09] MEDS: metFORMIN HCl 500 MG TABLET PO (09:11)
[2022-10-09] MEDS: 0.9 % Sodium Chloride Flush 3 ML SYRINGE IVFLUSH (09:11)
[2022-10-09] MEDS: valACYclovir HCL 500 MG TABLET PO (09:11)
[2022-10-09] MEDS: Sucralfate 1 GM TABLET PO (09:11)
[2022-10-09] MEDS: gemfibroziL 600 MG TABLET PO (09:11)
[2022-10-09] MEDS: ARIPiprazole 5 MG TABLET PO (09:11)
[2022-10-09] MEDS: Multivitamin TABLET 1 TAB PO (09:11)
[2022-10-09] MEDS: carvediloL 3.125 MG TABLET PO (11:08)
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
== END 2022-10-09 13:15 | disposition home or self-care (01) | DRG 193 ==
LOC: HO.ED 11:24 → HO.EDOVER 13:31 → HO.S3 15:09
PROVIDERS: Physician Assistant; Admitting Provider Hospitalist; Emergency Provider Student in an Organized Health Care Education/Training Program; PCP Family Medicine; Visit Provider Hospitalist
DX: J18.9 Pneumonia, unspecified organism (principal); J96.20 Acute and chronic respiratory failure, unspecified whether with hypoxia or hypercapnia; J44.0 Chronic obstructive pulmonary disease with (acute) lower respiratory infection; J44.1 Chronic obstructive pulmonary disease with (acute) exacerbation; G81.94 Hemiplegia, unspecified affecting left nondominant side; F17.210 Nicotine dependence, cigarettes, uncomplicated; R29.6 Repeated falls; I10 Essential (primary) hypertension; S06.9XAS Unspecified intracranial injury with loss of consciousness status unknown, sequela; X58.XXXS Exposure to other specified factors, sequela; Z91.81 History of falling; Z71.6 Tobacco abuse counseling; Z20.822 Contact with and (suspected) exposure to COVID-19; Z99.81 Dependence on supplemental oxygen; Z91.041 Radiographic dye allergy status; Z88.8 Allergy status to other drugs, medicaments and biological substances; Z79.51 Long term (current) use of inhaled steroids; Z79.84 Long term (current) use of oral hypoglycemic drugs; Z79.899 Other long term (current) drug therapy; Z87.820 Personal history of traumatic brain injury
CPT/HCPCS: 36415; 71045; 80048; 80053; 80076; 81001; 82803; 83605; 83735; 83880; 84145; 84484; 85025; 87040; 87635; 93005; 94640; 94660; 99285; J0456; J0696; J1650; J2543; J2930; J3475

== ENCOUNTER 2022-11-28 09:56 | Inpatient (IN) | payer OTHER, MEDICAID, SELFPAY ==
--- NOTE | ~2022-11-28 | XR_ITS ---
EXAMINATION: XR CHEST CLINICAL INFORMATION: Shortness of breath. History of fall. COMPARISON: Previous chest x-ray most recent September 2022 TECHNIQUE: Frontal view of the chest was obtained. FINDINGS: The cardiac and mediastinal contours are stable. There is question of increased markings in the right upper lobe. This may be related to overlapping bone, the right anterior first, posterior fifth rib. The lungs are otherwise clear. Previous identified large airspace disease at the right lung base has resolved. No pleural effusion or pneumothorax. No acute bone abnormality. XR/XR chest 1V IMPRESSION: No evidence for acute disease in the chest. Question increased markings in the right upper lobe. This may be related to overlapping bone. Follow-up PA and lateral chest x-ray recommended.
--- NOTE | ~2022-11-28 | CT_ITS ---
EXAMINATION: CT HEAD WITHOUT CONTRAST CLINICAL INFORMATION: Acute on chronic left-sided weakness COMPARISON: CT head 07/11/2022 TECHNIQUE: Contiguous axial imaging was performed from the skull base to vertex without intravenous administration of contrast. Coronal and sagittal reformatted images are performed at the CT scanner. [This CT examination was performed using dose optimization techniques as appropriate, variously including the following: *Automated exposure control *Adjustment of mA and/or kV according to patient size (this includes techniques or standardized protocols for targeted exams where dose is matched to indication/reason for exam; i.e. extremities or head) *Use of iterative reconstruction technique] DLP: 616 mGy-cm. FINDINGS: There is no evidence of acute intracranial hemorrhage or territorial infarction. No abnormal mass-effect or midline shift is seen. [place] to white matter differentiation is well preserved. No extra-axial fluid collections are identified. There is generalized global volume loss. There is mild prominence of the ventricles and the sulci . There is mild hypodensity of the periventricular white matter due to chronic small vessel ischemic disease. There are vascular calcifications of the internal carotid arteries bilaterally. There is no osseous abnormality. The mastoid air cells and visualized portions of the paranasal sinuses are well-aerated. CT/CT head/brain wo IV con IMPRESSION: No acute intracranial pathology.
--- NOTE | ~2022-11-28 | XR_ITS ---
EXAMINATION: XR SHOULDER, LEFT CLINICAL INFORMATION: Pain post fall COMPARISON: None available. TECHNIQUE: Three views of the left shoulder. FINDINGS: Bone alignment is normal. No fracture or dislocation. Normal glenohumeral joint. Mild arthritis at the acromioclavicular joint. Normal soft tissues. XR/XR shoulder LT min 2V IMPRESSION: Mild arthritis at the acromioclavicular joint.
[2022-11-28 10:05] VITALS: BP 163/67; PULSE 70; O2SAT 94
[2022-11-28 10:06] VITALS: BP 150/132; PULSE 62; RESP 18; TEMP 36.7; O2SAT 94; BMI 27.1
[2022-11-28 10:37] LABS: MANUAL DIFF FLAG NO
[2022-11-28 10:43] LABS: Basophils Absolute Auto 0.1 X10*3/uL (0.0-0.2); Basophils Percent Auto 0.7 % (0-2); Eosinophils Absolute Auto 0.6 X10*3/uL (0.0-0.4); Eosinophils Percent Auto 6.2 % (0-4); Hematocrit 41.6 % (37.0-47.0); Hemoglobin 13.6 g/dl (12.0-16.0); Imm Gran Abs Auto 0.05 X10*3/uL (0.00-0.03); Imm Gran Pct Auto 0.6 % (0.0-0.4); Lymphocytes Absolute Auto 2.3 X10*3/uL (1.2-4.9); Lymphocytes Percent Auto 25.5 % (20-40); Mean Corpuscular HGB Conc 32.7 g/dl (31.0-35.0); Mean Corpuscular Hemoglobin 32.6 pg (27.0-33.0); Mean Corpuscular Volume 99.8 fL (80.0-98.0); Monocytes Absolute Auto 0.7 X10*3/uL (0.1-1.2); Monocytes Percent Auto 7.8 % (2-11); Neutrophils Absolute Auto 5.3 x10*3/uL (2.0-8.3); Neutrophils Percent Auto 59.2 % (45-73); Platelet Count 207 X10*3/uL (160-400); Red Blood Count 4.17 X10*6/uL (4.20-5.50); Red Cell Distribution Width 13.5 % (11.0-16.0)
[2022-11-28 10:54] LABS: Alanine Aminotransferase 14 U/L (0-31); Albumin Level 4.4 g/dL (3.5-5.0); Alkaline Phosphatase 99 U/L (39-117); Anion Gap 15 (12-20); Aspartate Amino Transferase 14 U/L (5-31); Bilirubin Total 0.4 mg/dL (0.0-1.0); Blood Urea Nitrogen 16 mg/dL (9-16); Calcium 9.4 mg/dL (8.4-10.2); Carbon Dioxide 27 mmol/L (22-29); Chloride 106 mmol/L (96-108); Creatinine Clr Calc Pharmacy 61.7; Estimated Glomerular Filt Rate 56; Glucose Random 121 mg/dL (60-115); Potassium 4.6 mmol/L (3.3-5.1); Sodium 143 mmol/L (135-145); Total Protein 7.1 g/dL (6.5-8.0)
[2022-11-28 11:58] VITALS: BP 165/86; PULSE 65; RESP 18; TEMP 36.4; O2SAT 94
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
--- NOTE | 2022-11-28 13:21 | ECG_ITS ---
Test Reason : SOB, weakness Blood Pressure : / mmHG Vent. Rate : 067 BPM Atrial Rate : 067 BPM P-R Int : 178 ms QRS Dur : 090 ms QT Int : 422 ms P-R-T Axes : 066 042 046 degrees QTc Int : 445 ms Normal sinus rhythm Nonspecific ST and T wave abnormality Borderline ECG When compared with ECG of 07-OCT-2022 10:19, Vent. rate has decreased BY 36 BPM Referred By: Ra Hurley Electronically Signed By:IYV DENISE
[2022-11-28 14:08] LABS: TSH reflex Free T4 1.07 uIU/mL (0.32-4.0)
--- NOTE | 2022-11-28 15:02 | PHA.MEDREC ---
Pharmacy Consult ? Medication Reconciliation Pharmacy has completed the medication reconciliation. Spoke with patient in the ED. Called [facility] pharmacy to verify last fills on some medications because they were not showing up in the claim history
--- NOTE | 2022-11-28 15:21 | MHC.EDTECH ---
placed a purewick on patient. changed and cleaned patient.
[2022-11-28 16:17] LABS: COVID-19 Test Negative (Negative); IDNOW Serial# 55D5AD1C; IDNOW Serial# 9DB6401D; Influenza A Negative (Negative); Influenza B2 Negative (Negative)
[2022-11-28 18:13] VITALS: BP 150/83; PULSE 74; RESP 14; TEMP 36.7; O2SAT 92
[2022-11-28 18:24] LABS: Appearance Urine Clear; Color Urine Yellow; Glucose Urine UA Negative (Negative); Leukocyte Esterase Urine Large (3+) (Negative); Nitrite Urine Negative (Negative); UMIC TRIGGER UACC YES; Urine Blood Negative (Negative); Urine Ketones Negative (Negative); Urine Protein 30 (1+) mg/dL (Neg-Trace)
[2022-11-28 19:16] VITALS: BP 156/84; PULSE 75; RESP 16; TEMP 36.3; O2SAT 3
[2022-11-28 20:19] LABS: Bacteria Urine None Seen (None Seen); Hyaline Casts Urine 0-2 /LPF (0-2); Squamous Epithelial Cell Urine 0-2 /HPF (0-2); UACC Culture Trigger YES; WBC Urine >50 /HPF (0-5)
[2022-11-28] MEDS: cefTRIAXone sodium 1 GM in 0.9 % Sodium Chloride 50 ML IV (21:28)
--- NOTE | 2022-11-28 21:43 | PC.NURSE ---
prior to administration of iv antibiotic this rn confirmed with dr mason need for blood cultures. per dr mason no blood cultures needed prior to medication
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
[2022-11-28 23:35] VITALS: BP 182/89; PULSE 77; RESP 18; TEMP 36.8; O2SAT 91
[2022-11-28] MEDS: carvediloL 3.125 MG TABLET PO (23:38)
[2022-11-28] MEDS: Sucralfate 1 GM TABLET PO (23:38)
[2022-11-28] MEDS: 0.9 % Sodium Chloride Flush 3 ML SYRINGE IVFLUSH (23:38)
[2022-11-28] MEDS: Enoxaparin Sodium 40 MG/0.4 ML SYRINGE SUBCUT (23:38)
--- NOTE | 2022-11-29 00:10 | PC.NURSE ---
late entry- this rn assisted pt in changing periwick. periwick became displaced while pt moved in bed. this rn changed soiled bed linens at this time. periwick replaced.. pt provided with new linens and warm blanket. no new needs at this time
[2022-11-29 01:14] LABS: Glucose, Whole Blood 137 mg/dL (60-115)
[2022-11-29] MEDS: traZODone HCL 50 MG TABLET 450 MG PO ×2 (02:53→22:32)
[2022-11-29] MEDS: Temazepam 15 MG CAPSULE 30 MG PO ×2 (02:54→22:33)
--- NOTE | 2022-11-29 03:00 | PC.NURSE ---
late entry- pt medicated according to mar. pt tolerated po medications well. no new needs at this time
[2022-11-29 05:22] VITALS: BP 154/84; PULSE 74; RESP 18; TEMP 36.8; O2SAT 90
--- NOTE | 2022-11-29 05:35 | PC.NURSE ---
pt reported to this rn shes wears a cpap device at home. pt requested to wear device. spo2 89-92% on 3LPM NC. this rn made dr pederson aware. RT aware, states will set pt up once order placed from
[2022-11-29 06:20] LABS: MANUAL DIFF FLAG NO
[2022-11-29 06:25] LABS: Basophils Percent Auto 0.4 % (0-2); Eosinophils Absolute Auto 0.5 X10*3/uL (0.0-0.4); Eosinophils Percent Auto 5.9 % (0-4); Hematocrit 43.4 % (37.0-47.0); Hemoglobin 14.1 g/dl (12.0-16.0); Imm Gran Abs Auto 0.04 X10*3/uL (0.00-0.03); Imm Gran Pct Auto 0.4 % (0.0-0.4); Lymphocytes Absolute Auto 1.9 X10*3/uL (1.2-4.9); Lymphocytes Percent Auto 20.5 % (20-40); Mean Corpuscular HGB Conc 32.5 g/dl (31.0-35.0); Mean Corpuscular Hemoglobin 32.1 pg (27.0-33.0); Mean Corpuscular Volume 98.9 fL (80.0-98.0); Mean Platelet Volume 10.2 fL (9.4-12.3); Monocytes Absolute Auto 0.8 X10*3/uL (0.1-1.2); Monocytes Percent Auto 8.5 % (2-11); Neutrophils Absolute Auto 5.8 x10*3/uL (2.0-8.3); Neutrophils Percent Auto 64.3 % (45-73); Platelet Count 195 X10*3/uL (160-400); Red Blood Count 4.39 X10*6/uL (4.20-5.50); Red Cell Distribution Width 13.4 % (11.0-16.0)
--- NOTE | 2022-11-29 06:38 | PC.NURSE ---
pt placed on cpap device by RT. pt sleeping at this time. spo2 93%. pt tolerating well
[2022-11-29 06:44] LABS: Anion Gap 12 (12-20); Blood Urea Nitrogen 13 mg/dL (9-16); Calcium 9.2 mg/dL (8.4-10.2); Carbon Dioxide 29 mmol/L (22-29); Chloride 108 mmol/L (96-108); Estimated Glomerular Filt Rate > 60; Glucose Random 114 mg/dL (60-115); Sodium 145 mmol/L (135-145)
--- NOTE | 2022-11-29 06:48 | PC.RT ---
Placed pt on NOC CPAP [id number], RN aware
[2022-11-29 07:11] LABS: Glucose, Whole Blood 129 mg/dL (60-115)
--- NOTE | 2022-11-29 07:16 | PC.NURSE ---
pako alert/oriented. resting quietly. BiPap machine running. reporting some low abdomen pain. will cont to awilda
[2022-11-29 07:17] VITALS: BP 173/98; PULSE 74; RESP 20; O2SAT 91
--- NOTE | 2022-11-29 08:00 | PC.NURSE ---
awaiting call back from [facility] [place] to give report
[2022-11-29] MEDS: Omeprazole 20 MG CAPSULE.DR PO (08:33)
[2022-11-29] MEDS: buPROPion HCl XL 150 MG TAB.ER.24H PO (08:34)
[2022-11-29] MEDS: Sucralfate 1 GM TABLET PO ×2 (08:34→22:32)
[2022-11-29] MEDS: valACYclovir HCL 500 MG TABLET PO (08:34)
[2022-11-29] MEDS: Sertraline HCL 100 MG TABLET 200 MG PO (08:35)
[2022-11-29] MEDS: lisinopriL 10 MG TABLET PO (08:35)
[2022-11-29] MEDS: carvediloL 3.125 MG TABLET PO ×2 (08:35→22:33)
[2022-11-29] MEDS: Multivitamin TABLET 1 TAB PO (08:36)
[2022-11-29 09:48] VITALS: BP 179/82; PULSE 75; RESP 18; TEMP 36.5; O2SAT 90
[2022-11-29] MEDS: Fluticasone Propionate Nasal 16 GM SPRAY 1 SPRAY NOSTRIL-B (10:57)
[2022-11-29] MEDS: ARIPiprazole 5 MG TABLET PO (10:57)
[2022-11-29] MEDS: 0.9 % Sodium Chloride Flush 3 ML SYRINGE IVFLUSH ×2 (10:58→16:54)
[2022-11-29] MEDS: Docusate Sodium 100 MG CAPSULE PO (11:00)
[2022-11-29 12:07] VITALS: BP 168/96
[2022-11-29 12:08] LABS: Glucose, Whole Blood 205 mg/dL (60-115)
[2022-11-29] MEDS: Insulin Lispro 100 UNIT/ML 3 ML VIAL SUBCUT (12:24)
--- NOTE | 2022-11-29 12:29 | MHC.CM.PN ---
IMM 11/29. Pt admitted with dx UTI. D/C plan to return home with [facility] from [facility] when medically cleared. Pts friend [place] to transport. Pt uses a cane, walker, wheelchair, and O2 at 3L/min via NC at home. Educated on HCP and offered to assist with. PCP: [employer] Meghan Collier Vax: x 2
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
[2022-11-29] MEDS: Acetaminophen 325 MG TABLET 650 MG PO (15:16)
[2022-11-29] MEDS: ondansetron HCL 4 MG/2 ML VIAL IVPUSH (15:17)
[2022-11-29 15:20] VITALS: BP 166/77; PULSE 81; RESP 20; TEMP 36.1; O2SAT 90
[2022-11-29 16:20] LABS: Glucose, Whole Blood 133 mg/dL (60-115)
[2022-11-29 19:11] VITALS: BP 148/70; PULSE 82; RESP 20; TEMP 36.1; O2SAT 89
[2022-11-29 19:40] LABS: Glucose, Whole Blood 141 mg/dL (60-115)
[2022-11-29] MEDS: Enoxaparin Sodium 40 MG/0.4 ML SYRINGE SUBCUT (22:33)
[2022-11-29] MEDS: Atorvastatin Calcium 20 MG TABLET PO (22:33)
[2022-11-29] MEDS: cefTRIAXone sodium 1 GM in 0.9 % Sodium Chloride 50 ML IV (22:35)
[2022-11-30 00:45] VITALS: PULSE 89; RESP 20; O2SAT 93
[2022-11-30 04:00] VITALS: BP 154/82; PULSE 84; RESP 20; TEMP 36.7; O2SAT 92
[2022-11-30 04:04] VITALS: PULSE 77; RESP 16; O2SAT 90
[2022-11-30 05:35] VITALS: O2SAT 90
--- NOTE | 2022-11-30 05:36 | PC.NURSE ---
Pt wears a CPap @ night but was satting in low 80s during vitals so this RN put her on continuous O2 so she could be monitored. MD aware. Also pt takes 450mg of trazodone @ night which she confirmed she takes every night. Checked with MD before giving this amount of. MD said to give. Will continue to monitor.
[2022-11-30] MEDS: Omeprazole 20 MG CAPSULE.DR PO (06:28)
[2022-11-30 07:24] LABS: Hematocrit 46.3 % (37.0-47.0); Hemoglobin 14.8 g/dl (12.0-16.0); Mean Corpuscular Hemoglobin 32.5 pg (27.0-33.0); Mean Corpuscular Volume 101.8 fL (80.0-98.0); Mean Platelet Volume 11.9 fL (9.4-12.3); Platelet Count 145 X10*3/uL (160-400); Red Blood Count 4.55 X10*6/uL (4.20-5.50); Red Cell Distribution Width 13.4 % (11.0-16.0); White Blood Count 9.4 X10*3/uL (4.8-10.8)
[2022-11-30 07:40] VITALS: BP 175/80; PULSE 83; RESP 20; TEMP 36.2; O2SAT 91
[2022-11-30 07:47] LABS: Glucose, Whole Blood 137 mg/dL (60-115)
[2022-11-30] MEDS: Fluticasone/Vilanterol 100/25 BLST.W.DEV 1 PUFF INHALE (08:29)
[2022-11-30 08:31] VITALS: PULSE 82; RESP 18; O2SAT 92
[2022-11-30 08:48] LABS: Anion Gap 17 (12-20); Blood Urea Nitrogen 15 mg/dL (9-16); Calcium 9.3 mg/dL (8.4-10.2); Carbon Dioxide 25 mmol/L (22-29); Chloride 105 mmol/L (96-108); Estimated Glomerular Filt Rate > 60; Glucose Random 135 mg/dL (60-115); Potassium 4.3 mmol/L (3.3-5.1); Sodium 143 mmol/L (135-145)
[2022-11-30] MEDS: valACYclovir HCL 500 MG TABLET PO (09:34)
[2022-11-30] MEDS: buPROPion HCl XL 150 MG TAB.ER.24H PO (09:34)
[2022-11-30] MEDS: lisinopriL 20 MG TABLET PO (09:34)
[2022-11-30] MEDS: Sertraline HCL 100 MG TABLET 200 MG PO (09:34)
[2022-11-30] MEDS: Sucralfate 1 GM TABLET PO (09:35)
[2022-11-30] MEDS: carvediloL 3.125 MG TABLET 6.25 MG PO (09:35)
[2022-11-30] MEDS: 0.9 % Sodium Chloride Flush 3 ML SYRINGE IVFLUSH (09:35)
[2022-11-30] MEDS: ARIPiprazole 5 MG TABLET PO (09:35)
[2022-11-30] MEDS: Multivitamin TABLET 1 TAB PO (09:35)
[2022-11-30] MEDS: Fluticasone Propionate Nasal 16 GM SPRAY 1 SPRAY NOSTRIL-B (09:38)
[2022-11-30 11:39] LABS: Glucose, Whole Blood 197 mg/dL (60-115)
[2022-11-30] MEDS: Insulin Lispro 100 UNIT/ML 3 ML VIAL SUBCUT (12:05)
[2022-11-30] MEDS: Acetaminophen 325 MG TABLET 650 MG PO (13:01)
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
--- NOTE | 2022-11-30 13:40 | W.MHC.F2F ---
Service Date Service Date: 11/30/22 Encounter Date of encounter: 11/30/22 Reasons for Services Signs and symptoms assessed: physical deconditioning Reason for physical therapy: home safety and mobility and therapeutic exercises Homebound: Leaving the home is medically contraindicated at this time without the asist of a device and/or another person due th the listed conditions above and below. Reason homebound: unsteady gait / fall risk Certification: Based on the above findings, I certify that this patient is confined to the home and needs intermittent penitentiary care, physical therapy and/or speech therapy, or continues to need occupational therapy. The patient is under my care, and I have initiated the establishment of the plan of care. The patient will be followed by a physician who will periodically review the plan of care. Time Spent With Patient Time: Total time managing care of this patient today ____ minutes.
--- NOTE | 2022-11-30 15:21 | MHC.CM.PN ---
PT MEDICALLY CLEARED FOR D/C HOME W/[facility]UMP OF [facility] FOR SN AND NEW HOME PT, [employer] AND HOME O2, PT WILL ARRANGE TRANSPORT.
== END 2022-11-30 16:02 | disposition home health service (06) | DRG 690 ==
LOC: HO.ED 21:13 → HO.EDOVER 22:46 → HO.IMC 11-29 07:42
PROVIDERS: Admitting Provider Internal Medicine; Emergency Provider Emergency Medicine; PCP Nurse Practitioner Family; Visit Provider Student in an Organized Health Care Education/Training Program
DX: N39.0 Urinary tract infection, site not specified (principal); G81.94 Hemiplegia, unspecified affecting left nondominant side; J96.11 Chronic respiratory failure with hypoxia; F17.210 Nicotine dependence, cigarettes, uncomplicated; Z71.6 Tobacco abuse counseling; I10 Essential (primary) hypertension; E11.9 Type 2 diabetes mellitus without complications; K21.9 Gastro-esophageal reflux disease without esophagitis; B96.4 Proteus (mirabilis) (morganii) as the cause of diseases classified elsewhere; J44.9 Chronic obstructive pulmonary disease, unspecified; G47.33 Obstructive sleep apnea (adult) (pediatric); Z20.822 Contact with and (suspected) exposure to COVID-19; V89.2XXS Person injured in unspecified motor-vehicle accident, traffic, sequela; S06.89AS Other specified intracranial injury with loss of consciousness status unknown, sequela; Z91.041 Radiographic dye allergy status; Z79.51 Long term (current) use of inhaled steroids; Z79.899 Other long term (current) drug therapy
CPT/HCPCS: 36415; 70450; 71045; 73030; 80048; 80053; 81001; 82550; 82947; 84443; 85025; 85027; 87086; 87088; 87186; 87502; 87635; 93005; 94640; 94660; 97116; 97162; 97530; 99222; 99285; J0696; J1650; J2405

== ENCOUNTER 2023-02-23 11:02 | Emergency (ER) | payer MEDICARE, MEDICAID, SELFPAY ==
--- NOTE | ~2023-02-23 | CT_ITS ---
Examination: CT brain, CT cervical spine and CT facial bones. Clinical indications: Fall, head strike and anticoagulation. TECHNIQUE: 5 mm thin axial and reformatted 2 mm thin sagittal and coronal images of brain were obtained. Subsequently 3 mm thin sagittal and coronal 2 mm thin reconstructed images of cervical spine were obtained. Lastly axial 3 mm thin and reformatted 1.5 mm thin sagittal and coronal images of facial bones were obtained. DLP [address] examination was performed using dose optimization technique as appropriate, variously including the following: Automated exposure control Adjustment of MA and/or KV according to patient size(this includes techniques or standardized protocols for targeted exams where dose is matched to indication/reason for exam; extremities or head. Use of iterative reconstruction techniques. FINDINGS: All exams are limited secondary to patient motion. BRAIN: There is no acute intra-axial, extra-axial bleed, masses or midline shift. There is no acute infarction evolution. There is no edema. The lateral ventricles are symmetrical in size and mildly prominent. The cortical sulci normal. Bone windows reveal no calvarial abnormality. Especially no fracture seen. There is a left frontal scalp hematoma. Bilateral paranasal sinuses are well-aerated with mild mucoperiosteal thickening bilateral maxillary sinus. There is obstructed right ostiomeatal and frontoethmoidal recess drainage pathways from mucoperiosteal thickening. Rest of the paranasal sinuses are well expanded and clear. The bony orbits, optic lobe and the optic nerve appears unremarkable. The mastoid sinuses are well-aerated. MAXILLOFACIAL BONES: There is minimal mucoperiosteal thickening bilateral maxillary and ethmoid sinuses. The bony sinus kelley, lamina papyracea and the cribriform plate appears intact. There is mild old deformity of left lamina papyracea. The frontal and sphenoid sinuses are widely patent. Mild obstruction of right frontoethmoidal and and ostiomeatal complex from mucoperiosteal thickening is seen. The maxillofacial and nasal bones are intact. No visible acute fracture or soft tissue swelling seen. Bilateral TM joints are symmetric and normal. The mandible is intact. The bony orbits are normal. The optic globe, optic nerve and the preseptal and postseptal soft tissues are normal. CERVICAL SPINE: There is mild straightening of cervical lordosis. The vertebral heights, alignment and disc heights are normal. There is no visible acute fracture, dislocation or subluxation seen. The craniovertebral junction and the C1-C2 alignment is normal. The prevertebral and paravertebral soft tissues are normal. The thyroid lobes, submandibular and parotid glands are symmetric and normal. The airway is patent. The lung apices are clear. CT/CT cervical spine wo IV con IMPRESSION: No acute intracranial process seen. There is a left frontal scalp hematoma without calvarial fracture. Deformity left lamina papyracea from old injury unchanged to last CT brain exam 07/11/2022. No acute maxillofacial, nasal or mandibular fractures seen. No acute fracture, dislocation subluxation of cervical spine. Please note the exam is limited secondary to patient motion throughout the exam
--- NOTE | ~2023-02-23 | XR_ITS ---
EXAMINATION: XR CHEST CLINICAL INFORMATION: Cough COMPARISON: November 28, 2022 and October 07, [address] scan of May 21, 2021 TECHNIQUE: 2 views of the chest were obtained. FINDINGS: There are chronic changes of interstitial lung disease seen bilaterally. No new region of confluent parenchymal disease is seen. No pneumothorax or pleural effusion. Heart normal size. No evidence of pulmonary edema. There is scoliosis of the thoracic spine convex left. XR/XR chest 2V IMPRESSION: No acute disease. Chronic interstitial lung disease.
[2023-02-23 11:12] VITALS: BP 133/68; BP 160/84; PULSE 85; PULSE 86; RESP 16; TEMP 37; O2SAT 93; BMI 26.6
[2023-02-23 11:49] LABS: MANUAL DIFF FLAG NO
[2023-02-23 11:51] LABS: Basophils Absolute Auto 0.1 X10*3/uL (0.0-0.2); Basophils Percent Auto 0.6 % (0-2); Eosinophils Absolute Auto 0.2 X10*3/uL (0.0-0.4); Eosinophils Percent Auto 1.5 % (0-4); Hematocrit 39.8 % (37.0-47.0); Hemoglobin 13.2 g/dl (12.0-16.0); Imm Gran Abs Auto 0.07 X10*3/uL (0.00-0.03); Imm Gran Pct Auto 0.7 % (0.0-0.4); Lymphocytes Absolute Auto 1.2 X10*3/uL (1.2-4.9); Lymphocytes Percent Auto 11.3 % (20-40); Mean Corpuscular HGB Conc 33.2 g/dl (31.0-35.0); Mean Corpuscular Hemoglobin 33.1 pg (27.0-33.0); Mean Corpuscular Volume 99.7 fL (80.0-98.0); Mean Platelet Volume 10.4 fL (9.4-12.3); Monocytes Absolute Auto 0.7 X10*3/uL (0.1-1.2); Monocytes Percent Auto 6.8 % (2-11); Neutrophils Absolute Auto 8.3 x10*3/uL (2.0-8.3); Neutrophils Percent Auto 79.1 % (45-73); Platelet Count 178 X10*3/uL (160-400); Red Blood Count 3.99 X10*6/uL (4.20-5.50); Red Cell Distribution Width 12.8 % (11.0-16.0); White Blood Count 10.5 X10*3/uL (4.8-10.8)
[2023-02-23 11:57] LABS: IDNOW Serial# 08D9AD1C; Strep A Nucleic Acid Negative (Negative)
[2023-02-23 12:00] LABS: INTERNATIONAL NORM RATIO 0.9 (0.9-1.1); Prothrombin Time 10.3 SEC (10.0-13.1)
[2023-02-23 12:08] LABS: Alanine Aminotransferase 16 U/L (0-31); Albumin Level 4.2 g/dL (3.5-5.0); Alkaline Phosphatase 71 U/L (39-117); Anion Gap 13 (12-20); Aspartate Amino Transferase 14 U/L (5-31); Bilirubin Total 0.3 mg/dL (0.0-1.0); Blood Urea Nitrogen 10 mg/dL (9-16); Calcium 9.6 mg/dL (8.4-10.2); Carbon Dioxide 26 mmol/L (22-29); Chloride 104 mmol/L (96-108); Creatinine Clr Calc Pharmacy 71.1; Estimated Glomerular Filt Rate > 60; Glucose Random 151 mg/dL (60-115); Magnesium 1.5 mg/dL (1.6-2.6); Potassium 4.3 mmol/L (3.3-5.1); Sodium 139 mmol/L (135-145); Total Protein 7.2 g/dL (6.5-8.0)
[2023-02-23 12:21] LABS: IDNOW Serial# 9DB6401D
[2023-02-23 12:21] LABS: COVID-19 Test Negative (Negative); IDNOW Serial# BCCEAD1C
[2023-02-23 12:22] LABS: Influenza A Negative (Negative); Influenza B2 Negative (Negative)
--- NOTE | 2023-02-23 13:12 | ED.GENADULT ---
HPI - General Adult General Chief complaint: General Medical Stated complaint: Sore throat, Lethargic Time Seen by Provider: 02/23/23 13:11 Source: patient Mode of arrival: EMS Limitations: no limitations History of Present Illness HPI narrative: This is a sammi 62 years old female with history of COPD, O2 dependent, presented to emergency department complaining of cough. congestion. She also reported that she fell 5 days ago she denies sick medical attention time she has a large the periorbital hematoma left more than right. The patient denies any fever chills vomiting Onset (ago): day(s) (5) Location: head and face Radiation: non-radiation Severity: moderate Quality: burning Pain Consistency: constant Relieving factors: none Related Data Home Medications Medication Instructions Recorded Confirmed aripiprazole 5 mg tablet 1 tab PO DAILY 05/22/21 11/28/22 bupropion HCl 150 mg 24 hr tablet, 1 tab PO DAILY 05/22/21 11/28/22 extended release carvedilol 3.125 mg tablet 1 tab PO BID 05/22/21 11/28/22 fluticasone furoate 100 1 puff inhalation DAILY 05/22/21 11/28/22 mcg-vilanterol 25 mcg/dose inhalation powder (Breo Ellipta) fluticasone propionate 50 1 spray intranasal DAILY 05/22/21 11/28/22 mcg/actuation nasal spray,suspension gemfibrozil 600 mg tablet 1 tab PO BID 05/22/21 11/28/22 lisinopril 10 mg tablet 1 tab PO DAILY 05/22/21 11/28/22 pantoprazole 20 mg tablet,delayed 1 tab PO DAILY@0630 05/22/21 11/28/22 release sertraline 100 mg tablet 2 tab PO DAILY 05/22/21 11/28/22 simvastatin 40 mg tablet 1 tab PO BEDTIME 05/22/21 11/28/22 sucralfate 1 gram tablet 1 tab PO BID 05/22/21 11/28/22 temazepam 30 mg capsule 1 cap PO BEDTIME 05/22/21 11/28/22 trazodone 150 mg tablet 3 tab PO BEDTIME 05/22/21 11/28/22 valacyclovir 500 mg tablet 1 tab PO DAILY 05/22/21 11/28/22 docusate sodium 100 mg capsule 100 mg PO BID PRN Constipation 10/07/22 11/28/22 (Colace) estradiol 0.01% (0.1 mg/gram) 1 appl vaginal QWEEK 10/07/22 11/28/22 vaginal cream multivitamin 1 tab PO DAILY 10/07/22 11/28/22 metformin 1,000 mg tablet 1,000 mg PO BID 11/28/22 11/28/22 Previous Rx's Medication Instructions Recorded cefuroxime axetil 500 mg tablet 500 mg PO BID #6 tabs 11/30/22 Allergies Allergy/AdvReac Type Severity Reaction Status Date / Time Iodinated Contrast Media Allergy Unknown UNKNOWN Unverified 04/30/20 14:59 [IV Dye, Iodine Containing] zolpidem [From AMBIEN] Allergy Unknown UNKNOWN Unverified 04/30/20 14:59 iv dye as a baby Allergy Unknown Uncoded 07/24/17 00:00 Review of Systems Constitutional: Constitutional: Denies chills Eyes: Eyes: Denies blurry vision Cardiovascular: Cardiovascular: Reports no additional cardiovascular complaints Respiratory: Respiratory: Reports no additional respiratory complaints [facility] Past Medical History Attestation statement: The following information was validated with the patient. Medical History Anxiety COPD (chronic obstructive pulmonary disease) Depressed Diabetes DMII (diabetes mellitus, type 2) HTN (hypertension) Social History Social History Household Members: None Housing: Apartment Do you presently have visiting nurse or other home services: Yes Unable to assess alcohol history related to: Unable to respond Alcohol intake: never Patient Tobacco Use Status: Current everyday Tobacco user Tobacco use type: Cigarette Smoked in Last 30 Days: Yes Second Hand Smoke Exposure: No Use of substances other than those prescribed or required for medical reasons: Yes Substance Use Type: Marijuana Advance Directives: Yes Advance Directives on File: Yes Advance Directives Date on File: 02/23/23 Patient : No service: No Current occupational status: disabled Physical Exam ED Vital Signs: Vital Signs - 24 hr 02/23/23 11:12 02/23/23 14:45 02/23/23 15:53 Temperature 98.6 F Pulse Rate 86 74 74 Respiratory Rate 16 20 Blood Pressure 133/68 143/88 H 143/88 H Pulse Oximetry 93 92 92 Oxygen Delivery Method Nasal Cannula Nasal Cannula Oxygen Flow Rate 3 BMI result Body Mass Index 26.6 Const General: cooperative, no acute distress, well developed, alert and awake Nutritional Appearance: average body habitus Orientation/consciousness: patient oriented x3 Limitations: no limitations HENMT Other: Patient has raccoon eyes (parietal orbital hematoma left more than right) Head: Yes No palpable skull fracture present General nose exam: Normal external nose present Mouth: Normal oral and palatal mucosa present Throat: Yes posterior oropharynx normal Neck Neck: Yes normal visual inspection and Yes full ROM Chest Chest palpation & inspection: normal inspection of the chest Resp Effort & Inspection: normal respiratory effort and able to speak in complete sentences Auscultation: rhonchi Cardio Jugular venous distension: no JVD Palpation: normal PMI Rate: regular rate Rhythm: regular rhythm GI Inspection: Yes normal to inspection Palpation (GI): Soft to palpation, not firm and nontender Auscultation: normal bowel sounds Skin General skin exam: no rashes or lesions noted and elasticity normal Rashes: no rashes Neuro General: patient oriented x3 Extrem General: Yes normal to inspection, Yes full ROM and Yes capillary refill normal Course Reevaluation(s) Reevaluation #1: All imaging were negative, remained hemodynamically his whole chest x-ray normal . PT consultation was obtained and piano case and bench assembler consultation as well because of the fall, patient is refusing rehab she wants to go home. She has a WATERSHED COORDINATOR a bedside and will take her home , she understands she is a fall risk but refuses rehab Time: 15:44 Medical Decision Making Medical Decision Making [facility] Narrative: Patient presented with cough also status post fall with bilateral orbital hematoma will get head CT labs chest x-ray reassess Differential Diagnosis Differential Diagnoses: The differential diagnosis associated with the presentation includes Broad differential diagnosis which included the traumatic subdural hematoma C-spine fracture orbital fracture pneumonia Admission/Observation Consideration of admission/observation: Escalation of care including admission/observation considered Lab Data [facility] Lab Attestation statement: I reviewed the patient's lab results. 02/23/23 11:43 02/23/23 11:43 Labs: Lab Results 02/23/23 02/23/23 02/23/23 Range/Units 11:32 11:32 11:33 WBC (4.8-10.8) X10*3/uL RBC (4.20-5.50) X10*6/uL Hgb (12.0-16.0) g/dl Hct (37.0-47.0) % MCV (80.0-98.0) fL MCH (27.0-33.0) pg MCHC (31.0-35.0) g/dl RDW (11.0-16.0) % Plt Count (160-400) X10*3/uL MPV (9.4-12.3) fL Immature Gran % (Auto) (0.0-0.4) % Neut % (Auto) (45-73) % Lymph % (Auto) (20-40) % [place] % (Auto) (2-11) % Eos % (Auto) (0-4) % Baso % (Auto) (0-2) % Lymph # (Auto) (1.2-4.9) X10*3/uL [place] # (Auto) (0.1-1.2) X10*3/uL Eos # (Auto) (0.0-0.4) X10*3/uL Baso # (Auto) (0.0-0.2) X10*3/uL Abs Immat Gran (auto) (0.00-0.03) X10*3/uL Absolute Neuts (auto) (2.0-8.3) x10*3/uL Absolute Nucleated RBC (0.0-0.012) X10*3/uL Nucleated RBC % (auto) (0.0-0.2) /100WBC PT (10.0-13.1) SEC INR (0.9-1.1) Sodium (135-145) mmol/L Potassium (3.3-5.1) mmol/L Chloride (96-108) mmol/L Carbon Dioxide (22-29) mmol/L Anion Gap (12-20) BUN (9-16) mg/dL Creatinine (0.5-1.4) mg/dL Estim Creat Clear Calc Estimated GFR Random Glucose (60-115) mg/dL Calcium (8.4-10.2) mg/dL Magnesium (1.6-2.6) mg/dL Total Bilirubin (0.0-1.0) mg/dL AST (5-31) U/L ALT (0-31) U/L Alkaline Phosphatase (39-117) U/L Total Protein (6.5-8.0) g/dL Albumin (3.5-5.0) g/dL Urine Color Urine Appearance Urine pH (5.0-9.0) Ur Specific [place] (1.005-1.025) Urine Protein (Neg-Trace) mg/dL Urine Glucose (UA) (Negative) mg/dL Urine Ketones (Negative) mg/dL Urine Blood (Negative) Urine Nitrite (Negative) Ur Leukocyte Esterase (Negative) COVID-19 (LEONARDA) Negative (Negative) COVID-19 Clin Com See Note Influenza Type A (ELAINA) Negative (Negative) Influenza Type B (ELAINA) Negative (Negative) Influenza A & B Note See Note S. pyogenes GrpA ELAINA Negative (Negative) 02/23/23 02/23/23 02/23/23 Range/Units 11:43 11:43 11:43 WBC 10.5 (4.8-10.8) X10*3/uL RBC 3.99 L (4.20-5.50) X10*6/uL Hgb 13.2 (12.0-16.0) g/dl Hct 39.8 (37.0-47.0) % MCV 99.7 H (80.0-98.0) fL MCH 33.1 H (27.0-33.0) pg MCHC 33.2 (31.0-35.0) g/dl RDW 12.8 (11.0-16.0) % Plt Count 178 (160-400) X10*3/uL MPV 10.4 (9.4-12.3) fL Immature Gran % (Auto) 0.7 H (0.0-0.4) % Neut % (Auto) 79.1 H (45-73) % Lymph % (Auto) 11.3 L (20-40) % [place] % (Auto) 6.8 (2-11) % Eos % (Auto) 1.5 (0-4) % Baso % (Auto) 0.6 (0-2) % Lymph # (Auto) 1.2 (1.2-4.9) X10*3/uL [place] # (Auto) 0.7 (0.1-1.2) X10*3/uL Eos # (Auto) 0.2 (0.0-0.4) X10*3/uL Baso # (Auto) 0.1 (0.0-0.2) X10*3/uL Abs Immat Gran (auto) 0.07 H (0.00-0.03) X10*3/uL Absolute Neuts (auto) 8.3 (2.0-8.3) x10*3/uL Absolute Nucleated RBC 0.000 (0.0-0.012) X10*3/uL Nucleated RBC % (auto) 0.0 (0.0-0.2) /100WBC PT 10.3 (10.0-13.1) SEC INR 0.9 (0.9-1.1) Sodium 139 (135-145) mmol/L Potassium 4.3 (3.3-5.1) mmol/L Chloride 104 (96-108) mmol/L Carbon Dioxide 26 (22-29) mmol/L Anion Gap 13 (12-20) BUN 10 (9-16) mg/dL Creatinine 0.87 (0.5-1.4) mg/dL Estim Creat Clear Calc 71.1 Estimated GFR > 60 Random Glucose 151 H (60-115) mg/dL Calcium 9.6 (8.4-10.2) mg/dL Magnesium 1.5 L (1.6-2.6) mg/dL Total Bilirubin 0.3 (0.0-1.0) mg/dL AST 14 (5-31) U/L ALT 16 (0-31) U/L Alkaline Phosphatase 71 (39-117) U/L Total Protein 7.2 (6.5-8.0) g/dL Albumin 4.2 (3.5-5.0) g/dL Urine Color Urine Appearance Urine pH (5.0-9.0) Ur Specific [place] (1.005-1.025) Urine Protein (Neg-Trace) mg/dL Urine Glucose (UA) (Negative) mg/dL Urine Ketones (Negative) mg/dL Urine Blood (Negative) Urine Nitrite (Negative) Ur Leukocyte Esterase (Negative) COVID-19 (LEONARDA) (Negative) COVID-19 Clin Com Influenza Type A (ELAINA) (Negative) Influenza Type B (ELAINA) (Negative) Influenza A & B Note S. pyogenes GrpA ELAINA (Negative) 02/23/23 Range/Units 14:49 WBC (4.8-10.8) X10*3/uL RBC (4.20-5.50) X10*6/uL Hgb (12.0-16.0) g/dl Hct (37.0-47.0) % MCV (80.0-98.0) fL MCH (27.0-33.0) pg MCHC (31.0-35.0) g/dl RDW (11.0-16.0) % Plt Count (160-400) X10*3/uL MPV (9.4-12.3) fL Immature Gran % (Auto) (0.0-0.4) % Neut % (Auto) (45-73) % Lymph % (Auto) (20-40) % [place] % (Auto) (2-11) % Eos % (Auto) (0-4) % Baso % (Auto) (0-2) % Lymph # (Auto) (1.2-4.9) X10*3/uL [place] # (Auto) (0.1-1.2) X10*3/uL Eos # (Auto) (0.0-0.4) X10*3/uL Baso # (Auto) (0.0-0.2) X10*3/uL Abs Immat Gran (auto) (0.00-0.03) X10*3/uL Absolute Neuts (auto) (2.0-8.3) x10*3/uL Absolute Nucleated RBC (0.0-0.012) X10*3/uL Nucleated RBC % (auto) (0.0-0.2) /100WBC PT (10.0-13.1) SEC INR (0.9-1.1) Sodium (135-145) mmol/L Potassium (3.3-5.1) mmol/L Chloride (96-108) mmol/L Carbon Dioxide (22-29) mmol/L Anion Gap (12-20) BUN (9-16) mg/dL Creatinine (0.5-1.4) mg/dL Estim Creat Clear Calc Estimated GFR Random Glucose (60-115) mg/dL Calcium (8.4-10.2) mg/dL Magnesium (1.6-2.6) mg/dL Total Bilirubin (0.0-1.0) mg/dL AST (5-31) U/L ALT (0-31) U/L Alkaline Phosphatase (39-117) U/L Total Protein (6.5-8.0) g/dL Albumin (3.5-5.0) g/dL Urine Color Yellow Urine Appearance Clear Urine pH 6.5 (5.0-9.0) Ur Specific [place] <= 1.005 (1.005-1.025) Urine Protein Negative (Neg-Trace) mg/dL Urine Glucose (UA) Negative (Negative) mg/dL Urine Ketones Negative (Negative) mg/dL Urine Blood Negative (Negative) Urine Nitrite Negative (Negative) Ur Leukocyte Esterase Negative (Negative) COVID-19 (LEONARDA) (Negative) COVID-19 Clin Com Influenza Type A (ELAINA) (Negative) Influenza Type B (ELAINA) (Negative) Influenza A & B Note S. pyogenes GrpA ELAINA (Negative) Independent Interpretation I performed an independent interpretation of an: CT Scan (X-ray read reviewed interpreted by me as well agree with the radiology reading) Radiology Impression Discussion of test interpretation with radiology: I have reviewed the radiologist's reading. Independent Historian Clinical information obtained from an independent historian. History obtained from or confirmed by: Other (WATERSHED COORDINATOR of the pt) External Record Review External record reviewed: Inpatient record Chronic Conditions Patient?s care impacted by: Other (COPD) Discharge Plan Discharge Clinical Impression: Head injury, Periorbital hematoma, Cough, Gait instability Patient Disposition: Home, Self-Care Instructions: Head Injury (ED) Additional Instructions: You are refusing rehabilitation, youare fall risk return to the emergency room if you are worse we arrange for your home PT and VNA Prescriptions: No Action sucralfate 1 gram tablet 1 tab PO BID sertraline 100 mg tablet 2 tab PO DAILY valacyclovir 500 mg tablet 1 tab PO DAILY simvastatin 40 mg tablet 1 tab PO BEDTIME carvedilol 3.125 mg tablet 1 tab PO BID pantoprazole 20 mg tablet,delayed release (DR/EC) 1 tab PO DAILY@0630 temazepam 30 mg capsule 1 cap PO BEDTIME gemfibrozil 600 mg tablet 1 tab PO BID trazodone 150 mg tablet 3 tab PO BEDTIME lisinopril 10 mg tablet 1 tab PO DAILY fluticasone propionate 50 mcg/actuation spray,suspension 1 spray intranasal DAILY aripiprazole 5 mg tablet 1 tab PO DAILY bupropion HCl 150 mg tablet extended release 24 hr 1 tab PO DAILY fluticasone furoate-vilanterol [Breo Ellipta] 100-25 mcg/dose blister with device 1 puff inhalation DAILY estradiol 0.01 % (0.1 mg/gram) cream 1 appl vaginal QWEEK multivitamin Tablet 1 tab PO DAILY docusate sodium [Colace] 100 mg Capsule 100 mg PO BID PRN (Reason: Constipation) metformin 1,000 mg tablet 1,000 mg PO BID cefuroxime axetil 500 mg tablet 500 mg PO BID Qty: 6 0RF Interventions: ED Discharge Assessment Last Done: 02/23/23 17:19 Discharge Date/Time: 02/23/23 17:20
[2023-02-23 14:45] VITALS: BP 143/88; PULSE 74; RESP 20; O2SAT 92
--- NOTE | 2023-02-23 14:53 | PC.NURSE ---
Pt [employer]REL [employer] [facility]
[2023-02-23 14:59] LABS: Appearance Urine Clear; Color Urine Yellow; Glucose Urine UA Negative (Negative); Leukocyte Esterase Urine Negative (Negative); Nitrite Urine Negative (Negative); PH 6.5 (5.0-9.0); Specific Gravity - Urine <= 1.005 (1.005-1.025); Urine Blood Negative (Negative); Urine Ketones Negative (Negative); Urine Protein Negative (Neg-Trace)
[2023-02-23 15:53] VITALS: BP 143/88; PULSE 74; O2SAT 92
--- NOTE | 2023-02-23 19:44 | PCS.ADM ---
CM met with patient at request of Dr. Bashir. Pt fell on Monday. Refuses to be evaluated at that time. Increasing weakness. PT recommends STR. Pt requesting home PT. Lives in elderly housing. Has daily CIVIL CAD DESIGNER-40 hours weekly. Uses a quad cane and a walker. Commode. Uses home Oxygen @3L. Pfizer x3. Has L hemiparesis. [facility], . HCP on file. Pt requests D/C home. CIVIL CAD DESIGNER will transport. Referrals placed to 4 VNA's, with [facility] being first choice. Pt states had home services from them 6 months ago. CM will f/u in the am with agency choices.
--- NOTE | 2023-02-24 08:25 | MHC.CM.ED ---
Pt has been accepted onto service with [facility]. Call placed to pt to inform her of agency. Pt is in agreement - reminded pt to follow up with her PCP for any other needs she may have.
== END 2023-02-23 17:20 | disposition home or self-care (01) ==
PROVIDERS: Physician Assistant Medical; Emergency Provider Emergency Medicine
DX: J02.8 Acute pharyngitis due to other specified organisms (principal); M54.2 Cervicalgia; R51.9 Headache, unspecified; R26.2 Difficulty in walking, not elsewhere classified; J44.9 Chronic obstructive pulmonary disease, unspecified; Z20.822 Contact with and (suspected) exposure to COVID-19; Z20.828 Contact with and (suspected) exposure to other viral communicable diseases; Z99.81 Dependence on supplemental oxygen; Z79.899 Other long term (current) drug therapy
CPT/HCPCS: 36415; 70450; 70486; 71046; 72125; 80053; 81003; 83735; 85025; 85610; 87502; 87635; 87651; 97162; 99284

== ENCOUNTER 2023-09-27 12:53 | Inpatient (IN) | payer MEDICARE, MEDICAID, SELFPAY ==
[2023-09-27] VITALS (7 sets, daily range): BP systolic 142–153; BP diastolic 74–90; PULSE 75–87; RESP 16–23; TEMP 36.7–37; O2SAT 91–94; BMI 28.2
--- NOTE | ~2023-09-27 | XR_ITS ---
EXAMINATION: XR CHEST CLINICAL INFORMATION: Cough, rule out pneumonia. COMPARISON: 02/23/2023 TECHNIQUE: Frontal view of the chest was obtained. FINDINGS: Heart and mediastinum within normal limits. No vascular congestion. Chronic appearing increased interstitial markings. Bibasilar atelectasis. Degenerative changes. XR/XR chest 1V IMPRESSION: Chronic appearing increased interstitial markings and bibasilar atelectasis.
--- NOTE | ~2023-09-27 | CT_ITS ---
EXAMINATION: CT HEAD WITHOUT CONTRAST CLINICAL INFORMATION: Multiple falls with head injury. Assess for fracture or bleed. COMPARISON: CT scan of the head, facial bones and cervical spine 02/23/2023. TECHNIQUE: Multidetector CT imaging of the head was obtained without the use of intravenous contrast. Coronal and sagittal reformatted images were generated at the technologist workstation. This CT examination was performed using dose optimization techniques as appropriate, variously including the following: *Automated exposure control *Adjustment of mA and/or kV according to patient size (this includes techniques or standardized protocols for targeted exams where dose is matched to indication/reason for exam; i.e. extremities or head) *Use of iterative reconstruction technique DLP: 640 mGy-cm. FINDINGS: Some images are degraded by patient motion artifact. There is no evidence of acute intracranial hemorrhage or territorial infarction. No abnormal mass-effect or midline shift is seen. [place] to white matter differentiation is well preserved. No extra-axial fluid collections are identified. The ventricles and sulci are slightly commensurately prominent. There are patchy areas of low-attenuation in the periventricular and subcortical white matter, which are most consistent with chronic microvascular ischemic changes. There are no acute soft tissue abnormalities. The study redemonstrates the left lamina papyracea fracture containing fat. There are no acute osseous findings. The mastoid air cells are well-aerated. There is moderate mucoperiosteal thickening in the right maxillary sinus, which is new compared to prior imaging. CT/CT head/brain wo IV con IMPRESSION: 1. There are no acute bleeds or territorial infarcts. No masses are demonstrated. 2. There are chronic microvascular ischemic changes and there is diffuse volume loss. 3. There are sequelae of prior left lamina papyracea fracture.
--- NOTE | ~2023-09-27 | XR_ITS ---
EXAMINATION: XR CHEST CLINICAL INFORMATION: Hypoxia COMPARISON: 09/27/2023 TECHNIQUE: Frontal view of the chest was obtained. FINDINGS: There is ill-defined density projecting over the left hilum questionably vascular prominence versus nodule, measured 2.1 X 2.9 cm. No evidence of pleural effusion. Cardiomediastinal silhouette is normal. XR/XR chest 1V IMPRESSION: Cerebral nodule versus prominent vasculature over the left hilum.
--- NOTE | 2023-09-27 13:08 | ECG_ITS ---
Test Reason : sob Blood Pressure : / mmHG Vent. Rate : 077 BPM Atrial Rate : 077 BPM P-R Int : 162 ms QRS Dur : 084 ms QT Int : 422 ms P-R-T Axes : 078 066 068 degrees QTc Int : 477 ms Normal sinus rhythm Normal ECG When compared with ECG of 28-NOV-2022 14:12, No significant change was found Referred By: Jose Antonio Newman Electronically Signed By:Clif Perez
--- NOTE | 2023-09-27 13:09 | ED.SOB ---
HPI - SOB/Dyspnea General Chief Complaint: General Medical Stated Complaint: FTT Time Seen by Provider: 09/27/23 12:56 Source: patient and EMS Mode of arrival: EMS Limitations: no limitations History of Present Illness HPI Narrative: 63-year-old female with past medical history of COPD, sleep apnea on CPAP at bedtime, diabetes, hypertension who presents emergency department for evaluation of fever, chills, chest pain, shortness of breath and productive cough x2 days. The patient states that she has had a cough which is productive of dark brown sputum. Also complaining of chest heaviness and points to her sternum when asked to localize the discomfort. Pain is been constant since yesterday worse with coughing and with breathing, pain is 8/10 at its worst. The patient has also been feeling short. of breath above her baseline. Patient does wear 3 L of oxygen at home, CONFERENCE SERVICES DIRECTOR reported that the patient's O2 saturation was 83% on oxygen however paramedics state that the oxygen line was kinked and when they placed the patient on 3 L her O2 saturation was 93%. Patient states that she has had subjective fever and chills. She has had nausea with 4 episodes of vomiting yesterday no vomiting today. Patient had 3-4 episodes of loose with no blood in the stools today. Patient walks with a walker. She states she has had multiple falls over the last week, she did strike her head but does not recall passing ou Patient has a history of aspiration pneumonia and the patient's CONFERENCE SERVICES DIRECTOR was concerned that the patient may have pneumonia therefore they called 911 and had the patient brought to emergency department for evaluation. Patient's CONFERENCE SERVICES DIRECTOR, [facility] emergency department gave me the following information. The patient wears oxygen continually and despite being on 3 L her O2 saturation dropped down to 89%. Off oxygen her O2 saturation dropped to 78% which is the lowest that her CONFERENCE SERVICES DIRECTOR had ever seen this morning, the patient was too weak to stand. Over the last 2 days she has not been eating and not been drinking. Patient's cough started 2 days prior and has gotten worse today. The patient had two COVID-19 vaccinations Related Data Home Medications Medication Instructions Recorded Confirmed bupropion HCl 150 mg 24 hr tablet, 1 tab PO DAILY 05/22/21 09/27/23 extended release gemfibrozil 600 mg tablet 1 tab PO BID 05/22/21 09/27/23 lisinopril 10 mg tablet 1 tab PO DAILY 05/22/21 09/27/23 sertraline 100 mg tablet 2 tab PO DAILY 05/22/21 09/27/23 simvastatin 40 mg tablet 1 tab PO BEDTIME 05/22/21 09/27/23 temazepam 30 mg capsule 1 cap PO BEDTIME PRN Insomnia 05/22/21 09/27/23 trazodone 150 mg tablet 3 tab PO BEDTIME 05/22/21 09/27/23 valacyclovir 500 mg tablet 1 tab PO DAILY 05/22/21 09/27/23 multivitamin 1 tab PO DAILY 10/07/22 09/27/23 metformin 1,000 mg tablet 1,000 mg PO BID 11/28/22 09/27/23 aripiprazole 15 mg tablet 7.5 mg PO DAILY 09/27/23 09/27/23 pantoprazole 40 mg tablet,delayed 40 mg PO DAILY 09/27/23 09/27/23 release Allergies Allergy/AdvReac Type Severity Reaction Status Date / Time Iodinated Contrast Media Allergy Unknown UNKNOWN Verified 09/27/23 13:13 [IV Dye, Iodine Containing] zolpidem [From AMBIEN] Allergy Unknown UNKNOWN Verified 09/27/23 13:13 iv dye as a baby Allergy Unknown Unknown Uncoded 09/27/23 13:13 Review of Systems Review of Systems: Yes all other systems are reviewed and are negative [facility] Past Medical History [facility] Narrative: Social history: Patient states she lives at home intensive CONFERENCE SERVICES DIRECTOR that helps her. She walks with a walker. She reports multiple falls over the last week. Patient smokes 1 pack of cigarettes per day. She denies alcohol and drug use. Medical History (Updated 09/27/23 @ 22:51 by Jose Antonio Newman MD) COPD (chronic obstructive pulmonary disease) DMII (diabetes mellitus, type 2) Anxiety Depressed HTN (hypertension) Diabetes Social History Social History Household Members: None Housing: Apartment Do you presently have visiting nurse or other home services: Yes Unable to assess alcohol history related to: Unable to respond Alcohol intake: never Patient Tobacco Use Status: Current everyday Tobacco user Tobacco use type: Cigarette Smoked in Last 30 Days: Yes Second Hand Smoke Exposure: No Substance Use Type: Marijuana Advance Directives: Yes Advance Directives on File: Yes Advance Directives Date on File: 02/23/23 Nutrition Risks: Acute nausea or vomiting x1 week service: No Current occupational status: disabled Physical Exam Vital Signs: Vital Signs: Last Vital Signs Temp 98.4 F 09/27/23 21:25 Pulse 75 09/27/23 21:25 Resp 18 09/27/23 21:25 BP 147/90 H 09/27/23 21:25 Pulse Ox 92 09/27/23 21:25 O2 Del Method Nasal Cannula 09/27/23 21:25 O2 Flow Rate 4 09/27/23 21: Oxygen Flow Rate 3 09/27/23 13:03 BMI result Body Mass Index 28.2 Exam: General: Awake, alert in no distress Head: Normocephalic, atraumatic EENT: PERRL, Lids normal, sclera normal, conjunctiva normal, nose normal , ears normal, throat without erythema or exudates Neck: Supple, no adenopathy Lung: breath sounds symmetric, no wheezing, rales or rhonchi Chest: symmetric movement, nontender Heart: regular rate and rhythm, normal S1, S2 no murmurs or rubs Abdomen: soft, non-tender, nondistended, normal bowel sounds Back: no vertebral tenderness, no CVAT Extremities: no deformities, moves all extremities symmetrically Skin: no rashes, no lesion, normal color and warmth Neuro: Awake, alert, oriented, normal speech, cranial nerves intact, moves all extremities symmetrically Psych: Pleasant, cooperative Medications Administered Generic Name Dose Route Start Last Admin Trade Name Luis Alberto PRN Reason Stop Dose Admin Albuterol/Ipratropium 3 ml 09/27/23 20:00 09/27/23 19:52 Albuterol/Iprat 2.5/0.5mg 3 Ml Ampul.Neb INHALE Not Given RQ4H WHILE AWAKE STEVEN Atorvastatin Calcium 20 mg 09/27/23 21:00 09/27/23 21:59 Atorvastatin Calcium 20 Mg Tablet PO 20 mg BEDTIME STEVEN Administration Gemfibrozil 600 mg 09/27/23 21:00 09/27/23 21:59 Gemfibrozil 600 Mg Tablet PO Not Given BID STEVEN Heparin Sodium (Porcine) 5,000 unit 09/27/23 18:00 09/27/23 19:18 Heparin Sodium,Porcine 5,000 Unit/Ml Vial SUBCUT Not Given Q12H [facility] Azithromycin 500 mg/ Sodium 250 mls @ 125 mls/hr 09/27/23 18:00 09/27/23 19:59 Chloride IV Infused Q24H STEVEN Infusion Insulin Human Lispro 0 unit 09/27/23 21:00 09/27/23 21:26 Insulin Lispro 100 Unit/Ml 3 Ml Vial SUBCUT Not Given QIDACHS [facility] Protocol Trazodone HCl 450 mg 09/27/23 21:00 09/27/23 21:59 Trazodone Hcl 100 Mg Tablet PO 450 mg BEDTIME [facility] Administration Discontinued Medications Generic Name Dose Route Start Last Admin Trade Name Freq PRN Reason Stop Dose Admin Acetaminophen 975 mg 09/27/23 13:07 09/27/23 14:18 Acetaminophen 325 Mg Tablet PO 09/27/23 13:08 975 mg ONCE STA Administration Albuterol Sulfate 5 mg/ 0 mg 09/27/23 13:43 09/27/23 13:48 Albuterol/Ipratropium 3 ml INHALE 09/27/23 13:44 1 each ONCE ONE Administration Dexamethasone Sodium Phosphate 6 mg 09/27/23 15:00 09/27/23 16:47 Dexamethasone Sod Phosphate 4 Mg/Ml Vial IVPUSH 09/27/23 15:01 6 mg ONCE ONE Administration Sodium Chloride 1,000 mls @ 999 mls/hr 09/27/23 13:07 09/27/23 15:34 Ns IV 09/27/23 14:07 Infused .Q1H1M STA Infusion Ceftriaxone Sodium 1 gm/ 50 mls @ 100 mls/hr 09/27/23 15:00 09/27/23 17:29 Sodium Chloride IV 09/27/23 15:29 Infused ONCE ONE Infusion Remdesivir 200 mg/ Sodium 210 mls @ 105 mls/hr 09/27/23 17:00 09/27/23 22:02 Chloride IV 09/27/23 18:59 Infused ONCE ONE Infusion Medical Decision Making Medical Decision Making MDM Narrative: Open speech er scalp. Differential diagnosis: Includes but is not limited to COPD exacerbation, pneumonia, bronchitis, viral syndrome, COVID-19, influenza, RSV, myocardial infarction, myocardial ischemia, closed head injury, skull fracture, intracranial bleed Following evaluation was ordered: CBC, CMP, lactic acid, lipase, PTT, blood cultures x2 COVID-19, influenza, RSV, troponin, urinalysis, chest x-ray, EKG, CT scan of the brain. Patient was treated with the following: Normal saline x1 L, Tylenol 975 mg orally and bronchodilator protocol. 15:02 My interpretation patient's laboratory evaluation is as follows: WBC normal 8700. Anemia with an H&H of 12 and 35. Elevated glucose of 187. Troponin detectable but not elevated at 5.0. Lactic acid was normal at 0.7. Venous blood gas revealed a normal pH of 7.43 with a CO2 of 36 and a bicarb of 24. COVID-19 was positive. Chest x-ray on my reading is concerning for right lower lobe infiltrate, radiologist felt the patient had bilateral atelectasis with scarring. CT scan of the brain revealed no acute fracture bleed Given my x-ray interpretation, I treated the patient with Zithromax 500 mg IV and ceftriaxone 1 g IV. She was also given dexamethasone 6 mg IV since she is COVID positive Patient's presentation was discussed with the covering hospitalist the patient will be admitted for further treatment Admission/Observation Consideration of admission/observation: Escalation of care including admission/observation considered Lab Data MDM Lab Attestation statement: I reviewed the patient's lab results. 09/27/23 13:31 09/27/23 13:31 Labs: Lab Results 09/27/23 09/27/23 Range/Units 13:31 16:03 WBC 8.7 (4.8-10.8) X10*3/uL RBC 3.60 L (4.20-5.50) X10*6/uL Hgb 12.1 (12.0-16.0) g/dl Hct 35.2 L (37.0-47.0) % MCV 97.8 (80.0-98.0) fL MCH 33.6 H (27.0-33.0) pg MCHC 34.4 (31.0-35.0) g/dl RDW 12.5 (11.0-16.0) % Plt Count 196 (160-400) X10*3/uL MPV 10.3 (9.4-12.3) fL Immature Gran % (Auto) 0.7 H (0.0-0.4) % Neut % (Auto) 63.5 (45-73) % Lymph % (Auto) 26.7 (20-40) % [place] % (Auto) 7.5 (2-11) % Eos % (Auto) 1.4 (0-4) % Baso % (Auto) 0.2 (0-2) % Lymph # (Auto) 2.3 (1.2-4.9) X10*3/uL [place] # (Auto) 0.7 (0.1-1.2) X10*3/uL Eos # (Auto) 0.1 (0.0-0.4) X10*3/uL Baso # (Auto) 0.0 (0.0-0.2) X10*3/uL Abs Immat Gran (auto) 0.06 H (0.00-0.03) X10*3/uL Absolute Neuts (auto) 5.5 (2.0-8.3) x10*3/uL Absolute Nucleated RBC 0.000 (0.0-0.012) X10*3/uL Nucleated RBC % (auto) 0.0 (0.0-0.2) /100WBC Smear Tech's Comments VERIFIED APTT 32.8 (26.0-36.8) SEC O2 Saturation 90.0 % ABG pH at Pt Temp 7.36 (7.35-7.45) ABG pCO2 at Pt Temp 48 H (32-45) mmHg ABG pO2 at Pt Temp 66 L (83-108) mmHg ABG HCO3 28 H (22-26) mmol/L ABG Base Excess (Actual) 2.1 mmol/L Sodium 141 (135-145) mmol/L Potassium 4.2 (3.3-5.1) mmol/L Chloride 104 (96-108) mmol/L Carbon Dioxide 28 (22-29) mmol/L Anion Gap 13 (12-20) BUN 28 H (9-16) mg/dL Creatinine 1.10 (0.5-1.4) mg/dL Estim Creat Clear Calc 51.1 Estimated GFR 50 Random Glucose 187 H (60-115) mg/dL Lactic Acid 0.7 (0.5-2.0) mmol/L Calcium 9.3 (8.4-10.2) mg/dL Total Bilirubin 0.3 (0.0-1.0) mg/dL AST 15 (5-31) U/L ALT 11 (0-31) U/L Alkaline Phosphatase 90 (39-117) U/L Troponin I High Sens 5.0 D (<3.5-17.0) ng/L Total Protein 7.7 (6.5-8.0) g/dL Albumin 4.1 (3.5-5.0) g/dL Lipase 24 (8-78) U/L Influenza Type A (PCR) NEGATIVE (Negative) Influenza Type B (PCR) NEGATIVE (Negative) RSV RNA Qual (PCR) NEGATIVE (Negative) SARS-CoV-2 RNA (RT-PCR) POSITIVE A (Negative) Independent Interpretation I performed an independent interpretation of an: EKG Interpretation: My interpretation patient's 12 EKG done at 13:19 hours is as follows: Normal sinus rhythm with a rate of 77, normal OH interval, QRS duration QTC interval, no ST segment segment depression, inverted T-waves in V1 and V2, no PACs, no PVCs. This is a normal EKG My interpretation is one-view chest x-ray is as follows: Right lower lobe infiltrate Radiology Impression Discussion of test interpretation with radiology: I have reviewed the radiologist's reading. Radiologist Impression: XR chest 1V IMPRESSION: Chronic appearing increased interstitial markings and bibasilar atelectasis. Dictated By: Yajaira Schilling MD CT head/brain wo IV con IMPRESSION: 1. There are no acute bleeds or territorial infarcts. No masses are demonstrated. 2. There are chronic microvascular ischemic changes and there is diffuse volume loss. 3. There are sequelae of prior left lamina papyracea fracture. Dictated By: CECILIO HANEY MD Critical Care Time Critical Care Time Critical Care Time: Yes Total Critical Care Time: 45 Attestation: Critical Care: The patient was critically ill with a high probability of imminent or life threatening deterioration. I spent greater than 30 minutes of discontinuous time evaluating the patient,delivering critical care at the bedside, discussing and evaluating pertinent data with consultants. Critical care time does not include time spent performing separately billable procedures or teaching. Total time spent performing critical care was 45 minutes. Discharge Plan Discharge Clinical Impression: Acute kidney injury, Acute dehydration Patient Disposition: Admitted As Inpatient
[2023-09-27 13:43] LABS: Basophils Percent Auto 0.2 % (0-2); Eosinophils Absolute Auto 0.1 X10*3/uL (0.0-0.4); Eosinophils Percent Auto 1.4 % (0-4); Hematocrit 35.2 % (37.0-47.0); Hemoglobin 12.1 g/dl (12.0-16.0); Imm Gran Abs Auto 0.06 X10*3/uL (0.00-0.03); Imm Gran Pct Auto 0.7 % (0.0-0.4); Lymphocytes Absolute Auto 2.3 X10*3/uL (1.2-4.9); Lymphocytes Percent Auto 26.7 % (20-40); MANUAL DIFF FLAG SCAN; Mean Corpuscular HGB Conc 34.4 g/dl (31.0-35.0); Mean Corpuscular Hemoglobin 33.6 pg (27.0-33.0); Mean Corpuscular Volume 97.8 fL (80.0-98.0); Mean Platelet Volume 10.3 fL (9.4-12.3); Monocytes Absolute Auto 0.7 X10*3/uL (0.1-1.2); Monocytes Percent Auto 7.5 % (2-11); Neutrophils Absolute Auto 5.5 x10*3/uL (2.0-8.3); Neutrophils Percent Auto 63.5 % (45-73); Platelet Count 196 X10*3/uL (160-400); Red Cell Distribution Width 12.5 % (11.0-16.0); SCAN SMEAR FLAG 1; White Blood Count 8.7 X10*3/uL (4.8-10.8)
[2023-09-27] MEDS: Albuterol Sulfate 5 MG, Albuterol/Iprat 2.5/0.5MG 3 ML 3 ML INHALE (13:48)
[2023-09-27 13:53] LABS: Partial Thromboplastin Time 32.8 SEC (26.0-36.8)
[2023-09-27 13:54] LABS: Lactic Acid 0.7 mmol/L (0.5-2.0)
[2023-09-27 13:57] LABS: Alanine Aminotransferase 11 U/L (0-31); Albumin Level 4.1 g/dL (3.5-5.0); Alkaline Phosphatase 90 U/L (39-117); Anion Gap 13 (12-20); Aspartate Amino Transferase 15 U/L (5-31); Bilirubin Total 0.3 mg/dL (0.0-1.0); Blood Urea Nitrogen 28 mg/dL (9-16); Calcium 9.3 mg/dL (8.4-10.2); Carbon Dioxide 28 mmol/L (22-29); Chloride 104 mmol/L (96-108); Creatinine Clr Calc Pharmacy 51.1; Estimated Glomerular Filt Rate 50; Glucose Random 187 mg/dL (60-115); Lipase 24 U/L (8-78); Potassium 4.2 mmol/L (3.3-5.1); Sodium 141 mmol/L (135-145); Total Protein 7.7 g/dL (6.5-8.0)
[2023-09-27 14:04] LABS: SLIDE REVIEW VERIFIED
[2023-09-27] MEDS: 0.9 % Sodium Chloride 1,000 ML 999 ML IV (14:18)
[2023-09-27] MEDS: Acetaminophen 325 MG TABLET 975 MG PO (14:18)
[2023-09-27 14:19] LABS: Influenza A PCR NEGATIVE (Negative); Influenza B PCR NEGATIVE (Negative); Resp Syncy Virus RNA Qual PCR NEGATIVE (Negative); SARS COV2 PCR INHOUSE POSITIVE (Negative)
[2023-09-27 16:10] LABS: ABG Base Excess 2.1 mmol/L; ABG HCO3 28 mmol/L (22-26); ABG pCO2 48 mmHg (32-45); ABG pH 7.36 (7.35-7.45); ABG pO2 66 mmHg (83-108)
--- NOTE | 2023-09-27 16:30 | PHA.MEDREC ---
Pharmacy Consult ? Medication Reconciliation Pharmacy has completed the medication reconciliation. Patient does not know any medications. Reports a nurse from [place] help her. From previous case management notes, patient used [facility] however when contacting them they report they have no patient by that name. Utilized claim history for med rec. Bessie Bui, BryceD
--- NOTE | 2023-09-27 16:40 | PM.IMHP ---
History of Present Illness Date of Service: 09/27/23 Attending physician on admission: Rashid Guadarrama Chief Complaint: cough, malaise 63-year-old female with history of hypertension, type 2 diabetes, anxiety/depression, herpes simplex virus, GERD, COPD, TAJ on CPAP, who is a current 0.75 pack per day cigarette smoker presented to the ED earlier today for evaluation of upper respiratory symptoms ongoing for 2-3 days. She is reporting malaise, subjective fevers, chills, productive cough with brown sputum, weakness. Denies any sick contacts. She states she has also had recurrent falls ongoing for several years foot feels increased weakness. She has been short of breath with wheezing with limited improvement with albuterol inhalers. There is pleuritic chest pain. Patient alert and provides appropriate history during exam, but nods off often. On arrival, pt hypxic in the 70s on room air maintaining oximetry 89-91% on 3L supplemental O2, vitals otherwise stable. No leukocytosis. Renal function normal, lytes normal. Lactic acid 0.7. Hepatic function normal. Trop WNL. UA unremarkable. UTox pending. ABG reassuring with pH 7.36, pCO2 48, pO266, HCO3 28. Positive for COVID-19. CXR negative for acute cardiopulmonary disease. Head CT negative for any acute intracranial abnormality. EKG shows normal sinus rhythm, rate 77, no ST/T-wave abnormality. In the ED, has been treated with 1 g Rocephin, azithromycin, 6 mg dexamethasone, DuoNeb, and 1 L IV NS. Review of Systems Review of Systems: General: +fevers, +chills, +general weakness, +malaise. No unintentional weight loss HEENT: No blurred vision, diplopia. No sore throat, nasal congestion, rhinorrhea, sinus pain, ear pain Cardiovascular: +pleuritic chear pain. No palpitations, or leg edema Respiratory: +sob, +wheezing, +cough GI: No abdominal pain, nausea, vomiting, diarrhea, constipation, melena, hematochezia : No dysuria, hematuria, increased urinary frequency, decreased urinary output MSK: No myalgia, back pain Neuro: No headaches, weakness, paresthesias Skin: No rashes or lesions [facility] Medical History (Updated 09/27/23 @ 17:28 by RADHA Castro) COPD (chronic obstructive pulmonary disease) DMII (diabetes mellitus, type 2) Anxiety Depressed HTN (hypertension) Diabetes Social History Household Members: None Housing: Apartment Do you presently have visiting nurse or other home services: Yes Unable to assess alcohol history related to: Unable to respond Alcohol intake: never Patient Tobacco Use Status: Current everyday Tobacco user Tobacco use type: Cigarette Second Hand Smoke Exposure: No Substance Use Type: Marijuana Advance Directives: Yes Advance Directives on File: Yes Advance Directives Date on File: 02/23/23 service: No Current occupational status: disabled Meds Allergies Allergy/AdvReac Type Severity Reaction Status Date / Time Iodinated Contrast Media Allergy Unknown UNKNOWN Verified 09/27/23 13:13 [IV Dye, Iodine Containing] zolpidem [From AMBIEN] Allergy Unknown UNKNOWN Verified 09/27/23 13:13 iv dye as a baby Allergy Unknown Unknown Uncoded 09/27/23 13:13 Active Medications: Current Medications Acetaminophen (Acetaminophen 325 Mg Tablet) 650 mg PO Q6H PRN PRN Reason: Pain, Mild (Pain Scale 1-3) Albuterol/Ipratropium (Albuterol/Iprat 2.5/0.5mg 3 Ml Ampul.Neb) 3 ml INHALE RQ4H WHILE AWAKE [facility] Dexamethasone Sodium Phosphate (Dexamethasone Sod Phosphate 4 Mg/Ml Vial) 6 mg IVPUSH DAILY [facility] Heparin Sodium (Porcine) (Heparin Sodium,Porcine 5,000 Unit/Ml Vial) 5,000 unit SUBCUT Q12H [facility] Azithromycin 500 mg/ Sodium (Chloride) 250 mls @ 125 mls/hr IV ONCE ONE Stop: 09/27/23 16:59 Remdesivir 200 mg/ Sodium (Chloride) 210 mls @ 105 mls/hr IV ONCE ONE Stop: 09/27/23 18:59 Remdesivir 100 mg/ Sodium (Chloride) 230 mls @ 115 mls/hr IV Q24H STEVEN Stop: 09/29/23 18:59 Ondansetron HCl (Ondansetron Hcl 4 Mg/2 Ml Vial) 4 mg IVPUSH Q8H PRN PRN Reason: Nausea and Vomiting Senna (Sennosides 8.6 Mg Tablet) 17.2 mg PO BEDTIME PRN PRN Reason: Constipation Sodium Chloride (0.9 % Sodium Chloride Flush 3 Ml Syringe) 3 ml IVFLUSH QSHIFT [facility] Home Medications Medication Instructions Recorded Confirmed Last Taken Type bupropion HCl 150 mg 24 hr tablet, 1 tab PO DAILY 05/22/21 09/27/23 10/06/22 History extended release gemfibrozil 600 mg tablet 1 tab PO BID 05/22/21 09/27/23 10/06/22 History lisinopril 10 mg tablet 1 tab PO DAILY 05/22/21 09/27/23 10/06/22 History sertraline 100 mg tablet 2 tab PO DAILY 05/22/21 09/27/23 10/06/22 History simvastatin 40 mg tablet 1 tab PO BEDTIME 05/22/21 09/27/23 10/06/22 History temazepam 30 mg capsule 1 cap PO BEDTIME PRN Insomnia 05/22/21 09/27/23 10/06/22 History trazodone 150 mg tablet 3 tab PO BEDTIME 05/22/21 09/27/23 10/06/22 History valacyclovir 500 mg tablet 1 tab PO DAILY 05/22/21 09/27/23 10/06/22 History multivitamin 1 tab PO DAILY 10/07/22 09/27/23 10/06/22 History metformin 1,000 mg tablet 1,000 mg PO BID 11/28/22 09/27/23 Unknown History aripiprazole 15 mg tablet 7.5 mg PO DAILY 09/27/23 09/27/23 Unknown History pantoprazole 40 mg tablet,delayed 40 mg PO DAILY 09/27/23 09/27/23 Unknown History release Physical Exam Vital Signs and Narrative: Vital Signs: Last Vital Signs Temp 98.4 F 09/27/23 13:03 Pulse 77 09/27/23 13:47 Resp 23 H 09/27/23 13:47 BP 149/74 H 09/27/23 13:03 Pulse Ox 91 L 09/27/23 13:03 O2 Del Method Nasal Cannula 09/27/23 13:03 Oxygen Flow Rate 3 09/27/23 13:03 BMI result Body Mass Index 28.2 Constitutional - Awake and Alert, No apparent distress Eyes - PERRLA, EOMI Cardiovascular - S1S2, RRR, No edema Respiratory - Normal lung expansion, Normal respiratory effort, No respiratory distress, CTA bilaterally on 3L supplemental O2, diffuse rhonchi with expiratory wheezing Extremities - no calf tenderness bilaterally, no swelling Skin - Warm/Dry Neurological - Alert & oriented x3, nodding off to sleep at times Psychological - Appropriate affect Results Labs 09/27/23 13:31 09/27/23 13:31 Labs: Laboratory Results - last 24 hr 09/27/23 09/27/23 13:31 16:03 MCV 97.8 MCH 33.6 H MCHC 34.4 RDW 12.5 Plt Count 196 MPV 10.3 Immature Gran % (Auto) 0.7 H Neut % (Auto) 63.5 Lymph % (Auto) 26.7 [place] % (Auto) 7.5 Eos % (Auto) 1.4 Baso % (Auto) 0.2 Lymph # (Auto) 2.3 [place] # (Auto) 0.7 Eos # (Auto) 0.1 Baso # (Auto) 0.0 Abs Immat Gran (auto) 0.06 H Absolute Neuts (auto) 5.5 Absolute Nucleated RBC 0.000 Nucleated RBC % (auto) 0.0 Smear Tech's Comments VERIFIED APTT 32.8 O2 Saturation 90.0 ABG pH at Pt Temp 7.36 ABG pCO2 at Pt Temp 48 H ABG pO2 at Pt Temp 66 L ABG HCO3 28 H ABG Base Excess (Actual) 2.1 Anion Gap 13 Estim Creat Clear Calc 51.1 Estimated GFR 50 Random Glucose 187 H Lactic Acid 0.7 Calcium 9.3 Total Bilirubin 0.3 AST 15 ALT 11 Alkaline Phosphatase 90 Troponin I High Sens 5.0 D Total Protein 7.7 Albumin 4.1 Lipase 24 Influenza Type A (PCR) NEGATIVE Influenza Type B (PCR) NEGATIVE RSV RNA Qual (PCR) NEGATIVE SARS-CoV-2 RNA (RT-PCR) POSITIVE A Imaging Radiologist's Impressions: Impressions Chest X-Ray 09/27/23 13:44 IMPRESSION: Chronic appearing increased interstitial markings and bibasilar atelectasis. Head CT 09/27/23 14:06 IMPRESSION: 1. There are no acute bleeds or territorial infarcts. No masses are demonstrated. 2. There are chronic microvascular ischemic changes and there is diffuse volume loss. 3. There are sequelae of prior left lamina papyracea fracture. Assessment and Plan (1) COVID-19: Status: Acute (2) Acute hypoxemic respiratory failure: Status: Acute (3) Acute exacerbation of chronic obstructive pulmonary disease: Status: Acute Plan 63-year-old female with history of hypertension, type 2 diabetes, anxiety/depression, herpes simplex virus, GERD, COPD, TAJ on CPAP, who is a current 0.75 pack per day cigarette smoker admitted for covid-19 with hypoxemic respiratory failure #COVID-19 with acute hypoxemic respiratory failure -ABG reassuring with pH 7.36, pCO2 48, pO2 66, HCO3 28 -CXR negative for pneumonia -IV remdesivir (initiated 09/27) -decadron 6mg daily (iniated 09/27) -symtpomatic managment -continue supplemental O2 to maintain oximetry 90-92% -airborne/contact precautions # COPD exacerbation due to above -Decadron as above -DuoNebs q.4h while awake, albuterol p.r.n. -azithromycin for pleiotropic effect (initiated 09/27) #Weakness -pt eval # [id number] type 2 diabetes -POC glucose, diabetic diet -Humalog on sliding scale -hold metformin # hypertension -continue lisinopril -monitor BPs # HSV -no acute flare -continue valacyclovir for suppressive therapy # TAJ -CPAP at bedtime # nicotine dependence -cessation advised -Nicorette gum for NRT DVT prophylaxis-Lovenox Full code Patient requires inpatient stay at least 2 midnights for management of COVID-19 with acute hypoxemic respiratory failure on IV antiviral therapy, IV steroids, and supplemental O2 Quality Stroke Does the patient have a stroke diagnosis?: No VTE Prior VTE?: No VTE Risk Level:: Medical - moderate - high VTE Device Contraindication: Treatment Not Indicated VTE Drug Contraindication: N/A - Med Ordered
[2023-09-27 16:42] LABS: ABG Refer to POC result
[2023-09-27] MEDS: cefTRIAXone sodium 1 GM in 0.9 % Sodium Chloride 50 ML IV (16:47)
[2023-09-27] MEDS: dexAMETHasone sod phosphate 4 MG/ML VIAL 6 MG IVPUSH (16:47)
--- NOTE | 2023-09-27 16:51 | MHC.EDTECH ---
THIS PCT ASSUMED CARE OF PATIENT AT 1500 ,PATIENT WAS INCONTINENT OF URINE ,CARE GIVEN ,VITALS TAKEN ,URINE SAMPLE COLLECTED AND SENT TO LAB ,PATIENT BELONGING LIST DINE .
[2023-09-27 17:10] LABS: Appearance Urine Clear; Color Urine Yellow; Glucose Urine UA Negative (Negative); Leukocyte Esterase Urine Small (1+) (Negative); Nitrite Urine Negative (Negative); UMIC TRIGGER UACC YES; Urine Blood Negative (Negative); Urine Ketones Negative (Negative); Urine Protein Negative (Neg-Trace)
[2023-09-27 17:15] LABS: Bacteria Urine None Seen (None Seen); Hyaline Casts Urine 0-2 /LPF (0-2); RBC Urine 0-2 /HPF (0-2); Squamous Epithelial Cell Urine 0-2 /HPF (0-2); UACC Culture Trigger YES
[2023-09-27 17:26] LABS: Amphetamine Screen Urine Not Detected (Not Detect); Barbiturates, Urine Not Detected (Not Detect); Benzodiazepines Screen Urine POSITIVE (Not Detect); Cannabinoid Screen Urine POSITIVE (Not Detect); Cocaine Screen Urine Not Detected (Not Detect); Fentanyl, urine Not Detected (Not Detect); Opiate Screen Urine Not Detected (Not Detect); Phencyclidine Screen Urine Not Detected (Not Detect)
[2023-09-27] MEDS: Azithromycin 500 MG in 0.9 % Sodium Chloride 250 ML 125 MG IV (17:29)
[2023-09-27 19:12] LABS: Glucose, Whole Blood 127 mg/dL (60-115)
--- NOTE | 2023-09-27 19:16 | MHC.EDTECH ---
Patient was set up with dinner ,food cut up vitals taken .
[2023-09-27] MEDS: Remdesivir 200 MG in 0.9 % Sodium Chloride 210 ML 105 MG IV (19:58)
[2023-09-27 21:27] LABS: Glucose, Whole Blood 150 mg/dL (60-115)
--- NOTE | 2023-09-27 21:27 | PC.NURSE ---
poc 150- no insulin administration per protocol
--- NOTE | 2023-09-27 21:27 | MHC.EDTECH ---
Patient ate 75 % of meal ,and drank 240 ml fluids ,Pure wick empty ,2100 blood sugar check ,Patient was reposition and boosted up in bed .
[2023-09-27] MEDS: traZODone HCL 100 MG TABLET 450 MG PO (21:59)
[2023-09-27] MEDS: Atorvastatin Calcium 20 MG TABLET PO (21:59)
--- NOTE | 2023-09-27 22:26 | PC.NURSE ---
presents from home with malaise / fever / cough. PMH : HTN DM2, COPD ( 3L baseline), positive smoker pt tested positive for COVID Plan COPD/COVID decadron, remdesivir, Cane at baseline POC 150 @2100 20 LAC
[2023-09-28] VITALS (11 sets, daily range): BP systolic 137–170; BP diastolic 73–92; PULSE 71–88; RESP 16–20; TEMP 36.3–37; O2SAT 88–96
[2023-09-28 05:30] LABS: Basophils Percent Auto 0.3 % (0-2); Eosinophils Percent Auto 0.1 % (0-4); Hematocrit 36.8 % (37.0-47.0); Hemoglobin 12.2 g/dl (12.0-16.0); Imm Gran Abs Auto 0.06 X10*3/uL (0.00-0.03); Imm Gran Pct Auto 0.6 % (0.0-0.4); Lymphocytes Absolute Auto 2.1 X10*3/uL (1.2-4.9); MANUAL DIFF FLAG SCAN; Mean Corpuscular HGB Conc 33.2 g/dl (31.0-35.0); Mean Corpuscular Hemoglobin 32.7 pg (27.0-33.0); Mean Corpuscular Volume 98.7 fL (80.0-98.0); Mean Platelet Volume 10.4 fL (9.4-12.3); Monocytes Absolute Auto 0.9 X10*3/uL (0.1-1.2); Monocytes Percent Auto 8.3 % (2-11); Neutrophils Absolute Auto 7.6 x10*3/uL (2.0-8.3); Neutrophils Percent Auto 70.7 % (45-73); Platelet Count 212 X10*3/uL (160-400); Red Blood Count 3.73 X10*6/uL (4.20-5.50); Red Cell Distribution Width 12.2 % (11.0-16.0); SCAN SMEAR FLAG 1; White Blood Count 10.7 X10*3/uL (4.8-10.8)
[2023-09-28] MEDS: Omeprazole 20 MG CAPSULE.DR PO (05:34)
[2023-09-28 05:51] LABS: Anion Gap 16 (12-20); Blood Urea Nitrogen 20 mg/dL (9-16); Calcium 9.5 mg/dL (8.4-10.2); Carbon Dioxide 24 mmol/L (22-29); Chloride 109 mmol/L (96-108); Estimated Glomerular Filt Rate > 60; Glucose Random 86 mg/dL (60-115); Potassium 4.8 mmol/L (3.3-5.1); SLIDE REVIEW VERIFIED; Sodium 144 mmol/L (135-145)
[2023-09-28 07:23] LABS: Glucose, Whole Blood 136 mg/dL (60-115)
[2023-09-28] MEDS: Albuterol/Iprat 2.5/0.5MG 3 ML AMPUL.NEB INHALE ×3 (08:18→14:46)
--- NOTE | 2023-09-28 09:07 | HO.PM.IMPN ---
Subjective Subjective Date of Service: 09/28/23 Interval History: a bit better today Physical Exam Vital Signs: Vital Signs: Last Vital Signs Temp 98.0 F 09/28/23 08:23 Pulse 88 09/28/23 08:23 Resp 20 09/28/23 08:23 BP 149/81 H 09/28/23 08:23 Pulse Ox 88 L 09/28/23 08:23 O2 Del Method Nasal Cannula 09/28/23 08:23 O2 Flow Rate 4 09/28/23 08:23 Oxygen Flow Rate 3 09/27/23 13:03 BMI result Body Mass Index 28.2 General: AO X 3, no acute distress Resp: Crackles bilateral, no accessory muscles used CVS: S1,S2,RRR GI: soft, non tender, non distended Neuro: motor grossly intact, alert Psych: appropriate affect, appropriate insight Objective Data Active Medications Acetaminophen (Acetaminophen 325 Mg Tablet) 650 mg PO Q6H PRN PRN Reason: Pain, Mild (Pain Scale 1-3) Albuterol Sulfate (Albuterol Sulfate (0.083%) 2.5 Mg/3 Ml Vial.Neb) 2.5 mg INHALE Q2H PRN PRN Reason: Shortness of Breath/Wheezing Albuterol/Ipratropium (Albuterol/Iprat 2.5/0.5mg 3 Ml Ampul.Neb) 3 ml INHALE RQ4H WHILE AWAKE [facility] Last Admin: 09/28/23 08:18 Dose: 3 ml Documented By: HARRISON Aripiprazole (Aripiprazole 15 Mg Tablet) 7.5 mg PO DAILY [facility] Atorvastatin Calcium (Atorvastatin Calcium 20 Mg Tablet) 20 mg PO BEDTIME [facility] Last Admin: 09/27/23 21:59 Dose: 20 mg Documented By: LILIYA Bupropion HCl (Bupropion Hcl Xl 150 Mg Tab.Er.24h) 150 mg PO DAILY [facility] Dexamethasone Sodium Phosphate (Dexamethasone Sod Phosphate 4 Mg/Ml Vial) 6 mg IVPUSH DAILY [facility] Dextrose (Dextrose 50 % 25 Gm/50 Ml Syringe) 25 gm IVPUSH Q15M PRN; Protocol PRN Reason: per Hypoglycemia Standing Ord. Gemfibrozil (Gemfibrozil 600 Mg Tablet) 600 mg PO BID [facility] Last Admin: 09/27/23 21:59 Dose: Not Given Documented By: LILIYA Non-Admin Reason: Med Not Available Glucose (Glucose Gel 15 Gm Gel..Gram.) 15 gm PO Q15M PRN; Protocol PRN Reason: per Hypoglycemia Standing Ord. Heparin Sodium (Porcine) (Heparin Sodium,Porcine 5,000 Unit/Ml Vial) 5,000 unit SUBCUT Q12H [facility] Last Admin: 09/28/23 06:04 Dose: Not Given Documented By: LILIYA Non-Admin Reason: Patient Refused Remdesivir 100 mg/ Sodium (Chloride) 230 mls @ 115 mls/hr IV Q24H [facility] Stop: 09/29/23 18:59 Azithromycin 500 mg/ Sodium (Chloride) 250 mls @ 125 mls/hr IV Q24H [facility] Last Infusion: 09/27/23 19:59 Dose: Infused Documented By: LILIYA Insulin Human Lispro (Insulin Lispro 100 Unit/Ml 3 Ml Vial) 0 unit SUBCUT QIDACHS [facility]; Protocol Last Admin: 09/28/23 07:22 Dose: Not Given Documented By: CLARISSA Non-Admin Reason: No Insulin Coverage Lisinopril (Lisinopril 10 Mg Tablet) 10 mg PO DAILY [facility]; Protocol Multivitamins/Vitamin C (Multivitamin Tablet) 1 tab PO DAILY [facility] Nicotine Polacrilex (Nicotine Polacrilex 2 Mg Gum) 2 mg BUCCAL Q2H PRN PRN Reason: Nicotine Cravings Omeprazole (Omeprazole 20 Mg Capsule.Dr) 20 mg PO DAILY@0630 [facility] Last Admin: 09/28/23 05:34 Dose: 20 mg Documented By: LILIYA Ondansetron HCl (Ondansetron Hcl 4 Mg/2 Ml Vial) 4 mg IVPUSH Q8H PRN PRN Reason: Nausea and Vomiting Senna (Sennosides 8.6 Mg Tablet) 17.2 mg PO BEDTIME PRN PRN Reason: Constipation Sertraline HCl (Sertraline Hcl 100 Mg Tablet) 200 mg PO DAILY [facility] Sodium Chloride (0.9 % Sodium Chloride Flush 3 Ml Syringe) 3 ml IVFLUSH QSHIFT [facility] Last Admin: 09/28/23 00:15 Dose: Not Given Documented By: LILIYA Non-Admin Reason: IV Running Temazepam (Temazepam 15 Mg Capsule) 30 mg PO BEDTIME PRN PRN Reason: Insomnia Trazodone HCl (Trazodone Hcl 100 Mg Tablet) 450 mg PO BEDTIME [facility] Last Admin: 09/27/23 21:59 Dose: 450 mg Documented By: LILIYA Valacyclovir HCl (Valacyclovir Hcl 500 Mg Tablet) 500 mg PO DAILY [facility] Labs 09/28/23 05:04 09/28/23 05:04 Labs: Laboratory Results - last 24 hr 09/27/23 09/27/23 09/27/23 13:31 16:03 16:48 MCV 97.8 MCH 33.6 H MCHC 34.4 RDW 12.5 Plt Count 196 MPV 10.3 Immature Gran % (Auto) 0.7 H Neut % (Auto) 63.5 Lymph % (Auto) 26.7 [place] % (Auto) 7.5 Eos % (Auto) 1.4 Baso % (Auto) 0.2 Lymph # (Auto) 2.3 [place] # (Auto) 0.7 Eos # (Auto) 0.1 Baso # (Auto) 0.0 Abs Immat Gran (auto) 0.06 H Absolute Neuts (auto) 5.5 Absolute Nucleated RBC 0.000 Nucleated RBC % (auto) 0.0 Smear Tech's Comments VERIFIED APTT 32.8 O2 Saturation 90.0 ABG pH at Pt Temp 7.36 ABG pCO2 at Pt Temp 48 H ABG pO2 at Pt Temp 66 L ABG HCO3 28 H ABG Base Excess (Actual) 2.1 Anion Gap 13 Estim Creat Clear Calc 51.1 Estimated GFR 50 POC Glucose Random Glucose 187 H Lactic Acid 0.7 Calcium 9.3 Total Bilirubin 0.3 AST 15 ALT 11 Alkaline Phosphatase 90 Troponin I High Sens 5.0 D Total Protein 7.7 Albumin 4.1 Lipase 24 Urine Color Yellow Urine Appearance Clear Urine pH 6.0 Ur Specific [place] 1.010 Urine Protein Negative Urine Glucose (UA) Negative Urine Ketones Negative Urine Blood Negative Urine Nitrite Negative Ur Leukocyte Esterase Small (1+) H Urine RBC 0-2 Urine WBC 6-10 H Ur Squamous Epith Cells 0-2 Urine Bacteria None Seen Hyaline Casts 0-2 Urine Opiates Screen Not Detected Urine Fentanyl Screen Not Detected Ur Barbiturates Screen Not Detected Ur Phencyclidine Scrn Not Detected Ur Amphetamines Screen Not Detected U Benzodiazepines Scrn POSITIVE H Urine Cocaine Screen Not Detected U Marijuana (THC) Screen POSITIVE H Influenza Type A (PCR) NEGATIVE Influenza Type B (PCR) NEGATIVE RSV RNA Qual (PCR) NEGATIVE SARS-CoV-2 RNA (RT-PCR) POSITIVE A 09/27/23 09/27/23 09/28/23 19:08 21:24 05:04 MCV 98.7 H MCH 32.7 MCHC 33.2 RDW 12.2 Plt Count 212 MPV 10.4 Immature Gran % (Auto) 0.6 H Neut % (Auto) 70.7 Lymph % (Auto) 20.0 [place] % (Auto) 8.3 Eos % (Auto) 0.1 Baso % (Auto) 0.3 Lymph # (Auto) 2.1 [place] # (Auto) 0.9 Eos # (Auto) 0.0 Baso # (Auto) 0.0 Abs Immat Gran (auto) 0.06 H Absolute Neuts (auto) 7.6 Absolute Nucleated RBC 0.000 Nucleated RBC % (auto) 0.0 Smear Tech's Comments VERIFIED APTT O2 Saturation ABG pH at Pt Temp ABG pCO2 at Pt Temp ABG pO2 at Pt Temp ABG HCO3 ABG Base Excess (Actual) Anion Gap 16 Estim Creat Clear Calc 76.0 Estimated GFR > 60 POC Glucose 127 H 150 H Random Glucose 86 Lactic Acid Calcium 9.5 Total Bilirubin AST ALT Alkaline Phosphatase Troponin I High Sens Total Protein Albumin Lipase Urine Color Urine Appearance Urine pH Ur Specific [place] Urine Protein Urine Glucose (UA) Urine Ketones Urine Blood Urine Nitrite Ur Leukocyte Esterase Urine RBC Urine WBC Ur Squamous Epith Cells Urine Bacteria Hyaline Casts Urine Opiates Screen Urine Fentanyl Screen Ur Barbiturates Screen Ur Phencyclidine Scrn Ur Amphetamines Screen U Benzodiazepines Scrn Urine Cocaine Screen U Marijuana (THC) Screen Influenza Type A (PCR) Influenza Type B (PCR) RSV RNA Qual (PCR) SARS-CoV-2 RNA (RT-PCR) 09/28/23 07:19 MCV MCH MCHC RDW Plt Count MPV Immature Gran % (Auto) Neut % (Auto) Lymph % (Auto) [place] % (Auto) Eos % (Auto) Baso % (Auto) Lymph # (Auto) [place] # (Auto) Eos # (Auto) Baso # (Auto) Abs Immat Gran (auto) Absolute Neuts (auto) Absolute Nucleated RBC Nucleated RBC % (auto) Smear Tech's Comments APTT O2 Saturation ABG pH at Pt Temp ABG pCO2 at Pt Temp ABG pO2 at Pt Temp ABG HCO3 ABG Base Excess (Actual) Anion Gap Estim Creat Clear Calc Estimated GFR POC Glucose 136 H Random Glucose Lactic Acid Calcium Total Bilirubin AST ALT Alkaline Phosphatase Troponin I High Sens Total Protein Albumin Lipase Urine Color Urine Appearance Urine pH Ur Specific [place] Urine Protein Urine Glucose (UA) Urine Ketones Urine Blood Urine Nitrite Ur Leukocyte Esterase Urine RBC Urine WBC Ur Squamous Epith Cells Urine Bacteria Hyaline Casts Urine Opiates Screen Urine Fentanyl Screen Ur Barbiturates Screen Ur Phencyclidine Scrn Ur Amphetamines Screen U Benzodiazepines Scrn Urine Cocaine Screen U Marijuana (THC) Screen Influenza Type A (PCR) Influenza Type B (PCR) RSV RNA Qual (PCR) SARS-CoV-2 RNA (RT-PCR) Assessment and Plan (1) COVID-19: Status: Acute Plan 63F PMH chronic hypoxic respiratory failure due to COPD/ILD on 3L home o2, DM, mood disorder, gerd, taj, presented with sob, tested positive for covid Acute on chronic hypoxic respiratory failure secondary to COVID-19 complicated by COPD/ILD with acute decompensation IV Decadron, remdesivir, azithromycin day 2 Wean O2 as tolerated Diabetes Insulin Hypertension Lisinopril TAJ CPAP dvt prophylaxis - lovenox full code reason for continued hospitalization:hypoxia Quality Stroke Does the patient have a stroke diagnosis?: No VTE Prior VTE?: No VTE Risk Level:: Medical - moderate - high VTE Device Contraindication: Treatment Not Indicated VTE Drug Contraindication: N/A - Med Ordered
--- NOTE | 2023-09-28 09:43 | MHC.CM.PN ---
IMM 09/28/23, Pt lives alone, she has [employer] services 41 hours a week and a nurse that visits once a week to set up her pills through [facility]. She uses O2 at home all the time, could not remember provider, she has a CPAP, cane, walker, w/c, shower bench for med equipment. PCP: confirmed, Meghan Collier, HCP on file and confirmed, her son: Roderick Fowler, she asked CM to call him to inform that she is here. Pt is able to get transportation home upon DC. CM to follow and assist with DC plan.
[2023-09-28] MEDS: valACYclovir HCL 500 MG TABLET PO (11:00)
[2023-09-28] MEDS: ARIPiprazole 15 MG TABLET 7.5 MG PO (11:00)
[2023-09-28] MEDS: Sertraline HCL 100 MG TABLET 200 MG PO (11:00)
[2023-09-28] MEDS: lisinopriL 10 MG TABLET PO (11:01)
[2023-09-28] MEDS: buPROPion HCl XL 150 MG TAB.ER.24H PO (11:01)
[2023-09-28] MEDS: Multivitamin TABLET 1 TAB PO (11:01)
[2023-09-28] MEDS: dexAMETHasone sod phosphate 4 MG/ML VIAL 6 MG IVPUSH (11:02)
[2023-09-28] MEDS: 0.9 % Sodium Chloride Flush 3 ML SYRINGE IVFLUSH ×3 (11:02→21:13)
[2023-09-28] MEDS: gemfibroziL 600 MG TABLET PO ×2 (11:02→21:12)
[2023-09-28 11:20] LABS: Glucose, Whole Blood 112 mg/dL (60-115)
[2023-09-28 16:51] LABS: Glucose, Whole Blood 163 mg/dL (60-115)
[2023-09-28] MEDS: Insulin Lispro 100 UNIT/ML 3 ML VIAL SUBCUT (17:21)
[2023-09-28] MEDS: Heparin Sodium,Porcine 5,000 UNIT/ML VIAL 5000 UNIT SUBCUT (17:21)
[2023-09-28] MEDS: Remdesivir 100 MG in 0.9 % Sodium Chloride 230 ML 115 MG IV (17:21)
[2023-09-28] MEDS: Azithromycin 500 MG in 0.9 % Sodium Chloride 250 ML 125 MG IV (21:11)
[2023-09-28] MEDS: traZODone HCL 100 MG TABLET 450 MG PO (21:12)
[2023-09-28] MEDS: Atorvastatin Calcium 20 MG TABLET PO (21:12)
[2023-09-28] MEDS: Temazepam 15 MG CAPSULE 30 MG PO (21:12)
[2023-09-28 21:55] LABS: Glucose, Whole Blood 115 mg/dL (60-115)
[2023-09-29] VITALS (11 sets, daily range): BP systolic 133–169; BP diastolic 73–98; PULSE 69–84; RESP 18–22; TEMP 36.2–36.6; O2SAT 88–95
[2023-09-29] MEDS: Omeprazole 20 MG CAPSULE.DR PO (06:18)
[2023-09-29] MEDS: Heparin Sodium,Porcine 5,000 UNIT/ML VIAL 5000 UNIT SUBCUT ×2 (06:18→17:19)
[2023-09-29 06:42] LABS: Hematocrit 37.6 % (37.0-47.0); Hemoglobin 12.7 g/dl (12.0-16.0); Mean Corpuscular HGB Conc 33.8 g/dl (31.0-35.0); Mean Corpuscular Hemoglobin 33.2 pg (27.0-33.0); Mean Corpuscular Volume 98.4 fL (80.0-98.0); Mean Platelet Volume 9.4 fL (9.4-12.3); Platelet Count 246 X10*3/uL (160-400); Red Blood Count 3.82 X10*6/uL (4.20-5.50); Red Cell Distribution Width 12.2 % (11.0-16.0); White Blood Count 9.9 X10*3/uL (4.8-10.8)
[2023-09-29 06:55] LABS: Anion Gap 14 (12-20); Blood Urea Nitrogen 17 mg/dL (9-16); Calcium 9.9 mg/dL (8.4-10.2); Carbon Dioxide 26 mmol/L (22-29); Chloride 107 mmol/L (96-108); Creatinine Clr Calc Pharmacy 80.3; Estimated Glomerular Filt Rate > 60; Glucose Fasting 98 mg/dL (60-99); Potassium 4.3 mmol/L (3.3-5.1); Sodium 143 mmol/L (135-145)
[2023-09-29] MEDS: Albuterol/Iprat 2.5/0.5MG 3 ML AMPUL.NEB INHALE ×4 (07:56→19:02)
[2023-09-29 08:17] LABS: Glucose, Whole Blood 107 mg/dL (60-115)
[2023-09-29] MEDS: ARIPiprazole 15 MG TABLET 7.5 MG PO (08:34)
[2023-09-29] MEDS: 0.9 % Sodium Chloride Flush 3 ML SYRINGE IVFLUSH ×3 (08:34→23:25)
[2023-09-29] MEDS: dexAMETHasone sod phosphate 4 MG/ML VIAL 6 MG IVPUSH (08:34)
[2023-09-29] MEDS: Sertraline HCL 100 MG TABLET 200 MG PO (08:35)
[2023-09-29] MEDS: gemfibroziL 600 MG TABLET PO ×2 (08:35→23:12)
[2023-09-29] MEDS: lisinopriL 10 MG TABLET PO (08:35)
[2023-09-29] MEDS: buPROPion HCl XL 150 MG TAB.ER.24H PO (08:35)
[2023-09-29] MEDS: valACYclovir HCL 500 MG TABLET PO (08:35)
[2023-09-29] MEDS: Multivitamin TABLET 1 TAB PO (08:35)
--- NOTE | 2023-09-29 10:32 | HO.PM.IMPN ---
Subjective Subjective Date of Service: 09/29/23 Interval History: a bit better today Physical Exam Vital Signs: Vital Signs: Last Vital Signs Temp 97.3 F 09/29/23 07:29 Pulse 77 09/29/23 07:56 Resp 20 09/29/23 07:56 BP 143/98 H 09/29/23 07:29 Pulse Ox 91 L 09/29/23 07:29 O2 Del Method Nasal Cannula 09/29/23 07:29 O2 Flow Rate 4 09/29/23 07:29 Oxygen Flow Rate 3 09/27/23 13:03 BMI result Body Mass Index 28.2 General: AO X 3, no acute distress Resp: Crackles bilateral, no accessory muscles used CVS: S1,S2,RRR GI: soft, non tender, non distended Neuro: motor grossly intact, alert Psych: appropriate affect, appropriate insight Objective Data Active Medications Acetaminophen (Acetaminophen 325 Mg Tablet) 650 mg PO Q6H PRN PRN Reason: Pain, Mild (Pain Scale 1-3) Albuterol Sulfate (Albuterol Sulfate (0.083%) 2.5 Mg/3 Ml Vial.Neb) 2.5 mg INHALE Q2H PRN PRN Reason: Shortness of Breath/Wheezing Albuterol/Ipratropium (Albuterol/Iprat 2.5/0.5mg 3 Ml Ampul.Neb) 3 ml INHALE RQ4H WHILE AWAKE [facility] Last Admin: 09/29/23 07:56 Dose: 3 ml Documented By: HARRISON Aripiprazole (Aripiprazole 15 Mg Tablet) 7.5 mg PO DAILY [facility] Last Admin: 09/29/23 08:34 Dose: 7.5 mg Documented By: PARAMJIT Atorvastatin Calcium (Atorvastatin Calcium 20 Mg Tablet) 20 mg PO BEDTIME [facility] Last Admin: 09/28/23 21:12 Dose: 20 mg Documented By: JOSEPH Bupropion HCl (Bupropion Hcl Xl 150 Mg Tab.Er.24h) 150 mg PO DAILY [facility] Last Admin: 09/29/23 08:35 Dose: 150 mg Documented By: PARAMJIT Dexamethasone Sodium Phosphate (Dexamethasone Sod Phosphate 4 Mg/Ml Vial) 6 mg IVPUSH DAILY [facility] Last Admin: 09/29/23 08:34 Dose: 6 mg Documented By: PARAMJIT Dextrose (Dextrose 50 % 25 Gm/50 Ml Syringe) 25 gm IVPUSH Q15M PRN; Protocol PRN Reason: per Hypoglycemia Standing Ord. Gemfibrozil (Gemfibrozil 600 Mg Tablet) 600 mg PO BID [facility] Last Admin: 09/29/23 08:35 Dose: 600 mg Documented By: PARAMJIT Glucose (Glucose Gel 15 Gm Gel..Gram.) 15 gm PO Q15M PRN; Protocol PRN Reason: per Hypoglycemia Standing Ord. Heparin Sodium (Porcine) (Heparin Sodium,Porcine 5,000 Unit/Ml Vial) 5,000 unit SUBCUT Q12H [facility] Last Admin: 09/29/23 06:18 Dose: 5,000 unit Documented By: JOSEPH Remdesivir 100 mg/ Sodium (Chloride) 230 mls @ 115 mls/hr IV Q24H [facility] Stop: 09/29/23 18:59 Last Infusion: 09/28/23 19:52 Dose: Infused Documented By: JOSEPH Azithromycin 500 mg/ Sodium (Chloride) 250 mls @ 125 mls/hr IV Q24H [facility] Last Infusion: 09/28/23 23:11 Dose: Infused Documented By: JOSEPH Insulin Human Lispro (Insulin Lispro 100 Unit/Ml 3 Ml Vial) 0 unit SUBCUT QIDACHS [facility]; Protocol Last Admin: 09/29/23 08:23 Dose: Not Given Documented By: PARAMJIT Non-Admin Reason: No Insulin Coverage Lisinopril (Lisinopril 10 Mg Tablet) 10 mg PO DAILY [facility]; Protocol Last Admin: 09/29/23 08:35 Dose: 10 mg Documented By: PARAMJIT Multivitamins/Vitamin C (Multivitamin Tablet) 1 tab PO DAILY [facility] Last Admin: 09/29/23 08:35 Dose: 1 tab Documented By: PARAMJIT Nicotine Polacrilex (Nicotine Polacrilex 2 Mg Gum) 2 mg BUCCAL Q2H PRN PRN Reason: Nicotine Cravings Omeprazole (Omeprazole 20 Mg Capsule.) 20 mg PO DAILY@0630 [facility] Last Admin: 09/29/23 06:18 Dose: 20 mg Documented By: JOSEPH Ondansetron HCl (Ondansetron Hcl 4 Mg/2 Ml Vial) 4 mg IVPUSH Q8H PRN PRN Reason: Nausea and Vomiting Senna (Sennosides 8.6 Mg Tablet) 17.2 mg PO BEDTIME PRN PRN Reason: Constipation Sertraline HCl (Sertraline Hcl 100 Mg Tablet) 200 mg PO DAILY [facility] Last Admin: 09/29/23 08:35 Dose: 200 mg Documented By: PARAMJIT Sodium Chloride (0.9 % Sodium Chloride Flush 3 Ml Syringe) 3 ml IVFLUSH QSHIFT [facility] Last Admin: 09/29/23 08:34 Dose: 3 ml Documented By: PARAMJIT Temazepam (Temazepam 15 Mg Capsule) 30 mg PO BEDTIME PRN PRN Reason: Insomnia Last Admin: 09/28/23 21:12 Dose: 30 mg Documented By: JOSEPH Trazodone HCl (Trazodone Hcl 100 Mg Tablet) 450 mg PO BEDTIME [facility] Last Admin: 09/28/23 21:12 Dose: 450 mg Documented By: JOSEPH Valacyclovir HCl (Valacyclovir Hcl 500 Mg Tablet) 500 mg PO DAILY [facility] Last Admin: 09/29/23 08:35 Dose: 500 mg Documented By: PARAMJIT Labs 09/29/23 06:29 09/29/23 06:29 Labs: Laboratory Results - last 24 hr 09/28/23 09/28/23 09/28/23 11:13 16:38 21:49 MCV MCH MCHC RDW Plt Count MPV Absolute Nucleated RBC Nucleated RBC % (auto) Anion Gap Estim Creat Clear Calc Estimated GFR POC Glucose 112 163 H 115 Fasting Glucose Calcium 09/29/23 09/29/23 06:29 07:30 MCV 98.4 H MCH 33.2 H MCHC 33.8 RDW 12.2 Plt Count 246 MPV 9.4 Absolute Nucleated RBC 0.000 Nucleated RBC % (auto) 0.0 Anion Gap 14 Estim Creat Clear Calc 80.3 Estimated GFR > 60 POC Glucose 107 Fasting Glucose 98 Calcium 9.9 Microbiology Microbiology Results: Microbiology 09/27/23 14:10 Blood Culture - Preliminary Blood - Venous No growth after 24 hours. 09/27/23 13:31 Blood Culture - Preliminary Blood - Venous No growth after 24 hours. 09/27/23 19:00 Urine Culture - Preliminary Urine clean catch - Urine chinchilla top Culture too young to evaluate. Assessment and Plan (1) COVID-19: Status: Acute Plan 63F PMH chronic hypoxic respiratory failure due to COPD/ILD on 3L home o2, DM, mood disorder, gerd, taj, presented with sob, tested positive for covid Acute on chronic hypoxic respiratory failure secondary to COVID-19 complicated by COPD/ILD with acute decompensation IV Decadron, remdesivir, azithromycin day 3 Wean O2 as tolerated - not at baseline o2 Diabetes Insulin Hypertension Lisinopril TAJ CPAP dvt prophylaxis - lovenox full code reason for continued hospitalization:more hypoxic today Quality Stroke Does the patient have a stroke diagnosis?: No VTE Prior VTE?: No VTE Risk Level:: Medical - moderate - high VTE Device Contraindication: Treatment Not Indicated VTE Drug Contraindication: N/A - Med Ordered
--- NOTE | 2023-09-29 10:47 | MHC.CM.PN ---
EMR REVIEWED, PT COVID+ AND REMAINS ON COVID TARGETED TX IV DECADRON AND IV REMDESIVIR, NO PLAN FOR DC AT THIS TIME, CM WILL CONT TO FOLLOW DC NEEDS.
[2023-09-29 11:30] LABS: ABG Base Excess 2.1 mmol/L; ABG HCO3 26 mmol/L (22-26); ABG pCO2 38 mmHg (32-45); ABG pH 7.44 (7.35-7.45); ABG pO2 59 mmHg (83-108)
[2023-09-29 11:47] LABS: Glucose, Whole Blood 182 mg/dL (60-115)
[2023-09-29] MEDS: Insulin Lispro 100 UNIT/ML 3 ML VIAL SUBCUT ×2 (12:26→16:48)
[2023-09-29] MEDS: Furosemide 40 MG/4 ML VIAL IVPUSH (12:26)
[2023-09-29 14:05] LABS: ABG Refer to POC result
[2023-09-29 17:00] LABS: Glucose, Whole Blood 201 mg/dL (60-115)
[2023-09-29] MEDS: Remdesivir 100 MG in 0.9 % Sodium Chloride 230 ML 115 MG IV (17:19)
[2023-09-29 20:37] LABS: Glucose, Whole Blood 146 mg/dL (60-115)
[2023-09-29] MEDS: traZODone HCL 100 MG TABLET 450 MG PO (23:12)
[2023-09-29] MEDS: Atorvastatin Calcium 20 MG TABLET PO (23:13)
[2023-09-29] MEDS: Azithromycin 500 MG in 0.9 % Sodium Chloride 250 ML 125 MG IV (23:13)
[2023-09-29] MEDS: Sennosides 8.6 MG TABLET 17.2 MG PO (23:13)
[2023-09-29] MEDS: Temazepam 15 MG CAPSULE 30 MG PO (23:33)
[2023-09-30] MEDS: ondansetron HCL 4 MG/2 ML VIAL IVPUSH (00:02)
[2023-09-30 04:00] VITALS: BP 114/77; PULSE 82; RESP 18; TEMP 36.4; O2SAT 92
[2023-09-30] MEDS: Omeprazole 20 MG CAPSULE.DR PO (05:13)
[2023-09-30] MEDS: Heparin Sodium,Porcine 5,000 UNIT/ML VIAL 5000 UNIT SUBCUT (05:13)
[2023-09-30 07:52] VITALS: BP 153/79; PULSE 81; RESP 16; TEMP 36.2; O2SAT 90
[2023-09-30 08:24] LABS: Hematocrit 38.6 % (37.0-47.0); Hemoglobin 12.9 g/dl (12.0-16.0); Mean Corpuscular HGB Conc 33.4 g/dl (31.0-35.0); Mean Corpuscular Hemoglobin 32.7 pg (27.0-33.0); Mean Corpuscular Volume 97.7 fL (80.0-98.0); Mean Platelet Volume 9.7 fL (9.4-12.3); Platelet Count 290 X10*3/uL (160-400); Red Blood Count 3.95 X10*6/uL (4.20-5.50); Red Cell Distribution Width 12.1 % (11.0-16.0); White Blood Count 10.6 X10*3/uL (4.8-10.8)
[2023-09-30 08:29] LABS: Glucose, Whole Blood 136 mg/dL (60-115)
[2023-09-30] MEDS: Albuterol/Iprat 2.5/0.5MG 3 ML AMPUL.NEB INHALE (08:47)
[2023-09-30 08:48] VITALS: PULSE 85; RESP 20; O2SAT 87
[2023-09-30 08:49] LABS: Anion Gap 17 (12-20); Blood Urea Nitrogen 33 mg/dL (9-16); C Reactive Protein 2.32 mg/dL (< or = 0.50); Calcium 9.5 mg/dL (8.4-10.2); Carbon Dioxide 28 mmol/L (22-29); Chloride 101 mmol/L (96-108); Estimated Glomerular Filt Rate > 60; Glucose Fasting 113 mg/dL (60-99); Potassium 3.7 mmol/L (3.3-5.1); Sodium 142 mmol/L (135-145)
--- NOTE | 2023-09-30 09:18 | P.DS_ITS ---
DS: Providers Provider Date of Service: 09/30/23 Date of admission: 09/27/23 16:24 Primary care physician: Meghan Collier NP DS: Diagnosis Discharge Diagnosis (1) COVID-19: Status: Acute DS: Summary Hospital Course Hospital Course: from initial hpi: 63-year-old female with history of hypertension, type 2 diabetes, anxiety/depression, herpes simplex virus, GERD, COPD, TAJ on CPAP, who is a current 0.75 pack per day cigarette smoker presented to the ED earlier today for evaluation of upper respiratory symptoms ongoing for 2-3 days. She is reporting malaise, subjective fevers, chills, productive cough with brown sputum, weakness. Denies any sick contacts. She states she has also had recurrent falls ongoing for several years foot feels increased weakness. She has been short of breath with wheezing with limited improvement with albuterol inhalers. There is pleuritic chest pain. Patient alert and provides appropriate history during exam, but nods off often. On arrival, pt hypxic in the 70s on room air maintaining oximetry 89-91% on 3L supplemental O2, vitals otherwise stable. No leukocytosis. Renal function normal, lytes normal. Lactic acid 0.7. Hepatic function normal. Trop WNL. UA unremarkable. UTox pending. ABG reassuring with pH 7.36, pCO2 48, pO266, HCO3 28. Positive for COVID-19. CXR negative for acute cardiopulmonary disease. Head CT negative for any acute intracranial abnormality. EKG shows normal sinus rhythm, rate 77, no ST/T-wave abnormality. In the ED, has been treated with 1 g Rocephin, azithromycin, 6 mg dexamethasone, DuoNeb, and 1 L IV NS. hospital course: Patient was admitted for acute on chronic hypoxic respiratory failure secondary to COVID-19 complicated by COPD/interstitial lung disease with acute decompensation. She was treated with IV Decadron, remdesivir, azithromycin. She was able to be weaned back to her 3 L baseline O2 and her symptoms returned to baseline. She will be discharged on 5 more days of prednisone. For diabetes was continued on insulin. For hypertension was continue lisinopril. For TAJ was continued on CPAP. Patient is feeling better will be discharged home. Time Attestation Discharge coordination time: Greater than 30 minutes Quality: Safe Use of Opioids Does Pt have an Active Cancer Diagnosis on the Problem List?: No Quality: Stroke Does the patient have a stroke diagnosis?: No Physical Exam Vital Signs: Vital Signs: Last Vital Signs Temp 97.1 F 09/30/23 07:52 Pulse 85 09/30/23 08:48 Resp 20 09/30/23 08:48 BP 153/79 H 09/30/23 07:52 Pulse Ox 90 L 09/30/23 07:52 O2 Del Method Nasal Cannula 09/30/23 07:52 O2 Flow Rate 3 09/30/23 07:52 Oxygen Flow Rate 3 09/27/23 13:03 BMI result Body Mass Index 28.2 General: AO X 3, no acute distress Resp: cta bilateral, no accessory muscles used CVS: S1,S2,RRR GI: soft, non tender, non distended Neuro: motor grossly intact, alert Psych: appropriate affect, appropriate insight DS: Data Data Completed and Pending Completed studies during hospitalization [Text1]: Procedures Assistance with Respiratory Ventilation, Less than 24 Consecutive Hours, Continuous Positive Airway Pressure (11/28/22) Labs on day of discharge: Laboratory Results - last 24 hr 09/29/23 09/29/23 09/29/23 11:09 11:23 16:20 WBC RBC Hgb Hct MCV MCH MCHC RDW Plt Count MPV Absolute Nucleated RBC Nucleated RBC % (auto) O2 Saturation 86.0 ABG pH at Pt Temp 7.44 ABG pCO2 at Pt Temp 38 ABG pO2 at Pt Temp 59 L ABG HCO3 26 ABG Base Excess (Actual) 2.1 Sodium Potassium Chloride Carbon Dioxide Anion Gap BUN Creatinine Estim Creat Clear Calc Estimated GFR POC Glucose 182 H 201 H Fasting Glucose Calcium C-Reactive Protein 09/29/23 09/30/23 09/30/23 20:02 07:40 08:25 WBC 10.6 RBC 3.95 L Hgb 12.9 Hct 38.6 MCV 97.7 MCH 32.7 MCHC 33.4 RDW 12.1 Plt Count 290 MPV 9.7 Absolute Nucleated RBC 0.000 Nucleated RBC % (auto) 0.0 O2 Saturation ABG pH at Pt Temp ABG pCO2 at Pt Temp ABG pO2 at Pt Temp ABG HCO3 ABG Base Excess (Actual) Sodium 142 Potassium 3.7 Chloride 101 Carbon Dioxide 28 Anion Gap 17 BUN 33 H Creatinine 0.77 Estim Creat Clear Calc 73.0 Estimated GFR > 60 POC Glucose 146 H 136 H Fasting Glucose 113 H Calcium 9.5 C-Reactive Protein 2.32 H Preliminary micro results at discharge 09/27/23 14:10 Blood Culture - Preliminary Blood - Venous No growth after 48 hours. 09/27/23 13:31 Blood Culture - Preliminary Blood - Venous No growth after 48 hours. Discharge Plan Discharge Anticipated Discharge Date/Time: 09/30/23 09:16 Patient Disposition: Home, Self-Care Discharge Diagnosis: covid, copd Referrals: Meghan Collier HISTOLOGY SUPERVISOR [Primary Care Provider] - 1 Week Discharge Medications: New prednisone 20 mg tablet 40 mg PO DAILY Qty: 10 0RF Continued sertraline 100 mg tablet 2 tab PO DAILY valacyclovir 500 mg tablet 1 tab PO DAILY simvastatin 40 mg tablet 1 tab PO BEDTIME temazepam 30 mg capsule 1 cap PO BEDTIME PRN (Reason: Insomnia) gemfibrozil 600 mg tablet 1 tab PO BID trazodone 150 mg tablet 3 tab PO BEDTIME lisinopril 10 mg tablet 1 tab PO DAILY bupropion HCl 150 mg tablet extended release 24 hr 1 tab PO DAILY multivitamin Tablet 1 tab PO DAILY metformin 1,000 mg tablet 1,000 mg PO BID aripiprazole 15 mg tablet 7.5 mg PO DAILY pantoprazole 40 mg tablet,delayed release (DR/EC) 40 mg PO DAILY Discharge Orders: Discharge Order (Routine); Ordered 09/30/23 Ordered By: Rashid Guadarrama Diet: Low salt diet Activity on Discharge: As tolerated Stand Alone Forms: Patient Portal Discharge page Care Plan Goals: recovery Health Concerns: covid, copd Plan of Treatment: 5 more days prednisone Assessment: see above
[2023-09-30] MEDS: dexAMETHasone sod phosphate 4 MG/ML VIAL 6 MG IVPUSH (09:30)
[2023-09-30] MEDS: Acetaminophen 325 MG TABLET 650 MG PO (09:30)
[2023-09-30] MEDS: ARIPiprazole 15 MG TABLET 7.5 MG PO (09:31)
[2023-09-30] MEDS: lisinopriL 10 MG TABLET PO (09:31)
[2023-09-30] MEDS: Multivitamin TABLET 1 TAB PO (09:31)
[2023-09-30] MEDS: gemfibroziL 600 MG TABLET PO (09:31)
[2023-09-30] MEDS: Sertraline HCL 100 MG TABLET 200 MG PO (09:31)
[2023-09-30] MEDS: buPROPion HCl XL 150 MG TAB.ER.24H PO (09:31)
[2023-09-30] MEDS: valACYclovir HCL 500 MG TABLET PO (09:31)
[2023-09-30] MEDS: 0.9 % Sodium Chloride Flush 3 ML SYRINGE IVFLUSH (09:32)
--- NOTE | 2023-09-30 11:01 | MHC.CM.PN ---
Pt has been medically cleared for DC, she will go home and resume her [employer] services, family to transport.
[2023-09-30 11:05] VITALS: BP 136/72; PULSE 76; RESP 16; TEMP 36.3; O2SAT 91
== END 2023-09-30 13:41 | disposition home or self-care (01) | DRG 177 ==
LOC: HO.ED 13:47 → HO.EDOVER 16:51 → HO.IMC 09-28 07:30
PROVIDERS: Admitting Provider Physician Assistant; Emergency Provider Emergency Medicine Emergency Medical Services; PCP Nurse Practitioner Family; Visit Provider Internal Medicine
DX: U07.1 COVID-19 (principal); J96.21 Acute and chronic respiratory failure with hypoxia; J44.1 Chronic obstructive pulmonary disease with (acute) exacerbation; E11.9 Type 2 diabetes mellitus without complications; G47.33 Obstructive sleep apnea (adult) (pediatric); I10 Essential (primary) hypertension; B00.9 Herpesviral infection, unspecified; F17.210 Nicotine dependence, cigarettes, uncomplicated; Z71.6 Tobacco abuse counseling; Z91.041 Radiographic dye allergy status; Z99.81 Dependence on supplemental oxygen; Z79.84 Long term (current) use of oral hypoglycemic drugs; Z79.899 Other long term (current) drug therapy
CPT/HCPCS: 0241U; 36415; 36600; 70450; 71045; 80048; 80053; 80307; 81001; 82803; 82947; 83605; 83690; 84484; 85025; 85027; 85730; 86140; 87040; 87086; 93005; 94640; 94660; 97116; 97162; 97530; 99285; J0248; J0456; J0696; J1100; J1644; J1940; J2405

== ENCOUNTER → 2023-09-27 13:08 | Outpatient (BNV) | payer MEDICARE, MEDICAID, SELFPAY | PROVIDERS: Admitting Provider Physician Assistant; Emergency Provider Emergency Medicine Emergency Medical Services; PCP Nurse Practitioner Family; Visit Provider Internal Medicine Cardiovascular Disease | DX: R06.02 Shortness of breath (principal) | CPT/HCPCS: 93010 ==

== ENCOUNTER → 2023-09-27 16:24 | Outpatient (BNV) | payer MEDICARE, MEDICAID, SELFPAY | PROVIDERS: Admitting Provider Physician Assistant; Emergency Provider Emergency Medicine Emergency Medical Services; PCP Nurse Practitioner Family; Visit Provider Physician Assistant | DX: U07.1 COVID-19 (principal); J96.21 Acute and chronic respiratory failure with hypoxia; J44.1 Chronic obstructive pulmonary disease with (acute) exacerbation; E11.9 Type 2 diabetes mellitus without complications | CPT/HCPCS: 99223; 99233; 99238 ==

== ENCOUNTER 2024-03-06 11:05 | Emergency (ER) | payer MEDICARE, MEDICAID, SELFPAY ==
--- NOTE | ~2024-03-06 | CT_ITS ---
EXAMINATION: CT CHEST WITHOUT CONTRAST CLINICAL INFORMATION: Right rib pain after fall. COMPARISON: Chest CT from 05/21/2021. TECHNIQUE: Multidetector volumetric CT imaging of the chest was done. Axial MIP volume rendering provided. Sagittal and coronal reformatted images were obtained. This CT examination was performed using dose optimization techniques as appropriate, variously including the following: *Automated exposure control *Adjustment of mA and/or kV according to patient size (this includes techniques or standardized protocols for targeted exams where dose is matched to indication/reason for exam; i.e. extremities or head) *Use of iterative reconstruction technique DLP: 302.10 mGy-cm for the chest CT after acquisition of a topogram. FINDINGS: LUNGS AND PLEURA: Chronic moderate pulmonary emphysema. The opacities in the dependent aspect of each lower lobe are consistent with atelectatic changes. No pulmonary consolidation, pleural effusion or pneumothorax. A normal-sized lymph node is seen along the right minor fissure. Also, there is likely a 0.3 cm lymph node along the left major fissure. Compared to 05/21/2021, no interval development of a suspicious lung nodule or mass. CARDIOVASCULAR: The heart size is normal. No pericardial effusion. Pulmonary arteries are unremarkable for a noncontrast examination. There is atherosclerotic calcification of the thoracic aorta without aneurysm. CORONARY ARTERY CALCIFICATION: Multivessel coronary artery atherosclerotic calcification is present. MEDIASTINUM AND LOWER NECK: No mediastinal mass. The esophagus and thyroid gland are unremarkable. LYMPHATICS: No pathologic sized lymph nodes. UPPER ABDOMEN: No acute or suspicious abnormality within the visualized portion of the upper abdomen. SKELETAL AND CHEST WALL: Moderate spondylosis of the thoracic spine. 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 No evidence of an acute rib fracture. No chest wall hematoma. CT/CT chest wo IV con IMPRESSION: * Moderate pulmonary emphysema. * No evidence of acute traumatic pathology in the chest. No acute rib fracture. * Atherosclerotic disease of coronary arteries.
--- NOTE | ~2024-03-06 | CT_ITS ---
EXAMINATION: CT HEAD WITHOUT CONTRAST CT CERVICAL SPINE WITHOUT CONTRAST CLINICAL INFORMATION: Hand and neck trauma COMPARISON: CT head from 09/27/[address] head and cervical spine from 02/23/2023 TECHNIQUE: CT of the head and cervical spine were performed without intravenous contrast. Multiplanar reformats were rendered and reviewed. This CT examination was performed using dose optimization techniques as appropriate, variously including the following: *Automated exposure control *Adjustment of mA and/or kV according to patient size (this includes techniques or standardized protocols for targeted exams where dose is matched to indication/reason for exam; i.e. extremities or head) *Use of iterative reconstruction technique DLP: 616 mGy-cm. For the head and 392 mGy-cm for cervical spine FINDINGS: CT head: No intracranial hemorrhage, large infarction, or mass lesion is seen. No extra-axial collection is appreciated. The ventricles are normal in size and configuration without evidence of hydrocephalus. There are patchy hypodensities seen through the deep white matter consistent with sequela of microangiopathy The visualized paranasal sinuses and mastoid air cells are clear. CT cervical spine: Evaluation of cervical spine is limited due to motion. There is straightening of cervical lordosis. There is no obvious fracture or dislocation. There is no spondylolysis or listhesis. Soft tissues unremarkable. The cervical alignment is normal. The craniocervical junction is normal. The vertebral body heights are maintained. No cervical spine fracture is seen. The paraspinal soft tissues are within normal limits. The partially imaged lung apices are clear. CT/CT cervical spine wo IV con IMPRESSION: CT HEAD: No acute intracranial finding. CT CERVICAL SPINE: Limited evaluation due to motion. No obvious fracture or dislocation.
[2024-03-06 11:36] VITALS: BP 116/60; BP 139/66; PULSE 80; PULSE 83; RESP 18; TEMP 36.5; O2SAT 94; BMI 26.3
--- NOTE | 2024-03-06 11:57 | ECG_ITS ---
Test Reason : Fall Blood Pressure : / mmHG Vent. Rate : 083 BPM Atrial Rate : 083 BPM P-R Int : 154 ms QRS Dur : 084 ms QT Int : 416 ms P-R-T Axes : 072 046 063 degrees QTc Int : 488 ms Normal sinus rhythm Prolonged QT Abnormal ECG When compared with ECG of 27-SEP-2023 13:19, QT has lengthened Referred By: Rosibel Barclay Electronically Signed By:IVY DENISE
[2024-03-06] MEDS: 0.9 % Sodium Chloride 1,000 ML 999 ML IV (13:09)
[2024-03-06] MEDS: ondansetron HCL 4 MG/2 ML VIAL IVPUSH (13:10)
--- NOTE | 2024-03-06 13:52 | ED_ITS ---
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 She hit her head denies LOC she has pain in R ribs after the fall. Not on thinners. 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 Patient tells me for the past month she has had intemittent n/v/d and frequent urination. She is very groggy and I asked why she went to bed late at 11pm and states she took her night meds late - temazepam and trazodone. complaint: fall Onset (ago): hour(s) (6am today) Fall from: out of bed Fall witnessed: no Place fall occurred: home Loss of consciousness: none Prolonged down time: yes and hour(s) (3) Symptoms prior to fall: none Context: tripped/slipped Location of injury: head and chest Severity: mild Quality: dull and aching Associated symptoms (after fall): denies Related Data Home Medications ?Medication ?Instructions ?Recorded ?Confirmed bupropion HCl 150 mg 24 hr tablet, 1 tab PO DAILY 05/22/21 09/27/23 extended release gemfibrozil 600 mg tablet 1 tab PO BID 05/22/21 09/27/23 lisinopril 10 mg tablet 1 tab PO DAILY 05/22/21 09/27/23 sertraline 100 mg tablet 2 tab PO DAILY 05/22/21 09/27/23 simvastatin 40 mg tablet 1 tab PO BEDTIME 05/22/21 09/27/23 temazepam 30 mg capsule 1 cap PO BEDTIME PRN Insomnia 05/22/21 09/27/23 trazodone 150 mg tablet 3 tab PO BEDTIME 05/22/21 09/27/23 valacyclovir 500 mg tablet 1 tab PO DAILY 05/22/21 09/27/23 multivitamin 1 tab PO DAILY 10/07/22 09/27/23 metformin 1,000 mg tablet 1,000 mg PO BID 11/28/22 09/27/23 aripiprazole 15 mg tablet 7.5 mg PO DAILY 09/27/23 09/27/23 pantoprazole 40 mg tablet,delayed 40 mg PO DAILY 09/27/23 09/27/23 release Previous Rx's ?Medication ?Instructions ?Recorded prednisone 20 mg tablet 40 mg (2 x 20 mg) PO DAILY #10 tabs 09/30/23 cefuroxime axetil 250 mg tablet 250 mg PO BID 7 days #14 tabs 03/06/24 Allergies Allergy/AdvReac Type Severity Reaction Status Date / Time Iodinated Contrast Media Allergy Unknown UNKNOWN Verified 03/06/24 11:44 [IV Dye, Iodine Containing] zolpidem [From AMBIEN] Allergy Unknown UNKNOWN Verified 03/06/24 11:44 iv dye as a baby Allergy Unknown Unknown Uncoded 09/27/23 13:13 Review of Systems 2 Review of Systems: Constitutional : No Weight loss, No Fever, No Chills ENT/Mouth : No sore throat, No Rhinorrhea Eyes: No Eye Pain, No Swelling Cardiovascular : pos rib Pain, no SOB, no Dyspnea on Exertion, No Orthopnea, No Edema, No Palpitations Respiratory : No Cough, No Sputum Gastrointestinal : pos Nausea, No Vomiting, pos Diarrhea, No abdominal Pain, No Hematochezia, No Melena Genitourinary : pos Dysuria, No Urinary Frequency Musculoskeletal : No joint pain, No Myalgias, No Joint Swelling Skin : No Skin Lesions, No rash Neuro : No Weakness, No Numbness, No Dizziness, No Headache Psych : No Anxiety/Panic, No Depression All other systems reviewed and are negative [facility] Past Medical History Attestation statement: The following information was validated with the patient. Source: old records reviewed Medical History COPD (chronic obstructive pulmonary disease) DMII (diabetes mellitus, type 2) Anxiety Depressed HTN (hypertension) Diabetes Social History Social History Household Members: Family Housing: Apartment Do you presently have visiting nurse or other home services: Yes Unable to assess alcohol history related to: Unable to respond Alcohol intake: never Patient Tobacco Use Status: Current someday Tobacco user Tobacco use type: Cigarette Second Hand Smoke Exposure: No Substance Use Type: Marijuana Advance Directives: Yes Advance Directives on File: Yes Advance Directives Date on File: 02/23/23 Do you have a plan to hurt others: No Plan service: No Current occupational status: disabled Physical Exam 2 Vital Signs: Vital Signs: Last Vital Signs Temp 97.7 F 03/06/24 16:00 Pulse 78 03/06/24 16:00 Resp 16 03/06/24 16:00 BP 154/88 H 03/06/24 16:00 Pulse Ox 94 03/06/24 16:00 O2 Del Method Nasal Cannula 03/06/24 16:00 O2 Flow Rate 3 03/06/24 16:00 Oxygen Flow Rate 3 03/06/24 11:36 BMI result Body Mass Index 26.3 Appearance: appears sleepy but easily woken by voice Oriented X3. No acute distress. Eyes: Pupils equal, round and reactive to light. ENT: Pharynx normal. Neck: Normal inspection. Neck supple. CVS: Normal heart rate and rhythm. Pulses normal. Chest: ttp along anterior R chest wall Respiratory: No respiratory distress. Breath sounds diminished on her usual 3L NC Abdomen: Soft and non-tender. Skin: Skin warm and dry. Normal skin color. Normal skin turgor. Extremities: No lower extremity edema. No calf ttp no pain with movement of extremities Neuro: Oriented X 3. No motor deficit. No sensory deficit. Course Course Course Narrative: mild bump in lipase but no abdominal pain to suggest pancreatitis Medications Administered Discontinued Medications Generic Name Dose Route Start Last Admin Trade Name Freq PRN Reason Stop Dose Admin Sodium Chloride 1,000 mls @ 999 mls/hr 03/06/24 11:57 03/06/24 13:09 Ns IV 03/06/24 12:57 999 mls/hr .Q1H1M ONE Administration Ondansetron HCl 4 mg 03/06/24 11:57 03/06/24 13:10 Ondansetron Hcl 4 Mg/2 Ml Vial IVPUSH 03/06/24 11:58 4 mg ONCE ONE Administration Medical Decision Making Medical Decision Making [facility] Narrative: 63 yo female with PMH of COPD 3L NC, pneumonia, HTN, 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 She is sleepy and admits to taking her night time meds later than usual - VBG ordered. She may have taken some today. At this time suspect polypharmacy. 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 03/06/24 14:58 03/06/24 14:57 Labs: Lab Results 03/06/24 03/06/24 03/06/24 Range/Units 14:57 14:58 15:59 WBC 7.1 (4.8-10.8) X10*3/uL RBC 3.85 L (4.20-5.50) X10*6/uL Hgb 13.2 (12.0-16.0) g/dl Hct 38.5 (37.0-47.0) % MCV 100.0 H (80.0-98.0) fL MCH 34.3 H (27.0-33.0) pg MCHC 34.3 (31.0-35.0) g/dl RDW 12.9 (11.0-16.0) % Plt Count 165 D (160-400) X10*3/uL MPV 9.6 (9.4-12.3) fL Immature Gran % (Auto) 0.3 (0.0-0.4) % Neut % (Auto) 59.1 (45-73) % Lymph % (Auto) 29.5 (20-40) % [place] % (Auto) 8.0 (2-11) % Eos % (Auto) 2.3 (0-4) % Baso % (Auto) 0.8 (0-2) % Lymph # (Auto) 2.1 (1.2-4.9) X10*3/uL [place] # (Auto) 0.6 (0.1-1.2) X10*3/uL Eos # (Auto) 0.2 (0.0-0.4) X10*3/uL Baso # (Auto) 0.1 (0.0-0.2) X10*3/uL Abs Immat Gran (auto) 0.02 (0.00-0.03) X10*3/uL Absolute Neuts (auto) 4.2 (2.0-8.3) x10*3/uL Absolute Nucleated RBC 0.000 (0.0-0.012) X10*3/uL Nucleated RBC % (auto) 0.0 (0.0-0.2) /100WBC VBG pH 7.31 L (7.32-7.43) VBG pCO2 49 mmHg VBG pO2 47 mmHg VBG HCO3 25 (22-26) mmol/L VBG O2 Saturation 72.0 % VBG Base Excess -1.4 mmol/L Sodium 144 (135-145) mmol/L Potassium 4.1 (3.3-5.1) mmol/L Chloride 110 H (96-108) mmol/L Carbon Dioxide 25 (22-29) mmol/L Anion Gap 13 (12-20) BUN 12 (9-16) mg/dL Creatinine 0.97 (0.5-1.4) mg/dL Estim Creat Clear Calc 60.4 Estimated GFR 58 Random Glucose 194 H (60-115) mg/dL Lactic Acid 0.8 (0.5-2.0) mmol/L Calcium 9.1 (8.4-10.2) mg/dL Magnesium 1.6 (1.6-2.6) mg/dL Total Bilirubin 0.3 (0.0-1.0) mg/dL Direct Bilirubin 0.1 (0.0-0.5) mg/dL AST 11 (5-31) U/L ALT 13 (0-31) U/L Alkaline Phosphatase 91 (39-117) U/L Total Creatine Kinase 36 (26-140) U/L Troponin I High Sens 2.7 (<3.5-17.0) ng/L Total Protein 7.0 (6.5-8.0) g/dL Albumin 4.0 (3.5-5.0) g/dL Lipase 87 H (8-78) U/L Urine Color Yellow Urine Appearance Turbid Urine pH 5.5 (5.0-9.0) Ur Specific [place] 1.010 (1.005-1.025) Urine Protein Negative (Neg-Trace) mg/dL Urine Glucose (UA) Negative (Negative) mg/dL Urine Ketones Negative (Negative) mg/dL Urine Blood Small (1+) H (Negative) Urine Nitrite Negative (Negative) Ur Leukocyte Esterase Large (3+) H (Negative) Urine RBC 0-2 (0-2) /HPF Urine WBC >50 H (0-5) /HPF Ur Squamous Epith Cells 0-2 (0-2) /HPF Urine Bacteria 4+ (None Seen) Hyaline Casts 0-2 (0-2) /LPF Ethyl Alcohol < 10 mg/dL Influenza Type A (PCR) NEGATIVE (Negative) Influenza Type B (PCR) NEGATIVE (Negative) RSV RNA Qual (PCR) NEGATIVE (Negative) SARS-CoV-2 RNA (RT-PCR) NEGATIVE (Negative) Independent Interpretation I performed an independent interpretation of an: EKG and CT Scan (no trauma) Interpretation: Rate: 83 Rhythm: NSR [place]: normal Normal P waves. Normal [place]. Normal QRS complex. ST T wave : inverted t waves V1 and V2, no [place] flat t waves aVL qTC: 488 prior studies: no acute ischemia, no change from prior The study has been interpreted contemporaneously by me. . Radiology Impression Discussion of test interpretation with radiology: I have reviewed the radiologist's reading. Independent Historian Clinical information obtained from an independent historian. History obtained from or confirmed by: EMS External Record Review External record reviewed: Inpatient record Prescription Management I considered prescription management with: Antibiotic Discharge Plan Discharge Clinical Impression: Fall, Acute UTI Patient Disposition: Home, Self-Care Instructions: Urinary Tract Infection in Women (ED), Fall Prevention (ED) Additional Instructions: labs reassuring urine is infected start antibiotics in the morning given IV dose in the ER CT scans of head, neck, chest are normal no signs of trauma you were offered rehab but refused, you can return at any time if you want Prescriptions: New cefuroxime axetil 250 mg tablet 250 mg PO BID 7 Days Qty: 14 0RF No Action sertraline 100 mg tablet 2 tab PO DAILY valacyclovir 500 mg tablet 1 tab PO DAILY simvastatin 40 mg tablet 1 tab PO BEDTIME temazepam 30 mg capsule 1 cap PO BEDTIME PRN (Reason: Insomnia) gemfibrozil 600 mg tablet 1 tab PO BID trazodone 150 mg tablet 3 tab PO BEDTIME lisinopril 10 mg tablet 1 tab PO DAILY bupropion HCl 150 mg tablet extended release 24 hr 1 tab PO DAILY multivitamin Tablet 1 tab PO DAILY metformin 1,000 mg tablet 1,000 mg PO BID aripiprazole 15 mg tablet 7.5 mg PO DAILY pantoprazole 40 mg tablet,delayed release (DR/EC) 40 mg PO DAILY prednisone 20 mg tablet 40 mg PO DAILY Qty: 10 0RF Print Language: Icelandic
[2024-03-06 15:03] LABS: MANUAL DIFF FLAG NO
[2024-03-06 15:05] LABS: Basophils Absolute Auto 0.1 X10*3/uL (0.0-0.2); Basophils Percent Auto 0.8 % (0-2); Eosinophils Absolute Auto 0.2 X10*3/uL (0.0-0.4); Eosinophils Percent Auto 2.3 % (0-4); Hematocrit 38.5 % (37.0-47.0); Hemoglobin 13.2 g/dl (12.0-16.0); Imm Gran Abs Auto 0.02 X10*3/uL (0.00-0.03); Imm Gran Pct Auto 0.3 % (0.0-0.4); Lymphocytes Absolute Auto 2.1 X10*3/uL (1.2-4.9); Lymphocytes Percent Auto 29.5 % (20-40); Mean Corpuscular HGB Conc 34.3 g/dl (31.0-35.0); Mean Corpuscular Hemoglobin 34.3 pg (27.0-33.0); Mean Platelet Volume 9.6 fL (9.4-12.3); Monocytes Absolute Auto 0.6 X10*3/uL (0.1-1.2); Neutrophils Absolute Auto 4.2 x10*3/uL (2.0-8.3); Neutrophils Percent Auto 59.1 % (45-73); Platelet Count 165 X10*3/uL (160-400); Red Blood Count 3.85 X10*6/uL (4.20-5.50); Red Cell Distribution Width 12.9 % (11.0-16.0); VBG Base Excess -1.4 mmol/L; VBG HCO3 25 mmol/L (22-26); VBG pCO2 49 mmHg; VBG pH 7.31 (7.32-7.43); VBG pO2 47 mmHg; White Blood Count 7.1 X10*3/uL (4.8-10.8)
[2024-03-06 15:12] LABS: Venous Blood Gas Refer to POC result
[2024-03-06 15:31] LABS: Lactic Acid 0.8 mmol/L (0.5-2.0)
[2024-03-06 15:37] LABS: Alanine Aminotransferase 13 U/L (0-31); Alkaline Phosphatase 91 U/L (39-117); Anion Gap 13 (12-20); Aspartate Amino Transferase 11 U/L (5-31); Bilirubin Direct 0.1 mg/dL (0.0-0.5); Bilirubin Total 0.3 mg/dL (0.0-1.0); Blood Urea Nitrogen 12 mg/dL (9-16); Calcium 9.1 mg/dL (8.4-10.2); Carbon Dioxide 25 mmol/L (22-29); Chloride 110 mmol/L (96-108); Creatinine Clr Calc Pharmacy 60.4; Estimated Glomerular Filt Rate 58; Ethanol < 10 mg/dL; Glucose Random 194 mg/dL (60-115); Lipase 87 U/L (8-78); Magnesium 1.6 mg/dL (1.6-2.6); Potassium 4.1 mmol/L (3.3-5.1); Sodium 144 mmol/L (135-145)
[2024-03-06 15:38] LABS: Troponin-I High Sensitivity 2.7 ng/L (<3.5-17.0)
[2024-03-06 15:43] LABS: Influenza A PCR NEGATIVE (Negative); Influenza B PCR NEGATIVE (Negative); Resp Syncy Virus RNA Qual PCR NEGATIVE (Negative); SARS COV2 PCR INHOUSE NEGATIVE (Negative)
[2024-03-06 16:00] VITALS: BP 154/88; PULSE 78; RESP 16; TEMP 36.5; O2SAT 94
--- NOTE | 2024-03-06 16:03 | PC.NURSE ---
straight catheterization performed. pt tolerated well. 50ml of cloudy/dark yellow urine noted immediately post output. 500ml of urine noted in purewick container prior to straight catheterization. pt continues to rest comfortably in no apparent distress on 3L via NC (which is pt's baseline). no sob/wob noted. respirations even/unlabored. plan of care ongoing. call swift placed within reach.
[2024-03-06 16:07] LABS: Appearance Urine Turbid; Color Urine Yellow; Glucose Urine UA Negative (Negative); Leukocyte Esterase Urine Large (3+) (Negative); Nitrite Urine Negative (Negative); PH 5.5 (5.0-9.0); UMIC TRIGGER UACC YES; Urine Blood Small (1+) (Negative); Urine Ketones Negative (Negative); Urine Protein Negative (Neg-Trace)
[2024-03-06 17:07] LABS: Bacteria Urine 4+ (None Seen); Hyaline Casts Urine 0-2 /LPF (0-2); RBC Urine 0-2 /HPF (0-2); Squamous Epithelial Cell Urine 0-2 /HPF (0-2); UACC Culture Trigger YES; WBC Urine >50 /HPF (0-5)
--- NOTE | 2024-03-06 17:14 | MHC.EDTECH ---
at this time the pt had requested to be placed on a pure wick due to being a fall risk, placed pt on pure wick. Pt rolled with minimal assistance and tolerated the procedure well
[2024-03-06] MEDS: cefTRIAXone sodium 1 GM in 0.9 % Sodium Chloride 50 ML IV (17:44)
--- NOTE | 2024-03-06 17:46 | PC.NURSE ---
abx administered per provider order. pt's primary contact (yandel) called from transportation to be arranged. pt waiting to be picked up at this time.
[2024-03-06 17:53] VITALS: BP 155/88; PULSE 73; RESP 18; TEMP 36.7; O2SAT 96
[2024-03-06 18:22] VITALS: BP 155/88; PULSE 73; RESP 18; TEMP 36.7; O2SAT 96
== END 2024-03-06 18:40 | disposition home or self-care (01) ==
PROVIDERS: Emergency Provider Emergency Medicine; PCP Nurse Practitioner Family
DX: N39.0 Urinary tract infection, site not specified (principal); R07.81 Pleurodynia; Z91.81 History of falling; Z03.818 Encounter for observation for suspected exposure to other biological agents ruled out; E11.9 Type 2 diabetes mellitus without complications; I10 Essential (primary) hypertension; J44.9 Chronic obstructive pulmonary disease, unspecified; J96.01 Acute respiratory failure with hypoxia; F17.210 Nicotine dependence, cigarettes, uncomplicated; Z79.82 Long term (current) use of aspirin; Z79.899 Other long term (current) drug therapy; Z79.84 Long term (current) use of oral hypoglycemic drugs
CPT/HCPCS: 0241U; 36415; 51701; 70450; 71250; 72125; 80048; 80076; 80307; 81001; 82550; 82803; 83605; 83690; 83735; 84484; 85025; 87086; 87088; 87186; 93005; 96361; 96365; 96375; 99284; J0696; J2405

== ENCOUNTER → 2024-03-06 11:57 | Outpatient (BNV) | payer MEDICARE, MEDICAID, SELFPAY | PROVIDERS: Emergency Provider Emergency Medicine; PCP Nurse Practitioner Family; Visit Provider Internal Medicine | DX: R94.31 Abnormal electrocardiogram [ECG] [EKG] (principal) | CPT/HCPCS: 93010 ==

== ENCOUNTER 2024-03-12 10:41 | Inpatient (IN) | payer MEDICARE, MEDICAID, SELFPAY ==
[2024-03-12] VITALS (8 sets, daily range): BP systolic 123–190; BP diastolic 71–130; PULSE 92–101; RESP 14–24; TEMP 36.3–36.9; O2SAT 90–95; BMI 26.3; BMI 25.4
--- NOTE | ~2024-03-12 | MR_ITS ---
EXAMINATION: MR ANGIOGRAPHY BRAIN WITHOUT CONTRAST CLINICAL INFORMATION: Dysarthria. COMPARISON: Brain MRI from 03/12/2024. TECHNIQUE: 3D [id number] MR angiography was performed through the brain without the use of intravenous gadolinium. 3D postprocessing including acquisition of multiplanar MIP reformats are obtained at the technologist workstation and utilized for image interpretation. Stenoses are assessed in accordance with NASCET criteria unless otherwise indicated. FINDINGS: Moderately motion degraded exam. Normal flow-related signal within the anterior circulation without evidence of focal stenosis or occlusion of the intradural internal carotid, middle cerebral, or anterior cerebral arteries. Normal flow-related signal within the posterior circulation without evidence of focal stenosis or occlusion of the intradural vertebral, basilar, superior cerebellar, or posterior cerebral arteries. No demonstrated intradural aneurysms. Moderate chronic white matter changes better characterized on recent brain MRI. No additional significant abnormalities on limited evaluation of the intracranial structures. MR/MR angio head wo con IMPRESSION: No demonstrated proximal occlusion or flow-limiting stenosis.
--- NOTE | ~2024-03-12 | XR_ITS ---
EXAMINATION: XR CHEST CLINICAL INFORMATION: Stroke. COMPARISON: CT chest 03/06/2024, chest radiograph 09/29/2023 TECHNIQUE: Frontal view of the chest was obtained. FINDINGS: There is no gross pneumothorax. Stable cardiomediastinal silhouette. Heart size borderline enlarged. No gross pleural effusion. Mild left basilar streaky opacities are characteristic of subsegmental atelectasis, although an infectious/inflammatory process should also be considered in the appropriate clinical setting. Possible trace left pleural effusion. XR/XR chest 1V IMPRESSION: Mild left basilar streaky opacities are characteristic of subsegmental atelectasis, although an infectious/inflammatory process should also be considered in the appropriate clinical setting. Possible trace left pleural effusion. This study was presented today March 12, 2024 for interpretation. Stat results provided at this time as requested by referring provider.
--- NOTE | ~2024-03-12 | CT_ITS ---
EXAMINATION: CT HEAD WITHOUT CONTRAST (STROKE PROTOCOL) CLINICAL INFORMATION: Stroke protocol. Stroke protocol. Dizziness COMPARISON: Prior CT of the head dated 03/06/2024. TECHNIQUE: Contiguous axial imaging was performed from the skull base to vertex without intravenous administration of contrast. This CT examination was performed using dose optimization techniques as appropriate, variously including the following: *Automated exposure control *Adjustment of mA and/or kV according to patient size (this includes techniques or standardized protocols for targeted exams where dose is matched to indication/reason for exam; i.e. extremities or head) *Use of iterative reconstruction technique DLP: 638 mGy-cm FINDINGS: No intra or extra-axial fluid collection, hemorrhage, mass, or mass effect. Sulci and ventricles appear normal. Deep white matter gliosis is unchanged. Calvarium is intact. CT/CT head for stroke IMPRESSION: No acute intracranial pathology. Results will be telephoned to the ER by the [facility].
--- NOTE | ~2024-03-12 | MR_ITS ---
EXAMINATION: MR BRAIN WITHOUT CONTRAST CLINICAL INFORMATION: Left-sided weakness COMPARISON: CT head on 03/06/2024 TECHNIQUE: MRI of the brain was obtained using routine sequences without contrast. FINDINGS: Motion artifact is present. No acute intracranial hemorrhage or infarct. Scattered and confluent periventricular and deep white matter T2/FLAIR hyperintensities, nonspecific however commonly seen with small vessel ischemic disease. No midline shift or hydrocephalus. No acute extra-axial fluid collections. The osseous structures are unremarkable. The pituitary gland, pineal gland and remaining midline structures are unremarkable. No orbital pathology. The paranasal sinuses and mastoid air cells are clear. MR/MR head/brain wo con IMPRESSION: Within the limitations of this study, -No acute intracranial abnormality.
--- NOTE | ~2024-03-12 | XR_ITS ---
EXAMINATION: XR CHEST 2 VIEWS CLINICAL INFORMATION: Cough. COMPARISON: Prior chest radiographs, most recently 03/12/2024; CT chest dated 03/06/2024. TECHNIQUE: Frontal and lateral views of the chest were obtained. FINDINGS: The heart, great vessels, pulmonary vasculature and mediastinum are normal. The lungs show no focal infiltrate, effusion or pneumothorax. There is moderate lateral left base scar/subsegmental atelectasis. This is stable from prior radiographs including 05/21/2021. There is no acute osseous abnormality. XR/XR chest 1V IMPRESSION: 1. There is no focal infiltrate or congestive heart failure. 2. There is stable moderate lateral left base scar/subsegmental atelectasis.
[2024-03-12 10:49] LABS: Prothrombin Time Whole Bld POC 11.8 sec (11.1-13.5)
[2024-03-12 10:50] LABS: Glucose, Whole Blood 122 mg/dL (60-115)
--- NOTE | 2024-03-12 10:50 | ECG_ITS ---
Test Reason : STROKE Blood Pressure : / mmHG Vent. Rate : 103 BPM Atrial Rate : 103 BPM P-R Int : 156 ms QRS Dur : 080 ms QT Int : 340 ms P-R-T Axes : 072 046 059 degrees QTc Int : 445 ms Sinus tachycardia with Premature ventricular complexes or Fusion complexes Otherwise normal ECG When compared with ECG of 06-MAR-2024 12:18, Fusion complexes are now Present Premature ventricular complexes are now Present Referred By: Zulema Mcconnell Electronically Signed By:Clif Perez
[2024-03-12] MEDS: ondansetron HCL 4 MG/2 ML VIAL IVPUSH (11:00)
[2024-03-12 11:08] LABS: MANUAL DIFF FLAG NO
[2024-03-12 11:10] LABS: Basophils Absolute Auto 0.1 X10*3/uL (0.0-0.2); Basophils Percent Auto 0.6 % (0-2); Eosinophils Absolute Auto 0.2 X10*3/uL (0.0-0.4); Eosinophils Percent Auto 1.5 % (0-4); Hematocrit 42.6 % (37.0-47.0); Hemoglobin 14.8 g/dl (12.0-16.0); Imm Gran Abs Auto 0.07 X10*3/uL (0.00-0.03); Imm Gran Pct Auto 0.7 % (0.0-0.4); Lymphocytes Absolute Auto 3.5 X10*3/uL (1.2-4.9); Lymphocytes Percent Auto 34.4 % (20-40); Mean Corpuscular HGB Conc 34.7 g/dl (31.0-35.0); Mean Corpuscular Hemoglobin 33.9 pg (27.0-33.0); Mean Corpuscular Volume 97.5 fL (80.0-98.0); Mean Platelet Volume 9.9 fL (9.4-12.3); Monocytes Absolute Auto 0.7 X10*3/uL (0.1-1.2); Neutrophils Absolute Auto 5.7 x10*3/uL (2.0-8.3); Neutrophils Percent Auto 55.8 % (45-73); Platelet Count 239 X10*3/uL (160-400); Red Blood Count 4.37 X10*6/uL (4.20-5.50); Red Cell Distribution Width 12.6 % (11.0-16.0); White Blood Count 10.3 X10*3/uL (4.8-10.8)
--- NOTE | 2024-03-12 11:13 | ED_ITS ---
HPI - Neuro Symptoms/Deficit General Chief Complaint: Stroke Stated Complaint: STROKE ALERT,WEAK,SLURR,25MIN,-THINNERS Time Seen by Provider: 03/12/24 10:50 Source: patient, EMS and old records reviewed Mode of arrival: EMS Limitations: no limitations History of Present Illness ED Provider: DR. Mcconnell HPI Narrative: 63-year-old female with history of HTN, dm 2, anxiety depression, herpes simplex, GERD, COPD, TAJ on CPAP patient came in by EMS for evaluation of possible stroke. Patient with history of stroke and left hemiparesis at baseline came in caregiver is concern of new left facial droop and slurred speech unable to express herself last known well was at 09:00 today, patient is not taking anticoagulation. Related Data Home Medications ?Medication ?Instructions ?Recorded ?Confirmed bupropion HCl 150 mg 24 hr tablet, 1 tab PO DAILY 05/22/21 09/27/23 extended release gemfibrozil 600 mg tablet 1 tab PO BID 05/22/21 09/27/23 lisinopril 10 mg tablet 1 tab PO DAILY 05/22/21 09/27/23 sertraline 100 mg tablet 2 tab PO DAILY 05/22/21 09/27/23 simvastatin 40 mg tablet 1 tab PO BEDTIME 05/22/21 09/27/23 temazepam 30 mg capsule 1 cap PO BEDTIME PRN Insomnia 05/22/21 09/27/23 trazodone 150 mg tablet 3 tab PO BEDTIME 05/22/21 09/27/23 valacyclovir 500 mg tablet 1 tab PO DAILY 05/22/21 09/27/23 multivitamin 1 tab PO DAILY 10/07/22 09/27/23 metformin 1,000 mg tablet 1,000 mg PO BID 11/28/22 09/27/23 aripiprazole 15 mg tablet 7.5 mg PO DAILY 09/27/23 09/27/23 pantoprazole 40 mg tablet,delayed 40 mg PO DAILY 09/27/23 09/27/23 release Previous Rx's ?Medication ?Instructions ?Recorded prednisone 20 mg tablet 40 mg (2 x 20 mg) PO DAILY #10 tabs 09/30/23 cefuroxime axetil 250 mg tablet 250 mg PO BID 7 days #14 tabs 03/06/24 Allergies Allergy/AdvReac Type Severity Reaction Status Date / Time Iodinated Contrast Media Allergy Unknown UNKNOWN Verified 03/12/24 10:48 [IV Dye, Iodine Containing] zolpidem [From AMBIEN] Allergy Unknown UNKNOWN Verified 03/06/24 11:44 iv dye as a baby Allergy Unknown Unknown Uncoded 09/27/23 13:13 Review of Systems 2 Review of Systems: All other systems are reviewed and are negative Constitutional: Reports as per HPI and Reports no additional constitutional complaints Eyes: Reports as per HPI and Reports no additional eye complaints Reports system reviewed and no additional complaints, except as documented Cardiovascular: Reports as per HPI and Reports no additional cardiovascular complaints Respiratory: Reports as per HPI and Reports no additional respiratory complaints Gastrointestinal: Reports as per HPI and Reports no additional gastrointestinal complaints Genitourinary: Reports no additional female genitourinary complaints Musculoskeletal: Reports no additional musculoskeletal complaints Skin/Breast: Reports system reviewed and no additional complaints, except as docu Psychiatric: Reports no additional psychiatric complaints Endocrine: Reports no additional endocrine complaints Hematologic/Lymphatic: Reports no additional hematologic/lymphatic complaints Allergic/Immunologic: Reports no additional allergic/immunologic complaints Reports system reviewed and no additional complaints, except as documented and Reports Abnormal speech present [facility] Past Medical History Medical History COPD (chronic obstructive pulmonary disease) DMII (diabetes mellitus, type 2) Anxiety Depressed HTN (hypertension) Diabetes Social History Social History Household Members: Family Housing: Apartment Do you presently have visiting nurse or other home services: Yes Unable to assess alcohol history related to: Unable to respond Alcohol intake: never Patient Tobacco Use Status: Current someday Tobacco user Tobacco use type: Cigarette Smoked in Last 30 Days: Yes Second Hand Smoke Exposure: No Use of substances other than those prescribed or required for medical reasons: No Substance Use Type: Marijuana Advance Directives: Yes Advance Directives on File: Yes Advance Directives Date on File: 02/23/23 service: No Current occupational status: disabled Physical Exam 2 Vital Signs: Vital Signs: Last Vital Signs Temp 98.5 F 03/12/24 11:06 Pulse 99 03/12/24 13:20 Resp 24 H 03/12/24 13:20 BP 139/71 03/12/24 13:20 Pulse Ox 90 L 03/12/24 13:20 O2 Del Method Nasal Cannula 03/12/24 13:20 O2 Flow Rate 3 03/12/24 13:20 BMI result Body Mass Index 26.3 Vital signs have been reviewed and appear to be correct. Blood pressure elevated. Heart rate normal. Respiratory rate normal. Temperature normal. Oxygen saturation normal. Appearance: Alert. Oriented X3. No acute distress. Head: Normal external exam. Normocephalic. Atraumatic. No Wagner signs noted. No raccoon eyes noted Eyes: PERRLA. EOMI. Conjunctiva and sclera normal. Eyelids normal. ENT: TM's Normal. Pharynx normal. Uvula midline. Moist mucous membranes. No trismus noted. No drooling noted. No muffled voice noted. Neck: Normal inspection. Neck supple. FROM. No adenopathy. Thyroid Normal. No meningeal signs. No neck mass noted. CVS: Normal heart rate and rhythm. Heart sound normal. No murmurs noted. Pulses normal throughout. Respiratory: No respiratory distress. Painless inspiration. Breath sounds normal. No wheezes/rales/rhonchi noted. Chest nontender. No accessory muscle usage noted or decreased air movement noted. Abdomen: Soft and nontender. Bowel sounds normal in all 4 quadrants. No distention noted. No organomegaly noted. No visible injury noted. Back: No CVA tenderness. Full range of motion noted. Skin: Skin warm and dry. Normal skin color. Normal skin turgor. No rashes/lesions/lacerations noted. Extremities: No lower extremity edema. Extremities exhibit normal range of motion. Extremities nontender. Neuro: Oriented X 3. Cranial nerve exam: Left facial droop (minor.) Left hemiparesis (pre-existing). Course Course Course Narrative: 1150 case was discussed with Dr. Concepcion because patient is allergic to IV contrast well obtain stat MRI. Reevaluation(s) Reevaluation #1: KETTLE WORKER at bedside confirmed history of fall last week was evaluated in our hospital had a CT of the chest which reveals no acute pathology patient is still complaining of diffuse chest wall pain and tenderness. KETTLE WORKER also confirmed that at 09:00 patient started to have slurred speech and left facial droop otherwise patient is at her normal baseline. Time: 13:04 Reevaluation #2: Patient feels improved, speech is better, improvement of the left facial droop. Will administer aspirin, MRI of the brain is negative for acute stroke, admit for TIA. Patient with COPD and chronic supplemental oxygen of 3 L at home. Chest x-ray consistent with atelectasis, patient has no cough or fever. Time: 15:16 Medications Administered Discontinued Medications Generic Name Dose Route Start Last Admin Trade Name Freq PRN Reason Stop Dose Admin Ondansetron HCl 4 mg 03/12/24 10:40 03/12/24 11:00 Ondansetron Hcl 4 Mg/2 Ml Vial IVPUSH 03/12/24 10:41 4 mg ONCE ONE Administration Medical Decision Making Differential Diagnosis Differential Diagnoses: The differential diagnosis associated with the presentation includes (Intracranial bleed, ischemic stroke, TIA, electrolyte derangement severe anemia, pneumonia, pneumothorax, pleural effusion, COPD exacerbation.) Admission/Observation Consideration of admission/observation: Escalation of care including admission/observation considered Consult Healthcare Provider Management of the patient was discussed with: Hospitalist (Dr. Barnett) and Route Driver Salesperson (Dr. Concepcion) Lab Data MDM Lab Attestation statement: I reviewed the patient's lab results. 03/12/24 11:03 03/12/24 11:03 Labs: Lab Results 03/12/24 03/12/24 03/12/24 Range/Units 10:43 10:46 11:03 WBC 10.3 (4.8-10.8) X10*3/uL RBC 4.37 (4.20-5.50) X10*6/uL Hgb 14.8 (12.0-16.0) g/dl Hct 42.6 (37.0-47.0) % MCV 97.5 (80.0-98.0) fL MCH 33.9 H (27.0-33.0) pg MCHC 34.7 (31.0-35.0) g/dl RDW 12.6 (11.0-16.0) % Plt Count 239 D (160-400) X10*3/uL MPV 9.9 (9.4-12.3) fL Immature Gran % (Auto) 0.7 H (0.0-0.4) % Neut % (Auto) 55.8 (45-73) % Lymph % (Auto) 34.4 (20-40) % [place] % (Auto) 7.0 (2-11) % Eos % (Auto) 1.5 (0-4) % Baso % (Auto) 0.6 (0-2) % Lymph # (Auto) 3.5 (1.2-4.9) X10*3/uL [place] # (Auto) 0.7 (0.1-1.2) X10*3/uL Eos # (Auto) 0.2 (0.0-0.4) X10*3/uL Baso # (Auto) 0.1 (0.0-0.2) X10*3/uL Abs Immat Gran (auto) 0.07 H (0.00-0.03) X10*3/uL Absolute Neuts (auto) 5.7 (2.0-8.3) x10*3/uL Absolute Nucleated RBC 0.000 (0.0-0.012) X10*3/uL Nucleated RBC % (auto) 0.0 (0.0-0.2) /100WBC PT 10.3 L (11.1-13.3) SEC Whole Blood PT 11.8 (11.1-13.5) sec INR 0.8 L (0.9-1.1) Whole Blood INR 1.0 (0.9-1.1) APTT 36.8 (26.0-36.8) SEC Sodium 139 (135-145) mmol/L Potassium 4.3 (3.3-5.1) mmol/L Chloride 103 (96-108) mmol/L Carbon Dioxide 24 (22-29) mmol/L Anion Gap 16 (12-20) BUN 13 (9-16) mg/dL Creatinine 0.99 (0.5-1.4) mg/dL Estim Creat Clear Calc 59.2 Estimated GFR 57 POC Glucose 122 H (60-115) mg/dL Random Glucose 139 H (60-115) mg/dL Calcium 10.6 H D (8.4-10.2) mg/dL Troponin I High Sens 3.3 (<3.5-17.0) ng/L Triglycerides 97 (<150) mg/dL Cholesterol 177 (<200) mg/dL LDL Cholesterol, Calc 107 H (<100) mg/dL HDL Cholesterol 51 (>40) mg/dL Independent Interpretation I performed an independent interpretation of an: Plain X-Ray (Chest:Mild left basilar streaky opacities are characteristic of subsegmental atelectasis, although an infectious/inflammatory process should also be considered in the appropriate clinical setting. Possible trace left pleural effusion. ) and CT Scan (Head: No acute intracranial pathology.) Interpretation: MRI of the brain, no acute stroke. Radiology Impression Discussion of test interpretation with radiology: I have reviewed the radiologist's reading. NIH Stroke Scale Internal: Initial- Upon Arrival Level of Consciousness: Alert Level of Consciousness Questions: Answers both questions correctly Level of Consciousness Commands: Performs both tasks correctly Best Gaze: Normal Visual: No visual loss Facial Palsy: Minor paralyis Motor Arm (Right): No drift Motor Arm (Left): No effort against gravity (From old stroke) Motor Leg (Right): No drift Motor Leg (Left): No effort against gravity (From old stroke) Limb Ataxia: Absent Sensory: Normal Best Language: Mild to moderate aphasia Dysarthia: Normal Extinction and Inattention: No abnormality Score: 8 Discharge Plan Discharge Clinical Impression: Transient cerebral ischemia Patient Disposition: Admitted As Inpatient Print Language: Romanian
[2024-03-12 11:15] LABS: INTERNATIONAL NORM RATIO 0.8 (0.9-1.1); Prothrombin Time 10.3 SEC (11.1-13.3)
[2024-03-12 11:17] LABS: Partial Thromboplastin Time 36.8 SEC (26.0-36.8)
[2024-03-12 11:19] LABS: Stroke Lab Use COMPLETE
--- NOTE | 2024-03-12 11:21 | PC.NURSE ---
pt presents to ED called as stroke alert. at home pt has been vomiting at home since 4am. per EMS, ACCREDITATION SPECIALIST arrived at 0900 and denies stroke symptoms then. per pt, symptoms of weakness, slurred speech and feeling drunk started at 1000. pt has left sided weakness from previous stroke. some left sided facial droop noted. 20g IV left AC.
[2024-03-12 11:23] LABS: Anion Gap 16 (12-20); Blood Urea Nitrogen 13 mg/dL (9-16); Calcium 10.6 mg/dL (8.4-10.2); Carbon Dioxide 24 mmol/L (22-29); Chloride 103 mmol/L (96-108); Cholesterol 177 mg/dL (<200); Creatinine Clr Calc Pharmacy 59.2; Estimated Glomerular Filt Rate 57; Glucose Random 139 mg/dL (60-115); HDL Cholesterol 51 mg/dL (>40); LDL Cholesterol Calculated 107 mg/dL (<100); Potassium 4.3 mmol/L (3.3-5.1); Sodium 139 mmol/L (135-145); Triglycerides 97 mg/dL (<150)
[2024-03-12 11:29] LABS: Troponin-I High Sensitivity 3.3 ng/L (<3.5-17.0)
--- NOTE | 2024-03-12 11:50 | PC.NURSE ---
HARMEET Natarajanise arrived. She states that when she arrived at 0900 pt speech was slowed, the pt was sitting on the toilet and too weak to get up. MRI screening form sent
--- NOTE | 2024-03-12 13:07 | PC.NURSE ---
pt back from MRI. sleeping.
[2024-03-12] MEDS: Aspirin Enteric Coated 81 MG TABLET.DR PO (16:10)
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
--- NOTE | 2024-03-12 18:10 | PHA.MEDREC ---
Addendum entered by Marlene Adams chio 03/12/24 18:19: reviewed Addendum entered by Earnest Tate 03/12/24 18:16: Patient is taking a Cefuroxime 250 mg regimen 1 BID. She started that Thursday 03/08 and she is on day 3 of that and she last took the dose yesterday 03/11. Original Note: Pharmacy Consult ? Medication Reconciliation Pharmacy has completed the medication reconciliation. Confirmed medications with list provided by family member at bedside.
[2024-03-12] MEDS: Nicotine 14 MG PATCH.TD24 TRANSDERMA (18:22)
[2024-03-12] MEDS: Enoxaparin Sodium 40 MG/0.4 ML SYRINGE SUBCUT (18:23)
--- NOTE | 2024-03-12 18:37 | PC.NURSE ---
stage 1 pressure ulcer with a small old scab on sacral areal. pink pressure injury dressing applied
[2024-03-12 18:52] LABS: Appearance Urine Clear; Color Urine Yellow; Glucose Urine UA Negative (Negative); Leukocyte Esterase Urine Negative (Negative); Nitrite Urine Negative (Negative); PH 5.5 (5.0-9.0); Urine Blood Negative (Negative); Urine Ketones Negative (Negative); Urine Protein Negative (Neg-Trace)
[2024-03-12] MEDS: Atorvastatin Calcium 40 MG TABLET PO (21:08)
[2024-03-12] MEDS: carvediloL 3.125 MG TABLET PO (21:09)
[2024-03-12] MEDS: busPIRone HCl 10 MG TABLET PO (21:09)
[2024-03-12] MEDS: traZODone HCL 100 MG TABLET 450 MG PO (21:18)
[2024-03-12] MEDS: Fluticasone/Umeclidinium/Vilanterol 100/62.5/25 BLST.W.DEV 1 PUFF INHALE (22:09)
[2024-03-12] MEDS: Fluticasone Propionate Nasal 16 GM SPRAY 1 SPRAY NOSTRIL-B (22:10)
[2024-03-13] VITALS (11 sets, daily range): BP systolic 135–166; BP diastolic 64–85; PULSE 83–98; RESP 18–20; TEMP 36.1–36.9; O2SAT 87–93
--- NOTE | 2024-03-13 | ECG_ITS ---
Test Reason : chest pain Blood Pressure : / mmHG Vent. Rate : 085 BPM Atrial Rate : 085 BPM P-R Int : 164 ms QRS Dur : 074 ms QT Int : 394 ms P-R-T Axes : 072 052 067 degrees QTc Int : 468 ms Normal sinus rhythm Possible Left atrial enlargement Borderline ECG When compared with ECG of 12-MAR-2024 11:01, Premature ventricular complexes are no longer Present Referred By: Rashid Guadarrama Electronically Signed By:Clif Perez
[2024-03-13] MEDS: Omeprazole 40 MG CAPSULE.DR PO (05:52)
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
[2024-03-13] MEDS: Anastrozole 1 MG TABLET PO (09:01)
[2024-03-13] MEDS: 0.9 % Sodium Chloride Flush 3 ML SYRINGE IVFLUSH ×3 (09:01→21:10)
[2024-03-13] MEDS: buPROPion HCl XL 150 MG TAB.ER.24H PO (09:02)
[2024-03-13] MEDS: Aspirin Enteric Coated 81 MG TABLET.DR PO (09:02)
[2024-03-13] MEDS: Docusate Sodium 100 MG CAPSULE PO (09:02)
[2024-03-13] MEDS: ARIPiprazole 15 MG TABLET 7.5 MG PO (09:02)
[2024-03-13] MEDS: busPIRone HCl 10 MG TABLET PO ×3 (09:03→21:07)
[2024-03-13] MEDS: valACYclovir HCL 500 MG TABLET PO (09:03)
[2024-03-13] MEDS: Sertraline HCL 100 MG TABLET 200 MG PO (09:03)
[2024-03-13] MEDS: Cyclobenzaprine HCl 5 MG TABLET PO (09:03)
[2024-03-13] MEDS: Nicotine 14 MG PATCH.TD24 TRANSDERMA (09:03)
[2024-03-13] MEDS: carvediloL 3.125 MG TABLET PO ×2 (09:03→21:07)
--- NOTE | 2024-03-13 10:43 | MHC.CM.PN ---
IMM 03/13. Pt lives alone at home, she receives CLINICAL SERVICES CONSULTANT services daily (41 hours/day, 14 hours/night), she has home O2 and CPAP, a cane, walker, wheelchair, and shower bench. Pt is active with [employer] [facility] services. Pts CLINICAL SERVICES CONSULTANT will transport her home at discharge. HCP on file, however, pt decided to change her HCP's, new HCP completed and now on file. PCP: Meghan CALLOWAY
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
[2024-03-13] MEDS: Fluticasone/Umeclidinium/Vilanterol 100/62.5/25 BLST.W.DEV 1 PUFF INHALE (10:56)
[2024-03-13] MEDS: Fluticasone Propionate Nasal 16 GM SPRAY 1 SPRAY NOSTRIL-B (11:01)
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
[2024-03-13] MEDS: Enoxaparin Sodium 40 MG/0.4 ML SYRINGE SUBCUT (16:06)
[2024-03-13] MEDS: Atorvastatin Calcium 40 MG TABLET PO (21:07)
[2024-03-13] MEDS: traZODone HCL 100 MG TABLET 450 MG PO (21:08)
--- NOTE | 2024-03-13 23:24 | PC.RT ---
Pt refused CPAP
[2024-03-14] VITALS (7 sets, daily range): BP systolic 114–158; BP diastolic 68–77; PULSE 79–92; RESP 16–20; TEMP 36.3–36.4; O2SAT 91–93
[2024-03-14] MEDS: Omeprazole 40 MG CAPSULE.DR PO (06:05)
[2024-03-14] MEDS: Fluticasone/Umeclidinium/Vilanterol 100/62.5/25 BLST.W.DEV 1 PUFF INHALE (07:24)
[2024-03-14 07:33] LABS: Hematocrit 38.5 % (37.0-47.0); Hemoglobin 13.3 g/dl (12.0-16.0); Mean Corpuscular HGB Conc 34.5 g/dl (31.0-35.0); Mean Corpuscular Hemoglobin 34.5 pg (27.0-33.0); Mean Platelet Volume 10.2 fL (9.4-12.3); Platelet Count 188 X10*3/uL (160-400); Red Blood Count 3.85 X10*6/uL (4.20-5.50); Red Cell Distribution Width 12.5 % (11.0-16.0); White Blood Count 9.5 X10*3/uL (4.8-10.8)
[2024-03-14 07:58] LABS: Alanine Aminotransferase 7 U/L (0-31); Alkaline Phosphatase 93 U/L (39-117); Anion Gap 13 (12-20); Aspartate Amino Transferase 9 U/L (5-31); Bilirubin Direct 0.1 mg/dL (0.0-0.5); Bilirubin Total 0.3 mg/dL (0.0-1.0); Blood Urea Nitrogen 16 mg/dL (9-16); Calcium 9.9 mg/dL (8.4-10.2); Carbon Dioxide 29 mmol/L (22-29); Chloride 104 mmol/L (96-108); Creatinine Clr Calc Pharmacy 76.9; Estimated Glomerular Filt Rate > 60; Glucose Fasting 149 mg/dL (60-99); Potassium 3.9 mmol/L (3.3-5.1); Sodium 142 mmol/L (135-145); Total Protein 7.2 g/dL (6.5-8.0)
[2024-03-14] MEDS: Anastrozole 1 MG TABLET PO (09:23)
[2024-03-14] MEDS: 0.9 % Sodium Chloride Flush 3 ML SYRINGE IVFLUSH (09:23)
[2024-03-14] MEDS: carvediloL 3.125 MG TABLET PO (09:24)
[2024-03-14] MEDS: Sertraline HCL 100 MG TABLET 200 MG PO (09:24)
[2024-03-14] MEDS: Aspirin Enteric Coated 81 MG TABLET.DR PO (09:24)
[2024-03-14] MEDS: busPIRone HCl 10 MG TABLET PO (09:24)
[2024-03-14] MEDS: ARIPiprazole 15 MG TABLET 7.5 MG PO (09:24)
[2024-03-14] MEDS: Cyclobenzaprine HCl 5 MG TABLET PO (09:24)
[2024-03-14] MEDS: valACYclovir HCL 500 MG TABLET PO (09:24)
[2024-03-14] MEDS: buPROPion HCl XL 150 MG TAB.ER.24H PO (09:24)
[2024-03-14] MEDS: Docusate Sodium 100 MG CAPSULE PO (09:24)
[2024-03-14] MEDS: Fluticasone Propionate Nasal 16 GM SPRAY 1 SPRAY NOSTRIL-B (09:25)
[2024-03-14] MEDS: Nicotine 14 MG PATCH.TD24 TRANSDERMA (09:25)
--- NOTE | 2024-03-14 09:33 | MHC.SL.SWA ---
Speech Pathologist Impression: Risk of Aspiration, Oral Phase Dysphagia Dysphasia Diet Status: No changes to diet order. Patient presents with mild anomic aphasia and mild oral phase dysphagia d/t limited dentition. Liquid Consistency and Strategies for Safe Swallow: Liquid Intake Recommendation: Thin Liquid Intake Strategies: Small Sips Solid Food Consistency: Dietary Recommendations: Grnd/Mech Altered (NDD2) Additional Modifications to Solid Foods: Recommend GROUND/MECH ALTERED (NDD2) diet and THIN liquids, pills to be administered WHOLE in LIQUID. Recommend periodic supervision and strategies for oral clearance: take small bites, moisten food with sauces/gravies, chew food well, alternate with sips of liquid. Oral Medication Intake: Whole with Liquid Please contact the pharmacy regarding appropriate crushable or liquid drug formulations that are available whenever modified delivery is recommended. Compensatory Strategies and Precautions to be Taken for Safe Swallow: Sitting Upright (90 deg) Small Bites and Sips Alternate Liquids/Solids Rate of Ingestion Change Avoid Specific Foods Supervision While Eating and Drinking for Safe Swallow: Intermittent Supervision Foods to Avoid: Hard, tough to chew solids Swallowing Recommended Treatments: Compens. Strategy Educat. Recommendation for Speech: Inpatient Speech Therapy Coffee Taster Clinican/Clinical Fellow: No Supervisory Statement: I have reviewed and agree with the student/clinical fellow's documentation: N/A Speech Language Pathologist: Elly Herrera M.A., CCC-CAD DESIGNER
[2024-03-14] MEDS: polyethylene glycoL 3350 17 GM POWD.PACK PO (09:34)
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
--- NOTE | 2024-03-14 13:41 | MHC.CM.PN ---
pt medically cleared for dc home w/resumption of [employer] vna and account executive [employer] hrs, vna updated that pt will also need home PT, pt's [employer] for transport
--- NOTE | 2024-03-14 14:58 | W.MHC.F2F ---
Service Date Service Date: 03/14/24 Encounter Date of encounter: 03/14/24 Reasons for Services Signs and symptoms assessed: weakness Reason for [facility]: medication management, medication treatment and teach disease management Homebound: Leaving the home is medically contraindicated at this time without the asist of a device and/or another person due th the listed conditions above and below. Reason homebound: unsteady gait / fall risk Certification: Based on the above findings, I certify that this patient is confined to the home and needs intermittent [facility] care, physical therapy and/or speech therapy, or continues to need occupational therapy. The patient is under my care, and I have initiated the establishment of the plan of care. The patient will be followed by a physician who will periodically review the plan of care. Time Spent With Patient Time: Total time managing care of this patient today ____ minutes.
== END 2024-03-14 13:43 | disposition home health service (06) | DRG 69 ==
LOC: HO.ED 15:14 → HO.EDOVER 17:02 → HO.IMC 17:57
PROVIDERS: Admitting Provider Hospitalist; Emergency Provider Emergency Medicine; PCP Nurse Practitioner Family; Visit Provider Internal Medicine
DX: G45.9 Transient cerebral ischemic attack, unspecified (principal); G81.94 Hemiplegia, unspecified affecting left nondominant side; R47.01 Aphasia; I10 Essential (primary) hypertension; Z66 Do not resuscitate; F41.9 Anxiety disorder, unspecified; F32.A Depression, unspecified; B00.9 Herpesviral infection, unspecified; V89.2XXS Person injured in unspecified motor-vehicle accident, traffic, sequela; E11.9 Type 2 diabetes mellitus without complications; J44.9 Chronic obstructive pulmonary disease, unspecified; G47.33 Obstructive sleep apnea (adult) (pediatric); F17.210 Nicotine dependence, cigarettes, uncomplicated; Z71.6 Tobacco abuse counseling; Z87.440 Personal history of urinary (tract) infections; Z91.041 Radiographic dye allergy status; Z79.51 Long term (current) use of inhaled steroids; Z79.82 Long term (current) use of aspirin; Z79.899 Other long term (current) drug therapy
CPT/HCPCS: 36415; 70450; 70544; 70551; 71045; 80048; 80061; 80076; 81003; 82947; 84484; 85025; 85027; 85610; 85730; 92523; 92526; 93005; 94640; 94660; 97116; 97162; 97166; 97530; 97535; 99285; J1650; J2405

== ENCOUNTER → 2024-03-12 10:50 | Outpatient (BNV) | payer MEDICARE, MEDICAID, SELFPAY | PROVIDERS: Admitting Provider Hospitalist; Emergency Provider Emergency Medicine; PCP Nurse Practitioner Family; Visit Provider Internal Medicine Cardiovascular Disease | DX: R00.0 Tachycardia, unspecified (principal) | CPT/HCPCS: 93010 ==

== ENCOUNTER 2024-03-12 16:48 | Outpatient (BNV) | payer MEDICARE, MEDICAID, SELFPAY | END 2024-03-13 09:08 | PROVIDERS: Admitting Provider Hospitalist; Emergency Provider Emergency Medicine; PCP Nurse Practitioner Family; Visit Provider Internal Medicine Cardiovascular Disease | DX: R07.9 Chest pain, unspecified (principal); R94.31 Abnormal electrocardiogram [ECG] [EKG] | CPT/HCPCS: 93010 ==

== ENCOUNTER → 2024-03-12 16:48 | Outpatient (BNV) | payer MEDICARE, MEDICAID, SELFPAY | PROVIDERS: Admitting Provider Hospitalist; Emergency Provider Emergency Medicine; PCP Nurse Practitioner Family; Visit Provider Hospitalist | DX: R47.9 Unspecified speech disturbances (principal) | CPT/HCPCS: 99223; 99232; 99239; G0180 ==

== ENCOUNTER → 2024-03-12 16:48 | Outpatient (BNV) | payer MEDICARE, MEDICAID, SELFPAY | PROVIDERS: Admitting Provider Hospitalist; Emergency Provider Emergency Medicine; PCP Nurse Practitioner Family; Visit Provider Psychiatry & Neurology Neurology | DX: R47.9 Unspecified speech disturbances (principal); I69.354 Hemiplegia and hemiparesis following cerebral infarction affecting left non-dominant side; Z91.041 Radiographic dye allergy status | CPT/HCPCS: 99222 ==

== ENCOUNTER 2024-05-17 13:59 | Inpatient (IN) | payer MEDICARE, MEDICAID, SELFPAY ==
[2024-05-17] VITALS (7 sets, daily range): BP systolic 136–179; BP diastolic 63–94; PULSE 62–86; RESP 16–22; TEMP 36.3–36.9; O2SAT 83–93; BMI 27.8
--- NOTE | ~2024-05-17 | XR_ITS ---
EXAMINATION: XR CHEST CLINICAL INFORMATION: Shortness of breath. COMPARISON: Chest x-ray dated March 14, 2024. Chest CT dated March 06, 2024. TECHNIQUE: AP and lateral views of the chest were obtained. FINDINGS: The study is limited by suboptimal inspiration. Redemonstration of mild chronic interstitial fibrotic changes and mild emphysema. Bibasilar patchy density suggesting focal infiltrates and/or atelectasis. No obvious effusion identified. No pneumothorax or adenopathy appreciated. Heart size probably evaluated. Mildly atherosclerotic aorta. XR/XR chest 2V IMPRESSION: Findings as above. Electronically signed by: Cm Rodas MD 05/17/2024 04:23 PM EDT
--- NOTE | 2024-05-17 14:21 | ECG_ITS ---
Test Reason : SOB Blood Pressure : / mmHG Vent. Rate : 065 BPM Atrial Rate : 065 BPM P-R Int : 160 ms QRS Dur : 088 ms QT Int : 424 ms P-R-T Axes : 047 037 050 degrees QTc Int : 440 ms Normal sinus rhythm Nonspecific T wave abnormality Abnormal ECG When compared with ECG of 13-MAR-2024 09:08, No significant change was found Referred By: Cm Carrillo Electronically Signed By:AMARILIS CASTRO
--- NOTE | 2024-05-17 14:27 | ED.SOB ---
HPI - SOB/Dyspnea General Chief Complaint: Dyspnea Stated Complaint: hx COPD, low 02 sat, 82% rm.air, pneumo? Time Seen by Provider: 05/17/24 14:19 Source: patient Mode of arrival: ambulatory Limitations: no limitations History of Present Illness HPI Narrative: 64 year old female with advanced COPD chronic respiratory failure on 3 L of oxygen at baseline recent pneumonia hypertension who states she took for oxygen dropped to 80s so she called for rescue states she has been feeling worse for the past 3-4 days she is unsure of the medication she takes she states she does have a nebulizer at home and has been using it she does not appear to be on prednisone at baseline she is unsure when she had her last dose of prednisone she denies any falls injuries does have a cough MD elicited complaint: shortness of breath and cough Related Data Home Medications ?Medication ?Instructions ?Recorded ?Confirmed bupropion HCl 150 mg 24 hr tablet, 1 tab PO DAILY 05/22/21 03/12/24 extended release gemfibrozil 600 mg tablet 1 tab PO BID 05/22/21 03/12/24 lisinopril 10 mg tablet 1 tab PO DAILY 05/22/21 03/12/24 sertraline 100 mg tablet 2 tab PO DAILY 05/22/21 03/12/24 simvastatin 40 mg tablet 1 tab PO BEDTIME 05/22/21 03/12/24 temazepam 30 mg capsule 1 cap PO BEDTIME PRN Insomnia 05/22/21 03/12/24 trazodone 150 mg tablet 3 tab PO BEDTIME 05/22/21 03/12/24 valacyclovir 500 mg tablet 1 tab PO DAILY 05/22/21 03/12/24 multivitamin 1 tab PO DAILY 10/07/22 03/12/24 metformin 1,000 mg tablet 1,000 mg PO BID 11/28/22 03/12/24 aripiprazole 15 mg tablet 7.5 mg PO DAILY 09/27/23 03/12/24 pantoprazole 40 mg tablet,delayed 40 mg PO DAILY 09/27/23 03/12/24 release albuterol sulfate 2.5 mg/3 mL 2.5 mg inhalation Q6H PRN SOB 03/12/24 03/12/24 (0.083 %) solution for nebulization anastrozole 1 mg tablet 1 mg PO DAILY 03/12/24 03/12/24 aspirin 81 mg tablet,delayed 81 mg PO DAILY 03/12/24 03/12/24 release buspirone 10 mg tablet 10 mg PO TID 03/12/24 03/12/24 carvedilol 3.125 mg tablet 3.125 mg PO BID 03/12/24 03/12/24 cholecalciferol (vitamin D3) 25 25 mcg PO DAILY 03/12/24 03/12/24 mcg (1,000 unit) tablet (Vitamin D3) cyclobenzaprine 5 mg tablet 5 mg PO DAILY 03/12/24 03/12/24 docusate sodium 100 mg capsule 100 mg PO DAILY 03/12/24 03/12/24 (Colace) fluticasone fur. 100 mcg-umeclid 1 inh inhalation Q24H 03/12/24 03/12/24 62.5 mcg-vilant 25 mcg inhalat.powder fluticasone propionate 50 1 spray intranasal BID 03/12/24 03/12/24 mcg/actuation nasal spray,suspension levalbuterol tartrate 45 2 inh inhalation Q6H 03/12/24 03/12/24 mcg/actuation aerosol inhaler loratadine 10 mg tablet 10 mg PO DAILY 03/12/24 03/12/24 ondansetron 4 mg disintegrating 4 mg PO Q8H PRN Nausea And Vomiting 03/12/24 03/12/24 tablet Previous Rx's ?Medication ?Instructions ?Recorded cefuroxime axetil 250 mg tablet 250 mg PO BID 7 days #14 tabs 03/06/24 Allergies Allergy/AdvReac Type Severity Reaction Status Date / Time Iodinated Contrast Media Allergy Unknown UNKNOWN Verified 05/17/24 14:07 [IV Dye, Iodine Containing] zolpidem [From AMBIEN] Allergy Unknown UNKNOWN Verified 05/17/24 14:07 iv dye as a baby Allergy Unknown Unknown Uncoded 09/27/23 13:13 Review of Systems Review of Systems: Review of systems: General: Patient denies any fever chills recent illness or falls Musculoskeletal: Denies back pain or body aches or other injuries HEENT: denies headache, runny nose, ear pain Respiratory: shortness of breath, cough Cardiovascular: no chest pain or palpitations : denies dysuria, frequency Abdomen: no nausea vomiting denies abdominal pain Extremities: no swelling, no pain Skin: no diaphoresis Yes all other systems are reviewed and are negative PMFSH Past Medical History Medical History COPD (chronic obstructive pulmonary disease) DMII (diabetes mellitus, type 2) Anxiety Depressed HTN (hypertension) Diabetes Social History Social History Household Members: Other 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 Housing: Apartment Do you presently have visiting nurse or other home services: Yes Unable to assess alcohol history related to: Unable to respond Alcohol intake: never Patient Tobacco Use Status: Current everyday Tobacco user Tobacco use type: Cigarette Cigarette Packs Per Day: 1 Cigarettes Per Day: 20.0 e-Cigarette/Vaping Use: Never Used Second Hand Smoke Exposure: Yes Substance Use Type: Marijuana Advance Directives: Yes Advance Directives on File: Yes Advance Directives Date on File: 02/23/23 Do you have a plan to hurt others: No Plan service: No Current occupational status: disabled Physical Exam Vital Signs: Vital Signs: Last Vital Signs Temp 97.7 F 05/17/24 16:00 Pulse 64 05/17/24 16:00 Resp 22 H 05/17/24 16:00 BP 159/84 H 05/17/24 16:00 Pulse Ox 91 L 05/17/24 16:00 O2 Del Method Nasal Cannula 05/17/24 16:00 O2 Flow Rate 4 05/17/24 16:00 Oxygen Flow Rate 5 05/17/24 14:02 BMI result Body Mass Index 27.8 General: Well-appearing well-nourished in no signs of distress HEENT: Normocephalic atraumatic Neck: No signs of JVD, no masses no tenderness or lymphadenopathy Cardiovascular: Regular rate and rhythm Respiratory: Clear to auscultation bilaterally Abdomen: Soft nontender no masses Extremities: Normal pedal pulses no signs of edema Skin: Dry warm no rashes Back: No tenderness full ROM Course Course Course Narrative: Patient got breathing treatments and steroids immediately upon arrival patient has required 4 L of oxygen since she has been here found to have pneumonia started on antibiotics I will admit the patient to Medicine. Medications Administered Discontinued Medications Generic Name Dose Route Start Last Admin Trade Name Freq PRN Reason Stop Dose Admin Albuterol/Ipratropium 3 ml 05/17/24 14:41 05/17/24 14:42 Albuterol/Iprat 2.5/0.5mg 3 Ml Ampul.Neb INHALE 05/17/24 14:42 3 ml ONCE ONE Administration Sodium Chloride 1,000 mls @ 999 mls/hr 05/17/24 14:30 05/17/24 16:01 Ns IV 05/17/24 15:30 Infused .Q1H1M STEVEN Infusion Ceftriaxone Sodium 1 gm/ 50 mls @ 100 mls/hr 05/17/24 15:41 05/17/24 16:01 Sodium Chloride IV 05/17/24 16:10 100 mls/hr ONCE ONE Administration Prednisone 60 mg 05/17/24 14:21 05/17/24 14:31 Prednisone 20 Mg Tablet PO 05/17/24 14:22 60 mg ONCE ONE Administration Medical Decision Making Medical Decision Making [facility] Narrative: I will start with breathing treatments x-ray labs I will start the patient prednisone and reassess Differential Diagnosis Differential Diagnoses: The differential diagnosis associated with the presentation includes Patient with advanced COPD likely exacerbation concern for pneumonia less likely pneumothorax or cardiac in nature Admission/Observation Consideration of admission/observation: Escalation of care including admission/observation considered Consult Healthcare Provider Management of the patient was discussed with: Hospitalist Lab Data [facility] Lab Attestation statement: I reviewed the patient's lab results. 05/17/24 15:00 05/17/24 15:00 Labs: Lab Results 05/17/24 Range/Units 15:00 WBC 7.3 (4.8-10.8) X10*3/uL RBC 3.87 L (4.20-5.50) X10*6/uL Hgb 12.9 (12.0-16.0) g/dl Hct 38.5 (37.0-47.0) % MCV 99.5 H (80.0-98.0) fL MCH 33.3 H (27.0-33.0) pg MCHC 33.5 (31.0-35.0) g/dl RDW 12.4 (11.0-16.0) % Plt Count 184 (160-400) X10*3/uL MPV 10.1 (9.4-12.3) fL Immature Gran % (Auto) 0.5 H (0.0-0.4) % Neut % (Auto) 57.9 (45-73) % Lymph % (Auto) 30.3 (20-40) % Rhea % (Auto) 8.4 (2-11) % Eos % (Auto) 2.1 (0-4) % Baso % (Auto) 0.8 (0-2) % Lymph # (Auto) 2.2 (1.2-4.9) X10*3/uL Rhea # (Auto) 0.6 (0.1-1.2) X10*3/uL Eos # (Auto) 0.2 (0.0-0.4) X10*3/uL Baso # (Auto) 0.1 (0.0-0.2) X10*3/uL Abs Immat Gran (auto) 0.04 H (0.00-0.03) X10*3/uL Absolute Neuts (auto) 4.2 (2.0-8.3) x10*3/uL Absolute Nucleated RBC 0.000 (0.0-0.012) X10*3/uL Nucleated RBC % (auto) 0.0 (0.0-0.2) /100WBC Sodium 142 (135-145) mmol/L Potassium 3.7 (3.3-5.1) mmol/L Chloride 108 (96-108) mmol/L Carbon Dioxide 27 (22-29) mmol/L Anion Gap 11 L (12-20) BUN 13 (9-16) mg/dL Creatinine 0.78 (0.5-1.4) mg/dL Estim Creat Clear Calc 73.4 Estimated GFR > 60 Random Glucose 190 H (60-115) mg/dL Lactic Acid 0.7 (0.5-2.0) mmol/L Calcium 8.9 D (8.4-10.2) mg/dL Total Bilirubin 0.3 (0.0-1.0) mg/dL Direct Bilirubin 0.1 (0.0-0.5) mg/dL AST 14 (5-31) U/L ALT 11 (0-31) U/L Alkaline Phosphatase 95 (39-117) U/L Total Protein 6.8 (6.5-8.0) g/dL Albumin 3.9 (3.5-5.0) g/dL Lipase 29 (8-78) U/L Influenza Type A (PCR) NEGATIVE (Negative) Influenza Type B (PCR) NEGATIVE (Negative) RSV RNA Qual (PCR) NEGATIVE (Negative) SARS-CoV-2 RNA (RT-PCR) NEGATIVE (Negative) Independent Interpretation I performed an independent interpretation of an: EKG, Rhythm Strip and Plain X-Ray Interpretation: Rate 65 nsr normal intervals no signs of ischemia Radiology Impression Discussion of test interpretation with radiology: I have reviewed the radiologist's reading. External Record Review External record reviewed: Inpatient record, Office record, Outpatient record, Prior outpatient labs and Prior outpatient radiology Social Determinants Patient?s care significantly limited by Social Determinants of Health including: Inadequate housing Lives alone Critical Care Time Critical Care Time Critical Care Time: Yes Total Critical Care Time: 40 Attestation: Acute COPD exacerbation requiring multiple elevations found to have pneumonia started on antibiotics Discharge Plan Discharge Clinical Impression: Acute exacerbation of chronic obstructive pulmonary disease, Pneumonia, Hypoxia Patient Disposition: Admitted As Inpatient Prescriptions: No Action sertraline 100 mg tablet 2 tab PO DAILY valacyclovir 500 mg tablet 1 tab PO DAILY simvastatin 40 mg tablet 1 tab PO BEDTIME temazepam 30 mg capsule 1 cap PO BEDTIME PRN (Reason: Insomnia) gemfibrozil 600 mg tablet 1 tab PO BID trazodone 150 mg tablet 3 tab PO BEDTIME lisinopril 10 mg tablet 1 tab PO DAILY bupropion HCl 150 mg tablet extended release 24 hr 1 tab PO DAILY multivitamin Tablet 1 tab PO DAILY metformin 1,000 mg tablet 1,000 mg PO BID cefuroxime axetil 250 mg tablet 250 mg PO BID 7 Days Qty: 14 0RF buspirone 10 mg tablet 10 mg PO TID anastrozole 1 mg Tablet 1 mg PO DAILY albuterol sulfate 2.5 mg /3 mL (0.083 %) Solution For Nebulization 2.5 mg INHALATION Q6H PRN (Reason: SOB) aspirin 81 mg Tablet,Delayed Release (Dr/Ec) 81 mg PO DAILY carvedilol 3.125 mg tablet 3.125 mg PO BID docusate sodium [Colace] 100 mg Capsule 100 mg PO DAILY cyclobenzaprine 5 mg Tablet 5 mg PO DAILY cholecalciferol (vitamin D3) [Vitamin D3] 25 mcg (1,000 unit) Tablet 25 mcg PO DAILY ondansetron 4 mg Tablet,Disintegrating 4 mg PO Q8H PRN (Reason: Nausea And Vomiting) fluticasone propionate 50 mcg/actuation [place],Suspension 1 spray INTRANASAL BID Rx Instructions: administer into each nostril loratadine 10 mg Tablet 10 mg PO DAILY levalbuterol tartrate 45 mcg/actuation Hfa Aerosol Inhaler 2 inh INHALATION Q6H ozztexajmrb-tqakiwdre-zfotqdru 100-62.5-25 mcg Blister With Device 1 inh INHALATION Q24H aripiprazole 15 mg tablet 7.5 mg PO DAILY pantoprazole 40 mg tablet,delayed release (DR/EC) 40 mg PO DAILY Print Language: Romansh
[2024-05-17] MEDS: predniSONE 20 MG TABLET 60 MG PO (14:31)
[2024-05-17] MEDS: 0.9 % Sodium Chloride 1,000 ML 999 ML IV (14:34)
[2024-05-17] MEDS: Albuterol/Iprat 2.5/0.5MG 3 ML AMPUL.NEB INHALE (14:42)
[2024-05-17 15:09] LABS: MANUAL DIFF FLAG NO
--- NOTE | 2024-05-17 15:10 | PC.NURSE ---
Call Serafin Reed for information, questions, or discharge. [phone]
[2024-05-17 15:21] LABS: Basophils Absolute Auto 0.1 X10*3/uL (0.0-0.2); Basophils Percent Auto 0.8 % (0-2); Eosinophils Absolute Auto 0.2 X10*3/uL (0.0-0.4); Eosinophils Percent Auto 2.1 % (0-4); Hematocrit 38.5 % (37.0-47.0); Hemoglobin 12.9 g/dl (12.0-16.0); Imm Gran Abs Auto 0.04 X10*3/uL (0.00-0.03); Imm Gran Pct Auto 0.5 % (0.0-0.4); Lymphocytes Absolute Auto 2.2 X10*3/uL (1.2-4.9); Lymphocytes Percent Auto 30.3 % (20-40); Mean Corpuscular HGB Conc 33.5 g/dl (31.0-35.0); Mean Corpuscular Hemoglobin 33.3 pg (27.0-33.0); Mean Corpuscular Volume 99.5 fL (80.0-98.0); Mean Platelet Volume 10.1 fL (9.4-12.3); Monocytes Absolute Auto 0.6 X10*3/uL (0.1-1.2); Monocytes Percent Auto 8.4 % (2-11); Neutrophils Absolute Auto 4.2 x10*3/uL (2.0-8.3); Neutrophils Percent Auto 57.9 % (45-73); Platelet Count 184 X10*3/uL (160-400); Red Blood Count 3.87 X10*6/uL (4.20-5.50); Red Cell Distribution Width 12.4 % (11.0-16.0); White Blood Count 7.3 X10*3/uL (4.8-10.8)
[2024-05-17 15:22] LABS: Lactic Acid 0.7 mmol/L (0.5-2.0)
[2024-05-17 15:25] LABS: Alanine Aminotransferase 11 U/L (0-31); Albumin Level 3.9 g/dL (3.5-5.0); Alkaline Phosphatase 95 U/L (39-117); Anion Gap 11 (12-20); Aspartate Amino Transferase 14 U/L (5-31); Bilirubin Direct 0.1 mg/dL (0.0-0.5); Bilirubin Total 0.3 mg/dL (0.0-1.0); Blood Urea Nitrogen 13 mg/dL (9-16); Calcium 8.9 mg/dL (8.4-10.2); Carbon Dioxide 27 mmol/L (22-29); Chloride 108 mmol/L (96-108); Creatinine Clr Calc Pharmacy 73.4; Estimated Glomerular Filt Rate > 60; Glucose Random 190 mg/dL (60-115); Lipase 29 U/L (8-78); Potassium 3.7 mmol/L (3.3-5.1); Sodium 142 mmol/L (135-145); Total Protein 6.8 g/dL (6.5-8.0)
[2024-05-17 15:49] LABS: Influenza A PCR NEGATIVE (Negative); Influenza B PCR NEGATIVE (Negative); Resp Syncy Virus RNA Qual PCR NEGATIVE (Negative); SARS COV2 PCR INHOUSE NEGATIVE (Negative)
[2024-05-17] MEDS: cefTRIAXone sodium 1 GM in 0.9 % Sodium Chloride 50 ML IV (16:01)
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
[2024-05-17] MEDS: vancomycin HCL 1,000 MG, vancomycin HCL 750 MG in 0.9 % Sodium Chloride 500 ML 267.5 MG IV (16:32)
--- NOTE | 2024-05-17 16:32 | PC.NURSE ---
pt incontinent of urine. pericare performed. new pads/linens placed. pt turned/repositioned to comfort. sitting upright to promote patent airway. pt remains on 4L via NC. no sob/wob noted. respirations even/unlabored. medication administered per provider order. pending admission at this time. plan of care ongoing. call swift placed within reach.
[2024-05-17] MEDS: Doxycycline Hyclate 100 MG in 0.9 % Sodium Chloride 250 ML 166.67 MG IV (17:48)
[2024-05-17] MEDS: Enoxaparin Sodium 40 MG/0.4 ML SYRINGE SUBCUT (17:48)
[2024-05-17 18:46] LABS: Glucose, Whole Blood 126 mg/dL (60-115)
--- NOTE | 2024-05-17 18:50 | PHA.MEDREC ---
Addendum entered by Silverio Barbour [facility] 05/17/24 19:15: Med rec reviewed Original Note: Pharmacy Consult ? Medication Reconciliation Pharmacy has completed the medication reconciliation. Patient was a poor historian. she said she doesn't know what she takes, she has a AUTOMOTIVE CENTER MANAGER that handles all her medication. Spoke to AUTOMOTIVE CENTER MANAGER (Aspen) over the phone to confirm patients med list. AUTOMOTIVE CENTER MANAGER states patent is no longer taking Buspirone 10 mg and Metformin 1,000mg. last does for metformin was 2 months ago. Skiing Teacher states patient developed an allergic reaction to the medication and the DR told her to stop Metformin. dental technician apprentice states Aripiprazole is 5 mg, however claims says 7.5 mg, last filled 04/19/24. AUTOMOTIVE CENTER MANAGER also said Sertraline is 100 mg , however claims has 200 mg daily, last filled 01/23/24
[2024-05-17] MEDS: gemfibroziL 600 MG TABLET PO (20:28)
[2024-05-17] MEDS: methylPREDNISolone Sod Succ 40 MG/ML VIAL IVPUSH (20:28)
[2024-05-17] MEDS: Atorvastatin Calcium 20 MG TABLET PO (20:29)
[2024-05-17] MEDS: busPIRone HCl 10 MG TABLET PO (20:29)
[2024-05-17] MEDS: traZODone HCL 50 MG TABLET 450 MG PO (20:29)
[2024-05-17] MEDS: carvediloL 3.125 MG TABLET PO (20:29)
[2024-05-18] VITALS (11 sets, daily range): BP systolic 148–174; BP diastolic 75–82; PULSE 60–80; RESP 12–26; TEMP 36.2–36.3; O2SAT 86–93
[2024-05-18 00:41] LABS: Glucose, Whole Blood 215 mg/dL (60-115)
[2024-05-18] MEDS: Insulin Lispro 100 UNIT/ML 3 ML VIAL SUBCUT ×4 (01:30→21:05)
[2024-05-18] MEDS: 0.9 % Sodium Chloride Flush 3 ML SYRINGE IVFLUSH ×5 (01:32→21:06)
[2024-05-18] MEDS: Doxycycline Hyclate 100 MG in 0.9 % Sodium Chloride 250 ML 166.67 MG IV ×2 (06:06→18:06)
[2024-05-18] MEDS: Omeprazole 20 MG CAPSULE.DR PO (06:08)
[2024-05-18] MEDS: Albuterol/Iprat 2.5/0.5MG 3 ML AMPUL.NEB INHALE ×4 (07:46→20:13)
[2024-05-18 07:47] LABS: Glucose, Whole Blood 148 mg/dL (60-115)
[2024-05-18] MEDS: methylPREDNISolone Sod Succ 40 MG/ML VIAL IVPUSH ×2 (09:46→21:04)
[2024-05-18] MEDS: Cholecalciferol (Vitamin D3) 25 MCG TABLET PO (09:46)
[2024-05-18] MEDS: Docusate Sodium 100 MG CAPSULE PO (09:46)
[2024-05-18] MEDS: valACYclovir HCL 500 MG TABLET PO (09:46)
[2024-05-18] MEDS: ARIPiprazole 5 MG TABLET PO (09:46)
[2024-05-18] MEDS: busPIRone HCl 10 MG TABLET PO ×3 (09:46→21:05)
[2024-05-18] MEDS: Sertraline HCL 100 MG TABLET PO (09:46)
[2024-05-18] MEDS: Anastrozole 1 MG TABLET PO (09:46)
[2024-05-18] MEDS: Aspirin Enteric Coated 81 MG TABLET.DR PO (09:47)
[2024-05-18] MEDS: Cyclobenzaprine HCl 5 MG TABLET PO (09:47)
[2024-05-18] MEDS: carvediloL 3.125 MG TABLET PO ×2 (09:47→21:05)
[2024-05-18] MEDS: buPROPion HCl XL 150 MG TAB.ER.24H PO (09:48)
[2024-05-18] MEDS: lisinopriL 10 MG TABLET PO (09:48)
[2024-05-18] MEDS: gemfibroziL 600 MG TABLET PO ×2 (09:48→21:05)
[2024-05-18] MEDS: Loratadine 10 MG TABLET PO (09:48)
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
[2024-05-18 11:29] LABS: Glucose, Whole Blood 159 mg/dL (60-115)
--- NOTE | 2024-05-18 12:04 | MHC.CM.PN ---
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 CPAP / PER PT 3lo2. PT REC STR NABIL MICHELLE REFERRED. NABIL 1ST CHOICE REFERRALS SENT. TRANS VIA S
[2024-05-18 15:04] LABS: Appearance Urine Clear; Color Urine Yellow; Glucose Urine UA Negative (Negative); Leukocyte Esterase Urine Moderate (2+) (Negative); Nitrite Urine Negative (Negative); Specific Gravity - Urine 1.025 (1.005-1.025); UMIC TRIGGER UACC YES; Urine Blood Negative (Negative); Urine Ketones Negative (Negative); Urine Protein 30 (1+) mg/dL (Neg-Trace)
[2024-05-18 15:22] LABS: Bacteria Urine None Seen (None Seen); Hyaline Casts Urine 0-2 /LPF (0-2); RBC Urine 0-2 /HPF (0-2); UACC Culture Trigger YES; WBC Urine 21-50 /HPF (0-5)
[2024-05-18 15:44] LABS: Glucose, Whole Blood 214 mg/dL (60-115)
[2024-05-18] MEDS: cefTRIAXone sodium 1 GM in 0.9 % Sodium Chloride 50 ML IV (15:49)
[2024-05-18] MEDS: Enoxaparin Sodium 40 MG/0.4 ML SYRINGE SUBCUT (18:06)
[2024-05-18 20:20] LABS: Glucose, Whole Blood 160 mg/dL (60-115)
[2024-05-18] MEDS: Fluticasone Propionate Nasal 16 GM SPRAY 1 SPRAY NOSTRIL-B (21:04)
[2024-05-18] MEDS: traZODone HCL 50 MG TABLET 450 MG PO (21:04)
[2024-05-18] MEDS: Atorvastatin Calcium 20 MG TABLET PO (21:05)
[2024-05-19] VITALS (16 sets, daily range): BP systolic 174–195; BP diastolic 77–91; PULSE 59–88; RESP 12–22; TEMP 36–36.4; O2SAT 89–94
[2024-05-19] MEDS: carvediloL 6.25 MG TABLET PO ×2 (04:44→20:10)
--- NOTE | 2024-05-19 04:45 | PC.NURSE ---
BP 195/91, pulse 72. Dr Landry notified, Coreg dose increased. First dose given now.
[2024-05-19] MEDS: Doxycycline Hyclate 100 MG in 0.9 % Sodium Chloride 250 ML 166.67 MG IV ×2 (06:03→17:59)
[2024-05-19] MEDS: Omeprazole 20 MG CAPSULE.DR PO (06:03)
[2024-05-19 07:10] LABS: Adenovirus PCR Not Detected (Not Detect.); Bordetella parapertussis PCR Not Detected (Not Detect.); Bordetella pertussis PCR Not Detected (Not Detect.); Chlamydia pneumoniae PCR Not Detected (Not Detect.); Coronavirus 229E PCR Not Detected (Not Detect.); Coronavirus HKU1 PCR Not Detected (Not Detect.)
[2024-05-19 07:11] LABS: Coronavirus NL63 PCR Not Detected (Not Detect.); Coronavirus OC43 PCR Not Detected (Not Detect.); Human metapneumovirus PCR Not Detected (Not Detect.); Influenza A PCR Not Detected (Not Detect.); Influenza B PCR Not Detected (Not Detect.); Mycoplasma pneumoniae PCR Not Detected (Not Detect.); Parainfluenza 1 PCR Not Detected (Not Detect.); Parainfluenza 2 PCR Not Detected (Not Detect.); Parainfluenza 3 PCR Not Detected (Not Detect.); Parainfluenza 4 PCR Not Detected (Not Detect.); RSV PCR Not Detected (Not Detect.); Rhino/Enterovirus PCR Not Detected (Not Detect.); SARS-CoV-2 PCR Not Detected (Not Detect.)
[2024-05-19 07:43] LABS: Glucose, Whole Blood 121 mg/dL (60-115)
[2024-05-19] MEDS: Fluticasone/Umeclidinium/Vilanterol 100/62.5/25 BLST.W.DEV 1 PUFF INHALE (07:45)
[2024-05-19] MEDS: Albuterol/Iprat 2.5/0.5MG 3 ML AMPUL.NEB INHALE ×4 (07:45→20:17)
[2024-05-19] MEDS: 0.9 % Sodium Chloride Flush 3 ML SYRINGE IVFLUSH ×3 (08:06→22:09)
[2024-05-19] MEDS: Benzonatate 100 MG CAPSULE PO (08:07)
[2024-05-19] MEDS: Multivitamin TABLET 1 TAB PO (08:07)
[2024-05-19] MEDS: gemfibroziL 600 MG TABLET PO ×2 (08:07→20:10)
[2024-05-19] MEDS: Sertraline HCL 100 MG TABLET PO (08:07)
[2024-05-19] MEDS: Anastrozole 1 MG TABLET PO (08:07)
[2024-05-19] MEDS: ARIPiprazole 5 MG TABLET PO (08:07)
[2024-05-19] MEDS: busPIRone HCl 10 MG TABLET PO ×3 (08:07→20:10)
[2024-05-19] MEDS: Cholecalciferol (Vitamin D3) 25 MCG TABLET PO (08:07)
[2024-05-19] MEDS: lisinopriL 10 MG TABLET PO (08:08)
[2024-05-19] MEDS: Loratadine 10 MG TABLET PO (08:08)
[2024-05-19] MEDS: buPROPion HCl XL 150 MG TAB.ER.24H PO (08:08)
[2024-05-19] MEDS: valACYclovir HCL 500 MG TABLET PO (08:08)
[2024-05-19] MEDS: Cyclobenzaprine HCl 5 MG TABLET PO (08:08)
[2024-05-19] MEDS: Docusate Sodium 100 MG CAPSULE PO (08:08)
[2024-05-19] MEDS: Aspirin Enteric Coated 81 MG TABLET.DR PO (08:08)
[2024-05-19] MEDS: methylPREDNISolone Sod Succ 40 MG/ML VIAL IVPUSH ×2 (08:11→20:11)
[2024-05-19] MEDS: Furosemide 20 MG/2 ML VIAL IVPUSH (08:13)
[2024-05-19] MEDS: Fluticasone Propionate Nasal 16 GM SPRAY 1 SPRAY NOSTRIL-B (08:17)
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
[2024-05-19 11:24] LABS: Glucose, Whole Blood 222 mg/dL (60-115)
[2024-05-19] MEDS: Insulin Lispro 100 UNIT/ML 3 ML VIAL SUBCUT ×3 (11:50→22:08)
[2024-05-19] MEDS: cefTRIAXone sodium 1 GM in 0.9 % Sodium Chloride 50 ML IV (15:38)
[2024-05-19 16:21] LABS: Glucose, Whole Blood 166 mg/dL (60-115)
[2024-05-19] MEDS: Enoxaparin Sodium 40 MG/0.4 ML SYRINGE SUBCUT (18:00)
[2024-05-19] MEDS: traZODone HCL 50 MG TABLET 450 MG PO (20:09)
[2024-05-19] MEDS: Melatonin 3 MG TABLET 6 MG PO (20:10)
[2024-05-19] MEDS: Atorvastatin Calcium 20 MG TABLET PO (20:10)
[2024-05-19] MEDS: Temazepam 15 MG CAPSULE 30 MG PO (20:11)
[2024-05-19 20:28] LABS: Glucose, Whole Blood 196 mg/dL (60-115)
[2024-05-20] VITALS (7 sets, daily range): BP systolic 143–160; BP diastolic 75–82; PULSE 70–80; RESP 14–18; TEMP 36.5–36.8; O2SAT 91–95
[2024-05-20] MEDS: Doxycycline Hyclate 100 MG in 0.9 % Sodium Chloride 250 ML 166.67 MG IV (06:11)
[2024-05-20] MEDS: Omeprazole 20 MG CAPSULE.DR PO (06:12)
[2024-05-20 07:40] LABS: Glucose, Whole Blood 141 mg/dL (60-115)
[2024-05-20] MEDS: Fluticasone/Umeclidinium/Vilanterol 100/62.5/25 BLST.W.DEV 1 PUFF INHALE (07:40)
[2024-05-20] MEDS: Albuterol/Iprat 2.5/0.5MG 3 ML AMPUL.NEB INHALE ×3 (07:41→15:24)
[2024-05-20] MEDS: valACYclovir HCL 500 MG TABLET PO (07:57)
[2024-05-20] MEDS: Cholecalciferol (Vitamin D3) 25 MCG TABLET PO (07:57)
[2024-05-20] MEDS: ARIPiprazole 5 MG TABLET PO (07:57)
[2024-05-20] MEDS: Anastrozole 1 MG TABLET PO (07:57)
[2024-05-20] MEDS: busPIRone HCl 10 MG TABLET PO ×2 (07:57→14:18)
[2024-05-20] MEDS: buPROPion HCl XL 150 MG TAB.ER.24H PO (07:57)
[2024-05-20] MEDS: Multivitamin TABLET 1 TAB PO (07:58)
[2024-05-20] MEDS: amLODIPine Besylate 2.5 MG TABLET PO (07:58)
[2024-05-20] MEDS: Sertraline HCL 100 MG TABLET PO (07:58)
[2024-05-20] MEDS: lisinopriL 10 MG TABLET PO (07:58)
[2024-05-20] MEDS: Docusate Sodium 100 MG CAPSULE PO (07:59)
[2024-05-20] MEDS: Cyclobenzaprine HCl 5 MG TABLET PO (07:59)
[2024-05-20] MEDS: Aspirin Enteric Coated 81 MG TABLET.DR PO (07:59)
[2024-05-20] MEDS: carvediloL 6.25 MG TABLET PO (07:59)
[2024-05-20] MEDS: gemfibroziL 600 MG TABLET PO (08:00)
[2024-05-20] MEDS: Loratadine 10 MG TABLET PO (08:00)
[2024-05-20] MEDS: methylPREDNISolone Sod Succ 40 MG/ML VIAL IVPUSH (08:04)
[2024-05-20] MEDS: 0.9 % Sodium Chloride Flush 3 ML SYRINGE IVFLUSH (08:04)
[2024-05-20] MEDS: Fluticasone Propionate Nasal 16 GM SPRAY 1 SPRAY NOSTRIL-B (08:08)
--- NOTE | 2024-05-20 11:20 | P.CDIM_ITS ---
PROVIDER RESPONSE TEXT: To clarify, the appropriate diagnosis supported by the clinical indicators: Diagnosis was present on admission and is still being monitored, evaluated, or treated QUERY TEXT: PHYSICIAN'S DOCUMENTATION REQUEST Date of Query: 05/20/2024 07:22 AM EDT Patient Name: Daisy Fowler Admit Date: 05/17/2024 Dear Presley Flowers MD, A review of the medical record indicates additional documentation may be needed. Please review below and update the documentation accordingly. Clinical Indicators: H&P: Acute on chronic hypoxic respiratory failure in the setting of acute COPD exacerbation with unde rlying pneumonia. SOB, montero, fatigue, increased O2 demands. CXR with likely bibasilar infiltrates. IV Broad spectrum antibiotics. Progress notes: Acute on chronic respiratory failure with COPD exacerbation with superimposed pneumon ia. cough, atelectasis, no clear pna at this time. Please clarify the following: Pneumonia, treating, ruled out etc. Diagnosis was present on admission and is now resolved Diagnosis was present on admission and is still being monitored, evaluated, or treated Diagnosis was ruled out Diagnosis is still a likely, suspected, probable diagnosis Other (explain) Clinically unable to determine (explain) Thank you, Kacie Taylor, CCS, CDIS Use of terms such as suspected, likely, concern for, or probable (associated with a specific diagnosi s that is being evaluated, monitored, or treated as if it exists) are acceptable and can be coded in the inpatient se tting, when documented at the time of discharge. Please use your independent medical judgment in providing your response. THIS QUERY IS PART OF THE PERMANENT MEDICAL RECORD
[2024-05-20 11:40] LABS: Glucose, Whole Blood 153 mg/dL (60-115)
[2024-05-20] MEDS: Insulin Lispro 100 UNIT/ML 3 ML VIAL SUBCUT ×2 (12:17→16:50)
--- NOTE | 2024-05-20 12:29 | P.PNIM_ITS ---
Subjective Subjective Date of Service: 05/20/24 Interval History: copd ,pna Physical Exam 2 Vital Signs: Vital Signs: Last Vital Signs Temp 97.7 F 05/20/24 07:15 Pulse 70 05/20/24 11:16 Resp 16 05/20/24 11:16 BP 160/82 H 05/20/24 07:58 Pulse Ox 91 L 05/20/24 12:20 O2 Del Method Nasal Cannula 05/20/24 07:15 O2 Flow Rate 4.0 05/20/24 07:15 Oxygen Flow Rate 5 05/17/24 14:02 BMI result Body Mass Index 27.8 Objective Data Active Medications Acetaminophen (Acetaminophen 325 Mg Tablet) 650 mg PO Q6H PRN PRN Reason: Pain, Mild (Pain Scale 1-3), fever or headache Albuterol/Ipratropium (Albuterol/Iprat 2.5/0.5mg 3 Ml Ampul.Neb) 3 ml INHALE RQ4H WHILE AWAKE [facility] Last Admin: 05/20/24 11:16 Dose: 3 ml Documented By: TAJ Amlodipine Besylate (Amlodipine Besylate 2.5 Mg Tablet) 2.5 mg PO DAILY [facility]; Protocol Last Admin: 05/20/24 07:58 Dose: 2.5 mg Documented By: REBEKAH Anastrozole (Anastrozole 1 Mg Tablet) 1 mg PO DAILY [facility] Last Admin: 05/20/24 07:57 Dose: 1 mg Documented By: REBEKAH Aripiprazole (Aripiprazole 5 Mg Tablet) 5 mg PO DAILY [facility] Last Admin: 05/20/24 07:57 Dose: 5 mg Documented By: REBEKAH Aspirin (Aspirin Enteric Coated 81 Mg Tablet.Dr) 81 mg PO DAILY [facility] Last Admin: 05/20/24 07:59 Dose: 81 mg Documented By: REBEKAH Atorvastatin Calcium (Atorvastatin Calcium 20 Mg Tablet) 20 mg PO BEDTIME [facility] Last Admin: 05/19/24 20:10 Dose: 20 mg Documented By: CHRISTOPHER Benzonatate (Benzonatate 100 Mg Capsule) 100 mg PO TID PRN PRN Reason: Cough Last Admin: 05/19/24 08:07 Dose: 100 mg Documented By: REBEKAH Bupropion HCl (Bupropion Hcl Xl 150 Mg Tab.Er.24h) 150 mg PO DAILY [facility] Last Admin: 05/20/24 07:57 Dose: 150 mg Documented By: REBEKAH Buspirone HCl (Buspirone Hcl 10 Mg Tablet) 10 mg PO TID [facility] Last Admin: 05/20/24 07:57 Dose: 10 mg Documented By: REBEKAH Calcium Carbonate (Calcium Carbonate 750 Mg Tab.Chew) 750 mg PO Q4H PRN PRN Reason: Heartburn Carvedilol (Carvedilol 6.25 Mg Tablet) 6.25 mg PO BID [facility]; Protocol Last Admin: 05/20/24 07:59 Dose: 6.25 mg Documented By: REBEKAH Cyclobenzaprine HCl (Cyclobenzaprine Hcl 5 Mg Tablet) 5 mg PO DAILY [facility] Last Admin: 05/20/24 07:59 Dose: 5 mg Documented By: REBEKAH Docusate Sodium (Docusate Sodium 100 Mg Capsule) 100 mg PO DAILY [facility] Last Admin: 05/20/24 07:59 Dose: 100 mg Documented By: REBEKAH Doxycycline Monohydrate (Doxycycline Monohydrate 100 Mg Capsule) 100 mg PO BID [facility] Enoxaparin Sodium (Enoxaparin Sodium 40 Mg/0.4 Ml Syringe) 40 mg SUBCUT Q24H [facility] Last Admin: 05/19/24 18:00 Dose: 40 mg Documented By: REBEKAH Fluticasone Propionate (Fluticasone Propionate Nasal 16 Gm [place]) 1 spray NOSTRIL-B BID [facility] Last Admin: 05/20/24 08:08 Dose: 1 spray Documented By: REBEKAH Fluticasone/Umeclidinium/Vilanterol (Fluticasone/Umeclidinium/Vilanterol 100/62.5/25 Blst.W.Dev) 1 puff INHALE DAILY [facility] Last Admin: 05/20/24 07:40 Dose: 1 puff Documented By: TAJ Gemfibrozil (Gemfibrozil 600 Mg Tablet) 600 mg PO BID [facility] Last Admin: 05/20/24 08:00 Dose: 600 mg Documented By: REBEKAH Glucose (Glucose Gel 15 Gm Gel..Gram.) 15 gm PO Q15M PRN; Protocol PRN Reason: per Hypoglycemia Standing Ord. Ceftriaxone Sodium 1 gm/ (Sodium Chloride) 50 mls @ 100 mls/hr IV Q24H [facility] Last Infusion: 05/19/24 16:22 Dose: Infused Documented By: REBEKAH Dextrose (D10) 250 mls @ 750 mls/hr IV Q15M PRN; Protocol PRN Reason: per Hypoglycemia Standing Ord. Insulin Human Lispro (Insulin Lispro 100 Unit/Ml 3 Ml Vial) 0.1 - 10 unit SUBCUT QIDACHS [facility]; Protocol Last Admin: 05/20/24 12:17 Dose: 2 unit Documented By: REBEKAH Lisinopril (Lisinopril 10 Mg Tablet) 10 mg PO DAILY [facility]; Protocol Last Admin: 05/20/24 07:58 Dose: 10 mg Documented By: REBEKAH Loratadine (Loratadine 10 Mg Tablet) 10 mg PO DAILY [facility] Last Admin: 05/20/24 08:00 Dose: 10 mg Documented By: REBEKAH Magnesium Hydroxide (Milk Of Magnesia 30 Ml Oral.Susp) 30 ml PO DAILY PRN PRN Reason: Constipation Melatonin (Melatonin 3 Mg Tablet) 6 mg PO BEDTIME PRN PRN Reason: Insomnia Last Admin: 05/19/24 20:10 Dose: 6 mg Documented By: CHRISTOPHER Methylprednisolone Sodium Succinate (Methylprednisolone Sod Succ 40 Mg/Ml Vial) 40 mg IVPUSH Q12H [facility] Last Admin: 05/20/24 08:04 Dose: 40 mg Documented By: REBEKAH Multivitamins/Vitamin C (Multivitamin Tablet) 1 tab PO DAILY [facility] Last Admin: 05/20/24 07:58 Dose: 1 tab Documented By: REBEKAH Omeprazole (Omeprazole 20 Mg Luisa.) 20 mg PO DAILY@0630 [facility] Last Admin: 05/20/24 06:12 Dose: 20 mg Documented By: CHRISTOPHER Ondansetron HCl (Ondansetron Hcl 4 Mg/2 Ml Vial) 4 mg IVPUSH Q8H PRN PRN Reason: Nausea and Vomiting Pharmacy Consult (Consult Rx Vancomycin Dosing) 1 each MISCELLANE DAILY PRN PRN Reason: Consult order Sertraline HCl (Sertraline Hcl 100 Mg Tablet) 100 mg PO DAILY [facility] Last Admin: 05/20/24 07:58 Dose: 100 mg Documented By: REBEKAH Sodium Chloride (0.9 % Sodium Chloride Flush 3 Ml Syringe) 3 ml IVFLUSH QSHIFT [facility] Last Admin: 05/20/24 08:04 Dose: 3 ml Documented By: REBEKAH Temazepam (Temazepam 15 Mg Capsule) 30 mg PO BEDTIME PRN PRN Reason: Insomnia Last Admin: 05/19/24 20:11 Dose: 30 mg Documented By: CHRISTOPHER Trazodone HCl (Trazodone Hcl 100 Mg Tablet) 450 mg PO BEDTIME [facility] Valacyclovir HCl (Valacyclovir Hcl 500 Mg Tablet) 500 mg PO DAILY [facility] Last Admin: 05/20/24 07:57 Dose: 500 mg Documented By: REBEKAH Vitamin D (Cholecalciferol (Vitamin D3) 25 Mcg Tablet) 25 mcg PO DAILY [facility] Last Admin: 05/20/24 07:57 Dose: 25 mcg Documented By: REBEKAH Labs 05/17/24 15:00 05/17/24 15:00 Labs: Laboratory Results - last 24 hr 05/19/24 05/19/24 05/20/24 16:13 20:18 07:23 POC Glucose 166 H 196 H 141 H 05/20/24 11:24 POC Glucose 153 H Microbiology Microbiology Results: Microbiology 05/18/24 Unknown Urine Culture - Final Urine clean catch - Clean Catch Midstream 05/17/24 15:00 Blood Culture - Preliminary Blood - Venous No growth after 48 hours. 05/17/24 15:00 Blood Culture - Preliminary Blood - Venous No growth after 48 hours. Quality Stroke Does the patient have a stroke diagnosis?: No VTE Prior VTE?: No VTE Risk Level:: Medical - moderate - high VTE Device Contraindication: Treatment Not Indicated VTE Drug Contraindication: N/A - Med Ordered
--- NOTE | 2024-05-20 14:11 | MHC.CM.PN ---
pt going to [facility] at
--- NOTE | 2024-05-20 14:12 | MHC.CM.PN ---
t going to [facility] at 6:00 family aware
[2024-05-20] MEDS: Milk of Magnesia 30 ML ORAL.SUSP PO (14:18)
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
[2024-05-20 16:33] LABS: Glucose, Whole Blood 165 mg/dL (60-115)
[2024-05-20] MEDS: cefuroxime axetiL 500 MG TABLET PO (16:50)
[2024-05-20] MEDS: Enoxaparin Sodium 40 MG/0.4 ML SYRINGE SUBCUT (16:55)
--- NOTE | 2024-05-20 17:14 | PC.NURSE ---
Milk of mag and fleet enema were ordered for pt's bowel regimen. Milk of mag given with no effect yet. This Nurse called pharmacy to bring enema before enema was brought up patient refused it, stating she will get it at Rehab facility upon discharge.Family at bedside.
--- NOTE | 2024-05-20 18:36 | PC.NURSE ---
Report called and given to receiving Nurse at [facility]
== END 2024-05-20 18:42 | disposition skilled nursing facility (03) | DRG 190 ==
LOC: HO.ED 16:19 → HO.EDOVER 17:15 → HO.S3 20:57
PROVIDERS: Admitting Provider Student in an Organized Health Care Education/Training Program; Emergency Provider Student in an Organized Health Care Education/Training Program; PCP Nurse Practitioner Family; Visit Provider Internal Medicine
DX: J44.0 Chronic obstructive pulmonary disease with (acute) lower respiratory infection (principal); J18.9 Pneumonia, unspecified organism; J96.21 Acute and chronic respiratory failure with hypoxia; G81.94 Hemiplegia, unspecified affecting left nondominant side; J98.11 Atelectasis; J44.1 Chronic obstructive pulmonary disease with (acute) exacerbation; I10 Essential (primary) hypertension; V89.2XXS Person injured in unspecified motor-vehicle accident, traffic, sequela; G47.33 Obstructive sleep apnea (adult) (pediatric); F39 Unspecified mood [affective] disorder; F17.210 Nicotine dependence, cigarettes, uncomplicated; Z20.822 Contact with and (suspected) exposure to COVID-19; Z99.81 Dependence on supplemental oxygen; Z71.6 Tobacco abuse counseling; Z79.51 Long term (current) use of inhaled steroids; Z79.82 Long term (current) use of aspirin; Z79.899 Other long term (current) drug therapy
CPT/HCPCS: 0241U; 36415; 71046; 80048; 80076; 81001; 82947; 83605; 83690; 85025; 87040; 87086; 87633; 93005; 94640; 94660; 97116; 97162; 99285; J0696; J1650; J1940; J2919; J3370

== ENCOUNTER → 2024-05-17 17:01 | Outpatient (BNV) | payer MEDICARE, MEDICAID, SELFPAY | PROVIDERS: Admitting Provider Student in an Organized Health Care Education/Training Program; Emergency Provider Student in an Organized Health Care Education/Training Program; PCP Nurse Practitioner Family; Visit Provider Student in an Organized Health Care Education/Training Program | DX: J96.21 Acute and chronic respiratory failure with hypoxia (principal); J44.1 Chronic obstructive pulmonary disease with (acute) exacerbation | CPT/HCPCS: 99223; 99231; 99232; 99239 ==

== ENCOUNTER 2024-06-22 13:03 | Emergency (ER) | payer MEDICARE, MEDICAID, SELFPAY ==
--- NOTE | ~2024-06-22 | US_ITS ---
EXAMINATION: US NONINVASIVE ASSESSMENT OF THE LEFT LOWER EXTREMITY WITH ARTERIAL DUPLEX CLINICAL INFORMATION: Left lower extremity swelling and color change COMPARISON: None available. TECHNIQUE: Duplex Doppler techniques with waveform analysis and measurement of velocities in the common femoral, profunda femoris, superficial femoral, popliteal and tibial arteries were performed. The study was performed only at rest. FINDINGS: NONINVASIVE ASSESSMENT OF THE ARTERIES OF BILATERAL LOWER EXTREMITIES: LEFT LOWER EXTREMITY DUPLEX ULTRASOUND: Common femoral artery: 187 cm/s. Diastolic flow reversal: absent Profunda femoris artery: 50 cm/s. Diastolic flow reversal: absent Superficial femoral artery (proximal): 141 cm/s. Diastolic flow reversal: absent Superficial femoral artery (mid): 365 cm/s. Diastolic flow reversal: absent Superficial femoral artery (distal): 88 cm/s. Diastolic flow reversal: absent Popliteal artery: 68 cm/s Diastolic flow reversal: absent Posterior tibial artery: 39 cm/s Diastolic flow reversal: absent US/US arterial duplex LE LT IMPRESSION: Moderate stenosis of the mid left SFA by velocity criteria. Electronically signed by: Conrado Zaragoza MD 06/22/2024 03:37 PM [facility]
--- NOTE | ~2024-06-22 | US_ITS ---
EXAMINATION: US TRIPLEX LOWER EXTREMITY, LEFT CLINICAL INFORMATION: left leg swelling and redness COMPARISON: DVT ultrasound July 03, 2018 TECHNIQUE: Color-flow triplex imaging with spectral analysis and compression Doppler were performed on the left lower extremity. FINDINGS: Respiratory variation, normal compression and augmented flow are noted throughout the left lower extremity. The visualized common femoral vein, superficial femoral vein, profunda femoral vein, popliteal vein and midcalf peroneal and posterior tibial venous segments show no evidence of deep venous thrombosis. There is no Oreilly's cyst. US/US venous duplex LE LT IMPRESSION: No evidence of deep venous thrombosis involving the left lower extremity. Electronically signed by: Conrado Zaragoza MD 06/22/2024 03:39 PM EST
--- NOTE | ~2024-06-22 | XR_ITS ---
EXAMINATION: XR ANKLE, LEFT CLINICAL INFORMATION: Swelling COMPARISON: None available. TECHNIQUE: AP, lateral, and mortise views of the left ankle. FINDINGS: No fracture. Alignment is anatomic. No erosions. Joint spaces are maintained. Soft tissues are normal. XR/XR ankle LT 2V IMPRESSION: No fracture or dislocation. Electronically signed by: Dilia Vega MD 06/22/2024 04:32 PM EST
[2024-06-22 13:17] VITALS: BP 160/83; PULSE 73; RESP 16; TEMP 36.5; O2SAT 96; BMI 28.8
[2024-06-22 13:37] LABS: MANUAL DIFF FLAG NO
[2024-06-22 13:43] LABS: Basophils Absolute Auto 0.1 X10*3/uL (0.0-0.2); Basophils Percent Auto 0.6 % (0-2); Eosinophils Absolute Auto 0.2 X10*3/uL (0.0-0.4); Eosinophils Percent Auto 1.9 % (0-4); Hemoglobin 12.6 g/dl (12.0-16.0); Imm Gran Abs Auto 0.06 X10*3/uL (0.00-0.03); Imm Gran Pct Auto 0.7 % (0.0-0.4); Lymphocytes Absolute Auto 2.5 X10*3/uL (1.2-4.9); Lymphocytes Percent Auto 31.6 % (20-40); Mean Corpuscular HGB Conc 34.1 g/dl (31.0-35.0); Mean Corpuscular Hemoglobin 32.9 pg (27.0-33.0); Mean Corpuscular Volume 96.6 fL (80.0-98.0); Mean Platelet Volume 10.2 fL (9.4-12.3); Monocytes Absolute Auto 0.7 X10*3/uL (0.1-1.2); Monocytes Percent Auto 8.4 % (2-11); Neutrophils Absolute Auto 4.6 x10*3/uL (2.0-8.3); Neutrophils Percent Auto 56.8 % (45-73); Platelet Count 182 X10*3/uL (160-400); Red Blood Count 3.83 X10*6/uL (4.20-5.50); Red Cell Distribution Width 12.9 % (11.0-16.0); White Blood Count 8.1 X10*3/uL (4.8-10.8)
[2024-06-22 13:52] LABS: INTERNATIONAL NORM RATIO 0.9 (0.9-1.1); Prothrombin Time 10.7 SEC (10.9-12.4)
[2024-06-22 14:00] LABS: Alanine Aminotransferase 16 U/L (0-31); Albumin Level 4.2 g/dL (3.5-5.0); Alkaline Phosphatase 86 U/L (39-117); Anion Gap 14 (12-20); Aspartate Amino Transferase 19 U/L (5-31); Bilirubin Total 0.3 mg/dL (0.0-1.0); Blood Urea Nitrogen 12 mg/dL (9-16); Carbon Dioxide 29 mmol/L (22-29); Chloride 103 mmol/L (96-108); Creatinine Clr Calc Pharmacy 71.1; Estimated Glomerular Filt Rate > 60; Glucose Random 226 mg/dL (60-115); Potassium 4.1 mmol/L (3.3-5.1); Sodium 142 mmol/L (135-145); Total Protein 7.4 g/dL (6.5-8.0)
--- NOTE | 2024-06-22 14:03 | ED_ITS ---
HPI - Extremity Injury (Lower) General Chief Complaint: Extremity Injury, Lower Stated Complaint: swelling/redness lt leg Time Seen by Provider: 06/22/24 13:51 Source: patient and EMS Mode of arrival: EMS Limitations: no limitations History of Present Illness ED Provider: DR. Mcconnell HPI Narrative: 64-year-old female PMH significant for COPD on 3 L supplemental oxygen 06/03, HTN, dm 2, 0SA on CPAP, anxiety, left hemiparesis in the 1998, patient stated that she has been walking for the past 2 days now is complaining of left leg redness, hotness, swelling and pain. no fever, no chills. Related Data Home Medications ?Medication ?Instructions ?Recorded ?Confirmed bupropion HCl 150 mg 24 hr tablet, 150 mg PO DAILY 05/22/21 05/17/24 extended release gemfibrozil 600 mg tablet 600 mg PO BID 05/22/21 05/17/24 lisinopril 10 mg tablet 10 mg PO DAILY 05/22/21 05/17/24 sertraline 100 mg tablet 100 mg PO DAILY 05/22/21 05/17/24 simvastatin 40 mg tablet 40 mg PO BEDTIME 05/22/21 05/17/24 temazepam 30 mg capsule 30 mg PO BEDTIME PRN Insomnia 05/22/21 05/17/24 trazodone 150 mg tablet 450 mg PO BEDTIME 05/22/21 05/17/24 valacyclovir 500 mg tablet 500 mg PO DAILY 05/22/21 05/17/24 multivitamin 1 tab PO DAILY 10/07/22 05/17/24 pantoprazole 40 mg tablet,delayed 40 mg PO DAILY@0630 09/27/23 05/17/24 release albuterol sulfate 2.5 mg/3 mL 2.5 mg inhalation Q6H PRN SOB 03/12/24 05/17/24 (0.083 %) solution for nebulization anastrozole 1 mg tablet 1 mg PO DAILY 03/12/24 05/17/24 aspirin 81 mg tablet,delayed 81 mg PO DAILY 03/12/24 05/17/24 release carvedilol 3.125 mg tablet 3.125 mg PO BID 03/12/24 05/17/24 cholecalciferol (vitamin D3) 25 25 mcg PO DAILY 07/30/24 10/04/24 mcg (1,000 unit) tablet (Vitamin D3) cyclobenzaprine 5 mg tablet 5 mg PO DAILY 03/12/24 05/17/24 docusate sodium 100 mg capsule 100 mg PO DAILY 03/12/24 05/17/24 (Colace) fluticasone propionate 50 1 spray intranasal BID 03/12/24 05/17/24 mcg/actuation nasal spray,suspension levalbuterol tartrate 45 2 inh inhalation Q6H 03/12/24 05/17/24 mcg/actuation aerosol inhaler loratadine 10 mg tablet 10 mg PO DAILY 03/12/24 05/17/24 ondansetron 4 mg disintegrating 4 mg PO Q8H PRN Nausea And Vomiting 03/12/24 05/17/24 tablet aripiprazole 5 mg tablet 5 mg PO DAILY 05/17/24 05/17/24 fluticasone fur. 100 mcg-umeclid 1 ea inhalation DAILY 05/17/24 05/17/24 62.5 mcg-vilant 25 mcg inhalat.powder (Trelegy Ellipta) Previous Rx's ?Medication ?Instructions ?Recorded cefuroxime axetil 500 mg tablet 500 mg PO BID #14 tabs 05/20/24 doxycycline hyclate 100 mg tablet 100 mg PO BID #14 tabs 05/20/24 polyethylene glycol 3350 17 gram 17 g PO DAILY #30 ea 05/20/24 oral powder packet prednisone 20 mg tablet 40 mg (2 x 20 mg) PO DAILY #8 tabs 05/20/24 doxycycline hyclate 100 mg tablet 100 mg PO BID #20 tabs 06/22/24 Allergies Allergy/AdvReac Type Severity Reaction Status Date / Time Iodinated Contrast Media Allergy Unknown UNKNOWN Verified 06/22/24 13:23 [IV Dye, Iodine Containing] zolpidem [From AMBIEN] Allergy Unknown UNKNOWN Verified 06/22/24 13:23 iv dye as a baby Allergy Unknown Unknown Uncoded 06/22/24 13:23 Review of Systems 2 Review of Systems: All other systems are reviewed and are negative Constitutional: Reports as per HPI and Reports no additional constitutional complaints Eyes: Reports as per HPI and Reports no additional eye complaints Reports system reviewed and no additional complaints, except as documented Cardiovascular: Reports as per HPI and Reports no additional cardiovascular complaints Respiratory: Reports as per HPI and Reports no additional respiratory complaints Gastrointestinal: Reports as per HPI and Reports no additional gastrointestinal complaints Genitourinary: Reports no additional female genitourinary complaints Musculoskeletal: Reports no additional musculoskeletal complaints Skin/Breast: Reports system reviewed and no additional complaints, except as docu Psychiatric: Reports no additional psychiatric complaints Endocrine: Reports no additional endocrine complaints Hematologic/Lymphatic: Reports no additional hematologic/lymphatic complaints Allergic/Immunologic: Reports no additional allergic/immunologic complaints Reports system reviewed and no additional complaints, except as documented and Reports Abnormal speech present [facility] Past Medical History 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 Housing: Apartment Do you presently have visiting nurse or other home services: Yes (and [employer]) Unable to assess alcohol history related to: Unable to respond Alcohol intake: never Patient Tobacco Use Status: Current everyday Tobacco user Tobacco use type: Cigarette Cigarette Packs Per Day: 0.75 Cigarettes Per Day: 15.0 e-Cigarette/Vaping Use: Never Used Second Hand Smoke Exposure: Yes Substance Use Type: Marijuana Advance Directives: Yes Advance Directives on File: Yes Advance Directives Date on File: 02/23/23 Do you have a plan to hurt others: No Plan service: No Current occupational status: disabled Physical Exam 2 Vital Signs: Vital Signs: Last Vital Signs Temp 97.9 F 06/22/24 16:01 Pulse 74 06/22/24 16:01 Resp 14 06/22/24 16:01 BP 178/84 H 06/22/24 16:01 Pulse Ox 97 06/22/24 16:01 O2 Del Method Room Air 06/22/24 16:01 BMI result Body Mass Index 28.8 Vital signs have been reviewed and appear to be correct. Blood pressure elevated. Heart rate normal. Respiratory rate normal. Temperature normal. Oxygen saturation normal. Appearance: Alert. Oriented X3. No acute distress. Head: Normal external exam. Normocephalic. Atraumatic. No Wagner signs noted. No raccoon eyes noted Eyes: PERRLA. EOMI. Conjunctiva and sclera normal. Eyelids normal. ENT: TM's Normal. Pharynx normal. Uvula midline. Moist mucous membranes. No trismus noted. No drooling noted. No muffled voice noted. Neck: Normal inspection. Neck supple. FROM. No adenopathy. Thyroid Normal. No meningeal signs. No neck mass noted. CVS: Normal heart rate and rhythm. Heart sound normal. No murmurs noted. Pulses normal throughout. Respiratory: No respiratory distress. Painless inspiration. Breath sounds normal. No wheezes/rales/rhonchi noted. Chest nontender. No accessory muscle usage noted or decreased air movement noted. Abdomen: Soft and nontender. Bowel sounds normal in all 4 quadrants. No distention noted. No organomegaly noted. No visible injury noted. Back: No CVA tenderness. Full range of motion noted. Skin: Skin warm and dry. Normal skin color. Normal skin turgor. No rashes/lesions/lacerations noted. Extremities: Left foot/ ankle redness, hotness, intact left PT/DP pulsation. Neuro: Oriented X 3. Cranial nerve exam: II-XII are grossly intact No motor deficit. No sensory deficit. Reflexes normal. Course Reevaluation(s) Reevaluation #1: cellulitis of left lower extremity was start the patient on doxycycline. Venous/ arterial ultrasound of the left lower extremity showed no DVT, no acute arterial obstruction. Neurovascularly intact. Time: 16:03 Medications Administered Discontinued Medications Generic Name Dose Route Start Last Admin Trade Name Freq PRN Reason Stop Dose Admin Doxycycline Hyclate 100 mg/ 250 mls @ 166.67 mls/hr 06/22/24 13:57 06/22/24 15:01 Sodium Chloride IV 06/22/24 15:26 166.67 mls/hr ONCE ONE Administration Medical Decision Making Differential Diagnosis Differential Diagnoses: The differential diagnosis associated with the presentation includes ( Cellulitis, DVT, ankle fracture, arterial obstruction.) Admission/Observation Consideration of admission/observation: Escalation of care including admission/observation considered Lab Data MDM Lab Attestation statement: I reviewed the patient's lab results. 06/22/24 13:32 06/22/24 13:32 Labs: Lab Results 06/22/24 06/22/24 Range/Units 13:32 14:31 WBC 8.1 (4.8-10.8) X10*3/uL RBC 3.83 L (4.20-5.50) X10*6/uL Hgb 12.6 (12.0-16.0) g/dl Hct 37.0 (37.0-47.0) % MCV 96.6 (80.0-98.0) fL MCH 32.9 (27.0-33.0) pg MCHC 34.1 (31.0-35.0) g/dl RDW 12.9 (11.0-16.0) % Plt Count 182 (160-400) X10*3/uL MPV 10.2 (9.4-12.3) fL Immature Gran % (Auto) 0.7 H (0.0-0.4) % Neut % (Auto) 56.8 (45-73) % Lymph % (Auto) 31.6 (20-40) % [place] % (Auto) 8.4 (2-11) % Eos % (Auto) 1.9 (0-4) % Baso % (Auto) 0.6 (0-2) % Lymph # (Auto) 2.5 (1.2-4.9) X10*3/uL [place] # (Auto) 0.7 (0.1-1.2) X10*3/uL Eos # (Auto) 0.2 (0.0-0.4) X10*3/uL Baso # (Auto) 0.1 (0.0-0.2) X10*3/uL Abs Immat Gran (auto) 0.06 H (0.00-0.03) X10*3/uL Absolute Neuts (auto) 4.6 (2.0-8.3) x10*3/uL Absolute Nucleated RBC 0.000 (0.0-0.012) X10*3/uL Nucleated RBC % (auto) 0.0 (0.0-0.2) /100WBC PT 10.7 L (10.9-12.4) SEC INR 0.9 (0.9-1.1) Sodium 142 (135-145) mmol/L Potassium 4.1 (3.3-5.1) mmol/L Chloride 103 (96-108) mmol/L Carbon Dioxide 29 (22-29) mmol/L Anion Gap 14 (12-20) BUN 12 (9-16) mg/dL Creatinine 0.85 (0.5-1.4) mg/dL Estim Creat Clear Calc 71.1 Estimated GFR > 60 Random Glucose 226 H (60-115) mg/dL Lactic Acid 1.0 (0.5-2.0) mmol/L Calcium 10.0 (8.4-10.2) mg/dL Total Bilirubin 0.3 (0.0-1.0) mg/dL AST 19 (5-31) U/L ALT 16 (0-31) U/L Alkaline Phosphatase 86 (39-117) U/L Total Protein 7.4 (6.5-8.0) g/dL Albumin 4.2 (3.5-5.0) g/dL Independent Interpretation I performed an independent interpretation of an: Plain X-Ray ( Left ankle: No acute dislocation.) and Ultrasound ( Venous/arterial ultrasound: No DVT, no arterial obstruction.) Radiology Impression Discussion of test interpretation with radiology: I have reviewed the radiologist's reading. Discharge Plan Discharge Clinical Impression: Cellulitis of left leg Patient Disposition: Home, Self-Care Instructions: Cellulitis (ED) Prescriptions: New doxycycline hyclate 100 mg tablet 100 mg PO BID Qty: 20 0RF No Action sertraline 100 mg tablet 100 mg PO DAILY valacyclovir 500 mg tablet 500 mg PO DAILY simvastatin 40 mg tablet 40 mg PO BEDTIME temazepam 30 mg capsule 30 mg PO BEDTIME PRN (Reason: Insomnia) gemfibrozil 600 mg tablet 600 mg PO BID trazodone 150 mg tablet 450 mg PO BEDTIME lisinopril 10 mg tablet 10 mg PO DAILY bupropion HCl 150 mg tablet extended release 24 hr 150 mg PO DAILY multivitamin Tablet 1 tab PO DAILY anastrozole 1 mg Tablet 1 mg PO DAILY albuterol sulfate 2.5 mg /3 mL (0.083 %) Solution For Nebulization 2.5 mg INHALATION Q6H PRN (Reason: SOB) aspirin 81 mg Tablet,Delayed Release (Dr/Ec) 81 mg PO DAILY carvedilol 3.125 mg tablet 3.125 mg PO BID docusate sodium [Colace] 100 mg Capsule 100 mg PO DAILY cyclobenzaprine 5 mg Tablet 5 mg PO DAILY cholecalciferol (vitamin D3) [Vitamin D3] 25 mcg (1,000 unit) Tablet 25 mcg PO DAILY ondansetron 4 mg Tablet,Disintegrating 4 mg PO Q8H PRN (Reason: Nausea And Vomiting) fluticasone propionate 50 mcg/actuation [place],Suspension 1 spray INTRANASAL BID Rx Instructions: administer into each nostril loratadine 10 mg Tablet 10 mg PO DAILY levalbuterol tartrate 45 mcg/actuation Hfa Aerosol Inhaler 2 inh INHALATION Q6H Trelegy Ellipta 100-62.5-25 mcg blister with device 1 ea inhalation DAILY aripiprazole 5 mg tablet 5 mg PO DAILY polyethylene glycol 3350 17 gram Powder In Packet 17 g PO DAILY Qty: 30 0RF cefuroxime axetil 500 mg tablet 500 mg PO BID Qty: 14 0RF doxycycline hyclate 100 mg tablet 100 mg PO BID Qty: 14 0RF prednisone 20 mg tablet 40 mg PO DAILY Qty: 8 0RF pantoprazole 40 mg tablet,delayed release (DR/EC) 40 mg PO DAILY@0630 Print Language: Chinese
[2024-06-22] MEDS: Doxycycline Hyclate 100 MG in 0.9 % Sodium Chloride 250 ML 166.67 MG IV (15:01)
[2024-06-22 16:01] VITALS: BP 178/84; PULSE 74; RESP 14; TEMP 36.6; O2SAT 97
== END 2024-06-22 17:29 | disposition home or self-care (01) ==
PROVIDERS: Emergency Provider Emergency Medicine; PCP Nurse Practitioner Family
DX: L03.116 Cellulitis of left lower limb (principal); M79.605 Pain in left leg; E11.9 Type 2 diabetes mellitus without complications; I10 Essential (primary) hypertension; J44.9 Chronic obstructive pulmonary disease, unspecified; Z99.81 Dependence on supplemental oxygen; G47.33 Obstructive sleep apnea (adult) (pediatric); Z99.89 Dependence on other enabling machines and devices; F17.210 Nicotine dependence, cigarettes, uncomplicated; Z79.82 Long term (current) use of aspirin; Z79.899 Other long term (current) drug therapy
CPT/HCPCS: 36415; 73600; 80053; 83605; 85025; 85610; 87040; 93926; 93971; 99284

== ENCOUNTER 2024-07-01 10:59 | Inpatient (IN) | payer MEDICARE, MEDICAID, SELFPAY ==
[2024-07-01 11:14] VITALS: BP 177/72; BP 177/78; PULSE 78; PULSE 80; RESP 16; TEMP 36.4; O2SAT 93; O2SAT 96; BMI 26.6
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
[2024-07-01] MEDS: ceFAZolin Sodium/Dextrose,Iso 2 GM/50 ML PIGGYBACK IV ×2 (12:51→20:41)
[2024-07-01 12:54] LABS: MANUAL DIFF FLAG NO
[2024-07-01 13:01] LABS: Basophils Absolute Auto 0.1 X10*3/uL (0.0-0.2); Basophils Percent Auto 0.6 % (0-2); Eosinophils Absolute Auto 0.2 X10*3/uL (0.0-0.4); Eosinophils Percent Auto 2.3 % (0-4); Hematocrit 39.8 % (37.0-47.0); Hemoglobin 13.4 g/dl (12.0-16.0); Imm Gran Abs Auto 0.08 X10*3/uL (0.00-0.03); Lymphocytes Absolute Auto 2.4 X10*3/uL (1.2-4.9); Lymphocytes Percent Auto 28.5 % (20-40); Mean Corpuscular HGB Conc 33.7 g/dl (31.0-35.0); Mean Corpuscular Hemoglobin 32.7 pg (27.0-33.0); Mean Corpuscular Volume 97.1 fL (80.0-98.0); Mean Platelet Volume 10.2 fL (9.4-12.3); Monocytes Absolute Auto 0.7 X10*3/uL (0.1-1.2); Monocytes Percent Auto 8.1 % (2-11); Neutrophils Percent Auto 59.5 % (45-73); Platelet Count 210 X10*3/uL (160-400); Red Cell Distribution Width 12.6 % (11.0-16.0); White Blood Count 8.4 X10*3/uL (4.8-10.8)
[2024-07-01 13:15] LABS: Alanine Aminotransferase 17 U/L (0-31); Albumin Level 4.1 g/dL (3.5-5.0); Alkaline Phosphatase 92 U/L (39-117); Anion Gap 12 (12-20); Aspartate Amino Transferase 25 U/L (5-31); Bilirubin Total 0.3 mg/dL (0.0-1.0); Blood Urea Nitrogen 14 mg/dL (9-16); Calcium 9.3 mg/dL (8.4-10.2); Carbon Dioxide 28 mmol/L (22-29); Chloride 105 mmol/L (96-108); Creatinine Clr Calc Pharmacy 63.9; Estimated Glomerular Filt Rate > 60; Glucose Random 206 mg/dL (60-115); Potassium 4.1 mmol/L (3.3-5.1); Sodium 141 mmol/L (135-145); Total Protein 7.2 g/dL (6.5-8.0)
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
[2024-07-01 14:49] LABS: C Reactive Protein 0.13 mg/dL (< or = 0.50)
--- NOTE | 2024-07-01 15:05 | PHA.MEDREC ---
Addendum entered by Jillian Snell RP 07/01/24 15:19: Reviewed by [facility] Original Note: Pharmacy Consult ? Medication Reconciliation Pharmacy has completed the medication reconciliation. Spoke to patient to confirm med list. patient had a med list with her. Patient states she is no longer taking Prednisone 40 mg and Polyethylene glycol 3350. Patient confirmed she is still taking Doxycycline HYc 100 mg Bid, patient states she has one more day left. Anastrozole 1 mg , Cyclobenzaprine 5 mg and Xopenex HFA inhaler are on patients med list, however there are no claims. I went back down to verify if patient was still taking and what pharmacy she fills these medication. Patient states she does take Anastrozle 1 mg and Xopenex inhaler ,but she isn't sure if she still takes the flexril 5 mg. called [facility] to confirm and they said they have no claim history for all three.
[2024-07-01 16:00] VITALS: BP 196/83; PULSE 80; RESP 22; TEMP 36.4; O2SAT 93
[2024-07-01 17:37] LABS: Glucose, Whole Blood 133 mg/dL (60-115)
[2024-07-01] MEDS: Nicotine 14 MG PATCH.TD24 TRANSDERMA (17:39)
[2024-07-01] MEDS: 0.9 % Sodium Chloride Flush 3 ML SYRINGE IVFLUSH (17:40)
[2024-07-01] MEDS: Enoxaparin Sodium 40 MG/0.4 ML SYRINGE SUBCUT (17:40)
--- NOTE | 2024-07-01 17:50 | PC.NURSE ---
pt was transferred from ED perez bed 8 to overflow bed 5- this nurse assisted in catching up the patients medications as well as the worklist. pt is currently a&ox3, vitals were stable upon her arrival, lle red/hot to touch pt states she currently has no pain. rr equal/non labored, lungs clear, pt was medicated per orders- pt requested chicken salad for dinner and kitchen was called. call swift within reach, will continue to monitor.
--- NOTE | 2024-07-01 18:13 | MHC.EDTECH ---
pt came in from the ed and was washed up and 1-2 assist to the commode and on the bed pt asked for a purewick and brief for night time.
[2024-07-01 20:00] VITALS: BP 199/90; PULSE 87; RESP 20; TEMP 36.6; O2SAT 94
[2024-07-01 20:15] LABS: Glucose, Whole Blood 158 mg/dL (60-115)
[2024-07-01] MEDS: oxyCODONE HCl Immed Release 5 MG TABLET PO (20:41)
[2024-07-01] MEDS: Insulin Lispro 100 UNIT/ML 3 ML VIAL SUBCUT (20:41)
--- NOTE | 2024-07-01 21:31 | PC.NURSE ---
alesha sent to hospitalist dr. Jasso for medications not reordered and pt is looking for her HS meds. traadone and temaepam
[2024-07-01 22:00] VITALS: PULSE 84; RESP 18; O2SAT 90
[2024-07-01 22:30] VITALS: BP 199/90; PULSE 87; RESP 20; TEMP 36.6
[2024-07-01] MEDS: traZODone HCL 50 MG TABLET 450 MG PO (22:31)
--- NOTE | 2024-07-01 23:13 | PC.NURSE ---
pt sat dropped to 84% on current cpap settings, resp called and will adjust.
--- NOTE | 2024-07-01 23:16 | PC.NURSE ---
pt placed on NC 4L and does better than on the cpap. sat on 4l is 92%.
[2024-07-01 23:54] VITALS: RESP 18; O2SAT 92
[2024-07-02] VITALS (18 sets, daily range): BP systolic 115–206; BP diastolic 65–90; PULSE 74–96; RESP 16–20; TEMP 36.4–37.3; O2SAT 89–98; BMI 27.5
[2024-07-02] MEDS: Temazepam 15 MG CAPSULE 30 MG PO ×2 (02:00→21:29)
--- NOTE | 2024-07-02 03:53 | PC.NURSE ---
Pt was medicated for pain and with good effect pt has been sleeping since pt remains on nc 4L sat 93%. pt repositioned with good efffect.
[2024-07-02] MEDS: ceFAZolin Sodium/Dextrose,Iso 2 GM/50 ML PIGGYBACK IV ×3 (05:42→21:02)
[2024-07-02] MEDS: oxyCODONE HCl Immed Release 5 MG TABLET PO ×2 (05:48→20:55)
[2024-07-02 05:59] LABS: MANUAL DIFF FLAG NO
[2024-07-02 06:01] LABS: Basophils Absolute Auto 0.1 X10*3/uL (0.0-0.2); Basophils Percent Auto 0.9 % (0-2); Eosinophils Absolute Auto 0.2 X10*3/uL (0.0-0.4); Eosinophils Percent Auto 2.7 % (0-4); Hematocrit 42.3 % (37.0-47.0); Hemoglobin 14.1 g/dl (12.0-16.0); Imm Gran Abs Auto 0.06 X10*3/uL (0.00-0.03); Imm Gran Pct Auto 0.7 % (0.0-0.4); Lymphocytes Absolute Auto 2.8 X10*3/uL (1.2-4.9); Lymphocytes Percent Auto 32.9 % (20-40); Mean Corpuscular HGB Conc 33.3 g/dl (31.0-35.0); Mean Corpuscular Hemoglobin 32.4 pg (27.0-33.0); Mean Corpuscular Volume 97.2 fL (80.0-98.0); Mean Platelet Volume 10.4 fL (9.4-12.3); Monocytes Absolute Auto 0.8 X10*3/uL (0.1-1.2); Monocytes Percent Auto 9.4 % (2-11); Neutrophils Absolute Auto 4.5 x10*3/uL (2.0-8.3); Neutrophils Percent Auto 53.4 % (45-73); Platelet Count 218 X10*3/uL (160-400); Red Blood Count 4.35 X10*6/uL (4.20-5.50); Red Cell Distribution Width 12.6 % (11.0-16.0); White Blood Count 8.5 X10*3/uL (4.8-10.8)
[2024-07-02 06:17] LABS: Anion Gap 18 (12-20); Blood Urea Nitrogen 22 mg/dL (9-16); Calcium 9.5 mg/dL (8.4-10.2); Carbon Dioxide 22 mmol/L (22-29); Chloride 106 mmol/L (96-108); Creatinine Clr Calc Pharmacy 66.1; Estimated Glomerular Filt Rate > 60; Glucose Random 113 mg/dL (60-115); Potassium 4.1 mmol/L (3.3-5.1); Sodium 142 mmol/L (135-145)
--- NOTE | 2024-07-02 06:21 | PC.NURSE ---
Dr Jasso made aware of the pt bp level, and that the pt medications are not in the system that she takes, med rec completed. bp 194/90 hr88
[2024-07-02 07:30] LABS: Glucose, Whole Blood 131 mg/dL (60-115)
[2024-07-02] MEDS: Cholecalciferol (Vitamin D3) 25 MCG TABLET PO (08:39)
[2024-07-02] MEDS: carvediloL 12.5 MG TABLET PO ×2 (08:39→20:55)
[2024-07-02] MEDS: Multivitamin TABLET 1 TAB PO (08:39)
[2024-07-02] MEDS: Aspirin Enteric Coated 81 MG TABLET.DR PO (08:39)
[2024-07-02] MEDS: hydrALAZINE HCl 25 MG TABLET PO (08:40)
[2024-07-02] MEDS: gemfibroziL 600 MG TABLET PO ×2 (08:40→20:55)
[2024-07-02] MEDS: Nicotine 14 MG PATCH.TD24 TRANSDERMA (08:41)
[2024-07-02] MEDS: Loratadine 10 MG TABLET PO (08:41)
--- NOTE | 2024-07-02 08:45 | MHC.EDTECH ---
pt ate 25% of her breakfast
[2024-07-02] MEDS: ARIPiprazole 5 MG TABLET PO (09:28)
[2024-07-02] MEDS: valACYclovir HCL 500 MG TABLET PO (09:28)
[2024-07-02] MEDS: Anastrozole 1 MG TABLET PO (09:29)
[2024-07-02] MEDS: hydrALAZINE HCl 20 MG/ML VIAL 5 MG IVPUSH ×2 (09:30→14:47)
[2024-07-02] MEDS: Sertraline HCL 100 MG TABLET PO (10:57)
[2024-07-02] MEDS: Fluticasone Propionate Nasal 16 GM SPRAY 1 SPRAY NOSTRIL-B ×2 (10:58→20:56)
[2024-07-02] MEDS: buPROPion HCl XL 150 MG TAB.ER.24H PO (10:58)
[2024-07-02 11:27] LABS: Glucose, Whole Blood 119 mg/dL (60-115)
--- NOTE | 2024-07-02 12:20 | MHC.EDTECH ---
pt did not eat any of her lunch. pt requested a different meal, which she did not eat. pt is doing a good job drinking fluids.
--- NOTE | 2024-07-02 12:39 | MHC.CM.PN ---
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
[2024-07-02] MEDS: Albuterol Sulfate (0.083%) 2.5 MG/3 ML VIAL.NEB INHALE (13:43)
--- NOTE | 2024-07-02 14:34 | PC.NURSE ---
BP elevated- reached out to physician for more orders
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
--- NOTE | 2024-07-02 14:40 | MHC.EDTECH ---
this tech assisted pt with a full bed bath. pt was incontinent of urine due to purewick not suctioning. New purewick is in place and suction is working now. call swift in place and visitor is present in the room
--- NOTE | 2024-07-02 15:39 | PC.NURSE ---
Report given to Sofia JOEL
[2024-07-02] MEDS: ondansetron HCL 4 MG/2 ML VIAL IVPUSH (16:08)
[2024-07-02] MEDS: Losartan Potassium 25 MG TABLET PO (16:09)
[2024-07-02] MEDS: Enoxaparin Sodium 40 MG/0.4 ML SYRINGE SUBCUT (16:10)
[2024-07-02 17:10] LABS: Glucose, Whole Blood 146 mg/dL (60-115)
[2024-07-02] MEDS: 0.9 % Sodium Chloride Flush 3 ML SYRINGE IVFLUSH ×2 (17:10→21:05)
[2024-07-02] MEDS: Acetaminophen 325 MG TABLET 650 MG PO (19:34)
[2024-07-02] MEDS: Metoclopramide HCl 10 MG/2 ML VIAL IVPUSH (20:02)
--- NOTE | 2024-07-02 20:07 | PC.NURSE ---
Pt actively vomiting. Too early to medicate with Zofran. Dr Jasso made aware. New orders placed in OCT. Pt medicated and tolerated well.
[2024-07-02] MEDS: Docusate Sodium 100 MG CAPSULE PO (20:55)
[2024-07-02] MEDS: Atorvastatin Calcium 20 MG TABLET PO (20:55)
[2024-07-02 20:56] LABS: Glucose, Whole Blood 164 mg/dL (60-115)
[2024-07-02] MEDS: traZODone HCL 50 MG TABLET 450 MG PO (20:56)
[2024-07-02] MEDS: hydrALAZINE HCl 50 MG TABLET PO (20:56)
[2024-07-02] MEDS: Insulin Lispro 100 UNIT/ML 3 ML VIAL SUBCUT (21:01)
[2024-07-03 03:07] VITALS: PULSE 85; RESP 18; O2SAT 91
[2024-07-03 03:41] VITALS: BP 144/77; PULSE 87; RESP 18; TEMP 36.6; O2SAT 92
[2024-07-03] MEDS: ceFAZolin Sodium/Dextrose,Iso 2 GM/50 ML PIGGYBACK IV ×2 (05:19→13:10)
[2024-07-03 07:25] VITALS: BP 138/82; PULSE 89; RESP 18; TEMP 36.9; O2SAT 92
[2024-07-03 07:25] LABS: Glucose, Whole Blood 135 mg/dL (60-115)
[2024-07-03] MEDS: 0.9 % Sodium Chloride Flush 3 ML SYRINGE IVFLUSH (07:26)
[2024-07-03] MEDS: Multivitamin TABLET 1 TAB PO (08:40)
[2024-07-03] MEDS: Aspirin Enteric Coated 81 MG TABLET.DR PO (08:40)
[2024-07-03] MEDS: valACYclovir HCL 500 MG TABLET PO (08:40)
[2024-07-03] MEDS: ARIPiprazole 5 MG TABLET PO (08:40)
[2024-07-03] MEDS: Docusate Sodium 100 MG CAPSULE PO (08:40)
[2024-07-03] MEDS: Anastrozole 1 MG TABLET PO (08:40)
[2024-07-03] MEDS: carvediloL 12.5 MG TABLET PO (08:41)
[2024-07-03] MEDS: buPROPion HCl XL 150 MG TAB.ER.24H PO (08:41)
[2024-07-03] MEDS: Losartan Potassium 25 MG TABLET PO (08:41)
[2024-07-03] MEDS: Nicotine 14 MG PATCH.TD24 TRANSDERMA (08:41)
[2024-07-03] MEDS: Loratadine 10 MG TABLET PO (08:41)
[2024-07-03] MEDS: hydrALAZINE HCl 50 MG TABLET PO (08:41)
[2024-07-03] MEDS: Cholecalciferol (Vitamin D3) 25 MCG TABLET PO (08:41)
[2024-07-03] MEDS: gemfibroziL 600 MG TABLET PO (08:41)
[2024-07-03] MEDS: Sertraline HCL 100 MG TABLET PO (08:41)
[2024-07-03] MEDS: Fluticasone/Umeclidinium/Vilanterol 100/62.5/25 BLST.W.DEV 1 PUFF INHALE (11:20)
[2024-07-03 11:21] VITALS: PULSE 86; RESP 18; O2SAT 92
[2024-07-03 11:22] LABS: Glucose, Whole Blood 141 mg/dL (60-115)
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
[2024-07-03 11:31] VITALS: TEMP 36.8
[2024-07-03 11:35] VITALS: BP 121/68; PULSE 78; RESP 16; TEMP 36.8; O2SAT 92
--- NOTE | 2024-07-03 11:53 | MHC.CM.PN ---
Addendum entered by Cynthia Garcia, RN 07/03/24 14:12: CM RECEIVED CALL BACK FROM PT'S [employer] WHO RESPORTS PT'S [employer] FOR [employer], CM CONTACTED PT'S SISTER ANA [phone] TO LET HER KNOW PT WILL DC AT 3:30PM, ANA WILL HEALTH CARE CONSULTANT PT'S MEDS AND MEET HER AT PT'S HOME TO LET HER IN. Original Note: PT MEDICALLY CLEARED FOR DC HOME W/RESUMP OF [facility] [employer] AND [facility], PT UNABLE TO RECALL NAME OF NEW [facility], CM ATTEMPTED TO CONTACT DENIES W/PT PERMISSION, NO ANSWER AND DETAILED MESSAGE LEFT W/REQUEST FOR CALL BACK, [facility] FOR BLS TRANSPORT.
[2024-07-03 13:05] LABS: MANUAL DIFF FLAG NO
[2024-07-03 13:09] LABS: Hematocrit 46.9 % (37.0-47.0); Hemoglobin 15.5 g/dl (12.0-16.0); Mean Corpuscular Hemoglobin 32.2 pg (27.0-33.0); Mean Corpuscular Volume 97.3 fL (80.0-98.0); Mean Platelet Volume 10.2 fL (9.4-12.3); Platelet Count 245 X10*3/uL (160-400); Red Blood Count 4.82 X10*6/uL (4.20-5.50); Red Cell Distribution Width 12.6 % (11.0-16.0); White Blood Count 11.6 X10*3/uL (4.8-10.8)
[2024-07-03 13:10] LABS: Basophils Absolute Auto 0.1 X10*3/uL (0.0-0.2); Basophils Percent Auto 0.6 % (0-2); Eosinophils Absolute Auto 0.2 X10*3/uL (0.0-0.4); Eosinophils Percent Auto 1.8 % (0-4); Hematocrit 46.3 % (37.0-47.0); Hemoglobin 15.3 g/dl (12.0-16.0); Imm Gran Abs Auto 0.07 X10*3/uL (0.00-0.03); Imm Gran Pct Auto 0.6 % (0.0-0.4); Lymphocytes Absolute Auto 2.5 X10*3/uL (1.2-4.9); Lymphocytes Percent Auto 22.8 % (20-40); Mean Corpuscular Hemoglobin 32.2 pg (27.0-33.0); Mean Corpuscular Volume 97.5 fL (80.0-98.0); Monocytes Absolute Auto 0.9 X10*3/uL (0.1-1.2); Monocytes Percent Auto 8.6 % (2-11); Neutrophils Absolute Auto 7.1 x10*3/uL (2.0-8.3); Neutrophils Percent Auto 65.6 % (45-73); Platelet Count 237 X10*3/uL (160-400); Red Blood Count 4.75 X10*6/uL (4.20-5.50); Red Cell Distribution Width 12.7 % (11.0-16.0); White Blood Count 10.8 X10*3/uL (4.8-10.8)
[2024-07-03 13:20] LABS: Anion Gap 19 (12-20); Blood Urea Nitrogen 22 mg/dL (9-16); Calcium 10.1 mg/dL (8.4-10.2); Carbon Dioxide 23 mmol/L (22-29); Chloride 104 mmol/L (96-108); Creatinine Clr Calc Pharmacy 69.5; Estimated Glomerular Filt Rate > 60; Glucose Random 155 mg/dL (60-115); Potassium 4.6 mmol/L (3.3-5.1); Sodium 141 mmol/L (135-145)
== END 2024-07-03 16:01 | disposition home or self-care (01) | DRG 603 ==
LOC: HO.ED 13:33 → HO.EDOVER 15:00 → HO.IMC 07-02 19:08
PROVIDERS: Student in an Organized Health Care Education/Training Program; Admitting Provider Physician Assistant; Emergency Provider Emergency Medicine; PCP Nurse Practitioner Family; Visit Provider Internal Medicine
DX: L03.116 Cellulitis of left lower limb (principal); G81.94 Hemiplegia, unspecified affecting left nondominant side; I16.0 Hypertensive urgency; J44.9 Chronic obstructive pulmonary disease, unspecified; I25.10 Atherosclerotic heart disease of native coronary artery without angina pectoris; F39 Unspecified mood [affective] disorder; V89.2XXS Person injured in unspecified motor-vehicle accident, traffic, sequela; I10 Essential (primary) hypertension; E78.5 Hyperlipidemia, unspecified; B00.9 Herpesviral infection, unspecified; G47.33 Obstructive sleep apnea (adult) (pediatric); F17.210 Nicotine dependence, cigarettes, uncomplicated; Z99.81 Dependence on supplemental oxygen; Z71.6 Tobacco abuse counseling; Z79.51 Long term (current) use of inhaled steroids; Z79.82 Long term (current) use of aspirin; Z79.84 Long term (current) use of oral hypoglycemic drugs; Z79.899 Other long term (current) drug therapy
CPT/HCPCS: 36415; 80048; 80053; 82947; 85025; 85027; 86140; 94640; 94660; 97161; 99285; J0360; J0690; J1650; J2405; J2765

== ENCOUNTER → 2024-07-01 14:53 | Outpatient (BNV) | payer MEDICARE, MEDICAID, SELFPAY | PROVIDERS: Admitting Provider Physician Assistant; Emergency Provider Emergency Medicine; PCP Nurse Practitioner Family; Visit Provider Student in an Organized Health Care Education/Training Program | DX: L03.116 Cellulitis of left lower limb (principal); I16.0 Hypertensive urgency; F17.200 Nicotine dependence, unspecified, uncomplicated | CPT/HCPCS: 99222; 99232; 99239 ==

== ENCOUNTER 2024-10-21 14:45 | Emergency (ER) | payer MEDICARE, MEDICAID, SELFPAY ==
--- NOTE | ~2024-10-21 | XR_ITS ---
EXAMINATION: XR HIP, LEFT CLINICAL INFORMATION: hip pain, numbness/ pain down leg COMPARISON: 07/03/2022. TECHNIQUE: AP pelvis, 2 views of the left hip. FINDINGS: There is fixation hardware in the anterior and posterior pelvis related to prior fracture/injury. 2 transverse screws fixate the SI joints. Plate and screw fixation of the right iliac wing and superior pubic rami. Numerous old healed fractures bilaterally. There is a total right hip arthroplasty in place without definite complication seen. No acute fracture or dislocation. There is mild to moderate osteoarthrosis of the left hip joint present with mild superolateral spurring although gross preservation of joint space. Vascular calcifications in the soft tissues. Injection granulomata in the lateral buttock region. ESSURE Implants within the bilateral central pelvis. XR/XR hip LT w PEL1V IMPRESSION: 1. No acute findings left hip. Mild to moderate osteoarthrosis as detailed. 2. Extensive hardware fixation of the anterior and posterior pelvis related to old trauma. 3. Total right hip arthroplasty without complication. Electronically signed by: Horace Quiles MD 10/21/2024 04:20 PM EDT
[2024-10-21 14:55] VITALS: BP 163/84; PULSE 62; O2SAT 94
[2024-10-21 14:59] VITALS: BP 139/60; PULSE 62; RESP 17; TEMP 36.6; O2SAT 91; BMI 26.8
--- NOTE | 2024-10-21 15:02 | ED.GENADULT ---
HPI - General Adult General Chief complaint: Extremity Injury, Lower Stated complaint: LLE PAIN/NUMB X3D,NO RECENT FALLS PER EMS Time Seen by Provider: 10/21/24 20:16 Source: patient Limitations: no limitations History of Present Illness ED Provider: Soila Duggan PA-C HPI narrative: 64-year-old female with a history of morbid obesity, hypertension, COPD, gait instability who uses a walker to ambulate at baseline, presents with atraumatic left hip pain since earlier today. Related Data Home Medications ?Medication ?Instructions ?Recorded ?Confirmed bupropion HCl 150 mg 24 hr tablet, 150 mg PO DAILY 05/22/21 07/01/24 extended release gemfibrozil 600 mg tablet 600 mg PO BID 05/22/21 07/01/24 sertraline 100 mg tablet 100 mg PO DAILY 05/22/21 07/01/24 simvastatin 40 mg tablet 40 mg PO BEDTIME 05/22/21 07/01/24 temazepam 30 mg capsule 30 mg PO BEDTIME PRN Insomnia 05/22/21 07/01/24 trazodone 150 mg tablet 450 mg PO BEDTIME 05/22/21 07/01/24 valacyclovir 500 mg tablet 500 mg PO DAILY 05/22/21 07/01/24 multivitamin 1 tab PO DAILY 10/07/22 07/01/24 pantoprazole 40 mg tablet,delayed 40 mg PO DAILY@0630 09/27/23 07/01/24 release albuterol sulfate 2.5 mg/3 mL 2.5 mg inhalation Q6H PRN SOB 03/12/24 07/01/24 (0.083 %) solution for nebulization aspirin 81 mg tablet,delayed 81 mg PO DAILY 03/12/24 07/01/24 release cholecalciferol (vitamin D3) 25 25 mcg PO DAILY 03/12/24 07/01/24 mcg (1,000 unit) tablet (Vitamin D3) docusate sodium 100 mg capsule 100 mg PO BID 03/12/24 07/01/24 (Colace) fluticasone propionate 50 1 spray intranasal BID 03/12/24 07/01/24 mcg/actuation nasal spray,suspension loratadine 10 mg tablet 10 mg PO DAILY 03/12/24 07/01/24 aripiprazole 5 mg tablet 5 mg PO DAILY 05/17/24 07/01/24 fluticasone fur. 100 mcg-umeclid 1 ea inhalation DAILY 05/17/24 07/01/24 62.5 mcg-vilant 25 mcg inhalat.powder (Trelegy Ellipta) anastrozole 1 mg tablet 1 mg PO DAILY 07/01/24 07/01/24 levalbuterol tartrate 45 2 inh inhalation Q6H 07/01/24 07/01/24 mcg/actuation aerosol inhaler (Xopenex HFA) metformin 1,000 mg tablet 1,000 mg PO BID 07/01/24 07/01/24 sodium chloride 0.2 % nasal spray 1 spray intranasal Q4H PRN dryness 07/01/24 07/01/24 inside the nose Previous Rx's ?Medication ?Instructions ?Recorded carvedilol 12.5 mg tablet 12.5 mg PO BID #180 tabs 07/03/24 doxycycline hyclate 100 mg tablet 100 mg PO BID #20 tabs 07/03/24 losartan 25 mg tablet 25 mg PO DAILY #90 tabs 07/03/24 Allergies Allergy/AdvReac Type Severity Reaction Status Date / Time Iodinated Contrast Media Allergy Unknown UNKNOWN Verified 10/21/24 15:01 [IV Dye, Iodine Containing] zolpidem [From AMBIEN] Allergy Unknown UNKNOWN Verified 10/21/24 15:01 iv dye as a baby Allergy Unknown Unknown Uncoded 10/21/24 15:01 Review of Systems Review of Systems: Yes all other systems are reviewed and are negative Constitutional: Constitutional: Denies fatigue and Denies fever(s) Cardiovascular: Cardiovascular: Denies chest pain and Denies dyspnea Respiratory: Respiratory: Denies dyspnea Musculoskeletal: Musculoskeletal: Denies back pain, Reports arthralgias, Denies joint swelling, Denies numbness, Denies radiating pain into limb and Denies tingling Neurologic: Denies numbness and Denies tingling Endocrine: Endocrine: Denies fatigue PMFSH Past Medical History Attestation statement: The following information was validated with the patient. 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 Housing: Apartment Do you presently have visiting nurse or other home services: Yes Unable to assess alcohol history related to: Unable to respond Alcohol intake: never Patient Tobacco Use Status: Current everyday Tobacco user Tobacco use type: Cigarette Cigarette Packs Per Day: 0.75 Cigarettes Per Day: 15.0 e-Cigarette/Vaping Use: Never Used Second Hand Smoke Exposure: Yes Substance Use Type: Marijuana Advance Directives: No Advance Directives Information Provided: No Advance Directives Date on File: 02/23/23 Do you have a plan to hurt others: No Plan service: No Current occupational status: disabled Physical Exam ED Vital Signs: Vital Signs - 24 hr 10/21/24 14:59 10/21/24 20:17 Temperature 98 F 98.0 F Pulse Rate 62 61 Respiratory Rate 17 16 Blood Pressure 139/60 153/81 H Pulse Oximetry 91 L 97 Oxygen Delivery Method Room Air Room Air BMI result Body Mass Index 26.8 Const Other: Alert, appears older than stated age Orientation/consciousness: patient oriented x3 Resp Effort & Inspection: normal respiratory effort Cardio Other: Normal peripheral perfusion Skin Other: Warm dry no rash Neuro Other: Antalgic gait, patient ambulates at her baseline with a walker General: patient oriented x3, no focal motor deficits and CN's II-XI intact bilaterally Psych Other: Cooperative Course Course Course Narrative: This is a Rapid Medical Examination (RME) performed by Karen Snyder PA-C in triage. Full HPI, ROS, assessment and treatment plan per primary provider in the Main ED. 64 yo female here for eval of left hip pain and numbness/pain down leg. no falls/trauma. called pcp this morning, advised to come to ED. s/p right hip replacement. + Ambulates with walker at baseline. More difficult recently due to pain. Plan: xrs Medical Decision Making Medical Decision Making MDM Narrative: 64-year-old female with a history of morbid obesity, hypertension, COPD, gait instability who uses a walker to ambulate at baseline, presents with atraumatic left hip pain since earlier today. Problem: Age , gait instability History: Per patient I have considered the following differential diagnoses: Fracture, dislocation, arthritis, sprain Plan: X-ray obtained from triage she has a arthritis, she ambulates at her baseline, she can follow up with primary care I have independently reviewed the following tests: X-ray left hip: XR/XR hip LT w PEL1V IMPRESSION: 1. No acute findings left hip. Mild to moderate osteoarthrosis as detailed. 2. Extensive hardware fixation of the anterior and posterior pelvis related to old trauma. 3. Total right hip arthroplasty without complication. Electronically signed by: Horace Quiles MD 10/21/2024 04:20 PM EDT Lab Data Labs: Lab Results 10/21/24 Range/Units 20:42 Urine Color Yellow Urine Appearance Clear Urine pH 5.5 (5.0-9.0) Ur Specific [place] 1.015 (1.005-1.025) Urine Protein Negative (Neg-Trace) mg/dL Urine Glucose (UA) Negative (Negative) mg/dL Urine Ketones Negative (Negative) mg/dL Urine Blood Negative (Negative) Urine Nitrite Negative (Negative) Ur Leukocyte Esterase Negative (Negative) Urine RBC 0-2 (0-2) /HPF Urine WBC 0-5 (0-5) /HPF Ur Squamous Epith Cells 0-2 (0-2) /HPF Urine Bacteria None Seen (None Seen) Hyaline Casts 0-2 (0-2) /LPF Discharge Plan Discharge Clinical Impression: Arthritis of left hip Patient Disposition: Home, Self-Care Instructions: Osteoarthritis (ED) Additional Instructions: You were found to have arthritis on the x-ray of the hip. See home care instructions. You can use [id number] Tylenol 1000 mg taken every 8 hours as needed for your discomfort. You need to follow up with your primary care provider, they may refer you to a specialist for joint injections for your arthritic changes. Prescriptions: No Action sertraline 100 mg tablet 100 mg PO DAILY valacyclovir 500 mg tablet 500 mg PO DAILY simvastatin 40 mg tablet 40 mg PO BEDTIME temazepam 30 mg capsule 30 mg PO BEDTIME PRN (Reason: Insomnia) gemfibrozil 600 mg tablet 600 mg PO BID trazodone 150 mg tablet 450 mg PO BEDTIME bupropion HCl 150 mg tablet extended release 24 hr 150 mg PO DAILY multivitamin Tablet 1 tab PO DAILY albuterol sulfate 2.5 mg /3 mL (0.083 %) Solution For Nebulization 2.5 mg INHALATION Q6H PRN (Reason: SOB) aspirin 81 mg Tablet,Delayed Release (Dr/Ec) 81 mg PO DAILY docusate sodium [Colace] 100 mg Capsule 100 mg PO BID cholecalciferol (vitamin D3) [Vitamin D3] 25 mcg (1,000 unit) Tablet 25 mcg PO DAILY fluticasone propionate 50 mcg/actuation [place],Suspension 1 spray INTRANASAL BID Rx Instructions: administer into each nostril loratadine 10 mg Tablet 10 mg PO DAILY Trelegy Ellipta 100-62.5-25 mcg blister with device 1 ea inhalation DAILY aripiprazole 5 mg tablet 5 mg PO DAILY metformin 1,000 mg tablet 1,000 mg PO BID anastrozole 1 mg Tablet 1 mg PO DAILY levalbuterol tartrate [Xopenex HFA] 45 mcg/actuation Hfa Aerosol Inhaler 2 inh INHALATION Q6H sodium chloride 0.2 % [place],Non-Aerosol 1 spray INTRANASAL Q4H PRN (Reason: dryness inside the nose) carvedilol 12.5 mg Tablet 12.5 mg PO BID Qty: 180 0RF Protocol: Hold for SBP/HR < HOLD for SBP < : 90 HOLD for HR < : 60 losartan 25 mg Tablet 25 mg PO DAILY Qty: 90 0RF Protocol: Hold for SBP< HOLD for SBP < : 90 doxycycline hyclate 100 mg tablet 100 mg PO BID Qty: 20 0RF Rx Instructions: End date 07/02/2024 pantoprazole 40 mg tablet,delayed release (DR/EC) 40 mg PO DAILY@8530 Print Language: Martiniquais
[2024-10-21 20:17] VITALS: BP 153/81; PULSE 61; RESP 16; TEMP 36.7; O2SAT 97
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
--- OUTSIDE RECORDS SUMMARY | 2024-10-21 20:32 | XMS_ITS | Continuity of Care Document ---
Author Organization [facility] Tun[place] Address [address] [place] [address]- Care Team Providers Care Client Evaluator Name Role Phone Nando SAUCEDA, Meghan Beaulieu Primary Care Physician En[place] [facility] [place] [facility] [place] R [id number] Date(s): 09/17/24 - 10/17/24 [facility] Adult [address] [place] [address]- Encounter Type: Triage Allergies, Adverse Reactions, Alerts Substance Criticality Severity Reaction Reaction Severity Status iodinated radiocontrast dyes unknown Active Ambien Unable to assess criticality Persistent Severe walks in sleep Active Compazine unknown Active Immunizations Given and Recorded Vaccine Date Status Refusal Reason [id number] 12y+ bivalent booster vax 06/29/22 Recorded SARS-CoV-2 [...] [facility] 2Admin Note: given at [facility] 3Admin Note: VIS Given Flulaval 4Admin Note: VIS Given Flulaval 5Admin Note: Received at [facility] 6Admin Note: Received at [facility] 7Admin Note: [facility] 8Admin Note: MobioticsOFI PASTEUR Medications 3 and 1 commode 3 [...] Refills, Maintenance, 03/22/24 10:28:00 AM EDT, [id number], Partial fill upon patient request if the [...] 9:56:30 AM EDT, Route to Pharmacy Electronically, [facility] [address] Start Date: 02/21/19 Status: Ordered Quantity: 90.0 [...] 10:53:00 AM EST, Route to Pharmacy Electronically, [facility] #[id number], Partial fillupon patient request if the prescription [...] 7:25:00 AM EDT, Route to Pharmacy Electronically, [facility] #[id number], 165.1, cm, 03/26/20 18:59:00 EDT, Height, 77.27, [...] 6 Refills, Maintenance, 12/09/22 9:55:00 AM EDT, [facility] #62704, Partial fill upon patient request if the [...] TWICE DAILY, # 48 Gm, 1 Refills, [facility] #96985, 90, SHAKE LIQUID AND USE 1 SPRAY [...] 11:53:00 AM EST, Route to Pharmacy Electronically, [facility] #[phone], 160, cm, 07/09/24 10:35:00 EST, Height Start Date: 08/22/24 Status: Ordered Quantity: 180.0 Unit: tablet Repeat number: 1 lidocaine topical 2% solution 5 mL = 0.1 Gm, Topically, 3 times a day with meals, PRN for mouth sore pain, Swoosh and spitt, # 100 mL, 0 Refills, Maintenance, 11/29/23 2:45:00 PM EDT, Solution, [facility] #[phone], Partialfill upon patient request if the prescription [...] 5:26:00 PM EDT, Route to Pharmacy Electronically, [facility] #42717, 160, cm, 03/12/21 13:49:00 EDT, Height, 76.5, kg, 06/11/20 12:40:00 EDT, Dry Weight Start Date: 03/19/21 Status: Ordered Quantity: 30.0 Unit: tablet Repeat number: 1 metFORMIN 1000 mg oral tablet 1 tablet, By Mouth, 2 times a day, PLEASE HAVE LABS DRAWN FOR ADDITIONAL REFILLS., # 180 tablet, 1 Refills, Maintenance, 11/24/23 8:47:00 AM EDT, [facility] #07558, 160, cm, 11/23/23 12:54:00 EDT, Height Start Date: 11/24/23 Status: Ordered Quantity: 180.0 Unit: tablet Repeat number: 2 multivitamin Multiple Vitamins oral tablet 1 tablet, By Mouth, Daily, # 90 tablet, 1 Refills, Maintenance, 02/21/19 10:05:02 AM EDT, Tablet, [facility], 1 tablet By Mouth Daily Start Date: [...] Refills, Maintenance, 09/11/20 11:48:00 AM EST, Tablet, [facility] #[phone], Partial fill upon patient request if the [...] 0 Refills, Maintenance, 06/21/23 10:19:00 AM EST, [facility] #[id number], Partial fill upon patient request if the [...] 11:53:00 AM EST, Route to Pharmacy Electronically, [facility] #[id number], 160, cm, 07/09/24 10:35:00 EST, Height Start Date: 08/22/24 Status: Ordered Quantity: 90.0 Unit: tablet Repeat number: 3 [facility], See Instructions, # 1 each, Refills 0, Tot. Refills 0, Maintenance, [facility] 03/13/24 9:51:00 AM EDT, Supply Start [...] Refills, Maintenance, 08/20/19 4:12:00 PM EST, Tablet, [facility] #[phone], 155, cm, 08/20/19 15:13:00 EST, Height, 78.7, kg, 04/18/19 14:17:00 EDT, Dry Weight Start Date: 08/20/19 Status: Ordered Quantity: 90.0 Unit: tablet Repeat number: 2 Trelegy Ellipta 100 mcg-62.5 mcg-25 mcg/inh inhalation powder 1 puffs, Inhalation, Daily, at the same time every day, # 1 each, 5 Refills, Maintenance, 03/21/24 2:34:00 PM EDT, Powder, [facility] #[phone], copd j44.9, 160, cm, 03/21/24 14:08:00 EDT, Height Start Date: 03/21/24 Stop Date: 09/17/24 Status: Ordered Quantity: 1.0 Unit: each Repeat number: 6 valACYclovir 500 mg oral tablet 1, tablet, By Mouth, Daily, # 30 tablet, Refills 0, Maintenance, 10/14/24 8:24:00 AM EST, Route to Pharmacy Electronically, [facility] #[phone], 160, cm, 07/09/24 10:35:00 EST, Height Start Date: 10/14/24 Status: Ordered Quantity: 30.0 Unit: tablet Repeat number: 1 Vitamin D3 1000 intl units oral capsule 1 capsule = 1,000 International_Units, By Mouth, Daily, # 100 capsule, 3 Refills, Maintenance, 02/21/19 10:00:44 AM EDT, Capsule, [facility] [address] Start Date: 02/21/19 Status: Ordered Quantity: 100.0 Unit: capsule Repeat number: 4 Wellbutrin XL 150 mg/24 hours oral tablet, extended release 1 tablet = 150 mg, By Mouth, Every 24 hours, # 30 tablet, 5 Refills, Maintenance, 02/21/19 9:58:26 AM EDT, ER Tablet, [facility] 94285, going to replace prozac. Will need one [...] Refills, Maintenance, 10/17/19 11:13:00 AM EST, Aerosol, [facility] #24906, 155, cm, 10/17/19 10:58:00 EST, Height, 78.7, [...] Care Team Personnel Name: Jessy Higgins Position: [facility] Onco RN Member Role: Primary Care Nurse Name: Meghan Collier NP Position: [facility] PCO Associate Professional Member Role: PCP Address: [address] [place] [phone]- Telecom: Name: Anne Dinh RN Position: [facility] RN Member Role: Primary Care Nurse Name: Blaire Lemos RN Position: [facility] RN Member Role: Primary Care Nurse Name: Breanna (Bayjuliet) Dulce Maria Position: [facility] bartender manager Member Role: Manager Balance Name: Albania Hoover RN Position: [facility] RN Member Role: Primary Care Nurse Name: Lianna Villareal RN Position: [facility] RN Member Role: Primary Care Nurse Name: Jose Pereira RN Position: [facility] RN Member Role: Primary Care Nurse Care Team Related Persons Name: BUDDY BAUTISTA Name: CRIS SANTANA Name: AIDA SANTANA Name: RAVEN WISE Name: RAVEN WISE [facility] Insurance Providers Guarantor name: NATI [facility] Plan Information #: 1 Payer: MEDICARE PART B OUTPT Member Number: NA Policy Number: NA Group Number: NA Health Plan Information #: 2 Payer: [facility] Member Number: NA Policy Number: NA Group Number: NA
--- OUTSIDE RECORDS SUMMARY | 2024-10-21 20:33 | XMS_ITS | Continuity of Care Document ---
Author Organization [facility] [place] Address [address] [place] [address]- Care Team Providers Care Postal Service Sectional Center Manager Name Role Phone Nando SAUCEDA, Meghan Beaulieu Primary Care Physician En[place] [facility] [place] Date(s): 08/26/24 - 09/25/24 [facility] Adult [address] [place] [address]- Encounter Type: Triage Allergies, Adverse Reactions, Alerts Substance Criticality Severity Reaction Reaction Severity Status iodinated radiocontrast dyes unknown Active Ambien Unable to assess criticality Persistent Severe walks in sleep Active Compazine unknown Active Immunizations Given and Recorded Vaccine Date Status Refusal Reason [id number] 12y+ bivalent booster vax 06/29/22 Recorded SARS-CoV-2 [...] [facility] 2Admin Note: given at [facility] 3Admin Note: VIS Given Flulaval 4Admin Note: VIS Given Flulaval 5Admin Note: Received at [facility] 6Admin Note: Received at [facility] 7Admin Note: [facility] 8Admin Note: ZipmentsOFI PASTEUR Medications 3 and 1 commode 3 [...] Refills, Maintenance, 03/22/24 10:28:00 AM EDT, [id number], Partial fill upon patient request if the [...] 9:56:30 AM EDT, Route to Pharmacy Electronically, [facility] [address] Start Date: 02/21/19 Status: Ordered Quantity: 90.0 [...] 10:53:00 AM EST, Route to Pharmacy Electronically, [facility] #[id number], Partial fillupon patient request if the prescription is for a schedule II opioid drug., 160, cm, 07/09/24 10:35:00 EST, Height Start Date: 07/09/24 Stop Date: 02/04/25 Status: Ordered Quantity: 60.0 Unit: tablet Repeat number: 7 cefpodoxime 200 mg oral tablet 1 tablet = 200 mg, By Mouth, Every 12 hours, for 7 days, # 14 tablet, 0 Refills, Acute 09/30/24 2:54:00 PM EST, 09/23/24 2:54:00 PM EST, Tablet, [facility] #60260, Partial fill upon patient request if the prescription is for a schedule II opioid drug., 160, cm, 07/09/24 10:35:00 EST, Height Start Date: 09/23/24 Stop Date: 09/30/24 Status: Ordered Quantity: 14.0 Unit: tablet Repeat number: 1 Colace sodium 100 mg oral capsule 100 mg, 1, capsule, By Mouth, 2 times a day, PRN, # 60 capsule, Refills 0, Tot. Refills 0, Maintenance, Constipation, 03/27/20 7:25:00 AM EDT, Route to Pharmacy Electronically, [facility] #63506, 165.1, cm, 03/26/20 18:59:00 EDT, Height, 77.27, kg, 03/23/20 11:58:00 EDT, Dry Weight Start Date: 03/27/20 Status: Ordered Quantity: 60.0 Unit: capsule Repeat number: 1 CPAP 8 cmH20 with 3 L O2 CPAP 8 cmH20 with 3 L O2, See Instructions, # 1 each, Refills 0, Tot. Refills 0, Maintenance, with heated humidification, use overnight and naps, from [facility]. G47.33, 12/16/22 1:27:00 PM EDT, Compound Start Date: 12/16/22 Status: Ordered Quantity: 1.0 Unit: each Repeat number: 1 cranberry oral capsule = 250 mg, By Mouth, Daily, # 30 capsule, 6 Refills, Maintenance, 12/09/22 9:55:00 AM EDT, [facility] #50126, Partial fill upon patient request if the [...] Maintenance, DX: Left Hemiparesis L.O.N. 99 years, 09/23/24 1:56:00 PM EST, Supply Start Date: 09/23/24 Status: Ordered Quantity: 1.0 Unit: each Repeat number: 1 fluticasone 50 mcg/inh nasal spray See Instructions, SHAKE LIQUID AND USE 1 SPRAY IN EACH NOSTRIL TWICE DAILY, # 48 Gm, 1 Refills, [facility] #51665, 90, SHAKE LIQUID AND USE 1 SPRAY [...] 11:53:00 AM EST, Route to Pharmacy Electronically, [facility] #[id number], 160, cm, 07/09/24 10:35:00 EST, Height Start Date: 08/22/24 Status: Ordered Quantity: 180.0 Unit: tablet Repeat number: 1 lidocaine topical 2% solution 5 mL = 0.1 Gm, Topically, 3 times a day with meals, PRN for mouth sore pain, Swoosh and spitt, # 100 mL, 0 Refills, Maintenance, 11/29/23 2:45:00 PM EDT, Solution, [facility] #21374, Partialfill upon patient request if the prescription [...] 5:26:00 PM EDT, Route to Pharmacy Electronically, [facility] #29913, 160, cm, 03/12/21 13:49:00 EDT, Height, 76.5, kg, 06/11/20 12:40:00 EDT, Dry Weight Start Date: 03/19/21 Status: Ordered Quantity: 30.0 Unit: tablet Repeat number: 1 metFORMIN 1000 mg oral tablet 1 tablet, By Mouth, 2 times a day, PLEASE HAVE LABS DRAWN FOR ADDITIONAL REFILLS., # 180 tablet, 1 Refills, Maintenance, 11/24/23 8:47:00 AM EDT, [facility] #56660, 160, cm, 11/23/23 12:54:00 EDT, Height Start Date: 11/24/23 Status: Ordered Quantity: 180.0 Unit: tablet Repeat number: 2 multivitamin Multiple Vitamins oral tablet 1 tablet, By Mouth, Daily, # 90 tablet, 1 Refills, Maintenance, 02/21/19 10:05:02 AM EDT, Tablet, [facility], 1 tablet By Mouth Daily Start Date: [...] Refills, Maintenance, 09/11/20 11:48:00 AM EST, Tablet, [facility] #61281, Partial fill upon patient request if the [...] 0 Refills, Maintenance, 06/21/23 10:19:00 AM EST, [facility] #[id number], Partial fill upon patient request if the [...] 11:53:00 AM EST, Route to Pharmacy Electronically, [facility] #[id number], 160, cm, 07/09/24 10:35:00 EST, Height Start Date: 08/22/24 Status: Ordered Quantity: 90.0 Unit: tablet Repeat number: 3 CUSTODIAL CUSTODIAL, See Instructions, # 1 each, Refills 0, Tot. Refills 0, Maintenance, [facility] 03/13/24 9:51:00 AM EDT, Supply Start [...] Refills, Maintenance, 08/20/19 4:12:00 PM EST, Tablet, [facility] #32322, 155, cm, 08/20/19 15:13:00 EST, Height, 78.7, kg, 04/18/19 14:17:00 EDT, Dry Weight Start Date: 08/20/19 Status: Ordered Quantity: 90.0 Unit: tablet Repeat number: 2 Trelegy Ellipta 100 mcg-62.5 mcg-25 mcg/inh inhalation powder 1 puffs, Inhalation, Daily, at the same time every day, # 1 each, 5 Refills, Maintenance, 03/21/24 2:34:00 PM EDT, Powder, [facility] #24987, copd j44.9, 160, cm, 03/21/24 14:08:00 EDT, Height Start Date: 03/21/24 Stop Date: 09/17/24 Status: Ordered Quantity: 1.0 Unit: each Repeat number: 6 valACYclovir 500 mg oral tablet 1, tablet, By Mouth, Daily, # 30 tablet, Refills 1, Maintenance, 08/15/24 6:37:00 AM EST, Route to Pharmacy Electronically, [facility] #33068, 160, cm, 07/09/24 10:35:00 EST, Height Start Date: 08/15/24 Status: Ordered Quantity: 30.0 Unit: tablet Repeat number: 1 Vitamin D3 1000 intl units oral capsule 1 capsule = 1,000 International_Units, By Mouth, Daily, # 100 capsule, 3 Refills, Maintenance, 02/21/19 10:00:44 AM EDT, Capsule, [facility] 13978 Start Date: 02/21/19 Status: Ordered Quantity: 100.0 Unit: capsule Repeat number: 4 Wellbutrin XL 150 mg/24 hours oral tablet, extended release 1 tablet = 150 mg, By Mouth, Every 24 hours, # 30 tablet, 5 Refills, Maintenance, 02/21/19 9:58:26 AM EDT, ER Tablet, [facility] 54727, going to replace prozac. Will need one [...] Refills, Maintenance, 10/17/19 11:13:00 AM EST, Aerosol, [facility] #63165, 155, cm, 10/17/19 10:58:00 EST, Height, 78.7, [...] Care Team Personnel Name: Jessy Higgins Position: [facility] Onco RN Member Role: Primary Care Nurse Name: Meghan Collier NP Position: [facility] PCO Associate Professional Member Role: PCP Address: [address] [place] [phone]- Telecom: Name: Anne Dinh RN Position: [facility] RN Member Role: Primary Care Nurse Name: Blaire Lemos RN Position: S RN Member Role: Primary Care Nurse Name: Breanna (Bayjuliet) Dulce Maria Position: [facility] heating and ventilating worker Member Role: Knife Edger Name: Albania Hoover RN Position: [facility] RN Member Role: Primary Care Nurse Name: Lianna Villareal RN Position: [facility] RN Member Role: Primary Care Nurse Name: Jose Pereira RN Position: [facility] SN RN Member Role: Primary Care Nurse Care Team Related Persons Name: BUDDY BAUTISTA Name: CRIS SANTANA Name: AIDA SANTANA Name: RAVEN WISE Name: RAVEN WISE [facility] Insurance Providers Guarantor name: NATI BAUTISTA [facility] Information #: 1 Payer: MEDICARE PART B OUTPT Member Number: NA Policy Number: NA Group Number: NA Health Plan Information #: 2 Payer: [facility] Member Number: NA Policy Number: NA Group Number: NA
--- OUTSIDE RECORDS SUMMARY | 2024-10-21 20:33 | XMS_ITS | Continuity of Care Document ---
Author Organization [facility] [place] Address [address] [place] [address]- Care Team Providers Care Chalk Machine Operator Name Role Phone Nando SAUCEDA, Meghan Beaulieu Primary Care Physician Encounter [facility] [place] ACCT R [id number] Date(s): 08/21/24 - 09/20/24 [facility] Adult [address] [place] [address]- Encounter Type: Triage Allergies, Adverse Reactions, Alerts Substance Criticality Severity Reaction Reaction Severity Status iodinated radiocontrast dyes unknown Active Ambien Unable to assess criticality Persistent Severe walks in sleep Active Compazine unknown Active Immunizations Given and Recorded Vaccine Date Status Refusal Reason [id number] 12y+ bivalent booster vax 06/29/22 Recorded SARS-CoV-2 [...] [facility] 2Admin Note: [facility] at [facility] 3Admin Note: VIS Given Flulaval 4Admin Note: VIS Given Flulaval 5Admin Note: Received at [facility] 6Admin Note: Received at [facility] 7Admin Note: [facility] 8Admin Note: Bar SaintOFI PASTEUR Medications 3 and 1 commode 3 [...] Refills, Maintenance, 03/22/24 10:28:00 AM EDT, [facility], [id number], Partial fill upon patient request if the [...] 9:56:30 AM EDT, Route to Pharmacy Electronically, [facility] [address] Start Date: 02/21/19 Status: Ordered Quantity: 90.0 [...] 10:53:00 AM EST, Route to Pharmacy Electronically, [facility] #[id number], Partial fillupon patient request if the prescription [...] 7:25:00 AM EDT, Route to Pharmacy Electronically, [facility] #09912, 165.1, cm, 03/26/20 18:59:00 EDT, Height, 77.27, kg, 03/23/20 11:58:00 EDT, Dry Weight Start Date: 03/27/20 Status: Ordered Quantity: 60.0 Unit: capsule Repeat number: 1 CPAP 8 cmH20 with 3 L O2 CPAP 8 cmH20 with 3 L O2, See Instructions, # 1 each, Refills 0, Tot. Refills 0, Maintenance, with heated humidification, use overnight and naps, from [facility]. G47.33, 12/16/22 1:27:00 PM EDT, Compound Start Date: 12/16/22 Status: Ordered Quantity: 1.0 Unit: each Repeat number: 1 cranberry oral capsule = 250 mg, By Mouth, Daily, # 30 capsule, 6 Refills, Maintenance, 12/09/22 9:55:00 AM EDT, [facility] #59321, Partial fill upon patient request if the [...] Date: 01/21/20 Status: Ordered Repeat number: 1 fluticasone 50 mcg/inh nasal spray See Instructions, SHAKE LIQUID AND USE 1 SPRAY IN EACH NOSTRIL TWICE DAILY, # 48 Gm, 1 Refills, [facility] #58558, 90, SHAKE LIQUID AND USE 1 SPRAY [...] 11:53:00 AM EST, Route to Pharmacy Electronically, [facility] #04080, 160, cm, 07/09/24 10:35:00 EST, Height Start Date: 08/22/24 Status: Ordered Quantity: 180.0 Unit: tablet Repeat number: 1 lidocaine topical 2% solution 5 mL = 0.1 Gm, Topically, 3 times a day with meals, PRN for mouth sore pain, Swoosh and spitt, # 100 mL, 0 Refills, Maintenance, 11/29/23 2:45:00 PM EDT, Solution, [facility] #[id number], Partialfill upon patient request if the prescription [...] 5:26:00 PM EDT, Route to Pharmacy Electronically, [facility] #[id number], 160, cm, 03/12/21 13:49:00 EDT, Height, 76.5, kg, 06/11/20 12:40:00 EDT, Dry Weight Start Date: 03/19/21 Status: Ordered Quantity: 30.0 Unit: tablet Repeat number: 1 metFORMIN 1000 mg oral tablet 1 tablet, By Mouth, 2 times a day, PLEASE HAVE LABS DRAWN FOR ADDITIONAL REFILLS., # 180 tablet, 1 Refills, Maintenance, 11/24/23 8:47:00 AM EDT, [facility] #52505, 160, cm, 11/23/23 12:54:00 EDT, Height Start Date: 11/24/23 Status: Ordered Quantity: 180.0 Unit: tablet Repeat number: 2 multivitamin Multiple Vitamins oral tablet 1 tablet, By Mouth, Daily, # 90 tablet, 1 Refills, Maintenance, 02/21/19 10:05:02 AM EDT, Tablet, [facility] 68[facility], 1 tablet By Mouth Daily Start Date: [...] Refills, Maintenance, 09/11/20 11:48:00 AM EST, Tablet, [facility] #58204, Partial fill upon patient request if the [...] 0 Refills, Maintenance, 06/21/23 10:19:00 AM EST, [facility] #08251, Partial fill upon patient request if the [...] 11:53:00 AM EST, Route to Pharmacy Electronically, [facility] #64277, 160, cm, 07/09/24 10:35:00 EST, Height Start Date: 08/22/24 Status: Ordered Quantity: 90.0 Unit: tablet Repeat number: 3 RETIREMENT RETIREMENT, See Instructions, # 1 each, Refills 0, Tot. Refills 0, Maintenance, [facility] 03/13/24 9:51:00 AM EDT, Supply Start [...] Refills, Maintenance, 08/20/19 4:12:00 PM EST, Tablet, [facility] #60982, 155, cm, 08/20/19 15:13:00 EST, Height, 78.7, kg, 04/18/19 14:17:00 EDT, Dry Weight Start Date: 08/20/19 Status: Ordered Quantity: 90.0 Unit: tablet Repeat number: 2 Trelegy Ellipta 100 mcg-62.5 mcg-25 mcg/inh inhalation powder 1 puffs, Inhalation, Daily, at the same time every day, # 1 each, 5 Refills, Maintenance, 03/21/24 2:34:00 PM EDT, Powder, [facility] #30319, copd j44.9, 160, cm, 03/21/24 14:08:00 EDT, Height Start Date: 03/21/24 Stop Date: 09/17/24 Status: Ordered Quantity: 1.0 Unit: each Repeat number: 6 valACYclovir 500 mg oral tablet 1, tablet, By Mouth, Daily, # 30 tablet, Refills 1, Maintenance, 08/15/24 6:37:00 AM EST, Route to Pharmacy Electronically, [facility] #81547, 160, cm, 07/09/24 10:35:00 EST, Height Start Date: 08/15/24 Status: Ordered Quantity: 30.0 Unit: tablet Repeat number: 1 Vitamin D3 1000 intl units oral capsule 1 capsule = 1,000 International_Units, By Mouth, Daily, # 100 capsule, 3 Refills, Maintenance, 02/21/19 10:00:44 AM EDT, Capsule, [facility] 99591 Start Date: 02/21/19 Status: Ordered Quantity: 100.0 Unit: capsule Repeat number: 4 Wellbutrin XL 150 mg/24 hours oral tablet, extended release 1 tablet = 150 mg, By Mouth, Every 24 hours, # 30 tablet, 5 Refills, Maintenance, 02/21/19 9:58:26 AM EDT, ER Tablet, [facility] 15298, going to replace prozac. Will need one [...] Refills, Maintenance, 10/17/19 11:13:00 AM EST, Aerosol, [facility] #43334, 155, cm, 10/17/19 10:58:00 EST, Height, 78.7, [...] Care Team Personnel Name: Jessy Higgins Position: [facility] Onco RN Member Role: Primary Care Nurse Name: Nando SAUCEDA, Meghan Beaulieu Position: [facility] PCO Associate Professional Member Role: PCP Address: [address] [place] [phone]- Telecom: Name: Anne Dinh RN Position: [facility] ED RN W/OE and Tasks Member Role: Primary Care Nurse Name: Blaire Lemos RN Position: [facility] RN Member Role: Primary Care Nurse Name: Breanna ([employer]) Dulce Maria Position: [facility] well shooter Member Role: Breakfast Hostess Name: Albania Hoover RN Position: [facility] RN Member Role: Primary Care Nurse Name: Lianna Villareal RN Position: [facility] RN Member Role: Primary Care Nurse Name: Jose Pereira RN Position: [facility] SN RN Member Role: Primary Care Nurse Care Team Related Persons Name: BUDDY BAUTISTA Name: CRIS SANTANA Name: AIDA SANTANA Name: RAVEN WISE Name: RAVEN WISE [employer]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
--- OUTSIDE RECORDS SUMMARY | 2024-10-21 20:33 | XMS_ITS | Continuity of Care Document ---
Author Organization [facility] [place] Address [address] [place] [address]- Care Team Providers Care Welding Specialist Name Role Phone Nando SAUCEDA, Meghan Beaulieu Primary Care Physician En[place] [facility] [place] Date(s): 09/06/24 - 10/06/24 [facility] Adult [address] [place] [address]- Encounter Type: Triage Allergies, Adverse Reactions, Alerts Substance Criticality Severity Reaction Reaction Severity Status iodinated radiocontrast dyes unknown Active Ambien Unable to assess criticality Persistent Severe walks in sleep Active Compazine unknown Active Immunizations Given and Recorded Vaccine Date Status Refusal Reason [id number] 12y+ bivalent booster vax 06/29/22 Recorded SARS-CoV-2 [...] [facility] 2Admin Note: given at [facility] 3Admin Note: VIS Given Flulaval 4Admin Note: VIS Given Flulaval 5Admin Note: Received at [facility] 6Admin Note: Received at [facility] 7Admin Note: [facility] 8Admin Note: [employer] PASTEUR Medications 3 and 1 commode 3 [...] Refills, Maintenance, 03/22/24 10:28:00 AM EDT, Solution, [id number], Partial fill upon patient request if the [...] 9:56:30 AM EDT, Route to Pharmacy Electronically, [facility] [address] Start Date: 02/21/19 Status: Ordered Quantity: 90.0 [...] 10:53:00 AM EST, Route to Pharmacy Electronically, [facility] #[id number], Partial fillupon patient request if the prescription [...] 7:25:00 AM EDT, Route to Pharmacy Electronically, [facility] #[id number], 165.1, cm, 03/26/20 18:59:00 EDT, Height, 77.27, [...] 6 Refills, Maintenance, 12/09/22 9:55:00 AM EDT, [facility] #[id number], Partial fill upon patient request if the [...] TWICE DAILY, # 48 Gm, 1 Refills, [facility] #[id number], 90, SHAKE LIQUID AND USE 1 SPRAY [...] 11:53:00 AM EST, Route to Pharmacy Electronically, [facility] #[id number], 160, cm, 07/09/24 10:35:00 EST, Height Start Date: 08/22/24 Status: Ordered Quantity: 180.0 Unit: tablet Repeat number: 1 lidocaine topical 2% solution 5 mL = 0.1 Gm, Topically, 3 times a day with meals, PRN for mouth sore pain, Swoosh and spitt, # 100 mL, 0 Refills, Maintenance, 11/29/23 2:45:00 PM EDT, Solution, [facility] #[id number], Partialfill upon patient request if the prescription [...] 5:26:00 PM EDT, Route to Pharmacy Electronically, [facility] #[id number], 160, cm, 03/12/21 13:49:00 EDT, Height, 76.5, kg, 06/11/20 12:40:00 EDT, Dry Weight Start Date: 03/19/21 Status: Ordered Quantity: 30.0 Unit: tablet Repeat number: 1 metFORMIN 1000 mg oral tablet 1 tablet, By Mouth, 2 times a day, PLEASE HAVE LABS DRAWN FOR ADDITIONAL REFILLS., # 180 tablet, 1 Refills, Maintenance, 11/24/23 8:47:00 AM EDT, [facility] #[id number], 160, cm, 11/23/23 12:54:00 EDT, Height Start Date: 11/24/23 Status: Ordered Quantity: 180.0 Unit: tablet Repeat number: 2 multivitamin Multiple Vitamins oral tablet 1 tablet, By Mouth, Daily, # 90 tablet, 1 Refills, Maintenance, 02/21/19 10:05:02 AM EDT, Tablet, [facility] [id number], 1 tablet By Mouth Daily Start Date: [...] Refills, Maintenance, 09/11/20 11:48:00 AM EST, Tablet, [facility] #[id number], Partial fill upon patient request if the [...] 0 Refills, Maintenance, 06/21/23 10:19:00 AM EST, [facility] #[id number], Partial fill upon patient request if the [...] 11:53:00 AM EST, Route to Pharmacy Electronically, [facility] #[id number], 160, cm, 07/09/24 10:35:00 EST, Height Start Date: 08/22/24 Status: Ordered Quantity: 90.0 Unit: tablet Repeat number: 3 [facility], See Instructions, # 1 each, Refills 0, Tot. Refills 0, Maintenance, [facility] 03/13/24 9:51:00 AM EDT, Supply Start [...] Refills, Maintenance, 08/20/19 4:12:00 PM EST, Tablet, [facility] #[id number], 155, cm, 08/20/19 15:13:00 EST, Height, 78.7, kg, 04/18/19 14:17:00 EDT, Dry Weight Start Date: 08/20/19 Status: Ordered Quantity: 90.0 Unit: tablet Repeat number: 2 Trelegy Ellipta 100 mcg-62.5 mcg-25 mcg/inh inhalation powder 1 puffs, Inhalation, Daily, at the same time every day, # 1 each, 5 Refills, Maintenance, 03/21/24 2:34:00 PM EDT, Powder, [facility] #[id number], copd j44.9, 160, cm, 03/21/24 14:08:00 EDT, Height Start Date: 03/21/24 Stop Date: 09/17/24 Status: Ordered Quantity: 1.0 Unit: each Repeat number: 6 valACYclovir 500 mg oral tablet 1, tablet, By Mouth, Daily, # 30 tablet, Refills 1, Maintenance, 08/15/24 6:37:00 AM EST, Route to Pharmacy Electronically, [facility] #[id number], 160, cm, 07/09/24 10:35:00 EST, Height Start Date: 08/15/24 Status: Ordered Quantity: 30.0 Unit: tablet Repeat number: 1 Vitamin D3 1000 intl units oral capsule 1 capsule = 1,000 International_Units, By Mouth, Daily, # 100 capsule, 3 Refills, Maintenance, 02/21/19 10:00:44 AM EDT, Capsule, [facility] [address] Start Date: 02/21/19 Status: Ordered Quantity: 100.0 Unit: capsule Repeat number: 4 Wellbutrin XL 150 mg/24 hours oral tablet, extended release 1 tablet = 150 mg, By Mouth, Every 24 hours, # 30 tablet, 5 Refills, Maintenance, 02/21/19 9:58:26 AM EDT, ER Tablet, [facility] [address], going to replace prozac. Will need one [...] Refills, Maintenance, 10/17/19 11:13:00 AM EST, Aerosol, [facility] #88583, 155, cm, 10/17/19 10:58:00 EST, Height, 78.7, [...] Care Team Personnel Name: Jessy Higgins Position: [facility] Onco RN Member Role: Primary Care Nurse Name: Meghan Collier NP Position: [facility] PCO Associate Professional Member Role: PCP Address: [address] [place] [address]- Telecom: Name: Anne Dinh RN Position: [facility] ED RN W/OE and Tasks Member Role: Primary Care Nurse Name: Blaire Lemos RN Position: [facility] RN Member Role: Primary Care Nurse Name: Breanna (Chucho) Dulce Maria Position: [facility] convex grinder operator Member Role: Weight And Test Bar Clerk Name: Albania Hoover RN Position: [facility] RN Member Role: Primary Care Nurse Name: Lianna Villareal RN Position: [facility] RN Member Role: Primary Care Nurse Name: Jose Pereira RN Position: [facility] SN RN Member Role: Primary Care Nurse Care Team Related Persons Name: BUDDY BAUTISTA Name: CRIS SANTANA Name: AIDA SANTANA Name: RAVEN WISE Name: 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
--- OUTSIDE RECORDS SUMMARY | 2024-10-21 20:33 | XMS_ITS | Continuity of Care Document ---
Author Organization [facility] [place] Address [address] [place] [address]- Care Team Providers Care Sales Operations Analyst Name Role Phone Nando SAUCEDA, Meghan Beaulieu Primary Care Physician [phone] [place] [facility] [place]): 08/22/24 - 09/21/24 [facility] Adult [address] [place] [address]- Encounter Type: Triage Allergies, Adverse Reactions, Alerts Substance Criticality Severity Reaction Reaction Severity Status iodinated radiocontrast dyes unknown Active Ambien Unable to assess criticality Persistent Severe walks in sleep Active Compazine unknown Active Immunizations Given and Recorded Vaccine Date Status Refusal Reason [id number] 12y+ bivalent booster vax 06/29/22 Recorded SARS-CoV-2 [...] [facility] 2Admin Note: given at [facility] 3Admin Note: VIS Given Flulaval 4Admin Note: VIS Given Flulaval 5Admin Note: Received at [facility] 6Admin Note: Received at [facility] 7Admin Note: [facility] 8Admin Note: [employer] PASTEUR Medications 3 and 1 commode 3 [...] Refills, Maintenance, 03/22/24 10:28:00 AM EDT, [id number], Partial fill upon patient request if the [...] 9:56:30 AM EDT, Route to Pharmacy Electronically, [facility] [address] Start Date: 02/21/19 Status: Ordered Quantity: 90.0 [...] 10:53:00 AM EST, Route to Pharmacy Electronically, [facility] #[id number], Partial fillupon patient request if the prescription [...] 7:25:00 AM EDT, Route to Pharmacy Electronically, [facility] #[id number], 165.1, cm, 03/26/20 18:59:00 EDT, Height, 77.27, [...] 6 Refills, Maintenance, 12/09/22 9:55:00 AM EDT, [facility] #[id number], Partial fill upon patient request if the [...] TWICE DAILY, # 48 Gm, 1 Refills, [facility] #06294, 90, SHAKE LIQUID AND USE 1 SPRAY [...] 11:53:00 AM EST, Route to Pharmacy Electronically, [facility] #[id number], 160, cm, 07/09/24 10:35:00 EST, Height Start Date: 08/22/24 Status: Ordered Quantity: 180.0 Unit: tablet Repeat number: 1 lidocaine topical 2% solution 5 mL = 0.1 Gm, Topically, 3 times a day with meals, PRN for mouth sore pain, Swoosh and spitt, # 100 mL, 0 Refills, Maintenance, 11/29/23 2:45:00 PM EDT, Solution, [facility] #69387, Partialfill upon patient request if the prescription [...] 5:26:00 PM EDT, Route to Pharmacy Electronically, [facility] #88810, 160, cm, 03/12/21 13:49:00 EDT, Height, 76.5, kg, 06/11/20 12:40:00 EDT, Dry Weight Start Date: 03/19/21 Status: Ordered Quantity: 30.0 Unit: tablet Repeat number: 1 metFORMIN 1000 mg oral tablet 1 tablet, By Mouth, 2 times a day, PLEASE HAVE LABS DRAWN FOR ADDITIONAL REFILLS., # 180 tablet, 1 Refills, Maintenance, 11/24/23 8:47:00 AM EDT, [facility] #29612, 160, cm, 11/23/23 12:54:00 EDT, Height Start Date: 11/24/23 Status: Ordered Quantity: 180.0 Unit: tablet Repeat number: 2 multivitamin Multiple Vitamins oral tablet 1 tablet, By Mouth, Daily, # 90 tablet, 1 Refills, Maintenance, 02/21/19 10:05:02 AM EDT, Tablet, [facility] 02011, 1 tablet By Mouth Daily Start Date: [...] Refills, Maintenance, 09/11/20 11:48:00 AM EST, Tablet, [facility] #[id number], Partial fill upon patient request if the [...] 0 Refills, Maintenance, 06/21/23 10:19:00 AM EST, [facility] #05033, Partial fill upon patient request if the [...] 11:53:00 AM EST, Route to Pharmacy Electronically, [facility] #[id number], 160, cm, 07/09/24 10:35:00 EST, Height Start [...] 4:12:00 PM EST, Tablet, [facility] #[id number], 155, cm, 08/20/19 15:13:00 EST, Height, 78.7, kg, 04/18/19 14:17:00 EDT, Dry Weight Start Date: 08/20/19 Status: Ordered Quantity: 90.0 Unit: tablet Repeat number: 2 Trelegy Ellipta 100 mcg-62.5 mcg-25 mcg/inh inhalation powder 1 puffs, Inhalation, Daily, at the same time every day, # 1 each, 5 Refills, Maintenance, 03/21/24 2:34:00 PM EDT, Powder, [facility] #76268, copd j44.9, 160, cm, 03/21/24 14:08:00 EDT, Height Start Date: 03/21/24 Stop Date: 09/17/24 Status: Ordered Quantity: 1.0 Unit: each Repeat number: 6 valACYclovir 500 mg oral tablet 1, tablet, By Mouth, Daily, # 30 tablet, Refills 1, Maintenance, 08/15/24 6:37:00 AM EST, Route to Pharmacy Electronically, [facility] #[id number], 160, cm, 07/09/24 10:35:00 EST, Height Start Date: 08/15/24 Status: Ordered Quantity: 30.0 Unit: tablet Repeat number: 1 Vitamin D3 1000 intl units oral capsule 1 capsule = 1,000 International_Units, By Mouth, Daily, # 100 capsule, 3 Refills, Maintenance, 02/21/19 10:00:44 AM EDT, Capsule, [facility] 03445 Start Date: 02/21/19 Status: Ordered Quantity: 100.0 Unit: capsule Repeat number: 4 Wellbutrin XL 150 mg/24 hours oral tablet, extended release 1 tablet = 150 mg, By Mouth, Every 24 hours, # 30 tablet, 5 Refills, Maintenance, 02/21/19 9:58:26 AM EDT, ER Tablet, [facility] 73096, going to replace prozac. Will need one [...] Refills, Maintenance, 10/17/19 11:13:00 AM EST, Aerosol, [facility] #[id number], 155, cm, 10/17/19 10:58:00 EST, Height, 78.7, [...] Care Team Personnel Name: Jessy Higgins Position: [facility] Onco RN Member Role: Primary Care Nurse Name: Nando SAUCEDA, Meghan Beaulieu Position: [facility] PCO Associate Professional Member Role: PCP Address: [address] [place] [phone]- Telecom: Name: Anne Dinh RN Position: [facility] RN Member Role: Primary Care Nurse Name: Blaire Lemos RN Position: [facility] RN Member Role: Primary Care Nurse Name: Breanna ([employer]) Dulce Maria Position: [facility] grain processor Member Role: Cone Examiner Name: Albania Hoover RN Position: [facility] RN Member Role: Primary Care Nurse Name: Lianna Villareal RN Position: [facility] RN Member Role: Primary Care Nurse Name: Jose Pereira RN Position: [facility] SN RN Member Role: Primary Care Nurse Care Team Related Persons Name: BUDDY BAUTISTA Name: CRIS SANTANA Name: AIDA SANTANA Name: RAVEN WISE 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
[2024-10-21 20:49] LABS: Appearance Urine Clear; Color Urine Yellow; Glucose Urine UA Negative (Negative); Leukocyte Esterase Urine Negative (Negative); Nitrite Urine Negative (Negative); PH 5.5 (5.0-9.0); Specific Gravity - Urine 1.015 (1.005-1.025); Urine Blood Negative (Negative); Urine Ketones Negative (Negative); Urine Protein Negative (Neg-Trace)
[2024-10-21 20:52] LABS: Bacteria Urine None Seen (None Seen); Hyaline Casts Urine 0-2 /LPF (0-2); RBC Urine 0-2 /HPF (0-2); Squamous Epithelial Cell Urine 0-2 /HPF (0-2); WBC Urine 0-5 /HPF (0-5)
== END 2024-10-21 23:15 | disposition home or self-care (01) ==
PROVIDERS: Physician Assistant Medical; Emergency Provider Emergency Medicine; PCP Nurse Practitioner Family
DX: M16.12 Unilateral primary osteoarthritis, left hip (principal); M25.552 Pain in left hip; R26.89 Other abnormalities of gait and mobility; E11.9 Type 2 diabetes mellitus without complications; I10 Essential (primary) hypertension; F17.210 Nicotine dependence, cigarettes, uncomplicated
CPT/HCPCS: 73502; 81001; 99282; 99283

== ENCOUNTER → 2024-10-21 15:01 | Outpatient (BNV) | payer MEDICARE, MEDICAID, SELFPAY | PROVIDERS: PCP Nurse Practitioner Family; Visit Provider Radiology Diagnostic Radiology | DX: M16.12 Unilateral primary osteoarthritis, left hip (principal) | CPT/HCPCS: 73502 ==

== ENCOUNTER 2025-05-27 19:15 | Emergency (ER) | payer MEDICARE, MEDICAID, SELFPAY ==
--- NOTE | ~2025-05-27 | CT_ITS ---
CLINICAL HISTORY: sob, PT ALLERGIC TO IODINATED CONTRAST CT chest without contrast Comparison: 03/06/2024 12:51 PM EDT: CT Findings: Hyperexpanded lungs consistent with COPD. Lawhntul-lz-[id number] emphysematous changes. No acute airspace opacity. Mild atelectasis in the posterior -dependent left lower lobe. No pleural effusion or pneumothorax. Heart size normal. No pericardial effusion. No thoracic aortic aneurysm. Moderate coronary and aortic atherosclerotic changes. No acute upper abdominal abnormality. No acute fracture or suspicious bone lesion. IMPRESSION: 1. No acute finding. [id number] emphysematous changes and COPD findings. This document has been electronically signed by: Kendell Coppola MD on 05/28/2025 00:18:16
--- NOTE | ~2025-05-27 | CT_ITS ---
CLINICAL HISTORY: abd pain n v d CT abdomen and pelvis without contrast Comparison: None provided Findings: Normal liver, spleen, pancreas, and adrenal glands. Cholecystectomy. No biliary ductal dilatation. Nonobstructing right lower pole renal calculi. No hydronephrosis or hydroureter. Urinary bladder not well evaluated due to extensive streak artifact from pelvic open reduction internal fixation hardware and right total hip arthroplasty. No acute fracture identified. No abdominal aortic aneurysm. Heavy aortic atherosclerotic changes. No bowel obstruction or other acute enteric process identified. No intraperitoneal free fluid or free air. IMPRESSION: No acute findings. This document has been electronically signed by: Kendell Coppola MD on 05/28/2025 00:17:13
[2025-05-27 19:21] VITALS: BP 154/86; BP 179/87; PULSE 78; PULSE 83; RESP 14; TEMP 36.9; O2SAT 94; O2SAT 96
[2025-05-27 19:27] VITALS: BP 154/86; PULSE 79; PULSE 83; RESP 12; RESP 14; TEMP 36.9; O2SAT 94; BMI 27.4
[2025-05-27 20:02] LABS: MANUAL DIFF FLAG NO
[2025-05-27 20:06] LABS: Hematocrit 43.4 % (37.0-47.0); Hemoglobin 14.6 g/dl (12.0-16.0); Imm Gran Abs Auto 0.03 X10*3/uL (0.00-0.03); Imm Gran Pct Auto 0.3 % (0.0-0.4); Lymphocytes Absolute Auto 2.3 X10*3/uL (1.2-4.9); Mean Corpuscular HGB Conc 33.6 g/dl (31.0-35.0); Mean Corpuscular Hemoglobin 32.8 pg (27.0-33.0); Mean Corpuscular Volume 97.5 fL (80.0-98.0); NRBC Abs Auto 0.000 X10*3/uL (0.0-0.012); NRBC Pct Auto 0.0 /100WBC (0.0-0.2); Platelet Count 201 X10*3/uL (160-400); Red Blood Count 4.45 X10*6/uL (4.20-5.50); White Blood Count 9.2 X10*3/uL (4.8-10.8)
[2025-05-27 20:18] LABS: Anion Gap 17 (12-20); Blood Urea Nitrogen 20 mg/dL (9-16); Calcium 9.8 mg/dL (8.4-10.2); Carbon Dioxide 24 mmol/L (22-29); Chloride 106 mmol/L (96-108); Creatinine Clr Calc Pharmacy 75.6; Estimated Glomerular Filt Rate > 60; Potassium 4.4 mmol/L (3.3-5.1); Sodium 143 mmol/L (135-145)
[2025-05-27 22:31] LABS: Alanine Aminotransferase 37 U/L (0-31); Albumin Level 4.9 g/dL (3.5-5.0); Alkaline Phosphatase 91 U/L (39-117); Aspartate Amino Transferase 37 U/L (5-31); Lipase 31 U/L (8-78); Total Protein 8.0 g/dL (6.5-8.0)
[2025-05-27 22:35] LABS: VBG HCO3 25 mmol/L (22-26); VBG O2 % Saturation 98.0 %
[2025-05-27 22:37] LABS: Venous Blood Gas Refer to POC result
--- NOTE | 2025-05-27 22:41 | ED.ABDPAIN ---
HPI - Abdominal Pain General Chief Complaint: Abdominal Pain Stated Complaint: nausea, vomiting, diarrhea, headache Time Seen by Provider: 05/27/25 19:29 History of Present Illness HPI narrative: 64-year-old female with a past medical significant for pat-xztvzjs-dupatqcns diabetes, COPD on home oxygen, TAJ on CPAP. Presents today with having abdominal pain nausea vomiting diarrhea. Patient claims that vomiting is more food particles. The diarrhea is light brown in color. There is no blood. There is no fever no chills. There is mild shortness of breath which has been ongoing. Baseline patient is on 3 L of oxygen at home. That has not changed. There is no new coughing. There is a chronic cough that is been ongoing. There is no diaphoresis. There is no blood in the urine. There is no pain on urination. Patient is from home. No travel history no recent antibiotics. Related Data Home Medications ?Medication ?Instructions ?Recorded ?Confirmed bupropion HCl 150 mg 24 hr tablet, 150 mg PO DAILY 05/22/21 07/01/24 extended release gemfibrozil 600 mg tablet 600 mg PO BID 05/22/21 07/01/24 sertraline 100 mg tablet 100 mg PO DAILY 05/22/21 07/01/24 simvastatin 40 mg tablet 40 mg PO BEDTIME 05/22/21 07/01/24 temazepam 30 mg capsule 30 mg PO BEDTIME PRN Insomnia 05/22/21 07/01/24 trazodone 150 mg tablet 450 mg PO BEDTIME 05/22/21 07/01/24 valacyclovir 500 mg tablet 500 mg PO DAILY 05/22/21 07/01/24 multivitamin 1 tab PO DAILY 10/07/22 07/01/24 pantoprazole 40 mg tablet,delayed 40 mg PO DAILY@0630 09/27/23 07/01/24 release albuterol sulfate 2.5 mg/3 mL 2.5 mg inhalation Q6H PRN SOB 03/12/24 07/01/24 (0.083 %) solution for nebulization aspirin 81 mg tablet,delayed 81 mg PO DAILY 03/12/24 07/01/24 release cholecalciferol (vitamin D3) 25 25 mcg PO DAILY 03/12/24 07/01/24 mcg (1,000 unit) tablet (Vitamin D3) docusate sodium 100 mg capsule 100 mg PO BID 03/12/24 07/01/24 (Colace) fluticasone propionate 50 1 spray intranasal BID 03/12/24 07/01/24 mcg/actuation nasal spray,suspension loratadine 10 mg tablet 10 mg PO DAILY 03/12/24 07/01/24 aripiprazole 5 mg tablet 5 mg PO DAILY 05/17/24 07/01/24 fluticasone fur. 100 mcg-umeclid 1 ea inhalation DAILY 05/17/24 07/01/24 62.5 mcg-vilant 25 mcg inhalat.powder (Trelegy Ellipta) anastrozole 1 mg tablet 1 mg PO DAILY 07/01/24 07/01/24 levalbuterol tartrate 45 2 inh inhalation Q6H 07/01/24 07/01/24 mcg/actuation aerosol inhaler (Xopenex HFA) metformin 1,000 mg tablet 1,000 mg PO BID 07/01/24 07/01/24 sodium chloride 0.2 % nasal spray 1 spray intranasal Q4H PRN dryness 07/01/24 07/01/24 inside the nose Previous Rx's ?Medication ?Instructions ?Recorded carvedilol 12.5 mg tablet 12.5 mg PO BID #180 tabs 07/03/24 doxycycline hyclate 100 mg tablet 100 mg PO BID #20 tabs 07/03/24 losartan 25 mg tablet 25 mg PO DAILY #90 tabs 07/03/24 ondansetron 4 mg disintegrating 4 mg PO TID PRN nausea and 05/28/25 tablet vomiting 5 days #10 tabs Allergies Allergy/AdvReac Type Severity Reaction Status Date / Time Iodinated Contrast Media (IV Allergy Unknown UNKNOWN Verified 05/27/25 19:32 Dye, Iodine Containing) zolpidem (From [facility]BIEN) Allergy Unknown UNKNOWN Verified 05/27/25 19:32 iv dye as a baby Allergy Mild Unknown Uncoded 05/27/25 19:32 Review of Systems Review of Systems Positive nausea vomiting diarrhea Yes all other systems are reviewed and are negative PMFSH Past Medical History Attestation statement: The following information was validated with the patient. 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 Housing: Apartment Do you presently have visiting nurse or other home services: Yes Alcohol intake: never Patient Tobacco Use Status: Current everyday Tobacco user Tobacco use type: Cigarette Cigarette Packs Per Day: 0.75 Cigarettes Per Day: 15.0 Smoked in Last 30 Days: No e-Cigarette/Vaping Use: Never Used Second Hand Smoke Exposure: Yes Use of substances other than those prescribed or required for medical reasons: No Substance Use Type: Marijuana Advance Directives: Yes Advance Directives on File: Yes Advance Directives Date on File: 02/23/23 Do you have a plan to hurt others: No Plan Patient : No service: No Current occupational status: disabled Physical Exam ED Exam Exam: Appearance: Alert. Oriented X3. No acute distress. Eyes: Pupils equal, round and reactive to light. ENT: Pharynx normal. Neck: Normal inspection. Neck supple. No lymph nodes noted. No crepitus CVS: Normal heart rate and rhythm. Pulses normal. Normal S1 and S2 Respiratory: No respiratory distress. Diminished breath sounds bilaterally. Abdomen: Soft and nontender. No rigidity. No distention. good BS x4 Skin: Skin warm and dry. Normal skin color. Normal skin turgor. Extremities: No lower extremity edema. Neurovascular intact to all extremities. No Lacerations. No Rash Neuro: Oriented X 3. No motor deficit. No sensory deficit. Moving all extermities. No slurred speech Vital Signs: Vital Signs - 24 hr 05/27/25 19:21 05/27/25 19:27 05/27/25 19:27 Temperature 98.5 F 98.5 F 98.5 F Pulse Rate 83 79 83 Respiratory Rate 14 12 14 Blood Pressure 154/86 H 154/86 H 154/86 H Pulse Oximetry 94 94 94 Oxygen Delivery Method Nasal Cannula Nasal Cannula Nasal Cannula Oxygen Flow Rate 3 3 05/27/25 22:59 Temperature 97.7 F Pulse Rate 73 Respiratory Rate 20 Blood Pressure 178/86 H Pulse Oximetry 94 Oxygen Delivery Method Nasal Cannula Oxygen Flow Rate 3 BMI result Body Mass Index 27.4 Medical Decision Making Medical Decision Making MDM Narrative: Patient is 65 years old presented today with nausea vomiting diarrhea generalized malaise has a history of shortness of breath. I interpreted patient's VBG which showed no CO2 retention. Patient is CT scan of the chest by my interpretation showed no focal infiltrate. CT scan of the abdomen pelvis was interpreted by radiology's no gross evidence of obstruction abscess perforation. Patient is well-appearing. No distress. Tolerate p.o.. Will discharge patient home. Encourage fluids question gastroenteritis. Differential Diagnosis Differential Diagnoses: The differential diagnosis associated with the presentation includes Obstruction, gastroenteritis, pneumonia, UTI Admission/Observation Consideration of admission/observation: Escalation of care including admission/observation considered Lab Data [facility] Lab Attestation statement: I reviewed the patient's lab results. 05/27/25 19:56 05/27/25 19:56 Labs: Lab Results 05/27/25 05/27/25 05/28/25 Range/Units 19:56 22:30 00:45 WBC 9.2 (4.8-10.8) X10*3/uL RBC 4.45 (4.20-5.50) X10*6/uL Hgb 14.6 (12.0-16.0) g/dl Hct 43.4 (37.0-47.0) % MCV 97.5 (80.0-98.0) fL MCH 32.8 (27.0-33.0) pg MCHC 33.6 (31.0-35.0) g/dl RDW 12.4 (11.0-16.0) % Plt Count 201 (160-400) X10*3/uL MPV 10.2 (9.4-12.3) fL Immature Gran % (Auto) 0.3 (0.0-0.4) % Neut % (Auto) 63.5 (45-73) % Lymph % (Auto) 25.2 (20-40) % [place] % (Auto) 7.6 (2-11) % Eos % (Auto) 3.0 (0-4) % Baso % (Auto) 0.4 (0-2) % Lymph # (Auto) 2.3 (1.2-4.9) X10*3/uL [place] # (Auto) 0.7 (0.1-1.2) X10*3/uL Eos # (Auto) 0.3 (0.0-0.4) X10*3/uL Baso # (Auto) 0.0 (0.0-0.2) X10*3/uL Abs Immat Gran (auto) 0.03 (0.00-0.03) X10*3/uL Absolute Neuts (auto) 5.9 (2.0-8.3) x10*3/uL Absolute Nucleated RBC 0.000 (0.0-0.012) X10*3/uL Nucleated RBC % (auto) 0.0 (0.0-0.2) /100WBC VBG pH 7.37 (7.32-7.43) VBG pCO2 43 mmHg VBG pO2 101 mmHg VBG HCO3 25 (22-26) mmol/L VBG O2 Saturation 98.0 % VBG Base Excess -0.2 mmol/L Sodium 143 (135-145) mmol/L Potassium 4.4 (3.3-5.1) mmol/L Chloride 106 (96-108) mmol/L Carbon Dioxide 24 (22-29) mmol/L Anion Gap 17 (12-20) BUN 20 H (9-16) mg/dL Creatinine 0.77 (0.5-1.4) mg/dL Estim Creat Clear Calc 75.6 Estimated GFR > 60 Random Glucose 122 H (60-115) mg/dL Calcium 9.8 (8.4-10.2) mg/dL Total Bilirubin 0.4 (0.0-1.0) mg/dL Direct Bilirubin 0.2 (0.0-0.5) mg/dL AST 37 H (5-31) U/L ALT 37 H (0-31) U/L Alkaline Phosphatase 91 (39-117) U/L Troponin I High Sens 5.9 D (<3.5-17.0) ng/L Total Protein 8.0 (6.5-8.0) g/dL Albumin 4.9 (3.5-5.0) g/dL Lipase 31 (8-78) U/L Urine Color Yellow Urine Appearance Clear Urine pH 5.5 (5.0-9.0) Ur Specific [place] 1.015 (1.005-1.025) Urine Protein 30 (1+) H (Neg-Trace) mg/dL Urine Glucose (UA) Negative (Negative) mg/dL Urine Ketones Negative (Negative) mg/dL Urine Blood Negative (Negative) Urine Nitrite Negative (Negative) Ur Leukocyte Esterase Small (1+) H (Negative) Independent Interpretation I performed an independent interpretation of an: CT Scan (CT scan of the abdomen pelvis was grossly negative for any obstruction abscess perforation) Radiology Impression Discussion of test interpretation with radiology: I have reviewed the radiologist's reading. Independent Historian Clinical information obtained from an independent historian. History obtained from or confirmed by: Other (Family) External Record Review External record reviewed: Inpatient record Chronic Conditions Patient?s care impacted by: Hypertension <del>Previous</del> <del>abdominal</del> <del>surgery</del> Social Determinants Patient?s care significantly limited by Social Determinants of Health including: Problems related to primary support group Medications Administered Discontinued Medications Generic Name Dose Route Start Last Admin Trade Name Freq PRN Reason Stop Dose Admin Sodium Chloride 1,000 mls @ 999 mls/hr 05/27/25 19:45 05/27/25 19:58 Ns IV 05/27/25 20:45 999 mls/hr .Q1H1M STEVEN Administration Discharge Plan Discharge Clinical Impression: Diarrhea, Nausea Patient Disposition: Home, Self-Care Instructions: Acute Nausea and Vomiting (DC), Acute Diarrhea (ED) Prescriptions: New ondansetron 4 mg tablet,disintegrating 4 mg PO TID PRN (Reason: nausea and vomiting) 5 Days Qty: 10 0RF No Action sertraline 100 mg tablet 100 mg PO DAILY valacyclovir 500 mg tablet 500 mg PO DAILY simvastatin 40 mg tablet 40 mg PO BEDTIME temazepam 30 mg capsule 30 mg PO BEDTIME PRN (Reason: Insomnia) gemfibrozil 600 mg tablet 600 mg PO BID trazodone 150 mg tablet 450 mg PO BEDTIME bupropion HCl 150 mg tablet extended release 24 hr 150 mg PO DAILY multivitamin Tablet 1 tab PO DAILY albuterol sulfate 2.5 mg /3 mL (0.083 %) Solution For Nebulization 2.5 mg INHALATION Q6H PRN (Reason: SOB) aspirin 81 mg Tablet,Delayed Release (Dr/Ec) 81 mg PO DAILY docusate sodium [Colace] 100 mg Capsule 100 mg PO BID cholecalciferol (vitamin D3) [Vitamin D3] 25 mcg (1,000 unit) Tablet 25 mcg PO DAILY fluticasone propionate 50 mcg/actuation [place],Suspension 1 spray INTRANASAL BID Rx Instructions: administer into each nostril loratadine 10 mg Tablet 10 mg PO DAILY Trelegy Ellipta 100-62.5-25 mcg blister with device 1 ea inhalation DAILY aripiprazole 5 mg tablet 5 mg PO DAILY metformin 1,000 mg tablet 1,000 mg PO BID anastrozole 1 mg Tablet 1 mg PO DAILY levalbuterol tartrate [Xopenex HFA] 45 mcg/actuation Hfa Aerosol Inhaler 2 inh INHALATION Q6H sodium chloride 0.2 % [place],Non-Aerosol 1 spray INTRANASAL Q4H PRN (Reason: dryness inside the nose) carvedilol 12.5 mg Tablet 12.5 mg PO BID Qty: 180 0RF Protocol: Hold for SBP/HR < HOLD for SBP < : 90 HOLD for HR < : 60 losartan 25 mg Tablet 25 mg PO DAILY Qty: 90 0RF Protocol: Hold for SBP< HOLD for SBP < : 90 doxycycline hyclate 100 mg tablet 100 mg PO BID Qty: 20 0RF Rx Instructions: End date 07/02/2024 pantoprazole 40 mg tablet,delayed release (DR/EC) 40 mg PO DAILY@0630 Referrals: Meghan Collier NP [Primary Care Provider, Family Practice] - 05/30/25 Print Language: Georgian
[2025-05-27 22:42] LABS: Troponin-I High Sensitivity 5.9 ng/L (<3.5-17.0)
[2025-05-27 22:59] VITALS: BP 178/86; PULSE 73; RESP 20; TEMP 36.5; O2SAT 94
[2025-05-28 00:51] LABS: Appearance Urine Clear; Glucose Urine UA Negative (Negative); PH 5.5 (5.0-9.0); Specific Gravity - Urine 1.015 (1.005-1.025); UMIC TRIGGER UACC YES
[2025-05-28 01:15] LABS: UACC Culture Trigger YES
[2025-05-28 01:31] VITALS: BP 155/65; PULSE 79; RESP 20; TEMP 36.6; O2SAT 93
--- NOTE | 2025-05-28 02:04 | PC.NURSE ---
Pt to be discharged, spoke with sister and pt has no way to enter her home, she wont have access til 7a in the morning, spoke with charge with this matter
[2025-05-28 08:00] VITALS: BP 160/75; PULSE 78; RESP 18; TEMP 36.8; O2SAT 92
[2025-05-28 10:55] VITALS: BP 193/88; PULSE 80; RESP 20
[2025-05-28 11:14] VITALS: BP 193/88; PULSE 80; RESP 20; TEMP -17.7; TEMP 0
== END 2025-05-28 11:15 | disposition home or self-care (01) ==
PROVIDERS: Emergency Provider Emergency Medicine Emergency Medical Services; PCP Nurse Practitioner Family
DX: R19.7 Diarrhea, unspecified (principal); R11.2 Nausea with vomiting, unspecified; E11.9 Type 2 diabetes mellitus without complications; J44.9 Chronic obstructive pulmonary disease, unspecified; R06.02 Shortness of breath; R53.81 Other malaise; Z99.81 Dependence on supplemental oxygen; Z79.899 Other long term (current) drug therapy; Z79.4 Long term (current) use of insulin; F17.210 Nicotine dependence, cigarettes, uncomplicated
CPT/HCPCS: 36415; 71250; 74176; 80048; 80076; 81001; 82803; 83690; 84484; 85025; 87086; 99285

== ENCOUNTER → 2025-05-27 22:11 | Outpatient (BNV) | payer MEDICARE, MEDICAID, SELFPAY | PROVIDERS: Emergency Provider Emergency Medicine Emergency Medical Services; PCP Nurse Practitioner Family; Visit Provider Radiology Diagnostic Radiology | DX: R10.9 Unspecified abdominal pain (principal); R11.2 Nausea with vomiting, unspecified; R19.7 Diarrhea, unspecified; R06.02 Shortness of breath | CPT/HCPCS: 71250; 74176 ==

== ENCOUNTER 2025-07-11 12:20 | Emergency (ER) | payer MEDICARE, MEDICAID, SELFPAY ==
--- OUTSIDE RECORDS SUMMARY | 2025-07-08 23:59 | XMS_ITS | Continuity of Care Document ---
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 Name Role Phone Nando SAUCEDA, Meghan Beaulieu Primary [id number] Date(s): [facility] - 07/08/[facility] [address] [place] [address]- Encounter Diagnosis Cardiomyopathy(Discharge Diagnosis) - 07/01/25 COPD, moderate(Discharge Diagnosis) - 07/01/25 Asthma(Discharge Diagnosis) - 07/01/25 Depression, major, recurrent(Discharge Diagnosis) - 07/01/25 Diabetes mellitus - adult onset(Discharge Diagnosis) - 07/01/25 Essential hypertension(Discharge Diagnosis) - 07/01/25 Mixed hyperlipidemia(Discharge Diagnosis) - 07/01/25 Medicare annual wellness visit, subsequent(Discharge Diagnosis) - 07/02/25 Chronic hypoxic respiratory failure, on home oxygen therapy(Discharge Diagnosis) - 07/02/25 Left hemiparesis(Discharge Diagnosis) - 07/02/25 Nephropathy, diabetic(Discharge Diagnosis) - 07/02/25 Carotid bruit(Discharge Diagnosis) - 07/02/25 Open abdominal wall wound(Discharge Diagnosis) - 07/02/25 Attending Physician: Kristie BEST, Jesse Verde Referring Physician: Meghan Collier NP Encounter Type: Office Visit Allergies, Adverse Reactions, Alerts Substance Criticality Severity Reaction Reaction Severity Status iodinated radiocontrast dyes unknown Active Ambien Unable to assess criticality Persistent Severe walks in sleep Active Compazine unknown Active Functional Status Functional Status Assessment Assessment Assessment Component Result Effecti ve Date Disability status [CUBS] I'm Thriving - no identified disability 07/01/25 Difficulty communica ting in usual language No 07/01/25 Are you blind, or do you have serious difficulty seeing, even when wearing glasses No 07/01/25 Because of a physica l, mental, or emotional condition, do you have difficulty doing errands alone such as visiting a physician's office or shopping Yes 07/01/25 Are you deaf, or do you have serious difficulty hearing No 07/01/25 Do you have serious difficulty walking or climbing stairs Yes 07/01/25 Difficulty Reading O r Writing No 07/01/25 Because of a physica l, mental, or emotional condition, do you have serious difficulty concentrating, remembering, or making decisions Yes 07/01/25 Do you need any jose tional assistance or accommodations during your visit Yes 07/01/25 Do you have difficul ty dressing or bathing Yes 07/01/25 Immunizations Given and Recorded Vaccine Date Status Refusal Reason influenza virus vaccine, inactivated 07/01/25 Give n influenza virus vaccine, inactivated 06/03/19 Give n [...] virus vaccine, inactivated 6 05/14/08 [facility] [id number] 12y+ bivalent booster vax 06/29/22 Recorded SARS-CoV-2 (COVID-19) mRNA BNT-162b2 vac 11/03/20 Recorded SARS-CoV-2 (COVID-19) mRNA BNT-162b2 vac 10/13/20 Recorded pneumococcal 13-valent vaccine 05/04/15 Given pneumococcal 23-valent vaccine 10/25/12 Recorded pneumococcal 23-valent vaccine 12/08/11 Given tetanus/diphtheria/pertussis, acel(Tdap) 12/20/10 Given influ virus vac, H1N1, inactive(oldterm) 7 09/14/09 Given Influenza Virus Vaccine (oldterm) 05/11/09 Given Influenza Inactive (IM) (oldterm) 05/31/07 Given Influenza Inactive (IM) (oldterm) 8 06/14/06 Given Tetanus Toxoid Vaccine (oldterm) 10/12/00 Given 1Location History: [facility] 2Admin Note: given at [facility] 3Admin Note: VIS Given Flulaval 4Admin Note: VIS Given Flulaval 5Admin Note: Received at [facility] 6Admin Note: Received at [facility] 7Admin Note: [facility] 8Admin Note: SANOFI PASTEUR Medications 3 and 1 commode 3 and 1 commode, See Instructions, # 1 each, Refills 0, Tot. Refills 0, Maintenance, dx: right hip osteoarthritis. Due to this she is confined to one level., 11/01/18 1:20:40 PM EDT, Fax to [facility], , Compound Start Date: 11/01/18 Status: Ordered Medication Dispense Status: Completed Quantity: 1.0 Unit: each Total Allowed Fills: 1 Fills Dispensed: 0 albuterol 0.083% inhalation solution 3 mL = 2.5 mg, Inhalation, Every 6 hours, PRN for wheezing, J44.9, # 360 mL, 11 Refills, Maintenance, 03/22/24 10:28:00 AM EDT, Solution, [facility] #[id number], Partial fill upon patient request if the prescription is for a schedule II opioid drug., 160, cm, 03/21/24 14:08:00 EDT, Height Start Date: 03/22/24 Status: Ordered Medication Dispense Status: Completed Quantity: 360.0 Unit: mL Total Allowed Fills: 12 Fills Dispensed: 0 amLODIPine 5 mg oral tablet 5 mg, 1, tablet, By Mouth, Daily, # 30 tablet, Refills 3, Tot. Refills 3, Maintenance, 05/19/25 2:53:00 PM EDT, Route to Pharmacy Electronically, [facility] #[id number], Partial fill upon patientrequest if the prescription is for a schedule II opioid drug., 160, cm, 05/19/25 14:29:00 EDT, Height, 72.7, kg, 04/28/25 11:09:00 EDT, Dry Weight Start Date: 05/19/25 Status: Ordered Medication Dispense Status: Completed Quantity: 30.0 Unit: tablet Total Allowed Fills: 4 Fills Dispensed: 0 aspirin 81 mg oral delayed release tablet 81 mg, 1, tablet, By Mouth, Daily, # 90 tablet, Refills 1, Tot. Refills 1, Maintenance, 02/21/19 9:56:30 AM EDT, Route to Pharmacy Electronically, [id number] Start Date: 02/21/19 Status: Ordered Medication Dispense Status: Completed Quantity: 90.0 Unit: tablet Total Allowed Fills: 2 Fills Dispensed: 0 Bath tub transfer bench Bath tub transfer bench, See Instructions, # 1 each, Refills 0, Tot. Refills 0, Maintenance, Dx: COPD J44.1 Please deliver, 12/14/18 2:09:35 PM EDT, Compound Start Date: 12/14/18 Status: Ordered Medication Dispense Status: Completed Quantity: 1.0 Unit: each Total Allowed Fills: 1 Fills Dispensed: 0 carvedilol 12.5 mg oral tablet 12.5 mg, 1, tablet, By Mouth, 2 times a day, # 60 tablet, Refills 6, Tot. Refills 6, Maintenance, 04/22/25 1:47:00 PM EDT, Route to Pharmacy Electronically, [facility] #[id number], Partial fill upon patient request if the prescription is for a schedule II opioid drug., 160, cm, 04/17/25 10:52:00EDT, Height Start Date: 04/22/25 Stop Date: 11/18/25 Status: Ordered Medication Dispense Status: Completed Quantity: 60.0 Unit: tablet Total Allowed Fills: 7 Fills Dispensed: 0 Colace sodium 100 mg oral capsule 100 mg, 1, capsule, By Mouth, 2 times a day, PRN, # 60 capsule, Refills 0, Tot. Refills 0, Maintenance, Constipation, 03/27/20 7:25:00 AM EDT, Route to Pharmacy Electronically, [facility] #[id number], 165.1, cm, 03/26/20 18:59:00 EDT, Height, 77.27, kg, 03/23/20 11:58:00 EDT, Dry Weight Start Date: 03/27/20 Status: Ordered Medication Dispense Status: Completed Quantity: 60.0 Unit: capsule Total Allowed Fills: 1 Fills Dispensed: 0 CPAP 8 cmH20 with 3 L O2 CPAP 8 cmH20 with 3 L O2, See Instructions, # 1 each, Refills 0, Tot. Refills 0, Maintenance, with heated humidification, use overnight and naps, from [facility] G47.33, 12/16/22 1:27:00 PM EDT, Compound Start Date: 12/16/22 Status: Ordered Medication Dispense Status: Completed Quantity: 1.0 Unit: each Total Allowed Fills: 1 Fills Dispensed: 0 Cpap machine and supplies Cpap machine and supplies, See Instructions, # 1 each, Refills 11, Tot. Refills 11, Maintenance, face mask, tubing filter, Head gear and water chamber, 10/02/24 12:04:00 PM EST, Supply Start Date: 10/02/24 Status: Ordered Medication Dispense Status: Completed Quantity: 1.0 Unit: each Total Allowed Fills: 12 Fills Dispensed: 0 cranberry oral capsule = 250 mg, By Mouth, Daily, # 30 capsule, 6 Refills, Maintenance, 12/09/22 9:55:00 AM EDT, [facility] #[id number], Partial fill upon patient request if the prescription is for a schedule II opioiddrug., 250 mg By Mouth Daily,x30 days, 160, cm, 12/07/22 11:18:00 EDT, Height Start Date: 12/09/22 Stop Date: 07/07/23 Status: Ordered Medication Dispense Status: Completed Quantity: 30.0 Unit: capsule Total Allowed Fills: 7 Fills Dispensed: 0 Electric Wheelchair Electric Wheelchair, See Instructions, # 1 each, Refills 0, Tot. Refills 0, Maintenance, DX: left hemiparesis G 81.94. Foot drop left M21.372 L.O.N. 89 years WT- 163 lbs HT 5'3 , 12/23/24 3:31:00 PM EDT, Supply Start Date: 12/23/24 Status: Ordered Medication Dispense Status: Completed Quantity: 1.0 Unit: each Total Allowed Fills: 1 Fills Dispensed: 0 Electric Wheelchair Electric Wheelchair, See Instructions, # 1 each, Refills 0, Tot. Refills 0, Maintenance, DX: Left Hemiparesis L.O.N. 89 years, 09/27/24 9:16:00 AM EST, Supply Start Date: 09/27/24 Status: Ordered Medication Dispense Status: Completed Quantity: 1.0 Unit: each Total Allowed Fills: 1 Fills Dispensed: 0 evaluate for POC ([facility] ) evaluate for POC (On license of [facility] ), See Instructions, # 1 each, Refills 11, Tot. Refills 11, Maintenance, Please evaluate my patient for conserving device to maintain Sats greater than 90% duringambulation for daily living via pulse oximetry and set up on the appropriate conserving device.2 LPM with exertion Dx, 12/11/24 4:15:00 PM EDT, Supply Start Date: 12/11/24 Status: Ordered Medication Dispense Status: Completed Quantity: 1.0 Unit: each Total Allowed Fills: 12 Fills Dispensed: 0 fluticasone 50 mcg/inh nasal spray See Instructions, SHAKE LIQUID AND USE 1 SPRAY IN EACH NOSTRIL TWICE DAILY, # 48 Gm, 1 Refills, [facility] #[id number], 90, SHAKE LIQUID AND USE 1 SPRAY IN EACH NOSTRIL TWICE DAILY, 160, cm, 06/17/21 11:02:00 EDT, Height, 76.5, kg, 06/11/20 12:40:00 EDT, Dry Weight Start Date: 08/09/21 Status: Ordered Medication Dispense Status: Completed Quantity: 48.0 Unit: g Total Allowed Fills: 1 Fills Dispensed: 0 gemfibrozil 600 mg oral tablet 1, tablet, By Mouth, 2 times a day, # 180 tablet, Refills 1, Tot. Refills 1, Maintenance, 03/10/25 3:36:00 PM EDT, Route to Pharmacy Electronically, [facility] #[id number], 160, cm, 11/27/24 10:31:00 EDT, Height Start Date: 03/10/25 Status: Ordered Medication Dispense Status: Completed Quantity: 180.0 Unit: tablet Total Allowed Fills: 2 Fills Dispensed: 0 lidocaine topical 2% solution 5 mL = 0.1 Gm, Topically, 3 times a day with meals, PRN for mouth sore pain, Swoosh and spitt, # 100 mL, 0 Refills, Maintenance, 11/29/23 2:45:00 PM EDT, Solution, [facility] #[id number], Partialfill upon patient request if the prescription is for a schedule II opioid drug., 5 mL Topically 3 times a day with meals,PRN:for mouth sore pain,Instr:Swoosh and spitt, 160, cm, 11/23/23 12:54:00 EDT, Height Start Date: 11/29/23 Status: Ordered Medication Dispense Status: Completed Quantity: 100.0 Unit: mL Total Allowed Fills: 1 Fills Dispensed: 0 Indications: Unspecified injury of face, initial encounter; Light weight transfer wheelchair Light weight transfer wheelchair, See Instructions, # 1 each, Refills 0, Tot. Refills 0, Maintenance, Light weight transfer wheelchair Dx: L sided hemiparesis ICD 10: I69.952, 03/19/24 8:23:00 AM EDT, Supply Start Date: 03/19/24 Status: Ordered Medication Dispense Status: Completed Quantity: 1.0 Unit: each Total Allowed Fills: 1 Fills Dispensed: 0 loratadine 10 mg oral tablet 1, tablet, By Mouth, Daily, # 30 tablet, Refills 5, Tot. Refills 0, Maintenance, 03/19/21 5:26:00 PM EDT, Route to Pharmacy Electronically, [facility] #[id number], 160, cm, 03/12/21 13:49:00 EDT, Height, 76.5, kg, 06/11/20 12:40:00 EDT, Dry Weight Start Date: 03/19/21 Status: Ordered Medication Dispense Status: Completed Quantity: 30.0 Unit: tablet Total Allowed Fills: 1 Fills Dispensed: 0 meloxicam 15 mg oral tablet 1 tablet, By Mouth, Daily, # 30 tablet, 1 Refills, Maintenance, 06/17/25 8:10:00 AM EST, [facility] #[id number], 160, cm, 06/16/25 10:38:00 EST, Height, 72.7, kg, 04/28/25 11:09:00 EDT, Dry Weight Start Date: 06/17/25 Status: Ordered Medication Dispense Status: Completed Quantity: 30.0 Unit: tablet Total Allowed Fills: 2 Fills Dispensed: 0 metFORMIN 500 mg oral tablet 2 tablet = 1,000 mg, By Mouth, 2 times a day, # 120 tablet, 3 Refills, Maintenance, 05/19/25 2:49:00PM EDT, [facility] #[id number], Partial fill upon patient request if the prescription is for aschedule II opioid drug., 160, cm, 05/19/25 14:29:00 EDT, Height, 72.7, kg, 04/28/25 11:09:00 EDT, Dry Weight Start Date: 05/19/25 Stop Date: 09/16/25 Status: Ordered Medication Dispense Status: Completed Quantity: 120.0 Unit: tablet Total Allowed Fills: 4 Fills Dispensed: 0 multivitamin Multiple Vitamins oral tablet 1 tablet, By Mouth, Daily, # 90 tablet, 1 Refills, Maintenance, 02/21/19 10:05:02 AM EDT, Tablet, Nanoleaf [id number], 1 tablet By Mouth Daily Start Date: 02/21/19 Status: Ordered Medication Dispense Status: Completed Quantity: 90.0 Unit: tablet Total Allowed Fills: 2 Fills Dispensed: 0 nebulizer machine with tubing nebulizer machine with tubing, See Instructions, # 1 each, Refills 0, Tot. Refills 0, Maintenance, nebulizer machine with tubing. Dx: COPD ICD 10: J18.9 use with albuterol solution every 6 hours prn SOB, 06/17/21 11:40:00 AM EDT, Supply Start Date: 06/17/21 Status: Ordered Medication Dispense Status: Completed Quantity: 1.0 Unit: each Total Allowed Fills: 1 Fills Dispensed: 0 ondansetron 4 mg oral tablet 1 tablet = 4 mg, By Mouth, Every 8 hours, PRN as needed for nausea/vomiting, # 60 tablet, 0 Refills, Maintenance, 09/11/20 11:48:00 AM EST, Tablet, [facility] #[id number], Partial fill upon patient request if the prescription is for a schedule II opioid drug., 165.1, cm, 06/22/20 10:38:00 EST, Height, 76.5, kg, 06/11/20 12:40:00 EDT, Dry Weight Start Date: 09/11/20 Status: Ordered Medication Dispense Status: Completed Quantity: 60.0 Unit: tablet Total Allowed Fills: 1 Fills Dispensed: 0 One Touch Delica Lancets See Instructions, # 30 each, Refills 2, Tot. Refills 2, Maintenance, Use to test FBS once daily forE11.9 *Can give 90 day supply, 03/24/25 10:25:00 AM EDT, Supply, 160, cm, 03/21/25 10:14:00 EDT, Height Start Date: 03/24/25 Status: Ordered Medication Dispense Status: Completed Quantity: 30.0 Unit: each Total Allowed Fills: 3 Fills Dispensed: 0 ONE TOUCH ULTRA BLUE TEST ST(NEW)50 ONE TOUCH ULTRA BLUE TEST ST(NEW)50, See Instructions, # 100 Unknown, 0 Refills, Maintenance, USE TO TEST BLOOD SUGAR ONCE DAILY, 02/23/24 11:52:00 AM EDT, 160, cm, 11/23/23 12:54:00 EDT, Height Start Date: 02/23/24 Status: Ordered Medication Dispense Status: Completed Quantity: 100.0 Unit: Unknown Total Allowed Fills: 1 Fills Dispensed: 0 One Touch Ultra Test Strips See Instructions, # 30 each, Refills 5, Tot. Refills 5, Maintenance, Use to test FBS once daily forE11.9 *can give 90 day supply, 05/24/22 2:20:00 PM EDT, Supply, 160, cm, 04/27/22 15:16:00 EDT, Height, 76.5, kg, 06/11/20 12:40:00 EDT, Dry Weight Start Date: 05/24/22 Status: Ordered Medication Dispense Status: Completed Quantity: 30.0 Unit: each Total Allowed Fills: 6 Fills Dispensed: 0 pantoprazole 40 mg oral delayed release tablet 1 tablet, By Mouth, Daily at bedtime, # 90 tablet, 1 Refills, Maintenance, 03/14/25 9:21:00 AM EDT, 160, cm, 11/27/24 10:31:00 EDT, Height Start Date: 03/14/25 Status: Ordered Medication Dispense Status: Completed Quantity: 90.0 Unit: tablet Total Allowed Fills: 1 Fills Dispensed: 0 [id number] with Electrolytes (Eqv-GoLYTELY) oral powder for reconstitution See Instructions, per GI office, # 4,000 mL, 0 Refills, Maintenance, 06/21/23 10:19:00 AM EST, [facility] #[id number], Partial fill upon patient request if the prescription is for a schedule II opioid drug., per GI office, 160, cm, 03/31/23 12:52:00 EDT, Height Start Date: 06/21/23 Status: Ordered Medication Dispense Status: Completed Quantity: 4000.0 Unit: mL Total Allowed Fills: 1 Fills Dispensed: 0 PT Evaluation PT Evaluation, See Instructions, # 1 each, Refills 0, Tot. Refills 0, Maintenance, Please add on PTevaluation to home care services for generalized weakness from recent hospitalization., 10/13/23 11:17:00 AM EST, Supply Start Date: 10/13/23 Status: Ordered Medication Dispense Status: Completed Quantity: 1.0 Unit: each Total Allowed Fills: 1 Fills Dispensed: 0 simvastatin 40 mg oral tablet 1, tablet, By Mouth, Daily at bedtime, # 90 tablet, Refills 1, Maintenance, 05/20/25 5:56:00 PM EDT,Route to Pharmacy Electronically, [facility] #[id number], 160, cm, 05/19/25 14:29:00 EDT, Height, 72.7, kg, 04/28/25 11:09:00 EDT, Dry Weight Start Date: 05/20/25 Status: Ordered Medication Dispense Status: Completed Quantity: 90.0 Unit: tablet Total Allowed Fills: 1 Fills Dispensed: 0 PRISON PRISON, See Instructions, # 1 each, Refills 0, Tot. Refills 0, Maintenance, [facility]., 03/13/24 9:51:00 AM EDT, Supply Start Date: 03/13/24 Status: Ordered Medication Dispense Status: Completed Quantity: 1.0 Unit: each Total Allowed Fills: 1 Fills Dispensed: 0 standard commode chair standard commode chair, See Instructions, # 1 each, Refills 0, Tot. Refills 0, Maintenance, dx Right hip pain, 10/29/18 10:04:04 AM EDT, Compound Start Date: 10/29/18 Status: Ordered Medication Dispense Status: Completed Quantity: 1.0 Unit: each Total Allowed Fills: 1 Fills Dispensed: 0 Standard wheelchair Standard wheelchair, See Instructions, # 1 each, Refills 0, Tot. Refills 0, Maintenance, Standard Wheelchair dx right hip pain/copd Height: 5'1 weight: 178lbs, 08/28/18 11:12:44 AM EST, Compound Start Date: 08/28/18 Status: Ordered Medication Dispense Status: Completed Quantity: 1.0 Unit: each Total Allowed Fills: 1 Fills Dispensed: 0 temazepam 15 mg oral capsule 2 capsule = 30 mg, By Mouth, Daily at bedtime, Maintenance, 10/06/20 11:10:00 AM EST, Capsule, Partial fill upon patient request if the prescription is for a schedule II opioid drug. Start Date: 10/06/20 Status: Ordered Medication Dispense Status: Completed Total Allowed Fills: 1 Fills Dispensed: 0 Thick It #2 : Honey consistancy to all liquids Thick It #2 : Honey consistancy to all liquids, See Instructions, # 1 each, Refills 11, Tot. Refills 11, Maintenance, Use as directed by PCP, 10/26/22 9:08:00 AM EDT, Supply Start Date: 10/26/22 Status: Ordered Medication Dispense Status: Completed Quantity: 1.0 Unit: each Total Allowed Fills: 12 Fills Dispensed: 0 traZODone 150 mg oral tablet 3 tablet = 450 mg, By Mouth, Daily at bedtime, # 90 tablet, 1 Refills, Maintenance, 08/20/19 4:12:00 PM EST, Tablet, [facility] #[id number], 155, cm, 08/20/19 15:13:00 EST, Height, 78.7, kg, 04/18/19 14:17:00 EDT, Dry Weight Start Date: 08/20/19 Status: Ordered Medication Dispense Status: Completed Quantity: 90.0 Unit: tablet Total Allowed Fills: 2 Fills Dispensed: 0 Trelegy Ellipta 100 mcg-62.5 mcg-25 mcg/inh inhalation powder 1 puffs, Inhalation, Daily, at the same time every day, # 1 each, 5 Refills, Maintenance, 03/21/24 2:34:00 PM EDT, Powder, [facility] #[id number], copd j44.9, 160, cm, 03/21/24 14:08:00 EDT, Height Start Date: 03/21/24 Stop Date: 09/17/24 Status: Ordered Medication Dispense Status: Completed Quantity: 1.0 Unit: each Total Allowed Fills: 6 Fills Dispensed: 0 Trulicity Pen 0.75 mg/0.5 mL subcutaneous solution = 0.75 mg, Subcutaneous Infusion, Every 7 days, # 2 mL, 3 Refills, Maintenance, 05/19/25 2:51:00 PM EDT, [facility] #[id number], Partial fill upon patient request if the prescription is for a schedule II opioid drug., 160, cm, 05/19/25 14:29:00 EDT, Height, 72.7, kg, 04/28/25 11:09:00 EDT, Dry Weight Start Date: 05/19/25 Stop Date: 09/16/25 Status: Ordered Medication Dispense Status: Completed Quantity: 2.0 Unit: mL Total Allowed Fills: 4 Fills Dispensed: 0 valACYclovir 500 mg oral tablet 1, tablet, By Mouth, Daily, # 30 tablet, Refills 5, Maintenance, 05/20/25 5:56:00 PM EDT, Route to Pharmacy Electronically, [facility] #[id number], 160, cm, 05/19/25 14:29:00 EDT, Height, 72.7, kg, 04/28/25 11:09:00 EDT, Dry Weight Start Date: 05/20/25 Status: Ordered Medication Dispense Status: Completed Quantity: 30.0 Unit: tablet Total Allowed Fills: 1 Fills Dispensed: 0 vibegron 75 mg oral tablet 1 tablet = 75 mg, By Mouth, Daily, # 30 tablet, 6 Refills, Maintenance, 04/28/25 11:48:00 AM EDT, Tablet, [facility] #[id number], Partial fill upon patient request if the prescription is for a schedule II opioid drug., 160, cm, 04/17/25 10:52:00 EDT, Height, 72.7, kg, 04/28/25 11:09:00 EDT, DryWeight Start Date: 04/28/25 Status: Ordered Medication Dispense Status: Completed Quantity: 30.0 Unit: tablet Total Allowed Fills: 7 Fills Dispensed: 0 Vitamin D3 1000 intl units oral capsule 1 capsule = 1,000 International_Units, By Mouth, Daily, # 100 capsule, 3 Refills, Maintenance, 02/21/19 10:00:44 AM EDT, Capsule, [id number] Start Date: 02/21/19 Status: Ordered Medication Dispense Status: Completed Quantity: 100.0 Unit: capsule Total Allowed Fills: 4 Fills Dispensed: 0 Wellbutrin XL 150 mg/24 hours oral tablet, extended release 1 tablet = 150 mg, By Mouth, Every 24 hours, # 30 tablet, 5 Refills, Maintenance, 02/21/19 9:58:26 AM EDT, ER Tablet, Nanoleaf [id number], going to replace prozac. Will need one week of loweredprozac dose befoer starting wellbutrin Start Date: 02/21/19 Status: Ordered Medication Dispense Status: Completed Quantity: 30.0 Unit: tablet Total Allowed Fills: 6 Fills Dispensed: 0 Wheelchair See Instructions, # 1 each, Maintenance, standard wheelchair, 03/08/24 12:07:00 PM EDT, Supply, 160,cm, 11/23/23 12:54:00 EDT, Height Start Date: 03/08/24 Status: Ordered Medication Dispense Status: Completed Quantity: 1.0 Unit: each Total Allowed Fills: 1 Fills Dispensed: 0 Indications: Other reduced mobility; Xopenex HFA 45 mcg/inh inhalation aerosol 2 puffs, Inhalation, Every 6 hours, # 15 Gm, 5 Refills, Maintenance, 10/17/19 11:13:00 AM EST, Aerosol, [facility] #[id number], 155, cm, 10/17/19 10:58:00 EST, Height, 78.7, kg, 04/18/19 14:17:00 EDT, Dry Weight Start Date: 10/17/19 Status: Ordered Medication Dispense Status: Completed Quantity: 15.0 Unit: g Total Allowed Fills: 6 Fills Dispensed: 0 Zoloft 100 mg oral tablet 1.5 tablet = 150 mg, By Mouth, Daily, prescribed by psychiatrist, # 30 tablet, 0 Refills, Maintenance, 10/24/19 2:25:00 PM EDT, Tablet Start Date: 10/24/19 Status: Ordered Medication Dispense Status: Completed Quantity: 30.0 Unit: tablet Total Allowed Fills: 1 Fills Dispensed: 0 Mental Status Mental Status Assessment Assessment Assessment Component Result Effecti ve Date Patient Health Questionnaire 2 item (PHQ-2) total score [Reported] 0 07/01/25 Problem List Condition Confirmation Course Effective Dates [...] perfusion defect October 16 2h/o gastritis 3unexplained Diagnosis Diagnosis Type Effective Dates Health Status Clinical Service Informant Cardiomyopathy Discharge Diagnosis 07/01/25 COPD, moderate Discharge Diagnosis 07/01/25 Asthma Discharge Diagnosis 07/01/25 Depression, major, recurrent Discharge Diagnosis 07/01/25 Diabetes mellitus - adult onset Discharge Diagnosis 07/01/25 Essential hypertension Discharge Diagnosis 07/01/25 Mixed hyperlipidemia Discharge Diagnosis 07/01/25 Medicare annual wellness visit, subsequent Discharge Diagnosis 07/02/25 Chronic hypoxic respiratory failure, on home oxygen therapy Discharge Diagnosis 07/02/25 Left hemiparesis Discharge Diagnosis 07/02/25 Nephropathy, diabetic Discharge Diagnosis 07/02/25 Carotid bruit Discharge Diagnosis 07/02/25 Open abdominal wall wound Discharge Diagnosis 07/02/25 Vital Signs Most recent to oldest [Reference Range]: 1 Height 160.0 cm (07/01/25 12:56 PM) Weight 70.4 kg (07/01/25 12:56 PM) Oxygen Saturation [94-100 %] 92 % *L* (07/01/25 12:56 PM) Pulse Rate [55-90 bpm] 67 bpm (07/01/25 12:56 PM) Body Mass Index [18.5-24.99 kg/m2] 27.5 kg/m2 *H* (07/01/25 12:56 PM) Blood Pressure [90-138/55-84 mm Hg] 133/ 68mm Hg (07/01/25 12:56 PM) Blood pressure sites Arm, left (07/01/25 12:56 PM) Weight Obtained Via Standing scale (07/01/25 12:56 PM) Social History Social History Type Response Smoking Status Current every day sm oker; Tobacco user in household: No; Type: Cigarettes; Other: smokes 3/4 pack a day; entered on: 03/29/16 Sexual Orientation Self described orien tation: ; Straight or heterosexual Sex Sex Representation Female (finding) Patient Care team information Care Team Personnel Name: Jessy Higgins Position: [facility] Onco RN Member Role: Primary Care Nurse Name: Meghan Collier NP Position: [facility] PCO Associate Professional Member Role: PCP Address: [address] [place] [id number] Telecom: Name: Anne Dinh RN Position: [facility] ED RN W/OE and Tasks Member Role: Primary Care Nurse Name: Blaire Lemos RN Position: [facility] RN Member Role: Primary Care Nurse Name: Breanna (Bayjuliet) Dulce Maria Position: [facility] lamp 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 Former Name: Albania Hoover RN Position: [facility] RN Member Role: Primary Care Nurse Name: Lianna Villareal RN Position: [facility] RN Member Role: Primary Care Nurse Name: Jose Pereira RN Position: [facility] SN RN Member Role: Primary Care Nurse Care Team Related Persons Name: LILY, BUDDY Name: CRIS SANTANA Name: AIDA SANTANA Name: RAVEN WISE Name: 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 Plan Information #: 2 Payer: [employer] Payer Identifier: Member Number: [id number] Group Number: Subscriber Identifier: [id number] Relationship to Subscriber: self Coverage Type: MEDICAID Coverage Verification Date: NA Telecom: NA Address: NA
--- NOTE | 2025-07-11 12:24 | ECG_ITS ---
Test Reason : vomiting Blood Pressure : */* mmHG Vent. Rate : 75 BPM Atrial Rate : 75 BPM P-R Int : 178 ms QRS Dur : 90 ms QT Int : 398 ms P-R-T Axes : 68 11 51 degrees QTcB Int : 444 ms Normal sinus rhythm Normal ECG When compared with ECG of 17-May-2024 14:32, No significant change was found Referred By: Monica Wayne Electronically Signed By: IVY DENISE
[2025-07-11 12:38] VITALS: BP 146/82; BP 153/74; PULSE 76; RESP 16; TEMP 36.6; O2SAT 93; O2SAT 98; BMI 25.0
--- NOTE | 2025-07-11 12:44 | ED.NAVMDI ---
HPI - Nausea/Vomiting/Diarrhea General Chief complaint: Nausea/Vomiting/Diarrhea Stated complaint: Vomiting x 3days Time Seen by Provider: 07/11/25 12:37 Source: patient Mode of arrival: EMS Limitations: no limitations History of Present Illness ED Provider: HPI Narrative: 65-year-old woman history of COPD, oxygen dependent presenting with nausea vomiting for the past 3 days no diarrhea, she states because she has mostly edentulous she does not sure her food and when she vomits she vomits undigested food particles, she has a epigastric discomfort, still passing gas no hematemesis or hematochezia. Related Data Home Medications ?Medication ?Instructions ?Recorded ?Confirmed bupropion HCl 150 mg 24 hr tablet, 150 mg PO DAILY 05/22/21 07/01/24 extended release gemfibrozil 600 mg tablet 600 mg PO BID 05/22/21 07/01/24 sertraline 100 mg tablet 100 mg PO DAILY 05/22/21 07/01/24 simvastatin 40 mg tablet 40 mg PO BEDTIME 05/22/21 07/01/24 temazepam 30 mg capsule 30 mg PO BEDTIME PRN Insomnia 05/22/21 07/01/24 trazodone 150 mg tablet 450 mg PO BEDTIME 05/22/21 07/01/24 valacyclovir 500 mg tablet 500 mg PO DAILY 05/22/21 07/01/24 multivitamin 1 tab PO DAILY 10/07/22 07/01/24 pantoprazole 40 mg tablet,delayed 40 mg PO DAILY@0630 09/27/23 07/01/24 release albuterol sulfate 2.5 mg/3 mL 2.5 mg inhalation Q6H PRN SOB 03/12/24 07/01/24 (0.083 %) solution for nebulization aspirin 81 mg tablet,delayed 81 mg PO DAILY 03/12/24 07/01/24 release cholecalciferol (vitamin D3) 25 25 mcg PO DAILY 03/12/24 07/01/24 mcg (1,000 unit) tablet (Vitamin D3) docusate sodium 100 mg capsule 100 mg PO BID 03/12/24 07/01/24 (Colace) fluticasone propionate 50 1 spray intranasal BID 03/12/24 07/01/24 mcg/actuation nasal spray,suspension loratadine 10 mg tablet 10 mg PO DAILY 03/12/24 07/01/24 aripiprazole 5 mg tablet 5 mg PO DAILY 05/17/24 07/01/24 fluticasone fur. 100 mcg-umeclid 1 ea inhalation DAILY 05/17/24 07/01/24 62.5 mcg-vilant 25 mcg inhalat.powder (Trelegy Ellipta) anastrozole 1 mg tablet 1 mg PO DAILY 07/01/24 07/01/24 levalbuterol tartrate 45 2 inh inhalation Q6H 07/01/24 07/01/24 mcg/actuation aerosol inhaler (Xopenex HFA) metformin 1,000 mg tablet 1,000 mg PO BID 07/01/24 07/01/24 sodium chloride 0.2 % nasal spray 1 spray intranasal Q4H PRN dryness 07/01/24 07/01/24 inside the nose Previous Rx's ?Medication ?Instructions ?Recorded carvedilol 12.5 mg tablet 12.5 mg PO BID #180 tabs 07/03/24 doxycycline hyclate 100 mg tablet 100 mg PO BID #20 tabs 07/03/24 losartan 25 mg tablet 25 mg PO DAILY #90 tabs 07/03/24 ondansetron 4 mg disintegrating 4 mg PO TID PRN nausea and 05/28/25 tablet vomiting 5 days #10 tabs magnesium 200 mg tablet 200 mg PO DAILY 14 days #14 tabs 07/11/25 ondansetron 4 mg disintegrating 4 mg PO Q8H PRN nausea and 07/11/25 tablet vomiting #4 tabs Allergies Allergy/AdvReac Type Severity Reaction Status Date / Time Iodinated Contrast Media (IV Allergy Unknown UNKNOWN Verified 07/11/25 12:40 Dye, Iodine Containing) zolpidem (From AMBIEN) Allergy Unknown UNKNOWN Verified 07/11/25 12:40 iv dye as a baby Allergy Mild Unknown Uncoded 07/11/25 12:40 Review of Systems Constitutional: Constitutional: Reports as per [facility] Past Medical History Medical History (Updated 07/11/25 @ 14:17 by Larry Biggs DO) TBI (traumatic brain injury) COPD (chronic obstructive pulmonary disease) DMII (diabetes mellitus, type 2) Anxiety Depressed HTN (hypertension) Diabetes Surgical History Status post right hip replacement Social History Social History Household Members: None 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 Housing: Apartment Do you presently have visiting nurse or other home services: Yes Alcohol intake: never Patient Tobacco Use Status: Current everyday Tobacco user Tobacco use type: Cigarette Cigarette Packs Per Day: 0.75 Cigarettes Per Day: 15.0 Smoked in Last 30 Days: No e-Cigarette/Vaping Use: Never Used Second Hand Smoke Exposure: Yes Use of substances other than those prescribed or required for medical reasons: No Substance Use Type: Marijuana Advance Directives: Yes Advance Directives on File: Yes Advance Directives Date on File: 02/23/23 Do you have a plan to hurt others: No Plan Patient : No service: No Current occupational status: disabled Physical Exam Exam: Exam: ?General: ??looks age appropriate, using oxygen Slightly dry oral mucosa Neck: Supple, no LAD ?CV: RRR, no obvious murmurs appreciated ?Resp: ?No wheezing rales rhonchi no stridor moving air well Abd: ? minimal epigastric tenderness no right upper quadrant tenderness, bowel sounds present throughout MSK: FROM, strength 5/5 all extremities, no lower extremity edema Skin: Warm, dry, intact, ?Neuro: ?Alert and oriented x3, moving upper and lower extremities symmetrically, no obvious facial asymmetry noted, cranial nerves 2-12 intact Vital Signs: Vital Signs: Last Vital Signs Temp 97.9 F 07/11/25 12:38 Pulse 76 07/11/25 12:38 Resp 16 07/11/25 12:38 BP 153/74 H 07/11/25 12:38 Pulse Ox 93 07/11/25 12:38 O2 Del Method Nasal Cannula 07/11/25 12:38 Oxygen Flow Rate 3 07/11/25 12:38 BMI result Body Mass Index 25.0 Medications Administered Discontinued Medications Generic Name Dose Route Start Last Admin Trade Name Freq PRN Reason Stop Dose Admin Al Hydroxide/Mg Hydroxide 30 ml 07/11/25 12:42 07/11/25 13:22 Magnesium Hydrox/Alum Hydrox 30 Ml Oral.Susp PO 07/11/25 12:43 30 ml ONCE ONE Administration Famotidine 20 mg 07/11/25 12:42 07/11/25 13:10 Famotidine/Pf 20 Mg/2 Ml Vial IVPUSH 07/11/25 12:43 20 mg ONCE ONE Administration Sodium Chloride 1,000 mls @ 999 mls/hr 07/11/25 12:45 07/11/25 13:22 Ns IV 07/11/25 13:45 999 mls/hr .Q1H1M STEVEN Administration Lidocaine HCl 15 ml 07/11/25 12:42 07/11/25 13:22 Lidocaine Hcl Viscous 2 % 15 Ml Solution PO 07/11/25 12:43 15 ml ONCE ONE Administration Ondansetron HCl 4 mg 07/11/25 12:42 07/11/25 13:07 Ondansetron Hcl 4 Mg/2 Ml Vial IVPUSH 07/11/25 12:43 4 mg ONCE ONE Administration Medical Decision Making Medical Decision Making [facility] Narrative: 12:59 PM 07/11/2025 (Dr. Larry Biggs): Well-appearing patient, presenting with epigastric abdominal pain, reports that she does not sure food fully and then when she has been eating she vomits undigested particles, she states this is a recurrent issue and we spoke about food prep mechanical soft diet she states that she does have VNA who is able to provide that for her and she will request that, her exam is quite reassuring, nothing to suspect appendicitis, diverticulitis or small bowel obstruction, we will check LFTs, we will provide symptomatic control we will re-evaluate, she states she is otherwise safe at home I have low suspicion that this is ACS but giving her age and risk factors we will obtain ECG and cardiac enzyme Differential Diagnosis Differential Diagnoses: The differential diagnosis associated with the presentation includes (Cholecystitis, pancreatitis, hepatitis, gastritis, cholangitis, choledocholithiasis, SBO, dehydration) Admission/Observation Consideration of admission/observation: Escalation of care including admission/observation considered Lab Data MDM Lab Attestation statement: I reviewed the patient's lab results. 07/11/25 13:09 07/11/25 13:08 Labs: Lab Results 07/11/25 07/11/25 Range/Units 13:08 13:09 WBC 7.1 (4.8-10.8) X10*3/uL RBC 4.17 L (4.20-5.50) X10*6/uL Hgb 13.7 (12.0-16.0) g/dl Hct 40.3 (37.0-47.0) % MCV 96.6 (80.0-98.0) fL MCH 32.9 (27.0-33.0) pg MCHC 34.0 (31.0-35.0) g/dl RDW 12.8 (11.0-16.0) % Plt Count 184 (160-400) X10*3/uL MPV 10.3 (9.4-12.3) fL Immature Gran % (Auto) 0.4 (0.0-0.4) % Neut % (Auto) 60.3 (45-73) % Lymph % (Auto) 26.7 (20-40) % [place] % (Auto) 8.8 (2-11) % Eos % (Auto) 3.1 (0-4) % Baso % (Auto) 0.7 (0-2) % Lymph # (Auto) 1.9 (1.2-4.9) X10*3/uL [place] # (Auto) 0.6 (0.1-1.2) X10*3/uL Eos # (Auto) 0.2 (0.0-0.4) X10*3/uL Baso # (Auto) 0.1 (0.0-0.2) X10*3/uL Abs Immat Gran (auto) 0.03 (0.00-0.03) X10*3/uL Absolute Neuts (auto) 4.3 (2.0-8.3) x10*3/uL Absolute Nucleated RBC 0.000 (0.0-0.012) X10*3/uL Nucleated RBC % (auto) 0.0 (0.0-0.2) /100WBC Sodium 142 (135-145) mmol/L Potassium 4.3 (3.3-5.1) mmol/L Chloride 108 (96-108) mmol/L Carbon Dioxide 25 (22-29) mmol/L Anion Gap 13 (12-20) BUN 22 H (9-16) mg/dL Creatinine 0.96 (0.5-1.4) mg/dL Estim Creat Clear Calc 53.9 Estimated GFR 59 Random Glucose 133 H (60-115) mg/dL Calcium 9.6 (8.4-10.2) mg/dL Magnesium 1.5 L (1.6-2.6) mg/dL Total Bilirubin 0.3 (0.0-1.0) mg/dL AST 28 (5-31) U/L ALT 24 (0-31) U/L Alkaline Phosphatase 73 (39-117) U/L Troponin I High Sens 3.3 (<3.5-17.0) ng/L Total Protein 7.6 (6.5-8.0) g/dL Albumin 4.8 (3.5-5.0) g/dL Influenza Type A (PCR) NEGATIVE (Negative) Influenza Type B (PCR) NEGATIVE (Negative) RSV RNA Qual (PCR) NEGATIVE (Negative) SARS-CoV-2 RNA (RT-PCR) NEGATIVE (Negative) Independent Historian Clinical information obtained from an independent historian. History obtained from or confirmed by: EMS Tests considered The following testing was considered but not selected: CT abdomen and pelvis with IV contrast Chronic Conditions Patient?s care impacted by: Hypertension and Other (Acute on chronic hypoxic respiratory failure) Discharge Plan Discharge Clinical Impression: Nausea & vomiting, Epigastric abdominal pain, Hypomagnesemia Patient Disposition: Home, Self-Care Additional Instructions: Your blood work has been reassuring, slightly low magnesium, make sure that your food is cut into small pieces or blenderized, I think that judging from what your telling me this is pelvic contributor to your abdominal discomfort, you received fluids medications for nausea I will provide him with some Zofran to home Follow up with the PCP and other issues concerns come back to the ED Prescriptions: New ondansetron 4 mg tablet,disintegrating 4 mg PO Q8H PRN (Reason: nausea and vomiting) Qty: 4 0RF magnesium 200 mg tablet 200 mg PO DAILY 14 Days Qty: 14 0RF No Action sertraline 100 mg tablet 100 mg PO DAILY valacyclovir 500 mg tablet 500 mg PO DAILY simvastatin 40 mg tablet 40 mg PO BEDTIME temazepam 30 mg capsule 30 mg PO BEDTIME PRN (Reason: Insomnia) gemfibrozil 600 mg tablet 600 mg PO BID trazodone 150 mg tablet 450 mg PO BEDTIME bupropion HCl 150 mg tablet extended release 24 hr 150 mg PO DAILY multivitamin Tablet 1 tab PO DAILY albuterol sulfate 2.5 mg /3 mL (0.083 %) Solution For Nebulization 2.5 mg INHALATION Q6H PRN (Reason: SOB) aspirin 81 mg Tablet,Delayed Release (Dr/Ec) 81 mg PO DAILY docusate sodium [Colace] 100 mg Capsule 100 mg PO BID cholecalciferol (vitamin D3) [Vitamin D3] 25 mcg (1,000 unit) Tablet 25 mcg PO DAILY fluticasone propionate 50 mcg/actuation [place],Suspension 1 spray INTRANASAL BID Rx Instructions: administer into each nostril loratadine 10 mg Tablet 10 mg PO DAILY Trelegy Ellipta 100-62.5-25 mcg blister with device 1 ea inhalation DAILY aripiprazole 5 mg tablet 5 mg PO DAILY metformin 1,000 mg tablet 1,000 mg PO BID anastrozole 1 mg Tablet 1 mg PO DAILY levalbuterol tartrate [Xopenex HFA] 45 mcg/actuation Hfa Aerosol Inhaler 2 inh INHALATION Q6H sodium chloride 0.2 % [place],Non-Aerosol 1 spray INTRANASAL Q4H PRN (Reason: dryness inside the nose) carvedilol 12.5 mg Tablet 12.5 mg PO BID Qty: 180 0RF Protocol: Hold for SBP/HR < HOLD for SBP < : 90 HOLD for HR < : 60 losartan 25 mg Tablet 25 mg PO DAILY Qty: 90 0RF Protocol: Hold for SBP< HOLD for SBP < : 90 doxycycline hyclate 100 mg tablet 100 mg PO BID Qty: 20 0RF Rx Instructions: End date 07/02/2024 ondansetron 4 mg tablet,disintegrating 4 mg PO TID PRN (Reason: nausea and vomiting) 5 Days Qty: 10 0RF pantoprazole 40 mg tablet,delayed release (DR/EC) 40 mg PO DAILY@0630 Print Language: Hungarian
[2025-07-11 13:16] LABS: MANUAL DIFF FLAG NO
[2025-07-11 13:18] LABS: Hematocrit 40.3 % (37.0-47.0); Hemoglobin 13.7 g/dl (12.0-16.0); Imm Gran Abs Auto 0.03 X10*3/uL (0.00-0.03); Imm Gran Pct Auto 0.4 % (0.0-0.4); Lymphocytes Absolute Auto 1.9 X10*3/uL (1.2-4.9); Mean Corpuscular HGB Conc 34.0 g/dl (31.0-35.0); Mean Corpuscular Hemoglobin 32.9 pg (27.0-33.0); Mean Corpuscular Volume 96.6 fL (80.0-98.0); NRBC Abs Auto 0.000 X10*3/uL (0.0-0.012); NRBC Pct Auto 0.0 /100WBC (0.0-0.2); Platelet Count 184 X10*3/uL (160-400); Red Blood Count 4.17 X10*6/uL (4.20-5.50); White Blood Count 7.1 X10*3/uL (4.8-10.8)
[2025-07-11] MEDS: Lidocaine HCl Viscous 2 % 15 ML SOLUTION PO (13:22)
[2025-07-11] MEDS: Magnesium Hydrox/Alum Hydrox 30 ML ORAL.SUSP PO (13:22)
[2025-07-11 13:38] LABS: Alanine Aminotransferase 24 U/L (0-31); Albumin Level 4.8 g/dL (3.5-5.0); Alkaline Phosphatase 73 U/L (39-117); Anion Gap 13 (12-20); Aspartate Amino Transferase 28 U/L (5-31); Blood Urea Nitrogen 22 mg/dL (9-16); Calcium 9.6 mg/dL (8.4-10.2); Carbon Dioxide 25 mmol/L (22-29); Chloride 108 mmol/L (96-108); Creatinine Clr Calc Pharmacy 53.9; Estimated Glomerular Filt Rate 59; Magnesium 1.5 mg/dL (1.6-2.6); Potassium 4.3 mmol/L (3.3-5.1); Sodium 142 mmol/L (135-145); Total Protein 7.6 g/dL (6.5-8.0)
[2025-07-11 13:45] LABS: Troponin-I High Sensitivity 3.3 ng/L (<3.5-17.0)
[2025-07-11 14:08] LABS: Resp Syncy Virus RNA Qual PCR NEGATIVE (Negative); SARS COV2 PCR INHOUSE NEGATIVE (Negative)
[2025-07-11 15:08] VITALS: BP 136/82; PULSE 68; RESP 16; TEMP 36.7; O2SAT 94
== END 2025-07-11 15:24 | disposition home or self-care (01) ==
PROVIDERS: Physician Assistant Medical; Emergency Provider Emergency Medicine; PCP Nurse Practitioner Family
DX: R10.13 Epigastric pain (principal); E83.42 Hypomagnesemia; R11.2 Nausea with vomiting, unspecified; R19.7 Diarrhea, unspecified; J44.9 Chronic obstructive pulmonary disease, unspecified; F17.210 Nicotine dependence, cigarettes, uncomplicated; Z03.818 Encounter for observation for suspected exposure to other biological agents ruled out; Z79.899 Other long term (current) drug therapy
CPT/HCPCS: 36415; 80053; 83735; 84484; 85025; 87637; 93005; 96361; 96374; 96375; 99284; 99285; J1308; J2405

== ENCOUNTER → 2025-07-11 12:24 | Outpatient (BNV) | payer MEDICARE, MEDICAID, SELFPAY | PROVIDERS: Emergency Provider Emergency Medicine; PCP Nurse Practitioner Family; Visit Provider Internal Medicine | DX: R11.10 Vomiting, unspecified (principal) | CPT/HCPCS: 93010 ==

== ENCOUNTER 2025-08-11 14:12 | Emergency (ER) | payer MEDICARE, MEDICAID, SELFPAY ==
--- OUTSIDE RECORDS SUMMARY | 2025-08-06 23:59 | XMS_ITS | Continuity of Care Document ---
Author Organization [facility] Rene Tunde lt Address [address] [place] [address]- Care Team Providers Care Watch Caser Name Role Phone Nando SAUCEDA, Meghan Beaulieu Primary Care Physician [phone] Encounter [facility] [place] Date(s): 07/07/25 - 08/06/25 [facility] Adult [address] [place] [address]- Encounter Type: Triage Allergies, Adverse Reactions, Alerts [...] virus vaccine, inactivated 6 05/14/08 Gi bryant [id number] 12y+ bivalent booster vax 06/29/22 Recorded SARS-CoV-2 [...] [facility] 2Admin Note: given at [facility] 3Admin Note: VIS Given Flulaval 4Admin Note: VIS Given Flulaval 5Admin Note: Received at [facility] 6Admin Note: Received at [facility] 7Admin Note: [facility] 8Admin Note: SANOFI PASTEUR Medications amLODIPine 5 mg oral tablet 5 mg, 1, tablet, By Mouth, Daily, # 30 tablet, Refills 3, Tot. Refills 3, Maintenance, 05/19/25 2:53:00 PM EDT, Route to Pharmacy Electronically, [facility] #[id number], Partial fill upon patientrequest if the prescription [...] 9:56:30 AM EDT, Route to Pharmacy Electronically, [facility] [id number] Start Date: 7/11/19 Status: Ordered Medication Dispense Status: Completed Quantity: 90.0 Unit: tablet Total Allowed Fills: 2 Fills Dispensed: 0 Benefiber oral powder for reconstitution 5 mL, By Mouth, Daily, PRN as needed for constipation, # 245 Gm, 0 Refills, Maintenance, 07/09/25 1:17:00 PM EST, REC Powder, [facility] #[id number], Partial fill upon patient request if the prescription is for a schedule II opioid drug., 5 mL By Mouth Daily,PRN:as needed for constipation, 160, cm, 07/09/25 12:57:00 EST, Height, 72.7, kg, 04/28/25 11:09:00 EDT, Dry Weight Start Date: 07/09/25 Status: Ordered Medication Dispense Status: Completed Quantity: 245.0 Unit: g Total Allowed Fills: 1 Fills Dispensed: 0 Indications: Diarrhea, unspecified; carvedilol 12.5 mg oral tablet 12.5 mg, 1, tablet, By Mouth, 2 times a day, # 60 tablet, Refills 6, Tot. Refills 6, Maintenance, 04/22/25 1:47:00 PM EDT, Route to Pharmacy Electronically, [facility] #[id number], Partial fill upon patient request if the prescription is for a schedule II opioid drug., 160, cm, 04/17/25 10:52:00EDT, Height Start Date: 04/22/25 Stop Date: 11/18/25 Status: Ordered Medication Dispense Status: Completed Quantity: 60.0 Unit: tablet Total Allowed Fills: 7 Fills Dispensed: 0 Colace sodium 100 mg oral capsule 100 mg, 1, capsule, By Mouth, Daily, # 90 capsule, Refills 3, Tot. Refills 3, Maintenance, 07/31/2511:23:00 AM EST, Route to Pharmacy Electronically, [facility] #[id number], Partial fill upon patient request if the prescription is for a schedule II opioid drug., 160, cm, 07/09/25 12:57:00 EST, Height, 72.7, kg, 04/28/25 11:09:00 EDT, Dry Weight Start Date: 07/31/25 Status: Ordered Medication Dispense Status: Completed Quantity: 90.0 Unit: capsule Total Allowed Fills: 4 Fills Dispensed: 0 Colace sodium 100 mg oral capsule 100 mg, 1, capsule, By Mouth, 2 times a day, PRN, # 60 capsule, Refills 0, Tot. Refills 0, Maintenance, Constipation, 03/27/20 7:25:00 AM EDT, Route to Pharmacy Electronically, [facility] #[id number], 165.1, cm, 03/26/20 18:59:00 EDT, Height, 77.27, [...] Total Allowed Fills: 12 Fills Dispensed: 0 Electric Wheelchair Electric Wheelchair, See Instructions, # 1 each, Refills 0, Tot. Refills 0, Maintenance, DX: left hemiparesis G 81.94. Foot drop left M21.372 L.O.N. 89 years WT- 163 lbs HT 5'3 , 12/23/24 3:31:00 PM EDT, Supply Start Date: 12/23/24 Status: Ordered Medication Dispense Status: Completed Quantity: 1.0 Unit: each Total Allowed Fills: 1 Fills Dispensed: 0 esomeprazole 40 mg oral enteric coated capsule 1 capsule = 40 mg, By Mouth, 2 times a day, # 60 capsule, 5 Refills, Maintenance, 07/09/25 1:15:00 PM EST, CR Capsule, [facility] #[id number], Partial fill upon patient request if the prescription is for a schedule II opioid drug., 160, cm, 07/09/25 12:57:00 EST, Height, 72.7, kg, 04/28/25 11:0 9:00 EDT, Dry Weight Start Date: 07/09/25 Status: Ordered Medication Dispense Status: Completed Quantity: 60.0 Unit: capsule Total Allowed Fills: 6 Fills Dispensed: 0 Indications: Vomiting, unspecified; gemfibrozil 600 mg oral tablet 1, tablet, By Mouth, 2 times a day, # 180 tablet, Refills 1, Tot. Refills 1, Maintenance, 03/10/25 3:36:00 PM EDT, Route to Pharmacy Electronically, [facility] #[id number], 160, cm, 11/27/24 10:31:00 EDT, Height Start Date: 03/10/25 Status: Ordered Medication Dispense Status: Completed Quantity: 180.0 Unit: tablet Total Allowed Fills: 2 Fills Dispensed: 0 meloxicam 15 mg oral tablet 1 tablet, By Mouth, Daily, # 30 tablet, 1 Refills, Maintenance, 06/17/25 8:10:00 AM EST, [facility] #[id number], 160, cm, 06/16/25 10:38:00 EST, Height, 72.7, kg, 04/28/25 11:09:00 EDT, Dry Weight Start Date: 06/17/25 Status: Ordered Medication Dispense Status: Completed Quantity: 30.0 Unit: tablet Total Allowed Fills: 2 Fills Dispensed: 0 metFORMIN 500 mg oral tablet 2 tablet = 1,000 mg, By Mouth, 2 times a day, # 120 tablet, 3 Refills, Maintenance, 05/19/25 2:49:00PM EDT, [facility] #[id number], Partial fill upon patient request if the [...] Refills, Maintenance, 02/21/19 10:05:02 AM EDT, Tablet, [facility], 1 tablet By Mouth Daily Start Date: 02/21/19 Status: Ordered Medication Dispense Status: Completed Quantity: 90.0 Unit: tablet Total Allowed Fills: 2 Fills Dispensed: 0 ondansetron 8 mg oral tablet, disintegrating 1 tablet = 8 mg, By Mouth, 3 times a day, # 30 tablet, 3 Refills, Maintenance, 07/09/25 1:15:00 PM EST, DIS Tablet, [facility][id number], Partial fill upon patient request if the prescription is for a schedule II opioid drug., 160, cm, 07/09/25 12:57:00 EST, Height, 72.7, kg, 04/28/25 11:09:00 EDT, Dry Weight Start Date: 07/09/25 Status: Ordered Medication Dispense Status: Completed Quantity: 30.0 Unit: tablet Total Allowed Fills: 4 Fills Dispensed: 0 Indications: Vomiting, unspecified; pantoprazole 40 mg oral delayed release tablet [...] 05/20/25 5:56:00 PM EDT,[id number], 160, cm, 05/19/25 14:29:00 EDT, Height, 72.7, [...] Total Allowed Fills: 1 Fills Dispensed: 0 traZODone 150 mg oral tablet 3 tablet = 450 mg, By Mouth, Daily at bedtime, # 90 tablet, 1 Refills, Maintenance, 08/20/19 4:12:00 PM EST, Tablet, [facility] #[id number], 155, cm, 08/20/19 15:13:00 EST, Height, 78.7, kg, 04/18/19 14:17:00 EDT, Dry Weight Start Date: 08/20/19 Status: Ordered Medication Dispense Status: Completed Quantity: 90.0 Unit: tablet Total Allowed Fills: 2 Fills Dispensed: 0 Trelegy Ellipta 100 mcg-62.5 mcg-25 mcg/inh inhalation powder 1 puffs, Inhalation, Daily, at the same time every day, # 1 each, 5 Refills, Maintenance, 03/21/24 2:34:00 PM EDT, Powder, [facility] #08293, copd j44.9, 160, cm, 03/21/24 14:08:00 EDT, Height Start Date: 03/21/24 Stop Date: 09/17/24 Status: Ordered Medication Dispense Status: Completed Quantity: 1.0 Unit: each Total Allowed Fills: 6 Fills Dispensed: 0 valACYclovir 500 mg oral tablet 1, tablet, By Mouth, Daily, # 30 tablet, Refills 5, Maintenance, 05/20/25 5:56:00 PM EDT, Route to Pharmacy Electronically, [facility] #[id number], 160, cm, 05/19/25 14:29:00 EDT, Height, 72.7, kg, 04/28/25 11:09:00 EDT, Dry Weight Start Date: 05/20/25 Status: Ordered Medication Dispense Status: Completed Quantity: 30.0 Unit: tablet Total Allowed Fills: 1 Fills Dispensed: 0 vibegron 75 mg oral tablet 1 tablet = 75 mg, By Mouth, Daily, # 30 tablet, 6 Refills, Maintenance, 04/28/25 11:48:00 AM EDT, Tablet, [facility] #32697, Partial fill upon patient request if the [...] Refills, Maintenance, 02/21/19 10:00:44 AM EDT, Capsule, [facility] [address] Start Date: 02/21/19 Status: Ordered Medication Dispense Status: Completed Quantity: 100.0 Unit: capsule Total Allowed Fills: 4 Fills Dispensed: 0 Wellbutrin XL 150 mg/24 hours oral tablet, extended release 2 tablet = 300 mg, By Mouth, Every 24 hours, Increased by Oral Mendez 06/15/25 provider, # 30 tablet, 5 Refills, Maintenance, 02/21/19 9:58:26 AM EDT, ER Tablet, [facility] [address], going toreplace prozac. Will need one week of lowered prozac dose befoer starting wellbutrin Start Date: 02/21/19 Status: Ordered Medication Dispense Status: Completed Quantity: 30.0 Unit: tablet Total Allowed Fills: 6 Fills Dispensed: 0 Xopenex HFA 45 mcg/inh inhalation aerosol 2 puffs, Inhalation, Every 6 hours, # 15 Gm, 5 Refills, Maintenance, 10/17/19 11:13:00 AM EST, Aerosol, [facility] #[id number], 155, cm, 10/17/19 10:58:00 EST, Height, 78.7, kg, 04/18/19 14:17:00 EDT, Dry Weight Start Date: 10/17/19 Status: Ordered Medication Dispense Status: Completed Quantity: 15.0 Unit: g Total Allowed Fills: 6 Fills Dispensed: 0 Zoloft 100 mg oral tablet 2 tablet = 200 mg, By Mouth, Daily, prescribed by psychiatrist Increased by Ilan Mendez 04/23/25,# 30 tablet, 0 Refills, Maintenance, 10/24/19 2:25:00 PM EDT, Tablet Start Date: 10/24/19 Status: Ordered Medication Dispense Status: Completed Quantity: 30.0 Unit: tablet Total Allowed Fills: 1 Fills Dispensed: 0 Problem List Condition Confirmation Course Effective Dates [...] Care Team Personnel Name: Jessy Higgins Position: [facility] Onco RN Member Role: Primary Care Nurse Name: Meghan Collier NP Position: [facility] PCO Associate Professional Member Role: PCP Address: [address] [place] [address]- Telecom: Name: Anne Dinh RN Position: [facility] ED RN W/OE and Tasks Member Role: Primary Care Nurse Name: Blaire Lemos RN Position: [facility] RN Member Role: Primary Care Nurse Name: Breanna (Bayjul[place]) Dulce Maria Position: [facility] corporate director Member Role: Paralegal Legal Secretary Name: Albania Hoover RN Position: [facility] RN Member Role: Primary Care Nurse Name: Lianna Villareal RN Position: S RN Member Role: Primary Care Nurse Name: Randall JOEL, Jose Position: [facility] RN Member Role: Primary Care Nurse Care Team Related Persons Name: LILY, BUDDY Name: SANTANACRIS EDMOND Name: AIDA SANTANA Name: DARLYN WISEISE Name: FRANDY, [facility] Insurance Providers Guarantor name: NATI [facility] Plan Information #: 1 Payer: MEDICARE B Payer Identifier: NA Member Number: [id number] Group Number: NA Subscriber Identifier: NA Relationship to Subscriber: self Coverage Type: NA Coverage Verification Date: NA Telecom: NA Address: NA Health Plan Information #: 2 [facility] [employer] Payer Identifier: NA Member Number: [id number] Group Number: NA Subscriber Identifier: NA Relationship to Subscriber: self Coverage Type: MEDICAID Coverage Verification Date: NA Telecom: NA Address: NA
--- OUTSIDE RECORDS SUMMARY | 2025-08-07 23:59 | XMS_ITS | Continuity of Care Document ---
Author Organization [facility] Address [address] [place] [address]- Care Team Providers Care Grubber Name Role Phone Nando SAUCEDA, Meghan Beaulieu Primary Care Physician [phone] [id number] Date[facility]s): [facility] - 08/07/25 [facility] [address] [place] [address]- Attending Physician: Nolvia Hopkins MD Admitting Physician: Nolvia Hopkins MD Referring Physician: Meghan Collier NP Encounter Type: Pre-OutPatient One Time Allergies, Adverse Reactions, Alerts Substance Criticality Severity [...] virus vaccine, inactivated 6 05/14/08 Gi bryant [id number] 12y+ bivalent booster vax 06/29/22 Recorded SARS-CoV-2 [...] [facility] 2Admin Note: given at [facility] 3Admin Note: VIS Given Flulaval 4Admin Note: VIS Given Flulaval 5Admin Note: Received at [facility] 6Admin Note: Received at [facility] 7Admin Note: [facility] 8Admin Note: SANOFI PASTEUR Medications amLODIPine 5 mg oral tablet 5 mg, 1, tablet, By Mouth, Daily, # 30 tablet, Refills 3, Tot. Refills 3, Maintenance, 05/19/25 2:53:00 PM EDT, Route to Pharmacy Electronically, [facility] #[id number], Partial fill upon patientrequest if the prescription [...] 9:56:30 AM EDT, Route to Pharmacy Electronically, [facility] [address] Start Date: 02/21/19 Status: Ordered Medication Dispense Status: Completed Quantity: 90.0 Unit: tablet Total Allowed Fills: 2 Fills Dispensed: 0 Benefiber oral powder for reconstitution 5 mL, By Mouth, Daily, PRN as needed for constipation, # 245 Gm, 0 Refills, Maintenance, 07/09/25 1:17:00 PM EST, REC Powder, [facility] #[id number], Partial fill upon patient request if the [...] 1:47:00 PM EDT, Route to Pharmacy Electronically, [facility] #[id number], Partial fill upon patient request if the [...] 07/31/2511:23:00 AM EST, Route to Pharmacy Electronically, [facility] #[id number], Partial fill upon patient request if the [...] 7:25:00 AM EDT, Route to Pharmacy Electronically, [facility] #[id number], 165.1, cm, 03/26/20 18:59:00 EDT, Height, 77.27, [...] Maintenance, 07/09/25 1:15:00 PM EST, CR Capsule, [facility] #05018, Partial fill upon patient request if the [...] 3:36:00 PM EDT, Route to Pharmacy Electronically, [facility] #[id number], 160, cm, 11/27/24 10:31:00 EDT, Height Start Date: 03/10/25 Status: Ordered Medication Dispense Status: Completed Quantity: 180.0 Unit: tablet Total Allowed Fills: 2 Fills Dispensed: 0 meloxicam 15 mg oral tablet 1 tablet, By Mouth, Daily, # 30 tablet, 1 Refills, Maintenance, 06/17/25 8:10:00 AM EST, [facility] #53915, 160, cm, 06/16/25 10:38:00 EST, Height, 72.7, kg, 04/28/25 11:09:00 EDT, Dry Weight Start Date: 06/17/25 Status: Ordered Medication Dispense Status: Completed Quantity: 30.0 Unit: tablet Total Allowed Fills: 2 Fills Dispensed: 0 metFORMIN 500 mg oral tablet 2 tablet = 1,000 mg, By Mouth, 2 times a day, # 120 tablet, 3 Refills, Maintenance, 05/19/25 2:49:00PM EDT, [facility] #[id number], Partial fill upon patient request if the [...] Refills, Maintenance, 02/21/19 10:05:02 AM EDT, Tablet, [facility], 1 tablet By Mouth Daily Start Date: 02/21/19 Status: Ordered Medication Dispense Status: Completed Quantity: 90.0 Unit: tablet Total Allowed Fills: 2 Fills Dispensed: 0 ondansetron 8 mg oral tablet, disintegrating 1 tablet = 8 mg, By Mouth, 3 times a day, # 30 tablet, 3 Refills, Maintenance, 07/09/25 1:15:00 PM EST, DIS Tablet, [facility] #[id number], Partial fill upon patient request if the [...] 05/20/25 5:56:00 PM EDT,Route to Pharmacy Electronically, [facility] #[id number], 160, cm, 05/19/25 14:29:00 EDT, Height, 72.7, [...] Refills, Maintenance, 08/20/19 4:12:00 PM EST, Tablet, [facility] #74907, 155, cm, 08/20/19 15:13:00 EST, Height, 78.7, kg, 04/18/19 14:17:00 EDT, Dry Weight Start Date: 08/20/19 Status: Ordered Medication Dispense Status: Completed Quantity: 90.0 Unit: tablet Total Allowed Fills: 2 Fills Dispensed: 0 Trelegy Ellipta 100 mcg-62.5 mcg-25 mcg/inh inhalation powder 1 puffs, Inhalation, Daily, at the same time every day, # 1 each, 5 Refills, Maintenance, 03/21/24 2:34:00 PM EDT, Powder, [facility] #04237, copd j44.9, 160, cm, 03/21/24 14:08:00 EDT, Height Start Date: 03/21/24 Stop Date: 09/17/24 Status: Ordered Medication Dispense Status: Completed Quantity: 1.0 Unit: each Total Allowed Fills: 6 Fills Dispensed: 0 valACYclovir 500 mg oral tablet 1, tablet, By Mouth, Daily, # 30 tablet, Refills 5, Maintenance, 05/20/25 5:56:00 PM EDT, Route to Pharmacy Electronically, [facility] #[id number], 160, cm, 05/19/25 14:29:00 EDT, Height, 72.7, kg, 04/28/25 11:09:00 EDT, Dry Weight Start Date: 05/20/25 Status: Ordered Medication Dispense Status: Completed Quantity: 30.0 Unit: tablet Total Allowed Fills: 1 Fills Dispensed: 0 vibegron 75 mg oral tablet 1 tablet = 75 mg, By Mouth, Daily, # 30 tablet, 6 Refills, Maintenance, 04/28/25 11:48:00 AM EDT, Tablet, [facility] #55991, Partial fill upon patient request if the [...] Refills, Maintenance, 02/21/19 10:00:44 AM EDT, Capsule, [email or web address] [id number] Start Date: 02/21/19 Status: Ordered Medication Dispense Status: Completed Quantity: 100.0 Unit: capsule Total Allowed Fills: 4 Fills Dispensed: 0 Wellbutrin XL 150 mg/24 hours oral tablet, extended release 2 tablet = 300 mg, By Mouth, Every 24 hours, Increased by Oral Mendez 06/15/25 provider, # 30 tablet, 5 Refills, Maintenance, 02/21/19 9:58:26 AM EDT, ER Tablet, [email or web address] 25580, going toreplace prozac. Will need one week of lowered prozac dose befoer starting wellbutrin Start Date: 02/21/19 Status: Ordered Medication Dispense Status: Completed Quantity: 30.0 Unit: tablet Total Allowed Fills: 6 Fills Dispensed: 0 Xopenex HFA 45 mcg/inh inhalation aerosol 2 puffs, Inhalation, Every 6 hours, # 15 Gm, 5 Refills, Maintenance, 10/17/19 11:13:00 AM EST, Aerosol, [facility] #93040, 155, cm, 10/17/19 10:58:00 EST, Height, 78.7, [...] Care Team Personnel Name: Jessy Higgins Position: [facility] Onco RN Member Role: Primary Care Nurse Name: Meghan Collier NP Position: [facility] PCO Associate Professional Member Role: PCP Address: [address] [place] [address]- Telecom: Name: Anne Dinh RN Position: [facility] ED RN W/OE and Tasks Member Role: Primary Care Nurse Name: Blaire Lemos RN Position: [facility] RN Member Role: Primary Care Nurse Name: Breanna ([facility]) Dulce Maria Position: [facility] bow maker custom Member Role: Encapsulator Name: Albania Hoover RN Position: S RN Member Role: Primary Care Nurse Name: Lianna Villareal RN Position: [facility] RN Member Role: Primary Care Nurse Name: Jose Pereira RN Position: [facility] RN Member Role: Primary Care Nurse Care Team Related Persons Name: BUDDY BAUTISTA Name: SANTANACRIS EDMOND Name: AIDA SANTANA Name: RAVEN WISE Name: RAVEN 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 Guarantor name: NATI LILY [employer] [facility] Information #: 1 Payer: MEDICARE B Payer Identifier: Member Number: [id number] Group Number: Subscriber Identifier: [id number] Relationship to Subscriber: self Coverage Type: NA Coverage Verification Date: NA Telecom: NA Address: NA Health Plan Information #: 2 Payer: [facility] [employer] Payer Identifier: Member Number: [id number] Group Number: Subscriber Identifier: [id number] Relationship to Subscriber: self Coverage Type: MEDICAID Coverage Verification Date: NA Telecom: NA Address:
--- OUTSIDE RECORDS SUMMARY | 2025-08-07 23:59 | XMS_ITS | Continuity of Care Document ---
Author Organization [facility] Rene Tunde lt Address [address] [place] [address]- Care Team Providers Care Fingerprint Classifier Name Role Phone Nando SAUCEDA, Meghan Beaulieu Primary Care Physician Encounter [facility] Date(s): 07/08/25 - 08/07/25 [facility] Adult [address] [place] [address]- Encounter Type: Triage Allergies, Adverse Reactions, Alerts [...] virus vaccine, inactivated 6 05/14/08 Gi bryant [id number] 12y+ bivalent booster vax 06/29/22 Recorded SARS-CoV-2 [...] 1Location History[facility] 2Admin Note: given at [facility] 3Admin Note: VIS Given Flulaval 4Admin Note: VIS Given Flulaval 5Admin Note: Received at [facility] 6Admin Note: Received at [facility] 7Admin Note: [facility] 8Admin Note: SANOFI PASTEUR Medications amLODIPine 5 mg oral tablet 5 mg, 1, tablet, By Mouth, Daily, # 30 tablet, Refills 3, Tot. Refills 3, Maintenance, 05/19/25 2:53:00 PM EDT, Route to Pharmacy Electronically, [email or web address] #[id number], Partial fill upon patientrequest if the prescription [...] 9:56:30 AM EDT, Route to Pharmacy Electronically, [id number] Start Date: 02/21/19 Status: Ordered Medication Dispense Status: Completed Quantity: 90.0 Unit: tablet Total Allowed Fills: 2 Fills Dispensed: 0 Benefiber oral powder for reconstitution 5 mL, By Mouth, Daily, PRN as needed for constipation, # 245 Gm, 0 Refills, Maintenance, 07/09/25 1:17:00 PM EST, REC Powder, [facility] #[id number], Partial fill upon patient request if the [...] 1:47:00 PM EDT, Route to Pharmacy Electronically, [email or web address] #[id number], Partial fill upon patient request if the [...] 07/31/2511:23:00 AM EST, Route to Pharmacy Electronically, [email or web address] #[id number], Partial fill upon patient request if the [...] 7:25:00 AM EDT, Route to Pharmacy Electronically, [email or web address] #[id number], 165.1, cm, 03/26/20 18:59:00 EDT, Height, 77.27, [...] Maintenance, 07/09/25 1:15:00 PM EST, CR Capsule, [email or web address] #[id number], Partial fill upon patient request if the [...] 3:36:00 PM EDT, Route to Pharmacy Electronically, [email or web address] #[id number], 160, cm, 11/27/24 10:31:00 EDT, Height Start Date: 03/10/25 Status: Ordered Medication Dispense Status: Completed Quantity: 180.0 Unit: tablet Total Allowed Fills: 2 Fills Dispensed: 0 meloxicam 15 mg oral tablet 1 tablet, By Mouth, Daily, # 30 tablet, 1 Refills, Maintenance, 06/17/25 8:10:00 AM EST, [email or web address] #[id number], 160, cm, 06/16/25 10:38:00 EST, Height, 72.7, kg, 04/28/25 11:09:00 EDT, Dry Weight Start Date: 06/17/25 Status: Ordered Medication Dispense Status: Completed Quantity: 30.0 Unit: tablet Total Allowed Fills: 2 Fills Dispensed: 0 metFORMIN 500 mg oral tablet 2 tablet = 1,000 mg, By Mouth, 2 times a day, # 120 tablet, 3 Refills, Maintenance, 05/19/25 2:49:00PM EDT, [email or web address] #[id number], Partial fill upon patient request if the [...] Refills, Maintenance, 02/21/19 10:05:02 AM EDT, Tablet, [facility], 1 tablet By Mouth Daily Start Date: 02/21/19 Status: Ordered Medication Dispense Status: Completed Quantity: 90.0 Unit: tablet Total Allowed Fills: 2 Fills Dispensed: 0 ondansetron 8 mg oral tablet, disintegrating 1 tablet = 8 mg, By Mouth, 3 times a day, # 30 tablet, 3 Refills, Maintenance, 07/09/25 1:15:00 PM EST, DIS Tablet, [email or web address] #[id number], Partial fill upon patient request if the [...] 05/20/25 5:56:00 PM EDT,[id number], 160, cm, 05/19/25 14:29:00 EDT, Height, 72.7, [...] Refills, Maintenance, 08/20/19 4:12:00 PM EST, Tablet, [email or web address] #[id number], 155, cm, 08/20/19 15:13:00 EST, Height, 78.7, kg, 04/18/19 14:17:00 EDT, Dry Weight Start Date: 08/20/19 Status: Ordered Medication Dispense Status: Completed Quantity: 90.0 Unit: tablet Total Allowed Fills: 2 Fills Dispensed: 0 Trelegy Ellipta 100 mcg-62.5 mcg-25 mcg/inh inhalation powder 1 puffs, Inhalation, Daily, at the same time every day, # 1 each, 5 Refills, Maintenance, 03/21/24 2:34:00 PM EDT, Powder, [email or web address] #[id number], copd j44.9, 160, cm, 03/21/24 14:08:00 EDT, Height Start Date: 03/21/24 Stop Date: 09/17/24 Status: Ordered Medication Dispense Status: Completed Quantity: 1.0 Unit: each Total Allowed Fills: 6 Fills Dispensed: 0 valACYclovir 500 mg oral tablet 1, tablet, By Mouth, Daily, # 30 tablet, Refills 5, Maintenance, 05/20/25 5:56:00 PM EDT, Route to Pharmacy Electronically, [email or web address] #[id number], 160, cm, 05/19/25 14:29:00 EDT, Height, 72.7, kg, 04/28/25 11:09:00 EDT, Dry Weight Start Date: 05/20/25 Status: Ordered Medication Dispense Status: Completed Quantity: 30.0 Unit: tablet Total Allowed Fills: 1 Fills Dispensed: 0 vibegron 75 mg oral tablet 1 tablet = 75 mg, By Mouth, Daily, # 30 tablet, 6 Refills, Maintenance, 04/28/25 11:48:00 AM EDT, Tablet, [email or web address] #[id number], Partial fill upon patient request if the [...] Refills, Maintenance, 02/21/19 10:00:44 AM EDT, Capsule, [facility] [address] Start Date: 02/21/19 Status: Ordered Medication Dispense Status: Completed Quantity: 100.0 Unit: capsule Total Allowed Fills: 4 Fills Dispensed: 0 Wellbutrin XL 150 mg/24 hours oral tablet, extended release 2 tablet = 300 mg, By Mouth, Every 24 hours, Increased by Oral Mendez 06/15/25 provider, # 30 tablet, 5 Refills, Maintenance, 02/21/19 9:58:26 AM EDT, ER Tablet, [facility], going toreplace prozac. Will need one week of lowered prozac dose befoer starting wellbutrin Start Date: 02/21/19 Status: Ordered Medication Dispense Status: Completed Quantity: 30.0 Unit: tablet Total Allowed Fills: 6 Fills Dispensed: 0 Xopenex HFA 45 mcg/inh inhalation aerosol 2 puffs, Inhalation, Every 6 hours, # 15 Gm, 5 Refills, Maintenance, 10/17/19 11:13:00 AM EST, Aerosol, [email or web address] #[id number], 155, cm, 10/17/19 10:58:00 EST, Height, 78.7, [...] Care Team Personnel Name: Jessy Higgins Position: [facility] Onco RN Member Role: Primary Care Nurse Name: Meghan Collier NP Position: [facility] PCO Associate Professional Member Role: PCP Address: [address] [place] [address]- Telecom: Name: Anne Dinh RN Position: [facility] ED RN W/OE and Tasks Member Role: Primary Care Nurse Name: Blaire Lemos RN Position: [facility] RN Member Role: Primary Care Nurse Name: Breanna (Bayjuliet) Dulce Maria Position: [facility] wastewater technician Member Role: Merry Go Round Attendant Name: Albania Hoover RN Position: [facility] RN Member Role: Primary Care Nurse Name: Lianna Villareal RN Position: S RN Member Role: Primary Care Nurse Name: Jose Pereira RN Position: [facility] RN Member Role: Primary Care Nurse Care Team Related Persons Name: BUDDY BAUTISTA Name: SANTANACRIS Name: AIDA SANTANA Name: FRANDY RAVEN Name: FRANDY, RAVEN [facility] Insurance Providers Guarantor name: NATI LILY [facility] Plan Information #: 1 Payer: MEDICARE B Payer Identifier: NA Member Number: [id number] Group Number: [id number] Subscriber Identifier: NA Relationship to Subscriber: self Coverage Type: NA Coverage Verification Date: NA Telecom: NA Address: NA Health Plan Information #: 2 [facility] Payer Identifier: NA Member Number: [id number] Group Number: [id number] Subscriber Identifier: NA Relationship to Subscriber: self Coverage Type: MEDICAID Coverage Verification Date: NA Telecom: NA Address: NA
--- NOTE | ~2025-08-11 | XR_ITS ---
EXAMINATION: XR CHEST CLINICAL INFORMATION: Cough COMPARISON: 05/17/2024. TECHNIQUE: Frontal view of the chest was obtained. FINDINGS: Mild cardiac enlargement. Mediastinal and hilar contours appear normal. Lungs are hyperaerated. There is underlying COPD. There is mild diffuse prominence of the background interstitial markings, similar to prior exams. No pneumothorax or effusion. No focal osseous or soft tissue abnormality. XR/XR chest 1V IMPRESSION: 1. COPD. 2. Mild cardiac enlargement. 3. No active pulmonary disease. Electronically signed by: Horace Quiles MD 08/11/2025 03:31 PM [facility]
--- NOTE | ~2025-08-11 | CT_ITS ---
EXAMINATION: CT ABDOMEN PELVIS WITHOUT IV CONTRAST HISTORY: Left lower quadrant pain diarrhea COMPARISON: Comparison is made with the prior examination dated 05/27/2025. TECHNIQUE: CT scan of the abdomen and pelvis was performed without contrast using standard departmental protocol. Coronal and sagittal reformatted images were generated and reviewed. Oral contrast material was not administered at the request of the referring physician. This CT exam was performed with one or more of the following dose reduction techniques: automated exposure control, adjustment of the mA and/or kV according to patient size, use of iterative reconstruction technique. DLP: 660 mGy-cm FINDINGS: LOWER CHEST: The visualized lung bases are clear. There is no pleural effusion. CARDIOVASCULATURE: The heart is normal in size. There is no pericardial effusion. LIVER: The liver is normal in size and contour. The liver has an unremarkable unenhanced appearance. GALLBLADDER / BILE DUCTS: The gallbladder is surgically absent. There is no intra or extrahepatic biliary ductal dilatation. SPLEEN: The spleen is normal in size and has an unremarkable unenhanced appearance. PANCREAS: The pancreas has an unremarkable unenhanced appearance. ADRENAL GLANDS: Unremarkable. KIDNEYS/RETROPERITONEUM: Again seen is a cluster of tiny calcifications at the lower pole of the right kidney, likely in a calyceal diverticulum. There is no hydronephrosis or hydroureter. LYMPH NODES: No retroperitoneal lymphadenopathy is identified in the abdomen or pelvis. VASCULATURE: The abdominal aorta demonstrates atherosclerotic calcification, but is normal in caliber. MESENTERY/PERITONEUM: No free fluid. No masses. There is no free intraperitoneal gas. STOMACH: The stomach is collapsed, limiting evaluation. SMALL BOWEL: The small bowel is normal in caliber. COLON: The colon is unremarkable. APPENDIX: Normal. URINARY BLADDER/PELVIC ORGANS: The urinary bladder is obscured by streak artifact from a right total hip arthroplasty and metallic hardware of the pubic symphysis. The prostate is similarly obscured. BONES / SOFT TISSUES: The patient is status post extensive internal fixation of the pelvis and fusion of the sacroiliac joints. CT/CT abdomen pelvis wo IV con IMPRESSION: No acute abnormality is identified. Electronically signed by: Logan Lundy MD 08/11/2025 03:48 PM [facility] [place]
[2025-08-11 14:35] VITALS: BP 112/55; PULSE 72; O2SAT 98
--- NOTE | 2025-08-11 14:35 | ECG_ITS ---
Test Reason : ABDOM PAIN Blood Pressure : */* mmHG Vent. Rate : 69 BPM Atrial Rate : 69 BPM P-R Int : 176 ms QRS Dur : 86 ms QT Int : 414 ms P-R-T Axes : 51 3 31 degrees QTcB Int : 443 ms Normal sinus rhythm Nonspecific ST and T wave abnormality Abnormal ECG When compared with ECG of 11-Jul-2025 13:41, No significant change was found Referred By: Rosibel Barclay Electronically Signed By: IVY DENISE
[2025-08-11 14:36] VITALS: BP 159/76; PULSE 71; RESP 18; TEMP 36.6; O2SAT 93; BMI 24.7
--- NOTE | 2025-08-11 14:44 | ED.ABDPAIN ---
HPI - Abdominal Pain General Chief Complaint: General Medical Stated Complaint: abd, diarrhea,vomiting x3 day Time Seen by Provider: 08/11/25 14:28 Source: patient, EMS and old records reviewed Mode of arrival: EMS Limitations: no limitations History of Present Illness ED Provider: MARIZA ABURTO narrative: 65-year-old female from home with past medical history of hypertension, stroke with left-sided hemiparesis, chronic respiratory failure on 2 L nasal cannula, cellulitis who reports 3 days of diarrhea. She states it is not bloody or black. She has no fevers or chills. She has nausea and vomiting she was unable to eat or drink. She denies any sick contacts, antibiotics in the last 4 weeks, food exposures. She has no chest pain or trouble breathing. She states she has been drinking some water here and there but she has been able to eat and 3 days. She does note a persistent dry cough she states she could possibly have pneumonia. I asked her if she usually gets diarrhea with her pneumonia she states she does not know as her pneumonia presents in many different ways. MD elicited complaint: other Pertinent past history: none Onset (ago): day(s) (3) Pain Consistency: intermittent Location: diffuse Severity: mild Quality: cramping Radiation: none Migration to: no migration Exacerbating factors: bowel movement Relieving factors: nothing Associated symptoms: nausea and vomiting Related Data Home Medications ?Medication ?Instructions ?Recorded ?Confirmed bupropion HCl 150 mg 24 hr tablet, 150 mg PO DAILY 05/22/21 07/01/24 extended release gemfibrozil 600 mg tablet 600 mg PO BID 05/22/21 07/01/24 sertraline 100 mg tablet 100 mg PO DAILY 05/22/21 07/01/24 simvastatin 40 mg tablet 40 mg PO BEDTIME 05/22/21 07/01/24 temazepam 30 mg capsule 30 mg PO BEDTIME PRN Insomnia 05/22/21 07/01/24 trazodone 150 mg tablet 450 mg PO BEDTIME 05/22/21 07/01/24 valacyclovir 500 mg tablet 500 mg PO DAILY 05/22/21 07/01/24 multivitamin 1 tab PO DAILY 10/07/22 07/01/24 pantoprazole 40 mg tablet,delayed 40 mg PO DAILY@0630 09/27/23 07/01/24 release albuterol sulfate 2.5 mg/3 mL 2.5 mg inhalation Q6H PRN SOB 03/12/24 07/01/24 (0.083 %) solution for nebulization aspirin 81 mg tablet,delayed 81 mg PO DAILY 03/12/24 07/01/24 release cholecalciferol (vitamin D3) 25 25 mcg PO DAILY 03/12/24 07/01/24 mcg (1,000 unit) tablet (Vitamin D3) docusate sodium 100 mg capsule 100 mg PO BID 03/12/24 07/01/24 (Colace) fluticasone propionate 50 1 spray intranasal BID 03/12/24 07/01/24 mcg/actuation nasal spray,suspension loratadine 10 mg tablet 10 mg PO DAILY 03/12/24 07/01/24 aripiprazole 5 mg tablet 5 mg PO DAILY 05/17/24 07/01/24 fluticasone fur. 100 mcg-umeclid 1 ea inhalation DAILY 05/17/24 07/01/24 62.5 mcg-vilant 25 mcg inhalat.powder (Trelegy Ellipta) anastrozole 1 mg tablet 1 mg PO DAILY 07/01/24 07/01/24 levalbuterol tartrate 45 2 inh inhalation Q6H 07/01/24 07/01/24 mcg/actuation aerosol inhaler (Xopenex HFA) metformin 1,000 mg tablet 1,000 mg PO BID 07/01/24 07/01/24 sodium chloride 0.2 % nasal spray 1 spray intranasal Q4H PRN dryness 07/01/24 07/01/24 inside the nose Previous Rx's ?Medication ?Instructions ?Recorded carvedilol 12.5 mg tablet 12.5 mg PO BID #180 tabs 07/03/24 doxycycline hyclate 100 mg tablet 100 mg PO BID #20 tabs 07/03/24 losartan 25 mg tablet 25 mg PO DAILY #90 tabs 07/03/24 ondansetron 4 mg disintegrating 4 mg PO TID PRN nausea and 05/28/25 tablet vomiting 5 days #10 tabs magnesium 200 mg tablet 200 mg PO DAILY 14 days #14 tabs 07/11/25 ondansetron 4 mg disintegrating 4 mg PO Q8H PRN nausea and 07/11/25 tablet vomiting #4 tabs ondansetron 4 mg disintegrating 4 mg PO Q8H PRN nausea and 08/11/25 tablet vomiting #20 tabs Allergies Allergy/AdvReac Type Severity Reaction Status Date / Time Iodinated Contrast Media (IV Allergy Unknown UNKNOWN Verified 08/11/25 14:45 Dye, Iodine Containing) zolpidem (From AMBIEN) Allergy Unknown UNKNOWN Verified 08/11/25 14:45 iv dye as a baby Allergy Mild Unknown Uncoded 08/11/25 14:45 Review of Systems Review of Systems Yes all other systems are reviewed and are negative [facility] Past Medical History Attestation statement: The following information was validated with the patient. 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 Housing: Apartment Do you presently have visiting nurse or other home services: Yes Alcohol intake: never Patient Tobacco Use Status: Current everyday Tobacco user Tobacco use type: Cigarette Cigarette Packs Per Day: 0.75 Cigarettes Per Day: 15.0 e-Cigarette/Vaping Use: Never Used Second Hand Smoke Exposure: Yes Substance Use Type: Marijuana Advance Directives: Yes Advance Directives on File: Yes Advance Directives Date on File: 02/23/23 service: No Current occupational status: disabled Physical Exam ED Vital Signs: Vital Signs - 24 hr 08/11/25 14:36 Temperature 97.9 F Pulse Rate 71 Respiratory Rate 18 Blood Pressure 159/76 H Pulse Oximetry 93 Oxygen Delivery Method Nasal Cannula BMI result Body Mass Index 24.7 Appearance: Alert. Oriented X3. No acute distress. Eyes: Pupils equal, round and reactive to light. ENT: Pharynx dry mucous membranes Neck: Normal inspection. Neck supple. CVS: Normal heart rate and rhythm. Pulses normal. Respiratory: No respiratory distress. Breath sounds diminished throughout Abdomen: Soft and nontender. She has overall benign exam at this time Skin: Skin warm and dry. Pale skin color. Normal skin turgor. Extremities: No lower extremity edema. Neuro: Oriented X 3. No motor deficit. No sensory deficit. Course Course Course Narrative: 4:50 PM 08/11/2025 (MARIZA ): Plan to continue to monitor the patient's sign-out to Dr. Turner pending labs She is currently eating and drinking will ensure she tolerates p.o. Reevaluation(s) Reevaluation #1: 6:33 PM 08/11/2025 (Fariha Turner MD): The patient was signed out to me by the previous emergency physician pending the results of laboratory testing. The patient is a 65-year-old woman who presented with an apparent complaint of 3 days of vomiting and diarrhea. Workup today included a CT scan of the abdomen and pelvis as well as a chest x-ray and labs. Labs are unremarkable. No significant sign of dehydration. The patient was feeling better while waiting in the emergency room and was eager to go home and eat a chicken salad sandwich. She looks well enough for discharge. 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 Medical Decision Making Medical Decision Making [facility] Narrative: 65-year-old female from home with past medical history of hypertension, stroke with left-sided hemiparesis, chronic respiratory failure on 2 L nasal cannula, cellulitis here with complaint of diarrhea and nausea and vomiting. She does have a soft reducible hernia. She has no pain over the hernia. She denies any exposures or risk factors. At this time given her history I am going to obtain labs, stool studies if she is able to produce, CT scan for any acute pathology. I have ordered IV Zofran. I am doing her CT scan without dye given her contrast allergy Differential Diagnosis Differential Diagnoses: The differential diagnosis associated with the presentation includes Viral syndrome, diverticular pathology, inflammatory illness of the colon, dehydration, ROSSI, anemia Admission/Observation Consideration of admission/observation: Escalation of care including admission/observation considered If workup is negative would DC home Lab Data [facility] Lab Attestation statement: I reviewed the patient's lab results. 08/11/25 16:56 08/11/25 16:56 Labs: Lab Results 08/11/25 Range/Units 16:56 WBC 6.4 (4.8-10.8) X10*3/uL RBC 3.69 L (4.20-5.50) X10*6/uL Hgb 12.1 (12.0-16.0) g/dl Hct 35.7 L (37.0-47.0) % MCV 96.7 (80.0-98.0) fL MCH 32.8 (27.0-33.0) pg MCHC 33.9 (31.0-35.0) g/dl RDW 13.8 (11.0-16.0) % Plt Count 180 (160-400) X10*3/uL MPV 10.3 (9.4-12.3) fL Immature Gran % (Auto) 0.2 (0.0-0.4) % Neut % (Auto) 43.6 L (45-73) % Lymph % (Auto) 40.8 H (20-40) % [place] % (Auto) 11.1 H (2-11) % Eos % (Auto) 3.4 (0-4) % Baso % (Auto) 0.9 (0-2) % Lymph # (Auto) 2.6 (1.2-4.9) X10*3/uL [place] # (Auto) 0.7 (0.1-1.2) X10*3/uL Eos # (Auto) 0.2 (0.0-0.4) X10*3/uL Baso # (Auto) 0.1 (0.0-0.2) X10*3/uL Abs Immat Gran (auto) 0.01 (0.00-0.03) X10*3/uL Absolute Neuts (auto) 2.8 (2.0-8.3) x10*3/uL Absolute Nucleated RBC 0.000 (0.0-0.012) X10*3/uL Nucleated RBC % (auto) 0.0 (0.0-0.2) /100WBC Sodium 142 (135-145) mmol/L Potassium 4.1 (3.3-5.1) mmol/L Chloride 112 H (96-108) mmol/L Carbon Dioxide 21 L (22-29) mmol/L Anion Gap 13 (12-20) BUN 22 H (9-16) mg/dL Creatinine 0.86 (0.5-1.4) mg/dL Estim Creat Clear Calc 60.2 Estimated GFR > 60 Random Glucose 126 H (60-115) mg/dL Calcium 9.7 (8.4-10.2) mg/dL Total Bilirubin 0.3 (0.0-1.0) mg/dL Direct Bilirubin 0.1 (0.0-0.5) mg/dL AST 24 (5-31) U/L ALT 19 (0-31) U/L Alkaline Phosphatase 74 (39-117) U/L Total Protein 7.2 (6.5-8.0) g/dL Albumin 4.5 (3.5-5.0) g/dL Lipase 59 (8-78) U/L Influenza Type A (PCR) NEGATIVE (Negative) Influenza Type B (PCR) NEGATIVE (Negative) RSV RNA Qual (PCR) NEGATIVE (Negative) SARS-CoV-2 RNA (RT-PCR) NEGATIVE (Negative) Independent Interpretation I performed an independent interpretation of an: EKG, Plain X-Ray (No pneumonia) and CT Scan (No acute cause) Interpretation: Rate: 69 Rhythm: Normal sinus Boaz: Normal Normal P waves. Normal [place]. Normal QRS complex. ST T wave : Normal no ST elevations, she has inverted T-waves in V1 and V2 qTC: 443 prior studies: Inverted T-waves date back to prior EKGs these are not new The study has been interpreted contemporaneously by me. . Radiology Impression Discussion of test interpretation with radiology: I have reviewed the radiologist's reading. Independent Historian Clinical information obtained from an independent historian. History obtained from or confirmed by: EMS and Other (Her [employer]) External Record Review External record reviewed: Inpatient record, Office record, Outpatient record, Prior outpatient labs and Prior outpatient radiology Prescription Management I considered prescription management with: Other Medications Administered Discontinued Medications Generic Name Dose Route Start Last Admin Trade Name Freq PRN Reason Stop Dose Admin Ondansetron HCl 4 mg 08/11/25 14:35 08/11/25 17:22 Ondansetron Hcl 4 Mg/2 Ml Vial IVPUSH 08/11/25 14:36 Not Given ONCE ONE Discharge Plan Discharge Clinical Impression: Nausea vomiting and diarrhea Patient Disposition: Home, Self-Care Instructions: Acute Nausea and Vomiting (DC), Acute Diarrhea (ED) Additional Instructions: Your x-ray did not show pneumonia Your CT scan did not show any acute cause of your diarrhea or symptoms Your laboratory work is not showing any significant sign of dehydration. Stay well hydrated eat a bland diet Advance her diet slowly and avoid fatty, greasy, fried, dairy foods for the next 1 week. Eat things such as rice, toast, applesauce Return for any worsening symptoms or concerns such as bloody stools, fever greater than 100.4, worsening pain or any other concerns Prescriptions: New ondansetron 4 mg tablet,disintegrating 4 mg PO Q8H PRN (Reason: nausea and vomiting) Qty: 20 0RF No Action sertraline 100 mg tablet 100 mg PO DAILY valacyclovir 500 mg tablet 500 mg PO DAILY simvastatin 40 mg tablet 40 mg PO BEDTIME temazepam 30 mg capsule 30 mg PO BEDTIME PRN (Reason: Insomnia) gemfibrozil 600 mg tablet 600 mg PO BID trazodone 150 mg tablet 450 mg PO BEDTIME bupropion HCl 150 mg tablet extended release 24 hr 150 mg PO DAILY multivitamin Tablet 1 tab PO DAILY albuterol sulfate 2.5 mg /3 mL (0.083 %) Solution For Nebulization 2.5 mg INHALATION Q6H PRN (Reason: SOB) aspirin 81 mg Tablet,Delayed Release (Dr/Ec) 81 mg PO DAILY docusate sodium [Colace] 100 mg Capsule 100 mg PO BID cholecalciferol (vitamin D3) [Vitamin D3] 25 mcg (1,000 unit) Tablet 25 mcg PO DAILY fluticasone propionate 50 mcg/actuation [place],Suspension 1 spray INTRANASAL BID Rx Instructions: administer into each nostril loratadine 10 mg Tablet 10 mg PO DAILY Trelegy Ellipta 100-62.5-25 mcg blister with device 1 ea inhalation DAILY aripiprazole 5 mg tablet 5 mg PO DAILY metformin 1,000 mg tablet 1,000 mg PO BID anastrozole 1 mg Tablet 1 mg PO DAILY levalbuterol tartrate [Xopenex HFA] 45 mcg/actuation Hfa Aerosol Inhaler 2 inh INHALATION Q6H sodium chloride 0.2 % [place],Non-Aerosol 1 spray INTRANASAL Q4H PRN (Reason: dryness inside the nose) carvedilol 12.5 mg Tablet 12.5 mg PO BID Qty: 180 0RF Protocol: Hold for SBP/HR < HOLD for SBP < : 90 HOLD for HR < : 60 losartan 25 mg Tablet 25 mg PO DAILY Qty: 90 0RF Protocol: Hold for SBP< HOLD for SBP < : 90 doxycycline hyclate 100 mg tablet 100 mg PO BID Qty: 20 0RF Rx Instructions: End date 07/02/2024 ondansetron 4 mg tablet,disintegrating 4 mg PO TID PRN (Reason: nausea and vomiting) 5 Days Qty: 10 0RF ondansetron 4 mg tablet,disintegrating 4 mg PO Q8H PRN (Reason: nausea and vomiting) Qty: 4 0RF magnesium 200 mg tablet 200 mg PO DAILY 14 Days Qty: 14 0RF pantoprazole 40 mg tablet,delayed release (DR/EC) 40 mg PO DAILY@0630 Referrals: Meghan Collier, [employer] [Primary Care Provider, Family Practice] Print Language: Malaysian
[2025-08-11 17:01] LABS: Hematocrit 35.7 % (37.0-47.0); Hemoglobin 12.1 g/dl (12.0-16.0); Imm Gran Abs Auto 0.01 X10*3/uL (0.00-0.03); Imm Gran Pct Auto 0.2 % (0.0-0.4); Lymphocytes Absolute Auto 2.6 X10*3/uL (1.2-4.9); MANUAL DIFF FLAG NO; Mean Corpuscular HGB Conc 33.9 g/dl (31.0-35.0); Mean Corpuscular Hemoglobin 32.8 pg (27.0-33.0); Mean Corpuscular Volume 96.7 fL (80.0-98.0); NRBC Abs Auto 0.000 X10*3/uL (0.0-0.012); NRBC Pct Auto 0.0 /100WBC (0.0-0.2); Platelet Count 180 X10*3/uL (160-400); Red Blood Count 3.69 X10*6/uL (4.20-5.50); White Blood Count 6.4 X10*3/uL (4.8-10.8)
[2025-08-11 17:17] LABS: Alanine Aminotransferase 19 U/L (0-31); Albumin Level 4.5 g/dL (3.5-5.0); Alkaline Phosphatase 74 U/L (39-117); Anion Gap 13 (12-20); Aspartate Amino Transferase 24 U/L (5-31); Blood Urea Nitrogen 22 mg/dL (9-16); Calcium 9.7 mg/dL (8.4-10.2); Carbon Dioxide 21 mmol/L (22-29); Chloride 112 mmol/L (96-108); Creatinine Clr Calc Pharmacy 60.2; Estimated Glomerular Filt Rate > 60; Lipase 59 U/L (8-78); Potassium 4.1 mmol/L (3.3-5.1); Sodium 142 mmol/L (135-145); Total Protein 7.2 g/dL (6.5-8.0)
[2025-08-11 17:50] LABS: Resp Syncy Virus RNA Qual PCR NEGATIVE (Negative); SARS COV2 PCR INHOUSE NEGATIVE (Negative)
[2025-08-11 18:43] VITALS: BP 159/76; PULSE 71; RESP 18; TEMP 36.6; O2SAT 93
== END 2025-08-11 18:44 | disposition home or self-care (01) ==
PROVIDERS: Emergency Medicine; Emergency Provider Emergency Medicine; PCP Nurse Practitioner Family
DX: R11.2 Nausea with vomiting, unspecified (principal); R19.7 Diarrhea, unspecified; R25.2 Cramp and spasm; E11.9 Type 2 diabetes mellitus without complications; R10.23 Pelvic and perineal pain bilateral; F17.210 Nicotine dependence, cigarettes, uncomplicated; Z79.899 Other long term (current) drug therapy; Z79.84 Long term (current) use of oral hypoglycemic drugs; Z03.818 Encounter for observation for suspected exposure to other biological agents ruled out
CPT/HCPCS: 36415; 71045; 74176; 80048; 80076; 83690; 85025; 87637; 93005; 96374; 99284

== ENCOUNTER → 2025-08-11 14:35 | Outpatient (BNV) | payer MEDICARE, MEDICAID, SELFPAY | PROVIDERS: Emergency Provider Emergency Medicine; PCP Nurse Practitioner Family; Visit Provider Internal Medicine | DX: R10.9 Unspecified abdominal pain (principal) | CPT/HCPCS: 93010 ==

== ENCOUNTER → 2025-08-11 14:35 | Outpatient (BNV) | payer MEDICARE, MEDICAID, SELFPAY | PROVIDERS: Emergency Provider Emergency Medicine; PCP Nurse Practitioner Family; Visit Provider Radiology Diagnostic Radiology | DX: R19.7 Diarrhea, unspecified (principal); R10.32 Left lower quadrant pain; J44.9 Chronic obstructive pulmonary disease, unspecified; I51.7 Cardiomegaly | CPT/HCPCS: 71045; 74176 ==